=== PATIENT | female | born 1950 | race Two or more races ===

== ENCOUNTER 2025-02-16 22:43 | Inpatient (IN) | payer BC, OTHER ==
[~2025-02-16] VITALS: Ht 162.6 cm; Wt 73.0 kg
[2025-02-16] MEDS: SODIUM CHLORIDE 0.9% 1,000 ML IVB ONE (23:45)
--- NOTE | 2025-02-16 23:45 | ED.PDOC ---
GI ASSESSMENT HPI Comments 79-year-old female who came to ER for abdominal pain. Patient does have history of hypertension and liver cirrhosis. States for the past month she has been having diffuse abdominal pain and abdominal distention associated episodes of diarrhea. 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 Family History Family History: Reviewed,noncontributory to illness Social History Smoker: Non-Smoker Alcohol: Denies ETOH Use Drugs: Denies Drug Use Lives In: Home Constitutional: denies: chills, diaphoresis, fatigue, fever, malaise, sweats, weakness, others EENTM: denies: blurred vision, double vision, ear bleeding, ear discharge, ear drainage, ear pain, ear ringing, eye pain, eye redness, hearing loss, mouth pain, mouth swelling, nasal discharge, nose bleeding, nose congestion, nose pain, photophobia, tearing, throat pain, throat swelling, voice changes, others Respiratory: denies: cough, hemoptysis, orthopnea, SOB at rest, shortness of breath, SOB with excertion, stridor, wheezing, others Cardiovascular: denies: chest pain, dizzy spells, diaphoresis, Dyspnea on exertion, edema, irregular heart beat, left arm pain, lightheadedness, palpitations, PND, syncope, others Gastrointestinal: reports: abdomen distended, abdominal pain, diarrhea; denies: blood streaked bowels, constipated, dysphagia, difficulty swallowing, hematemesis, melena, nausea, poor appetite, poor fluid intake, rectal bleeding, rectal pain, vomiting, others Genitourinary: denies: abnormal vagina bleeding, burning, dyspareunia, dysuria, flank pain, frequency, hematuria, incontinence, pain, , vagina discharge, urgency, others Neurological: denies: dizziness, fainting, headache, left sided numbness, left sided weakness, numbness, paresthesia, pre-existing deficit, right sided numbness, right sided weakness, seizure, speech problems, tingling, tremors, weakness, others Musculoskeletal: denies: back pain, gout, joint pain, joint swelling, muscle pain, muscle stiffness, neck pain, others Integumetry: denies: bruises, change in color, change in hair/nails, dryness, laceration, lesions, lumps, rash, wounds, others Allergic/Immunocompromised: denies: Difficulty Healing, Frequent Infections, Hives, Itching, others Hematologic/Lymphatic: denies: anemia, blood clots, easy bleeding, easy bruising, swollen glands, others Endocrine: denies: excessive hunger, excessive sweating, excessive thirst, excessive urination, flushing, intolerance to cold, intolerance to heat, unexplained weight gain, unexplained weight loss, others Psychiatric: denies: anxiety, bipolar disorder, depression, hopeless, panic disorder, schizophrenia, sleepless, suicidal, others Physical Exam General Appearance: No Apparent Distress, Normal HEENT: Normal ENT Inspection, Pharynx Normal, TMs Normal Neck: Full Range of Motion, Non-Tender, Normal, Normal Inspection Respiratory: Chest Non-Tender, Lungs Clear, No Accessory Muscle Use, No Respiratory Distress, Normal Breath Sounds Cardiovascular: No Edema, No JVD, No Murmur, No Gallop, Normal Peripheral Pulses, Regular Rate/Rhythm Breast Exam: Deferred Gastrointestinal: No Organomegaly, Non Tender, No Pulsatile Mass, Normal Bowel Sounds, Soft Genitalia: Deferred Pelvic: Deferred Rectal: Deferred Extremities: No calf tenderness, Normal capillary refill, Normal inspection, Normal range of motion, Non-tender, No pedal edema Musculoskeletal : Apperance: Normal Neurologic: Alert, para professional II-XII nml as Tested, No Motor Deficits, Normal Affect, Normal Mood, No Sensory Deficits Cerebellar Function: Normal Reflexes: Normal Skin: Dry, Normal Color, Warm Lymphatic: No Adenopathy EKG EKG : Pulse Rate (adult): 78 Comments Accelerated junctional rhythm Was a procedure done? Was a procedure done?: No GI differential Dx Differential Diagnosis: Diverticular disease, Gastritis/PUD, Gastroenteritis, Pancreatitis X-Ray, Labs, Meds, VS Vital Signs Date Time Temp Pulse Resp B/P (MAP) Pulse Ox O2 Delivery O2 Flow Rate FiO2 02/17/25 02:18 79 20 105/72 (83) 99 02/17/25 01:02 72 18 99/51 (67) 97 02/17/25 00:14 75 19 94 Room Air* 0 21 02/17/25 00:14 98.4 75 18 97/58 (71) 94 98.4 02/16/25 23:45 78 02/16/25 22:51 97.6 78 16 130/97 95 97.6 02/16/25 22:47 78 Lab Test 02/16/25 23:57 Range/Units White Blood Count 10.2 4.4-10.8 10^3/uL Red Blood Count 4.50 4.0-5.20 10^6/uL Hemoglobin 13.6 12.2-16.2 g/dL Hematocrit 40.9 36.0-46.0 % Mean Corpuscular Volume 90.9 80.0-100.0 fL Mean Corpuscular Hemoglobin 30.1 28.0-32.0 pg Mean Corpuscular Hemoglobin Concent 33.2 32.0-36.0 g/dL Red Cell Distribution Width 18.8 H 11.8-14.3 % Platelet Count 334 140-450 10^3/uL Mean Platelet Volume 8.7 6.9-10.8 fL Neutrophils (%) (Auto) 77.8 37.0-80.0 % Lymphocytes (%) (Auto) 10.6 10.0-50.0 % Monocytes (%) (Auto) 10.5 0.0-12.0 % Eosinophils (%) (Auto) 0.9 0.0-7.0 % Basophils (%) (Auto) 0.2 0.0-2.0 % Neutrophils # (Auto) 7.9 1.6-8.6 10 ^3/uL Lymphocytes # (Auto) 1.1 0.4-5.4 10 ^3/uL Monocytes # (Auto) 1.1 0-1.3 10 ^3/uL Eosinophils # (Auto) 0.1 0-0.8 10 ^3/uL Basophils # (Auto) 0 0-0.2 10 ^3/uL Nucleated Red Blood Cells 0.0 % Sodium Level 136 136-145 mmol/L Potassium Level 7.1 *H 3.5-5.1 mmol/L Chloride Level 107 98-107 mmol/L Carbon Dioxide Level 21 20-31 mmol/L Anion Gap 8 5-15 Blood Urea Nitrogen 25 H 9-23 mg/dL Creatinine 1.93 H 0.550-1.02 mg/dL Glomerular Filtration Rate Calc 27 >90 mL/min BUN/Creatinine Ratio 13.0 10.0-20.0 Serum Glucose 98 74-106 mg/dL Calcium Level 8.8 8.7-10.4 mg/dL Total Bilirubin 4.5 H 0.2-1.0 mg/dL Aspartate Amino Transferase (AST) 105 H 13-40 U/L Alanine Aminotransferase (ALT) 128 H 7-40 U/L Alkaline Phosphatase 990 H 46-116 U/L Total Protein 5.2 L 5.7-8.2 g/dL Albumin 2.7 L 3.2-4.8 g/dL Lipase 25 12-53 U/L Current Medications Medications (Trade) Dose Ordered Sig/Zahraa Route Start Time Stop Time Status Last Admin Sodium Chloride 1,000 ml @ 1,000 mls/hr Q1H ONCE IVB 02/16/25 23:45 02/17/25 00:44 DC 02/16/25 23:45 Time of 1ST Reevaluation: 23:43 Reevaluation 1ST: Unchanged Patient Education/Counseling: Diagnosis, Treatment Family Education/Counseling: No Family Present SEPSIS Sepsis Screen Date sepsis recognized/suspect: Feb 16, 2025 Time Sepsis recognized/suspect: 2301 Recent Procedure: No On Antibiotic Therapy: No Respiratory Rate >20: No Heart Rate >90: No Temp<36 C (96.8 F) or >38.3 C: No SBP <90 or MAP <65 mmHG: No New Acute Mental Status Change: No Is the patient on CPAP, BIPAP,: No Physician Orders Electrocardigram (02/16/25 22:49) Urinalysis (02/16/25 23:43) Ct Ab Pel Wo Con-No Oral Or Iv (02/16/25 23:43) Sodium Zirconium Cyclosilicate (Lokelma) (02/17/25 03:45) Insulin R (Human) (Insulin R) (02/17/25 03:45) Dextrose 50% Syringe (02/17/25 03:45) Vital Signs Date Time Temp Pulse Resp B/P (MAP) Pulse Ox O2 Delivery O2 Flow Rate FiO2 02/17/25 02:18 79 20 105/72 (83) 99 02/17/25 01:02 72 18 99/51 (67) 97 02/17/25 00:14 75 19 94 Room Air* 0 21 02/17/25 00:14 98.4 75 18 97/58 (71) 94 98.4 02/16/25 23:45 78 02/16/25 22:51 97.6 78 16 130/97 95 97.6 02/16/25 22:47 78 Laboratory Tests Test 02/16/25 23:57 White Blood Count 10.2 10^3/uL (4.4-10.8) Medications Medications Dose Ordered Sig/Zahraa Route Start Time Stop Time Status Last Admin Dose Admin Sodium Chloride 1,000 ml @ 1,000 mls/hr Q1H ONCE IVB 02/16/25 23:45 02/17/25 00:44 DC 02/16/25 23:45 Departure 1 Departure Time of Disposition: 03:40 Impression: Primary Impression: Liver cirrhosis Additional Impressions: Acute renal failure Hyperkalemia Disposition: ADMITTED INPATIENT Admit to: Tele Condition: Critical Comments 74-year-old female with a history of liver cirrhosis now with generalized abdominal pain. Her CT shows cirrhosis and some ascites. Her lab review shows a high BUN creatinine of 25 and 1.93. LFT Ts are elevated. Potassium is high at 7.1. I ordered Lokelma, insulin and dextrose to help with the potassium. Patient will need to be admitted for supportive care and further workup. Critical Care Note Critical Care Time?: Yes (35 min-critical care time only) Critical care comment: Total critical care time: Approximately 36 minutes Due to a high probability of clinically significant, life threatening deterio ration, the patient required my highest level of preparedness to intervene emergently and I personally spent this critical care time directly and personally managing the patient. This critical care time included obtaining a history; examining the patient; pulse oximetry; ordering and review of studies; arranging urgent treatment with development of a management plan; evaluation of patient's response to treatment; frequent reassessment; and, discussions with other providers. This critical care time was performed to assess and manage the high probability of imminent, life-threatening deterioration that could result in multi-organ failure. It was exclusive of separately billable procedures and treating other patients. Stability Stability form required: No Heart Score Heart Score: Heart Score Response (Comments) Value History N/A 0 EKG N/A 0 Age N/A 0 Risk Factors N/A 0 Troponin N/A 0 Total 0 I personally scribed for KENNY MORRISSEY MD ([email or web address]) on 02/16/25 at 23:45. Electronically submitted by Tay Araya ([facility]). KENNY MORRISSEY MD Feb 16, 2025 23:45
[2025-02-17] VITALS (36 sets, daily range): BP systolic 85–113; BP diastolic 50–69; PULSE 68–111; RESP 10–25; TEMP 97.6–98.2; O2SAT 94–98
[2025-02-17] MEDS: IOHEXOL 300 MG/ML 100ML BOTTLE IJ ONE (00:16)
[2025-02-17 00:24] LABS: Hematocrit 40.9 % (36.0-46.0); Hemoglobin 13.6 g/dL (12.2-16.2); Mean Corpuscular Hemoglobin 30.1 pg (28.0-32.0); Mean Corpuscular Volume 90.9 fL (80.0-100.0); Nucleated Red Blood Cells % 0.0 %
[2025-02-17 00:27] LABS: Anion Gap 8 (5-15); BUN/Creatinine Ratio 13.0 (10.0-20.0); Calcium 8.8 mg/dL (8.7-10.4); Carbon Dioxide 21 mmol/L (20-31); Chloride 107 mmol/L (98-107); Glucose 98 mg/dL (74-106); Lipase 25 U/L (12-53)
[2025-02-17 00:30] LABS: Alanine Aminotransferase 128 U/L (7-40); Albumin 2.7 g/dL (3.2-4.8); Bilirubin, Total 4.5 mg/dL (0.2-1.0); Blood Urea Nitrogen 25 mg/dL (9-23); Sodium 136 mmol/L (136-145); Total Protein 5.2 g/dL (5.7-8.2)
[2025-02-17 00:33] LABS: Potassium 7.1 mmol/L (3.5-5.1)
[2025-02-17 00:49] LABS: Alkaline Phosphatase 990 U/L (46-116)
--- NOTE | 2025-02-17 03:28 | DVH ---
Exam: CT CT AB PEL WO CON-NO ORAL OR IV History: abd pain Comparison Study: None Technique: Multidetector spiral CT of the chest, abdomen and pelvis was performed from lower neck to pubic symphysis Axial, coronal and sagittal multiplanar reformats were performed by the technologist on a separate workstation. Radiation Dose : 1. Chest/Abdomen/Pelvis: CTDIvol 17.46 mGy, DLP 1058.29 mGy*cm. Findings: Lower neck: Normal thyroid. Lungs: Moderate left and small right pleural effusions with adjacent atelectasis. 6 mm anterior right upper lobe pulmonary nodule. No focal consolidation or pneumothorax. Heart/Vascular Structures: Normal heart size. Trace pericardial effusion versus thickening. Lymph Nodes: No adenopathy Pleura: No pleural effusion or significant pneumothorax. Liver: Cirrhotic hepatic morphology. The liver is otherwise normal in size. No focal lesions. Normal hepatic vascular enhancement. Gallbladder and Biliary Tree: Status post cholecystectomy. Spleen: Unremarkable Pancreas: The pancreas is normal in appearance without focal lesions or abnormal enhancement. Adrenal Glands: Unremarkable Kidneys: Moderate bilateral renal atrophy. Kidneys otherwise demonstrate normal symmetric enhancement without focal lesions, calculi or hydronephrosis. 4.1 cm peripherally calcified soft tissue attenuation nodule within the superior right renal pole. Bladder: Unremarkable Bowel: The stomach is grossly normal in appearance. Small bowel and colon are normal in caliber and distribution. The appendix is not visualized; however, no secondary findings of acute appendicitis identified. Ascites: Large volume abdominopelvic ascites. Lymphadenopathy: No mesenteric, retroperitoneal or periportal lymphadenopathy. Abdominal Wall and Mesentery: Moderate diffuse anasarca. Vasculature: The visualized abdominal aorta is normal in size and caliber. Abdominal and pelvic vessels demonstrate normal enhancement. Pelvic Organs: Unremarkable Musculoskeletal: No aggressive focal bony lesions, acute fractures or dislocation. IMPRESSION: 1. Moderate left and small right pleural effusions with adjacent atelectasis. 2. 2.6 mm anterior right upper lobe pulmonary nodule. 3. Cirrhosis 4. Large volume abdominopelvic ascites. 5. Moderate diffuse anasarca. 6. 4.1 cm peripherally calcified soft tissue attenuation nodule within the superior right renal pole.
[2025-02-17] MEDS: SODIUM ZIRCONIUM CYCL 10 GM PAK PO ONE (04:41)
[2025-02-17] MEDS: DEXTROSE (50%) 50ML SYRG IV ONE ×2 (04:42→08:39)
[2025-02-17] MEDS: InsuLIN REG 1unit/0.01ml Soln (100units/ml) IV ONE ×2 (04:44→08:39)
[2025-02-17] MEDS: FUROSEMIDE 40 MG/4 ML VIAL IV ONE (05:32)
[2025-02-17 06:42] LABS: INR 2.66 (0.9-1.15); Prothrombin Time 25.6 sec (9.3-11.8); Sodium 138 mmol/L (136-145)
[2025-02-17 06:43] LABS: Anion Gap 8 (5-15); Carbon Dioxide 22 mmol/L (20-31)
[2025-02-17 06:44] LABS: Calcium 9.0 mg/dL (8.7-10.4)
[2025-02-17 06:48] LABS: BUN/Creatinine Ratio 13.7 (10.0-20.0)
[2025-02-17 06:57] LABS: Blood Urea Nitrogen 28 mg/dL (9-23); Chloride 108 mmol/L (98-107); Glucose 161 mg/dL (74-106); Potassium 6.0 mmol/L (3.5-5.1)
[2025-02-17] MEDS: ALBUTEROL SULF 2.5 MG/0.5ML(0.5%) NEB SOLN ONE (07:34)
--- NOTE | 2025-02-17 07:39 | DVHHP2 ---
Admitting Diagnosis: Liver Cirrhosis, Ascites, GRACE, Hyperkalemia, Elevated LFT's History of Present Illness History Source: Patient, Family Exam Limitations: No limitations HPI Mrs. Melvina Santiago is an 79-year-old female with a history of hypertension, hyperlipidemia , recent liver cirrhosis diagnosis who presents with a chief complaint of abdominal pain with distention. Patient family reports patient was recently diagnosed with liver cirrhosis a month ago and has been progressively getting worse, abdominal distention has increased significantly in the past couple of days, reported patient has been on PO Eliquis 2.5 mg BID for liver thrombosis, and has been taking PO Potassium for low potassium levels. States for the past month she has been having diffuse abdominal pain and abdominal distention associated episodes of diarrhea. Denies any chest pain, dyspnea, nausea or vomiting. Patient denies any history of alcohol consumption. Patient admitted for further evaluation and treatment. Past Medical History Cardiac: HTN, Hyperlipidemia Pulmonary: No pertinent Hx Central Nervous System: No pertinent Hx GI: No pertinent Hx Hemotology/Oncology: No pertinent Hx Hepatobiliary: Cirrhosis Psychiatric: No pertinent Hx Musculoskeletal: No pertinent Hx Rheumotologic: No pertinent Hx Infectious Disease: No peritnent Hx ENT: No pertinent Hx Renal/: No pertinent Hx Endocrine: No pertinent Hx Dermatology: No pertinent Hx Smoker: No Hx (Negative) Alocohol: None Drugs: None Lives with: With family Domestic Violence: Neg Review of Systems Constitutional: No symptom reported Ears, Nose, & Throat: No symptom reported Eyes: No symptom reported Pulmonary/Respiratory: No symptom reported Cardiovascular: No symptom reported Gastrointestinal: Abdominal Pain, Other (abdominal distention) Genitourinary: No symptom reported Musculoskeletal: No symptom reported Skin: No symptom reported Psychiatric: No symptom reported Endocrine: No symptom reported Hemotologic/Lymphatic: No symptom reported H&P Exam Vital Signs Vital Signs Date Time Temp Pulse Resp B/P (MAP) Pulse Ox O2 Delivery O2 Flow Rate FiO2 02/17/25 06:57 83 23 87/61 (70) 95 02/17/25 00:14 Room Air* 0 21 02/17/25 00:14 98.4 98.4 General Appeara: Other (ill appearing, jaundice) Head Exam: Normal inspection Neck Exam: Normal inspection, Non-tender, Normal alignment Eye Exam: bilateral eye Normal inspection, bilateral eye PERRL, bilateral eye EOMI Ear Exam: bilateral ear Auricle normal Nasal Exam: Normal inspection Mouth: Normal Inspection Pulmonary/Respiratory: Normal inspection, Normal breath sounds, Chest non- tender, Lungs clear Cardiovascular/Chest: Normal inspection, Regular rate, Normal Rhythm Peripheral Pulses: 2+ dorsalis pedis (R), 2+ dorsalis pedis (L), 2+ Radial (R), 2+ Radial (L) Abdominal Exam: Normal bowel sounds, Other (distention) Abdominal Pain Onset Location: Generalized abdomen Legs: bilateral leg swelling [employer] WORK[employer] Exam: Normal hearing, Normal speech, PERRL Neuro/Mental St: Alert, Oriented Appearance: Appropriate appearance, Appropriate insight Eye contact/ Speech: Cooperative, Good eye contact, Normal speech Thoughts/Psych: Normal thought pattern Skin Exam: Normal inspection, Warm/dry, Jaundice SEPSIS Sepsis Screen Date sepsis recognized/suspect: Feb 17, 2025 Time Sepsis recognized/suspect: 25 Recent Procedure: No On Antibiotic Therapy: No Respiratory Rate >20: No Heart Rate >90: No Temp<36 C (96.8 F) or >38.3 C: No SBP <90 or MAP <65 mmHG: No New Acute Mental Status Change: No Is the patient on CPAP, BIPAP,: No Physician Orders Urinalysis (02/16/25 23:43) Ct Ab Pel Wo Con-No Oral Or Iv (02/16/25 23:43) *Dr. Coyle [facility] (02/17/25 05:03) * Radiologist Consult (02/17/25 05:03) *Consult (02/17/25 05:03) * [facility] Supervisor Dry Paste (02/17/25 05:09) Comprehensive Metabolic Panel (02/18/25 05:00) Comprehensive Metabolic Panel (02/19/25 05:00) Comprehensive Metabolic Panel (02/20/25 05:00) Complete Blood Count (02/18/25 05:00) Complete Blood Count (02/19/25 05:00) Complete Blood Count (02/20/25 05:00) Electrocardigram (02/17/25 07:17) Potassium (02/17/25 11:17) Insulin R (Human) (Insulin R) (02/17/25 07:30) Dextrose 50% Syringe (02/17/25 07:30) Albuterol Medneb (Ventolin Medneb) (02/17/25 07:30) Sodium Bicarb 50meq/50ml Syr (02/17/25 07:30) Admit (02/17/25 07:18) Stat Ekg For Chest Pain (02/17/25 07:18) Notify Of Changes From Base (02/17/25 07:18) Billing Coordinator For 24 Hours (02/17/25 07:18) Emergency Dysrhythmia Protocol (02/17/25 07:18) Rhythm Strips Once Every Shift (02/17/25 07:18) Oxygen By Nasal Cannula (02/17/25 07:18) Vital Signs Date Time Temp Pulse Resp B/P (MAP) Pulse Ox O2 Delivery O2 Flow Rate FiO2 02/17/25 06:57 83 23 87/61 (70) 95 02/17/25 05:32 98/60 02/17/25 04:00 93 15 98/60 (73) 90 02/17/25 02:18 79 20 105/72 (83) 99 02/17/25 01:02 72 18 99/51 (67) 97 02/17/25 00:14 75 19 94 Room Air* 0 21 02/17/25 00:14 98.4 75 18 97/58 (71) 94 98.4 02/16/25 23:45 78 Laboratory Tests Test 02/16/25 23:57 White Blood Count 10.2 10^3/uL (4.4-10.8) Medications Medications Dose Ordered Sig/Zahraa Route Start Time Stop Time Status Last Admin Dose Admin Dextrose 50 ml ONCE ONCE IV 02/17/25 03:45 02/17/25 03:46 DC 02/17/25 04:42 50 ML Insulin Human Regular 10 units ONCE ONCE IV 02/17/25 03:45 02/17/25 03:46 DC 02/17/25 04:44 10 UNITS Sodium Chloride 1,000 ml @ 1,000 mls/hr Q1H ONCE IVB 02/16/25 23:45 02/17/25 00:44 DC 02/16/25 23:45 1,000 MLS/HR Zirconium Oxide 10 gm ONCE ONCE PO 02/17/25 03:45 02/17/25 03:46 DC 02/17/25 04:41 10 GM Labs/Xrays Labs Test 02/17/25 05:23 02/17/25 04:31 02/16/25 23:57 Range/Units Prothrombin Time 25.6 H 9.3-11.8 sec Prothrombin Time INR 2.66 H 0.9-1.15 Sodium Level 138 136-145 mmol/L Potassium Level 6.0 *H 3.5-5.1 mmol/L Chloride Level 108 H 98-107 mmol/L Carbon Dioxide Level 22 20-31 mmol/L Anion Gap 8 5-15 Blood Urea Nitrogen 28 H 9-23 mg/dL Creatinine 2.05 H 0.550-1.02 mg/dL Glomerular Filtration Rate Calc 25 >90 mL/min BUN/Creatinine Ratio 13.7 10.0-20.0 Serum Glucose 161 H 74-106 mg/dL Calcium Level 9.0 8.7-10.4 mg/dL POC Glucose 83 70-106 mg/dl White Blood Count 10.2 4.4-10.8 10^3/uL Red Blood Count 4.50 4.0-5.20 10^6/uL Hemoglobin 13.6 12.2-16.2 g/dL Hematocrit 40.9 36.0-46.0 % Mean Corpuscular Volume 90.9 80.0-100.0 fL Mean Corpuscular Hemoglobin 30.1 28.0-32.0 pg Mean Corpuscular Hemoglobin Concent 33.2 32.0-36.0 g/dL Red Cell Distribution Width 18.8 H 11.8-14.3 % Platelet Count 334 140-450 10^3/uL Mean Platelet Volume 8.7 6.9-10.8 fL Neutrophils (%) (Auto) 77.8 37.0-80.0 % Lymphocytes (%) (Auto) 10.6 10.0-50.0 % Monocytes (%) (Auto) 10.5 0.0-12.0 % Eosinophils (%) (Auto) 0.9 0.0-7.0 % Basophils (%) (Auto) 0.2 0.0-2.0 % Neutrophils # (Auto) 7.9 1.6-8.6 10 ^3/uL Lymphocytes # (Auto) 1.1 0.4-5.4 10 ^3/uL Monocytes # (Auto) 1.1 0-1.3 10 ^3/uL Eosinophils # (Auto) 0.1 0-0.8 10 ^3/uL Basophils # (Auto) 0 0-0.2 10 ^3/uL Nucleated Red Blood Cells 0.0 % Total Bilirubin 4.5 H 0.2-1.0 mg/dL Aspartate Amino Transferase (AST) 105 H 13-40 U/L Alanine Aminotransferase (ALT) 128 H 7-40 U/L Alkaline Phosphatase 990 H 46-116 U/L Total Protein 5.2 L 5.7-8.2 g/dL Albumin 2.7 L 3.2-4.8 g/dL Lipase 25 12-53 U/L Assessment/Plan Problem List: (1) Liver cirrhosis (2) Acute renal failure (3) Hyperkalemia Plan This is an 79-year-old female with a known history of hypertension, hyperlipidemia , recent liver cirrhosis diagnosis who presents to the hospital with abdominal pain with distention. Patient was found to have 1. Liver Cirrhosis 2. Ascites 3. Pleural Effusions 4. Acute Kidney Injury 5. Hyperkalemia 6. Elevated LFT's 7. Hypertension 8. Hyperlipidemia Plan Admit ICU Interventional Radiology consultation for Paracentesis Nephrology consultation, Monitor BMP, electrolytes Pulmonology consultation thoracentesis Gastroenterology consultation Daily [facility] Social Service consult Discussed all above with patient and patient family who verbalized agreement and understanding of care plan. All questions were answered. Discussed with supervising MD. Plan discussed with: Patient, Other Code Visit Code Visit Total Time (mins): 45 Additional Comments Additional Comments Additional Comments 79-year-old female with a known history of hypertension, dyslipidemia, recent diagnosis of liver cirrhosis, portal vein thrombosis currently on anticoagulation presented to the hospital with the abdominal pain found to have 1. Acute hyperkalemia suspect triamterene induced 2. Acute kidney injury rule out hepatorenal syndrome 3. GRACE suspect secondary to vasomotor nephropathy 4. Portal vein thrombosis 5. Liver cirrhosis with a ascites 6. Elevated liver function tests 7. Secondary Coagulopathy due to liver disease -IR consult for paracentesis, we will resume Eliquis after the procedure, hold triamterene, GI consultation. ANNA CHAVEZ Feb 17, 2025 07:39 WM ARANGO MD Feb 17, 2025 14:07
[2025-02-17] MEDS: ALBUTEROL SULF 2.5 MG/0.5ML(0.5%) NEB SOLN NEB ONE (07:51)
[2025-02-17] MEDS: SODIUM BICARB 8.4% 50Meq/50ml SYR INJ IV ONE (08:39)
[2025-02-17 10:22] LABS: Chloride 107 mmol/L (98-107); Potassium 5.2 mmol/L (3.5-5.1); Sodium 138 mmol/L (136-145)
[2025-02-17 10:23] LABS: Anion Gap 11 (5-15); Carbon Dioxide 20 mmol/L (20-31)
[2025-02-17 10:24] LABS: Calcium 8.8 mg/dL (8.7-10.4)
[2025-02-17 10:28] LABS: BUN/Creatinine Ratio 12.6 (10.0-20.0)
[2025-02-17 10:31] LABS: Blood Urea Nitrogen 25 mg/dL (9-23); Glucose 164 mg/dL (74-106)
[2025-02-17] MEDS ORDERED: PHYTONADIONE (VIT K)10 MG/ML 1ML VIAL IV ONE (12:15)
[2025-02-17] MEDS: NOREPINEPHRINE 8 MG/250ML KIT 250 ML IV SCH (13:40)
--- NOTE | 2025-02-17 15:27 | DVHINCON2 ---
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 Was seen in the emergency room where imaging demonstrated moderate ascites and she was admitted for further workup. Chest x-ray demonstrated bilateral pleural effusions and pulmonology was consulted to assist in management. Past Medical History Cardiac: No pertinent Hx Pulmonary: No pertinent Hx Central Nervous System: No pertinent Hx GI: No pertinent Hx Hemotology/Oncology: No pertinent Hx Hepatobiliary: Cirrhosis Psychiatric: No pertinent Hx Musculoskeletal: No pertinent Hx Rheumotologic: No pertinent Hx Infectious Disease: No peritnent Hx ENT: No pertinent Hx Renal/: No pertinent Hx Endocrine: No pertinent Hx Dermatology: No pertinent Hx Past Surgical History: No pertinent Hx Family History: No pertinent Hx Smoker: No Hx (Negative) Alocohol: None Drugs: None Lives with: With family Domestic Violence: Neg Review of Systems Gastrointestinal: Other (distention ) H&P Exam Vital Signs Vital Signs Date Time Temp Pulse Resp B/P (MAP) Pulse Ox O2 Delivery O2 Flow Rate FiO2 02/17/25 13:40 80/53 02/17/25 10:59 105 19 96 02/17/25 07:57 97.8 97.8 02/17/25 07:57 Room Air* 0 21 General Appeara: Well developed, Well nourished, Normal Appearance Head Exam: Normal inspection Neck Exam: Normal inspection, Non-tender, Normal alignment Eye Exam: bilateral eye Normal inspection, bilateral eye PERRL, bilateral eye EOMI Ear Exam: bilateral ear Auricle normal, bilateral ear Canal normal, bilateral ear TM normal Nasal Exam: Normal inspection Mouth: Normal Inspection Pulmonary/Respiratory: Decreased breath sounds Cardiovascular/Chest: Normal inspection Peripheral Pulses: 4+ Radial (R), 4+ Radial (L), 4+ Brachial (R), 4+ Brachial (L) Labs/Xrays Labs Test 02/17/25 09:57 02/17/25 08:33 02/17/25 05:23 02/16/25 23:57 Range/Units Sodium Level 138 136-145 mmol/L Potassium Level 5.2 H 3.5-5.1 mmol/L Chloride Level 107 98-107 mmol/L Carbon Dioxide Level 20 20-31 mmol/L Anion Gap 11 5-15 Blood Urea Nitrogen 25 H 9-23 mg/dL Creatinine 1.98 H 0.550-1.02 mg/dL Glomerular Filtration Rate Calc 26 >90 mL/min BUN/Creatinine Ratio 12.6 10.0-20.0 Serum Glucose 164 H 74-106 mg/dL Calcium Level 8.8 8.7-10.4 mg/dL POC Glucose 112 H 70-106 mg/dl Prothrombin Time 25.6 H 9.3-11.8 sec Prothrombin Time INR 2.66 H 0.9-1.15 White Blood Count 10.2 4.4-10.8 10^3/uL Red Blood Count 4.50 4.0-5.20 10^6/uL Hemoglobin 13.6 12.2-16.2 g/dL Hematocrit 40.9 36.0-46.0 % Mean Corpuscular Volume 90.9 80.0-100.0 fL Mean Corpuscular Hemoglobin 30.1 28.0-32.0 pg Mean Corpuscular Hemoglobin Concent 33.2 32.0-36.0 g/dL Red Cell Distribution Width 18.8 H 11.8-14.3 % Platelet Count 334 140-450 10^3/uL Mean Platelet Volume 8.7 6.9-10.8 fL Neutrophils (%) (Auto) 77.8 37.0-80.0 % Lymphocytes (%) (Auto) 10.6 10.0-50.0 % Monocytes (%) (Auto) 10.5 0.0-12.0 % Eosinophils (%) (Auto) 0.9 0.0-7.0 % Basophils (%) (Auto) 0.2 0.0-2.0 % Neutrophils # (Auto) 7.9 1.6-8.6 10 ^3/uL Lymphocytes # (Auto) 1.1 0.4-5.4 10 ^3/uL Monocytes # (Auto) 1.1 0-1.3 10 ^3/uL Eosinophils # (Auto) 0.1 0-0.8 10 ^3/uL Basophils # (Auto) 0 0-0.2 10 ^3/uL Nucleated Red Blood Cells 0.0 % Total Bilirubin 4.5 H 0.2-1.0 mg/dL Aspartate Amino Transferase (AST) 105 H 13-40 U/L Alanine Aminotransferase (ALT) 128 H 7-40 U/L Alkaline Phosphatase 990 H 46-116 U/L Total Protein 5.2 L 5.7-8.2 g/dL Albumin 2.7 L 3.2-4.8 g/dL Lipase 25 12-53 U/L Assessment/Plan Plan Impression Decompensated liver disease Pleural effusions Coagulopathy Ascites Patient seen and examined Events Low oxygen requirements On room air Vital signs stable Labs and imaging reviewed CT of the abdomen shows moderate ascites Bilateral pleural effusions Management Supplemental oxygen as needed Titrate to maintain sats 90% or above Incentive spirometry Bronchodilators as needed Monitor renal function Monitor electrolytes Supplement as needed Correct coagulopathy Repeat PT and INR in AM DVT prophylaxis Plan discussed with: Patient JOHNNY DORSEY MD Feb 17, 2025 15:27
--- NOTE | 2025-02-17 16:16 | DVHINCON2 ---
Date of service: Feb 17, 2025 Reason for Consultation GRACE History of Present Illness 74 year old female recently diagnosis portal vein thrombosis in [facility] 12/2024 and cirrhosis w/ hyperbilirubinemia CT masses in the jejunum s/p biopsy presents with weakness and abd distension. She is found to have K 7.0 cr 1.93 baseline cr 1.0 She is transferred to icu due to hypotension requiring levophed she was discharged on eliquis, norvasc and triampterene-hctz in [facility] Past Medical History as above Allergies: Coded Allergies: Penicillins (Verified Allergy, Unknown, 02/17/25) Current Medications Current Medications Medications (Trade) Dose Ordered Sig/Zahraa Route PRN Reason Start Time Stop Time Status Last Admin Norepinephrine Bitartrate 250 ml @ 3.75 mls/hr Q24H IV 02/17/25 08:30 02/17/25 13:40 Review of Systems abd distension H&P Exam Vital Signs/I&O Vital Sign Date Time Temp Pulse Resp B/P (MAP) Pulse Ox O2 Delivery O2 Flow Rate FiO2 02/17/25 15:00 110 19 86/61 (69) 95 02/17/25 12:00 97.9 97.9 02/17/25 07:57 Room Air* 0 21 Intake and Output 02/16/25 02/17/25 19:00 07:00 Intake Total 1000 ml Balance 1000 ml Intake IV Total 1000 ml Physical Exam frail malnourished elderly female mild jaundice distended abd + fluid wave no ankle edema Labs/Diagnostic Data Labs/Diagnostic Data Laboratory Tests Test 02/17/25 09:57 02/17/25 08:33 02/17/25 05:23 02/17/25 04:31 Range/Units Sodium Level 138 138 136-145 mmol/L Potassium Level 5.2 H 6.0 *H 3.5-5.1 mmol/L Chloride Level 107 108 H 98-107 mmol/L Carbon Dioxide Level 20 22 20-31 mmol/L Anion Gap 11 8 5-15 Blood Urea Nitrogen 25 H 28 H 9-23 mg/dL Creatinine 1.98 H 2.05 H 0.550-1.02 mg/dL Glomerular Filtration Rate Calc 26 25 >90 mL/min BUN/Creatinine Ratio 12.6 13.7 10.0-20.0 Serum Glucose 164 H 161 H 74-106 mg/dL Calcium Level 8.8 9.0 8.7-10.4 mg/dL POC Glucose 112 H 83 70-106 mg/dl Prothrombin Time 25.6 H 9.3-11.8 sec Prothrombin Time INR 2.66 H 0.9-1.15 Test 02/16/25 23:57 Range/Units White Blood Count 10.2 4.4-10.8 10^3/uL Red Blood Count 4.50 4.0-5.20 10^6/uL Hemoglobin 13.6 12.2-16.2 g/dL Hematocrit 40.9 36.0-46.0 % Mean Corpuscular Volume 90.9 80.0-100.0 fL Mean Corpuscular Hemoglobin 30.1 28.0-32.0 pg Mean Corpuscular Hemoglobin Concent 33.2 32.0-36.0 g/dL Red Cell Distribution Width 18.8 H 11.8-14.3 % Platelet Count 334 140-450 10^3/uL Mean Platelet Volume 8.7 6.9-10.8 fL Neutrophils (%) (Auto) 77.8 37.0-80.0 % Lymphocytes (%) (Auto) 10.6 10.0-50.0 % Monocytes (%) (Auto) 10.5 0.0-12.0 % Eosinophils (%) (Auto) 0.9 0.0-7.0 % Basophils (%) (Auto) 0.2 0.0-2.0 % Neutrophils # (Auto) 7.9 1.6-8.6 10 ^3/uL Lymphocytes # (Auto) 1.1 0.4-5.4 10 ^3/uL Monocytes # (Auto) 1.1 0-1.3 10 ^3/uL Eosinophils # (Auto) 0.1 0-0.8 10 ^3/uL Basophils # (Auto) 0 0-0.2 10 ^3/uL Nucleated Red Blood Cells 0.0 % Sodium Level 136 136-145 mmol/L Potassium Level 7.1 *H 3.5-5.1 mmol/L Chloride Level 107 98-107 mmol/L Carbon Dioxide Level 21 20-31 mmol/L Anion Gap 8 5-15 Blood Urea Nitrogen 25 H 9-23 mg/dL Creatinine 1.93 H 0.550-1.02 mg/dL Glomerular Filtration Rate Calc 27 >90 mL/min BUN/Creatinine Ratio 13.0 10.0-20.0 Serum Glucose 98 74-106 mg/dL Calcium Level 8.8 8.7-10.4 mg/dL Total Bilirubin 4.5 H 0.2-1.0 mg/dL Aspartate Amino Transferase (AST) 105 H 13-40 U/L Alanine Aminotransferase (ALT) 128 H 7-40 U/L Alkaline Phosphatase 990 H 46-116 U/L Total Protein 5.2 L 5.7-8.2 g/dL Albumin 2.7 L 3.2-4.8 g/dL Lipase 25 12-53 U/L Assessment Acute kidney injury hemodynamic Portal vein thrombosis abdominal mass cirrhosis w/ ascites hyperkalemia shock levophed to keep map> 65 UA, upc, urine sodium strict I/o ammonia level GI and oncology. rec f/u pathology results from [facility] EG IV albumin possible paracentesis no potassium sparing diuretics at this time, hyperkalemia protocol Plan discussed with: Patient LYUBOV CASTILLO MD Feb 17, 2025 16:16
[2025-02-17] MEDS: ALBUMIN 25% 100 ML IV SCH (17:26)
[2025-02-18] VITALS (97 sets, daily range): BP systolic 77–116; BP diastolic 39–66; PULSE 37–133; RESP 10–23; TEMP 97–98.9; O2SAT 92–99
[2025-02-18 03:17] LABS: Hematocrit 37.8 % (36.0-46.0); Hemoglobin 12.6 g/dL (12.2-16.2); Mean Corpuscular Hemoglobin 30.1 pg (28.0-32.0); Mean Corpuscular Volume 90.3 fL (80.0-100.0); Nucleated Red Blood Cells % 0.1 %
[2025-02-18 03:32] LABS: INR 3.78 (0.9-1.15); Prothrombin Time 35.1 sec (9.3-11.8)
[2025-02-18 03:38] LABS: Urine Budding Yeast OCCASIONAL /hpf (None Seen)
[2025-02-18 03:40] LABS: Albumin 3.6 g/dL (3.2-4.8); Anion Gap 9 (5-15); BUN/Creatinine Ratio 14.6 (10.0-20.0); Calcium 9.4 mg/dL (8.7-10.4); Carbon Dioxide 22 mmol/L (20-31); Chloride 106 mmol/L (98-107); Glucose 95 mg/dL (74-106); Sodium 137 mmol/L (136-145); Total Protein 5.7 g/dL (5.7-8.2)
[2025-02-18 04:01] LABS: Urine Protein, UAD 1+ (Negative)
[2025-02-18 04:03] LABS: Blood Urea Nitrogen 27 mg/dL (9-23)
[2025-02-18 04:04] LABS: Alanine Aminotransferase 116 U/L (7-40); Alkaline Phosphatase 895 U/L (46-116); Bilirubin, Total 6.0 mg/dL (0.2-1.0)
[2025-02-18 04:05] LABS: Potassium 5.7 mmol/L (3.5-5.1)
[2025-02-18 04:10] LABS: Protein, Urine 87.1 mg/dL (1-14)
[2025-02-18] MEDS: DEXTROSE (50%) 50ML SYRG IV ONE ×3 (04:43→11:00)
[2025-02-18] MEDS: SODIUM BICARB 8.4% 50Meq/50ml SYR INJ IV ONE (04:43)
[2025-02-18] MEDS: CALCIUM GLUC 1,000mg/50ml-NS 50 ML IV ONE (04:43)
[2025-02-18] MEDS: SODIUM ZIRCONIUM CYCL 10 GM PAK PO ONE (04:44)
[2025-02-18] MEDS: InsuLIN REG 1unit/0.01ml Soln (100units/ml) IV ONE ×3 (04:48→11:00)
[2025-02-18] MEDS: SODIUM ZIRCONIUM CYCL 10 GM PAK PO SCH (10:25)
--- NOTE | 2025-02-18 10:58 | DVHPN2 ---
Progress Note Date Seen: Feb 18, 2025 Medical Necessity Reason Pt with a Central, PICC or Fol: No Subjective Changes from previous H/P or p: No Changes Objective vital signs Vital Sign Date Time Temp Pulse Resp B/P (MAP) Pulse Ox O2 Delivery O2 Flow Rate FiO2 02/18/25 08:30 93/52 02/18/25 07:30 12 96 Room Air* 0 21 02/18/25 07:30 68 02/18/25 04:00 97.2 97.2 Total Intake and Output 02/17/25 02/17/25 02/18/25 15:00 23:00 07:00 Intake Total 141.25 ml 318.25 ml Output Total 1 ml Balance 141.25 ml 317.25 ml medications Current Medications Medications Dose Ordered Sig/Zahraa Route Start Time Stop Time Status Last Admin Dose Admin Norepinephrine Bitartrate 250 ml @ 3.75 mls/hr Q24H IV 02/17/25 08:30 02/17/25 13:40 3.75 MLS/HR Zirconium Oxide 10 gm BID PO 02/18/25 10:00 02/22/25 09:59 02/18/25 10:25 10 GM Midodrine 10 mg TID@0600,1200,1800 PO 02/18/25 12:00 UNV Octreotide Acetate 100 mcg TID SUBCUT 02/18/25 14:00 UNV Examination: GENERAL:Abnormal, CVS:Normal, ABDOMEN:Abnormal laboratory and microbiology Laboratory Tests 02/18/25 07:56 02/18/25 02:43 Test 02/18/25 02:43 Range/Units Serum Glucose 95 74-106 mg/dL Problem List/Assessment/Plan Problem List/Assessment/Plan Acute kidney injury hemodynamic baseline renal function normal Portal vein thrombosis abdominal mass cirrhosis w/ ascites hyperkalemia shock levophed to keep map> 65-> can switch to midodrine, octreotide, albumin strict I/o ammonia level GI and oncology. rec f/u pathology results from [facility] EGD IV albumin possible paracentesis rec albumin w/ drainage no potassium sparing diuretics at this time, hyperkalemia protocol, lokelma BID Plan discussed with: Patient My Orders My Orders Orders - LYUBOV CASTILLO MD Procedure Category Date Status Time Sodium Zirconium PHA 02/18/25 In Process Cyclosilicate 10:00 Midodrine Tablet PHA 02/18/25 Logged (Proamatine Tablet) 12:00 Octreotide Acetate PHA 02/18/25 Logged (Sandostatin) 14:00 LYUBOV CASTILLO MD Feb 18, 2025 10:58
[2025-02-18] MEDS ORDERED: ALBUMIN 25% 100 ML IV ONE ×2 (11:30)
[2025-02-18] MEDS ORDERED: phytonadione 10 MG in SODIUM CHL 0.9% 50 ML IV ONE (11:30)
[2025-02-18] MEDS: phytonadione 10 MG in SODIUM CHL 0.9% 50 ML IV SCH (11:45)
--- NOTE | 2025-02-18 12:14 | DVHPN2 ---
Progress Note - Dictate Date Seen: Feb 18, 2025 Medical Necessity Reason Pt with a Central, PICC or Fol: No vital signs Vital Sign Date Time Temp Pulse Resp B/P (MAP) Pulse Ox O2 Delivery O2 Flow Rate FiO2 02/18/25 08:30 93/52 02/18/25 07:30 12 96 Room Air* 0 21 02/18/25 07:30 68 02/18/25 04:00 97.2 97.2 Total Intake and Output 02/17/25 02/17/25 02/18/25 15:00 23:00 07:00 Intake Total 141.25 ml 318.25 ml Output Total 1 ml Balance 141.25 ml 317.25 ml medications Current Medications Medications Dose Ordered Sig/Zahraa Route Start Time Stop Time Status Last Admin Dose Admin Norepinephrine Bitartrate 250 ml @ 3.75 mls/hr Q24H IV 02/17/25 08:30 02/17/25 13:40 3.75 MLS/HR Zirconium Oxide 10 gm BID PO 02/18/25 10:00 02/22/25 09:59 02/18/25 10:25 10 GM Midodrine 10 mg TIDWM@0600,1200,1800 PO 02/18/25 12:00 Octreotide Acetate 100 mcg TID SUBCUT 02/18/25 14:00 Albumin Human 100 ml @ 100 mls/hr Q1HR IV 02/19/25 12:00 02/19/25 13:59 Phytonadione 10 mg/Sodium Chloride 51 ml @ 204 mls/hr DAILY IV 02/18/25 11:45 02/20/25 10:14 laboratory and microbiology Laboratory Tests 02/18/25 07:56 02/18/25 02:43 Test 02/18/25 02:43 Range/Units Serum Glucose 95 74-106 mg/dL Assessment/Plan Impression Decompensated liver disease Pleural effusions Coagulopathy Ascites Patient seen and examined on the ICU on levophed drip abd distended pt coagulopathic receiving vitain K no distress Events Low oxygen requirements On room air Vital signs stable Labs and imaging reviewed CT of the abdomen shows moderate ascites Bilateral pleural effusions Management Supplemental oxygen as needed Titrate to maintain sats 90% or above Incentive spirometry Bronchodilators as needed Monitor renal function Monitor electrolytes Supplement as needed Correct coagulopathy consider paracent in 1-2 days dvt proph crit care time 35 min Plan discussed with: Patient JOHNNY DORSEY MD Feb 18, 2025 12:14
[2025-02-18] MEDS: MIDODRINE HCL 10 MG TAB PO SCH (13:54)
[2025-02-18] MEDS: OCTREOTIDE ACETATE 100 MCG/ML VL SUBCUT SCH (13:54)
--- NOTE | 2025-02-18 14:47 | DVHPN2 ---
Subjective Patient's upgraded to D OU because she is requiring Levophed. Changes from previous H/P or p: No Changes Objective Vitals Vital Signs Date Time Temp Pulse Resp B/P (MAP) Pulse Ox O2 Delivery O2 Flow Rate FiO2 02/18/25 13:00 85/52 02/18/25 12:30 14 98 Room Air* 0 21 02/18/25 12:15 68 02/18/25 12:00 98.7 98.7 Intake/Output Intake and Output 02/18/25 07:00 Intake Total 459.50 ml Output Total 1 ml Balance 458.50 ml Intake Oral 150 ml IV Total 309.50 ml Output Stool Total 1 ml # Voids 2 Exam HEENT pupils are reactive Neck is supple CV is S1-S2 regular rate and rhythm Respiratory diminished breath sounds bases GI positive bowel sounds positive ascites Extremity trace edema WINDER HAND no motor deficit Medications Current Medications Medications Dose Ordered Sig/Zahraa Route Start Time Stop Time Status Last Admin Dose Admin Norepinephrine Bitartrate 250 ml @ 3.75 mls/hr Q24H IV 02/17/25 08:30 02/17/25 13:40 3.75 MLS/HR Zirconium Oxide 10 gm BID PO 02/18/25 10:00 02/22/25 09:59 02/18/25 10:25 10 GM Midodrine 10 mg TIDWM@0600,1200,1800 PO 02/18/25 12:00 02/18/25 13:54 10 MG Octreotide Acetate 100 mcg TID SUBCUT 02/18/25 14:00 02/18/25 13:54 100 MCG Albumin Human 100 ml @ 100 mls/hr Q1HR IV 02/19/25 12:00 02/19/25 13:59 Phytonadione 10 mg/Sodium Chloride 51 ml @ 204 mls/hr DAILY IV 02/18/25 11:45 02/20/25 10:14 02/18/25 11:45 204 MLS/HR Laboratory Results Laboratory Tests 02/18/25 02:43 02/18/25 07:56 Chemistry Test 02/18/25 02:43 Albumin 3.6 g/dL (3.2-4.8) Calcium Level 9.4 mg/dL (8.7-10.4) Total Protein 5.7 g/dL (5.7-8.2) Coagulation Test 02/18/25 02:43 Prothrombin Time 35.1 sec (9.3-11.8) H Prothrombin Time INR 3.78 (0.9-1.15) H LFT Test 02/18/25 02:43 Alanine Aminotransferase (ALT) 116 U/L (7-40) H Alkaline Phosphatase 895 U/L (46-116) H Aspartate Amino Transferase (AST) 99 U/L (13-40) H Total Bilirubin 6.0 mg/dL (0.2-1.0) H Urinalysis Test 02/18/25 02:57 Urine Color Yellow (Yellow) Urine Clarity Clear (Clear) Urine pH 5.0 (5.0-9.0) Urine Specific [place] 1.020 (1.001-1.035) Urine Protein 1+ (Negative) H Urine Ketones Negative (Negative) Urine Blood Trace /uL (Negative) H Urine Nitrite Negative (Negative) Urine Bilirubin Negative (Negative) Urine Urobilinogen Normal mg/dL (Negative) Urine Leukocyte Esterase Negative /uL (Negative) Urine RBC 3 /hpf (0 - 4) Urine Microscopic WBC 7 /HPF (0-5) H Urine Squamous Epithelial Cells Few /hpf (<5) Urine Bacteria Few /hpf (None Seen) H Urine Hyaline Casts Few /lpf (0 - 2) Urine Yeast (Budding) Occasional /hpf (None Urine Creatinine 159.83 mg/dL (30.0-125.0) H Urine Protein/Creatinine Ratio 0.54 Urine Sodium 64 mmol/L (40-220) Urine Glucose Normal mg/dL (Normal) Urine Total Protein 87.1 mg/dL (1-14) H Microbiology Microbiology Date/Time Source Procedure Growth Status 02/17/25 15:45 Nose MRSA Screen - Final Complete Assessment/Plan Assessment/Plan 79-year-old female with a known history of hypertension, dyslipidemia, recent diagnosis of liver cirrhosis, portal vein thrombosis currently on anticoagulation presented to the hospital with the abdominal pain found to have 1. Acute hyperkalemia suspect triamterene induced 2. Acute kidney injury rule out hepatorenal syndrome 3. GRACE suspect secondary to vasomotor nephropathy 4. Portal vein thrombosis 5. Liver cirrhosis with a ascites 6. Elevated liver function tests 7. Secondary Coagulopathy due to liver disease 8. Hypotension requiring IV Levophed -continue somatostatin, vitamin K, paracentesis. Follow up Nephrology recommendations -we will resume anticoagulation after paracentesis. Plan discussed with: Patient Problem List: (1) Hyperkalemia (2) Acute renal failure (3) Liver cirrhosis Date of Service: Feb 18, 2025 Billing Provider: WM ARANGO MD Common Visit Codes: NOT BILLABLE WM ARANGO MD Feb 18, 2025 14:47
[2025-02-18] MEDS: DOPamine 1600MCG/ML D5W 250 ML IV ONE (15:04)
[2025-02-18] MEDS: DOPamine 1600MCG/ML D5W 250 ML IV SCH (15:07)
[2025-02-18 15:53] LABS: Potassium 4.9 mmol/L (3.5-5.1)
[2025-02-18 16:00] LABS: Magnesium 2.1 mg/dL (1.6-2.6)
[2025-02-19] VITALS (95 sets, daily range): BP systolic 79–136; BP diastolic 38–98; PULSE 58–128; RESP 10–25; TEMP 97.9–98.8; O2SAT 92–96
[2025-02-19 01:51] LABS: Hematocrit 41.1 % (36.0-46.0); Hemoglobin 13.6 g/dL (12.2-16.2); Mean Corpuscular Hemoglobin 30.0 pg (28.0-32.0); Mean Corpuscular Volume 90.6 fL (80.0-100.0); Nucleated Red Blood Cells % 0.0 %
[2025-02-19 02:06] LABS: INR 1.54 (0.9-1.15); Prothrombin Time 15.6 sec (9.3-11.8)
[2025-02-19 02:09] LABS: Albumin 3.5 g/dL (3.2-4.8); Anion Gap 14 (5-15); Calcium 9.6 mg/dL (8.7-10.4); Carbon Dioxide 20 mmol/L (20-31); Chloride 104 mmol/L (98-107); Sodium 138 mmol/L (136-145)
[2025-02-19 02:13] LABS: Alanine Aminotransferase 127 U/L (7-40); Alkaline Phosphatase 965 U/L (46-116); BUN/Creatinine Ratio 17.7 (10.0-20.0); Bilirubin, Total 10.4 mg/dL (0.2-1.0); Blood Urea Nitrogen 29 mg/dL (9-23); Glucose 134 mg/dL (74-106); Potassium 5.2 mmol/L (3.5-5.1); Total Protein 5.4 g/dL (5.7-8.2)
[2025-02-19] MEDS: PANTOPRAZOLE 40mg/50ML NS AE 50 ML IV SCH (02:41)
[2025-02-19] MEDS: DEXTROSE (50%) 50ML SYRG IV ONE ×2 (04:05→18:47)
[2025-02-19] MEDS: InsuLIN REG 1unit/0.01ml Soln (100units/ml) SC ONE (04:06)
[2025-02-19 07:53] LABS: Potassium 5.1 mmol/L (3.5-5.1)
[2025-02-19 08:00] LABS: Magnesium 2.1 mg/dL (1.6-2.6)
--- NOTE | 2025-02-19 09:17 | DVHPN2 ---
Progress Note Date Seen: Feb 19, 2025 Medical Necessity Reason Pt with a Central, PICC or Fol: No The following are medically ne: Phillip Catheter Subjective Changes from previous H/P or p: Changes (coffe emesis overnight) Review of Systems: Deferred Objective vital signs Vital Sign Date Time Temp Pulse Resp B/P (MAP) Pulse Ox O2 Delivery O2 Flow Rate FiO2 02/19/25 08:45 73 12 93/60 (71) 02/19/25 08:00 98.5 98.5 02/19/25 07:30 94 Room Air* 0 21 Total Intake and Output 02/18/25 02/18/25 02/19/25 14:59 22:59 06:59 Intake Total 81.00 ml 262.986 ml 180 ml Output Total 900 ml Balance 81.00 ml 262.986 ml -720 ml medications Current Medications Medications Dose Ordered Sig/Zahraa Route Start Time Stop Time Status Last Admin Dose Admin Norepinephrine Bitartrate 250 ml @ 3.75 mls/hr Q24H IV 02/17/25 08:30 02/17/25 13:40 3.75 MLS/HR Zirconium Oxide 10 gm BID PO 02/18/25 10:00 02/22/25 09:59 02/18/25 21:09 10 GM Midodrine 10 mg TIDWM@0600,1200,1800 PO 02/18/25 12:00 02/18/25 17:48 10 MG Octreotide Acetate 100 mcg TID SUBCUT 02/18/25 14:00 02/19/25 06:14 100 MCG Albumin Human 100 ml @ 100 mls/hr Q1HR IV 02/19/25 12:00 02/19/25 13:59 Phytonadione 10 mg/Sodium Chloride 51 ml @ 204 mls/hr DAILY IV 02/18/25 11:45 02/20/25 10:14 02/18/25 11:45 204 MLS/HR Dopamine HCl/ Dextrose 250 ml @ 11.906 mls/ hr Q21H IV 02/18/25 15:00 02/19/25 02:42 19.05 MLS/HR Ondansetron HCl 4 mg Q4HPRN PRN IV 02/19/25 00:45 Pantoprazole Sodium 50 ml @ 10 mls/hr Q5H IV 02/19/25 00:45 02/19/25 06:13 10 MLS/HR Examination: GENERAL:Abnormal, LUNGS:Abnormal, ABDOMEN:Abnormal laboratory and microbiology Laboratory Tests 02/19/25 07:19 02/19/25 01:30 Test 02/19/25 01:30 Range/Units Serum Glucose 134 H 74-106 mg/dL Microbiology Date/Time Source Procedure Growth Status 02/17/25 15:45 Nose MRSA Screen - Final Complete Problem List/Assessment/Plan Problem List/Assessment/Plan Acute kidney injury hemodynamic baseline renal function normal Portal vein thrombosis abdominal mass cirrhosis w/ ascites hyperkalemia shock cr stable coffee emesis now NPO including meds, lokelma stopped GI called, PPi drip d50 and insulin for hyperkalemia management, sodium bicarb levophed to keep map> 65 bradycardia dopamine strict I/o ammonia level GI and oncology. rec f/u pathology results from [facility] EGD IV albumin possible paracentesis rec albumin w/ drainage remains critically ill Plan discussed with: Patient My Orders My Orders Orders - LYUBOV CASTILLO MD Procedure Category Date Status Time Midodrine Tablet PHA 02/18/25 In Process (Proamatine Tablet) 12:00 Octreotide Acetate PHA 02/18/25 In Process (Sandostatin) 14:00 Albumin 25% (Albutein) PHA 02/19/25 In Process 12:00 Communication Order ORDERS 02/19/25 Transmitted 03:14 LYUBOV CASTILLO MD Feb 19, 2025 09:17
--- NOTE | 2025-02-19 12:12 | ECG ---
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
--- NOTE | 2025-02-19 12:18 | DVHPN2 ---
Progress Note - Dictate Date Seen: Feb 19, 2025 Medical Necessity Reason Pt with a Central, PICC or Fol: No The following are medically ne: Phillip Catheter Subjective Comfortable in bed without any complaints of nausea vomiting abdominal pain dizziness chest pain or shortness for breath. Family at bedside. vital signs Vital Sign Date Time Temp Pulse Resp B/P (MAP) Pulse Ox O2 Delivery O2 Flow Rate FiO2 02/19/25 10:00 15 95 Room Air* 0 21 02/19/25 08:45 73 93/60 (71) 02/19/25 08:00 98.5 98.5 Total Intake and Output 02/18/25 02/18/25 02/19/25 15:00 23:00 07:00 Intake Total 88.50 ml 251.736 ml 212.80 ml Output Total 900 ml Balance 88.50 ml 251.736 ml -687.20 ml medications Current Medications Medications Dose Ordered Sig/Zarhaa Route Start Time Stop Time Status Last Admin Dose Admin Norepinephrine Bitartrate 250 ml @ 3.75 mls/hr Q24H IV 02/17/25 08:30 02/17/25 13:40 3.75 MLS/HR Zirconium Oxide 10 gm BID PO 02/18/25 10:00 02/22/25 09:59 02/18/25 21:09 10 GM Midodrine 10 mg TIDWM@0600,1200,1800 PO 02/18/25 12:00 02/18/25 17:48 10 MG Octreotide Acetate 100 mcg TID SUBCUT 02/18/25 14:00 02/19/25 06:14 100 MCG Albumin Human 100 ml @ 100 mls/hr Q1HR IV 02/19/25 12:00 02/19/25 13:59 Phytonadione 10 mg/Sodium Chloride 51 ml @ 204 mls/hr DAILY IV 02/18/25 11:45 02/20/25 10:14 02/19/25 11:33 204 MLS/HR Dopamine HCl/ Dextrose 250 ml @ 11.906 mls/ hr Q21H IV 02/18/25 15:00 02/19/25 02:42 19.05 MLS/HR Ondansetron HCl 4 mg Q4HPRN PRN IV 02/19/25 00:45 Pantoprazole Sodium 40 mg BID IV 02/19/25 22:00 UNV objective Alert awake oriented x3. HEENT neck supple no JVD. Heart regular rate and rhythm S1-S2. Lungs fair air movement without rales wheezes. Abdomen soft nontender positive bowel sounds. Extremities no edema positive pulses laboratory and microbiology Laboratory Tests 02/19/25 07:19 02/19/25 01:30 Test 02/19/25 01:30 Range/Units Serum Glucose 134 H 74-106 mg/dL Assessment/Plan 1. Acute hyperkalemia suspect triamterene induced 2. Acute kidney injury rule out hepatorenal syndrome 3. GRACE suspect secondary to vasomotor nephropathy 4. Portal vein thrombosis 5. Liver cirrhosis with a ascites 6. Elevated liver function tests 7. Secondary Coagulopathy due to liver disease 8. Hypotension requiring IV Levophed Discussed with the nurse at bedside. Given hemoglobin is stable I will DC Protonix drip and continue twice a day IV. Resume her oral medications and start her on clear liquid diet. Proceed with paracentesis. Apparently patient is having urinary retention therefore we will place a Phillip catheter. For the anticoagulation till coagulopathy is corrected and paracentesis done. Otherwise continue rest of supportive care and treatment. Follow clinical management per clinical course. Discussed with the patient/her family as well as nurse at bedside regarding care plan. Plan discussed with: Patient, Other OK HUERTA MD Feb 19, 2025 12:18
--- NOTE | 2025-02-19 14:55 | DVHPN2 ---
Progress Note - Dictate Date Seen: Feb 19, 2025 Medical Necessity Reason Pt with a Central, PICC or Fol: No The following are medically ne: Phillip Catheter vital signs Vital Sign Date Time Temp Pulse Resp B/P (MAP) Pulse Ox O2 Delivery O2 Flow Rate FiO2 02/19/25 14:00 60 14 123/56 (78) 02/19/25 14:00 95 Room Air* 0 21 02/19/25 12:00 98.7 98.7 Total Intake and Output 02/18/25 02/18/25 02/19/25 15:00 23:00 07:00 Intake Total 88.50 ml 251.736 ml 212.80 ml Output Total 900 ml Balance 88.50 ml 251.736 ml -687.20 ml medications Current Medications Medications Dose Ordered Sig/Zahraa Route Start Time Stop Time Status Last Admin Dose Admin Norepinephrine Bitartrate 250 ml @ 3.75 mls/hr Q24H IV 02/17/25 08:30 02/17/25 13:40 3.75 MLS/HR Zirconium Oxide 10 gm BID PO 02/18/25 10:00 02/22/25 09:59 02/18/25 21:09 10 GM Midodrine 10 mg TIDWM@0600,1200,1800 PO 02/18/25 12:00 02/18/25 17:48 10 MG Octreotide Acetate 100 mcg TID SUBCUT 02/18/25 14:00 02/19/25 06:14 100 MCG Phytonadione 10 mg/Sodium Chloride 51 ml @ 204 mls/hr DAILY IV 02/18/25 11:45 02/20/25 10:14 02/19/25 11:33 204 MLS/HR Dopamine HCl/ Dextrose 250 ml @ 11.906 mls/ hr Q21H IV 02/18/25 15:00 02/19/25 02:42 19.05 MLS/HR Ondansetron HCl 4 mg Q4HPRN PRN IV 02/19/25 00:45 Pantoprazole Sodium 40 mg BID IV 02/19/25 22:00 Levofloxacin 50 ml @ 50 mls/hr DAILY IV 02/20/25 10:00 laboratory and microbiology Laboratory Tests 02/19/25 07:19 02/19/25 01:30 Test 02/19/25 01:30 Range/Units Serum Glucose 134 H 74-106 mg/dL Assessment/Plan Impression Decompensated liver disease Pleural effusions Coagulopathy Ascites Patient seen and examined on the ICU low oxygen requirements on room air on 2 pressors for hemodynamic support right IJ central line was placed for intravenous access see separate note for procedure in detail abd distended paracentesis was performed at the bedside see separate note for procedure in detail Events Low oxygen requirements On room air No acute events Labs and imaging reviewed Management Supplemental oxygen as needed Titrate to maintain sats 90% or above Incentive spirometry Bronchodilators as needed Start stress-dose steroids Hydrocortisone 100mg TID Monitor renal function Monitor electrolytes Supplement as needed Correct coagulopathy dvt proph crit care time 35 min Plan discussed with: Patient JOHNNY DORSEY MD Feb 19, 2025 14:55
--- NOTE | 2025-02-19 14:56 | DVHNC2 ---
Procedure - Procedure- Paracentesis ultrasound guided Indication- Ascites Procedure in detail Consent was obtained and timeout performed per protocol. The patient was placed in the supine position, left lower quadrant approach. ChloraPrep was used to clean the operative field, sterile drapes to cover the area and Lidocaine for local analgesia. Paracentesis catheter was advanced over the needle, attached to the suction bottle and approximately 1.8 liters of ascitic fluid was drained. At the end of the procedure, the catheter was removed and dressing applied. Samples obtained for diagnostic testing. No complications JOHNNY DORSEY MD Feb 19, 2025 14:56
--- NOTE | 2025-02-19 14:56 | DVHNC2 ---
Procedure - Procedure- Right IJ central line placement ultrasound guided Indication- Intravenous access Procedure in detail Consent was obtained and timeout performed per protocol. The patient was placed in the supine position and the right IJ vein was localized using ultrasound SonoSite. ChloraPrep was used to clean the operative field, sterile drapes used to cover the area and local analgesia Lidocaine 1% 3 cc. Triple-lumen catheter was inserted over the wire with direct ultrasound guidance in the right IJ vein. The wire was removed, catheter flushed with normal saline and secured with 2 sutures. Sterile dressing applied. No complications. JOHNNY DORSEY MD Feb 19, 2025 14:56
--- NOTE | 2025-02-19 15:43 | DVH ---
CHEST RADIOGRAPH Indication: CONFIRM LINE PLACEMENT Technique: Single frontal view of the chest was obtained COMPARISON: XR CHEST 2 VIEW on DOS: 05/24/24 FINDINGS: Lines and Tubes: Right central venous catheter extends into the IVC. Recommend retraction by 7 cm. Alternatively, this catheter is within the central venous system and may be satisfactory for use. Lungs: Increased interstitial prominence. This may represent pulmonary vascular congestion and/or viral pneumonia. Pleura: No effusion.No pneumothorax. Cardiomediastinal contours: Cardiomegaly. Bones: Unremarkable IMPRESSION: Right central venous catheter extends into the IVC. Recommend retraction by 7 cm. Alternatively, this catheter is within the central venous system and may be satisfactory for use.
[2025-02-19] MEDS: ALBUMIN 25% 100 ML IV SCH (16:19)
--- NOTE | 2025-02-19 17:56 | DVH ---
CHEST RADIOGRAPH Indication: RIJ retracted, please re-confirm line placement. Technique: Single frontal view of the chest was obtained Comparison: XY CHEST PORTABLE on DOS: 02/19/25 FINDINGS: Lines and Tubes: Right internal jugular catheter in place with the tip in the right atrium. Lungs: Bibasilar airspace disease is again noted with some atelectasis in the left base greater than film done same day 1506. Pleura: No effusion. No pneumothorax. Cardiomediastinal contours: Unremarkable Bones: No acute osseous abnormality. IMPRESSION: 1. Internal jugular catheter in place from the right with the tip in the right atrium. No pneumothorax. 2. In comparison with film taken at 3:06 p.m. The central line appears to pole back slightly proximally 1-2 cm.
[2025-02-19] MEDS: InsuLIN REG 1unit/0.01ml Soln (100units/ml) IV ONE (18:48)
[2025-02-19] MEDS: ONDANSETRON HCL 4 MG/2 ML VIAL IV PRN (19:07)
--- NOTE | 2025-02-19 20:23 | DVHINCON2 ---
Date of service: Feb 19, 2025 Referring Physician Noemy Dykes Reason for Consultation Liver cirrhosis and ascites History of Present Illness 74 year old female recently diagnosis portal vein thrombosis in [facility] 12/2024 and cirrhosis w/ hyperbilirubinemia; CT masses in the jejunum s/p biopsy ; presents with weakness and abd distension. She is found to have K 7.0 cr 1.93 baseline cr 1.0; She is transferred to icu due to hypotension requiring levophed; she was discharged on eliquis, norvasc and triampterene-hctz in [facility] Patient underwent paracentesis today by Dr. Cuevas; , 1.8 L of fluid was removed and sent for analysis Patient seen in [facility] 262, resting comfortably in no acute distress Past Medical History Cardiac: HTN, Hyperlipidemia;mild CHF Past Surgical History Cholecystectomy Family History: Patient reports no known family medical history. Allergies: Coded Allergies: Penicillins (Verified Allergy, Unknown, 02/17/25) Current Medications Current Medications Medications (Trade) Dose Ordered Sig/Zahraa Route PRN Reason Start Time Stop Time Status Last Admin Albumin Human 100 ml @ 100 mls/hr Q1HR IV 02/19/25 12:00 02/19/25 13:59 DC 02/19/25 17:32 Ondansetron HCl (Zofran) 4 mg Q4HPRN PRN IV NAUSEA / VOMITING 02/19/25 00:45 02/19/25 19:07 Pantoprazole Sodium 50 ml @ 10 mls/hr Q5H IV 02/19/25 00:45 02/19/25 12:10 DC 02/19/25 10:05 Pantoprazole Sodium (Protonix) 40 mg BID IV 02/19/25 22:00 Levofloxacin 50 ml @ 50 mls/hr DAILY IV 02/20/25 10:00 Hydrocortisone Sodium Succinate (Solu-CORTEF INJECTION) 100 mg Q8HR IV 02/19/25 22:00 Vital Signs Vital Signs Date Time Temp Pulse Resp B/P (MAP) Pulse Ox O2 Delivery O2 Flow Rate FiO2 02/19/25 18:03 74 02/19/25 18:03 15 95 Room Air* 0 21 02/19/25 18:00 117/68 (84) 02/19/25 16:00 98.7 98.7 Physical Exam Alert awake oriented x3. HEENT neck supple no JVD. Heart regular rate and rhythm S1-S2. On supplemental oxygen Lungs fair air movement without rales wheezes. Abdomen soft nontender positive bowel sounds, mildly distended Extremities no edema positive pulses Labs/Diagnostic Data Labs Test 02/19/25 18:08 02/19/25 14:00 02/19/25 07:19 02/19/25 01:30 Range/Units POC Glucose 149 H 70-106 mg/dl Body Fluid Source Peritoneal fluid Body Fluid WBC (Manual) 364 H 0-200 CUMM Body Fluid RBC (Manual) 6089 H 0-2000 CUMM Body Fluid Mononuclear Cells 25 % Body Fluid Polymorphonuclear Cells 75 H 0-25 % Potassium Level 5.1 3.5-5.1 mmol/L Magnesium Level 2.1 1.6-2.6 mg/dL White Blood Count 13.0 #H 4.4-10.8 10^3/uL Red Blood Count 4.53 4.0-5.20 10^6/uL Hemoglobin 13.6 12.2-16.2 g/dL Hematocrit 41.1 36.0-46.0 % Mean Corpuscular Volume 90.6 80.0-100.0 fL Mean Corpuscular Hemoglobin 30.0 28.0-32.0 pg Mean Corpuscular Hemoglobin Concent 33.1 32.0-36.0 g/dL Red Cell Distribution Width 19.2 H 11.8-14.3 % Platelet Count 284 140-450 10^3/uL Mean Platelet Volume 8.7 6.9-10.8 fL Neutrophils (%) (Auto) 79.7 37.0-80.0 % Lymphocytes (%) (Auto) 9.8 L 10.0-50.0 % Monocytes (%) (Auto) 8.5 0.0-12.0 % Eosinophils (%) (Auto) 1.8 0.0-7.0 % Basophils (%) (Auto) 0.2 0.0-2.0 % Neutrophils # (Auto) 10.3 H 1.6-8.6 10 ^3/uL Lymphocytes # (Auto) 1.3 0.4-5.4 10 ^3/uL Monocytes # (Auto) 1.1 0-1.3 10 ^3/uL Eosinophils # (Auto) 0.2 0-0.8 10 ^3/uL Basophils # (Auto) 0 0-0.2 10 ^3/uL Nucleated Red Blood Cells 0.0 % Prothrombin Time 15.6 H 9.3-11.8 sec Prothrombin Time INR 1.54 H 0.9-1.15 Sodium Level 138 136-145 mmol/L Chloride Level 104 98-107 mmol/L Carbon Dioxide Level 20 20-31 mmol/L Anion Gap 14 5-15 Blood Urea Nitrogen 29 H 9-23 mg/dL Creatinine 1.64 H 0.550-1.02 mg/dL Glomerular Filtration Rate Calc 32 >90 mL/min BUN/Creatinine Ratio 17.7 10.0-20.0 Serum Glucose 134 H 74-106 mg/dL Calcium Level 9.6 8.7-10.4 mg/dL Total Bilirubin 10.4 H 0.2-1.0 mg/dL Aspartate Amino Transferase (AST) 113 H 13-40 U/L Alanine Aminotransferase (ALT) 127 H 7-40 U/L Alkaline Phosphatase 965 H 46-116 U/L Total Protein 5.4 L 5.7-8.2 g/dL Albumin 3.5 3.2-4.8 g/dL Test 02/18/25 02:57 02/17/25 16:45 02/16/25 23:57 Range/Units Urine Color Yellow Yellow Urine Clarity Clear Clear Urine pH 5.0 5.0-9.0 Urine Specific [place] 1.020 1.001-1.035 Urine Protein 1+ H Negative Urine Ketones Negative Negative Urine Blood Trace H Negative /uL Urine Nitrite Negative Negative Urine Bilirubin Negative Negative Urine Urobilinogen Normal Negative mg/dL Urine Leukocyte Esterase Negative Negative /uL Urine RBC 3 0 - 4 /hpf Urine Microscopic WBC 7 H 0-5 /HPF Urine Squamous Epithelial Cells Few <5 /hpf Urine Bacteria Few H None Seen /hpf Urine Hyaline Casts Few 0 - 2 /lpf Urine Yeast (Budding) Occasional None Seen /hpf Urine Creatinine 159.83 H 30.0-125.0 mg/dL Urine Protein/Creatinine Ratio 0.54 Urine Sodium 64 40-220 mmol/L Urine Glucose Normal Normal mg/dL Urine Total Protein 87.1 H 1-14 mg/dL Ammonia 17 11-32 umol/L Lipase 25 12-53 U/L Microbiology Date/Time Source Procedure Growth Status 02/17/25 15:45 Nose MRSA Screen - Final Complete CT SCAN ABD PELVIS IMPRESSION: 1. Moderate left and small right pleural effusions with adjacent atelectasis. 2. 2.6 mm anterior right upper lobe pulmonary nodule. 3. Cirrhosis 4. Large volume abdominopelvic ascites. 5. Moderate diffuse anasarca. 6. 4.1 cm peripherally calcified soft tissue attenuation nodule within the superior right renal pole. Problems(with codes): (1) Pleural effusion (2) Ascites (3) Liver cirrhosis (4) Acute renal failure (5) Hyperkalemia (6) Spontaneous bacterial peritonitis Plan/Recommendation Plan Cirrhosis workup by checking hepatitis panel ISABEL Await ascitic fluid cytology rule out malignancy Elevated total bilirubin and alkaline phosphatase suggestive of cholestatic jaundice possibly due to obstruction or mass Ascitic fluid cell count suggestive of spontaneous bacterial peritonitis, start IV antibiotics Continue to monitor labs and supportive care Overall prognosis remains guarded Review records and pathology from [facility] Plan discussed with: Patient, Other ANNAMARIE BHATT MD Feb 19, 2025 20:23
[2025-02-19] MEDS: PANTOPRAZOLE 40 MG/10 ML VIAL INJ IV SCH (21:14)
[2025-02-19] MEDS: HYDROCORTISONE SOD SUCC 100 MG/2ML INJ VIAL IV SCH (21:14)
[2025-02-20] VITALS (93 sets, daily range): BP systolic 73–163; BP diastolic 43–85; PULSE 43–120; RESP 8–30; TEMP 97.7–98.9; O2SAT 84–98
[2025-02-20 03:12] LABS: Hematocrit 37.3 % (36.0-46.0); Hemoglobin 12.5 g/dL (12.2-16.2); Mean Corpuscular Hemoglobin 30.6 pg (28.0-32.0); Mean Corpuscular Volume 91.3 fL (80.0-100.0); Nucleated Red Blood Cells % 0.3 %
[2025-02-20 03:24] LABS: INR 1.21 (0.9-1.15); Prothrombin Time 12.6 sec (9.3-11.8)
[2025-02-20 03:36] LABS: Alanine Aminotransferase 95 U/L (7-40); Albumin 3.2 g/dL (3.2-4.8); Alkaline Phosphatase 769 U/L (46-116); Anion Gap 11 (5-15); BUN/Creatinine Ratio 15.4 (10.0-20.0); Bilirubin, Total 10.4 mg/dL (0.2-1.0); Blood Urea Nitrogen 26 mg/dL (9-23); Calcium 9.0 mg/dL (8.7-10.4); Carbon Dioxide 21 mmol/L (20-31); Chloride 104 mmol/L (98-107); Glucose 178 mg/dL (74-106); Potassium 4.8 mmol/L (3.5-5.1); Sodium 136 mmol/L (136-145); Total Protein 5.0 g/dL (5.7-8.2)
--- NOTE | 2025-02-20 07:20 | ECG ---
[facility] Test Date: 2025-02-16 Test Time: 22:47:21 Pat Name: TRENT MCKEON Department: ED Room: 0262 A Gender: F [employer]: NAM : 1950 Requested By: ANNA CHAVEZ Order Number: [id number] Reading MD: Micah Olsen Measurements Intervals [place] Rate: 78 P: 0 AK: 0 QRS: -3 QRSD: 94 T: 47 QT: 379 QTc: 432 Interpretive Statements Normal sinus rhythm Low voltage, precordial leads Baseline wander in lead(s) V5 Electronically Signed On 02-21-2025 14:55:53 PST by Micah Olsen Please click the below link to view image of tracing.
[2025-02-20 13:19] LABS: Hepatitis A Total Antibody Negative (Negative); Hepatitis B Surface Antigen Negative (Negative); Hepatitis C Antibody Negative (Negative)
--- NOTE | 2025-02-20 13:22 | DVHPN2 ---
Progress Note Date Seen: Feb 20, 2025 Medical Necessity Reason Pt with a Central, PICC or Fol: No The following are medically ne: Phillip Catheter Subjective Patient reports: No new complaints Other Systems: PATIENT SEEN AND EXAMINED BY MYSELF TODAY IN FOLLOW-UP Objective vital signs Vital Sign Date Time Temp Pulse Resp B/P (MAP) Pulse Ox O2 Delivery O2 Flow Rate FiO2 02/20/25 09:10 124/67 02/20/25 08:00 98.7 76 16 98.7 02/20/25 07:30 92 Room Air* 0 21 Total Intake and Output 02/19/25 02/19/25 02/20/25 15:00 23:00 07:00 Intake Total 283.41 ml 457.930 ml 336.498 ml Output Total 1850 ml 150 ml Balance 283.41 ml -1392.070 ml 186.498 ml medications Current Medications Medications Dose Ordered Sig/Zahraa Route Start Time Stop Time Status Last Admin Dose Admin Norepinephrine Bitartrate 250 ml @ 3.75 mls/hr Q24H IV 02/17/25 08:30 02/19/25 21:13 7.5 MLS/HR Zirconium Oxide 10 gm BID PO 02/18/25 10:00 02/22/25 09:59 02/19/25 21:14 10 GM Midodrine 10 mg TIDWM@0600,1200,1800 PO 02/18/25 12:00 02/20/25 05:12 10 MG Octreotide Acetate 100 mcg TID SUBCUT 02/18/25 14:00 02/20/25 05:11 100 MCG Dopamine HCl/ Dextrose 250 ml @ 11.906 mls/ hr Q21H IV 02/18/25 15:00 02/20/25 09:10 11.906 MLS/HR Ondansetron HCl 4 mg Q4HPRN PRN IV 02/19/25 00:45 02/19/25 19:07 4 MG Pantoprazole Sodium 40 mg BID IV 02/19/25 22:00 02/19/25 21:14 40 MG Levofloxacin 50 ml @ 50 mls/hr DAILY IV 02/20/25 10:00 Hydrocortisone Sodium Succinate 100 mg Q8HR IV 02/19/25 22:00 02/20/25 05:10 100 MG Metronidazole 100 ml @ 100 mls/hr Q8HR IV 02/19/25 22:00 02/20/25 05:12 100 MLS/HR Acetaminophen/ Hydrocodone Bitart 1 tab Q6HPRN PRN PO 02/20/25 12:15 Examination: LUNGS:Normal, CVS:Normal, MSK:Normal laboratory and microbiology Laboratory Tests 02/20/25 02:47 Test 02/20/25 02:47 Range/Units Serum Glucose 178 H 74-106 mg/dL Microbiology Date/Time Source Procedure Growth Status 02/19/25 12:57 Urine - Phillip [place] Urine Culture - Preliminary No growth Resulted 02/17/25 15:45 Nose MRSA Screen - Final Complete Problem List/Assessment/Plan Problem List/Assessment/Plan Acute kidney injury superimposed Chronic Kidney Disease secondary hemodynamic mediated, FENA >2% Portal vein thrombosis abdominal mass cirrhosis w/ ascites hyperkalemia resolved Jaundice Recommendation Kidney function is improving Increased urine output Strict I&Os Octreotide Midodrine Bilateral echogenic kidney reported on CT scan of the abdomen GI consult We will continue to follow up Plan discussed with: Patient MARI FLOR MD Feb 20, 2025 13:22
--- NOTE | 2025-02-20 14:14 | DVHPN2 ---
Progress Note - Dictate Date Seen: Feb 20, 2025 Medical Necessity Reason Pt with a Central, PICC or Fol: No The following are medically ne: Phillip Catheter Subjective Clinically remained stable. Patient apparently had central line placed in the right IJ which is removed per nurse. Still on low-dose pressors for blood pressure support. Underwent successful paracentesis yesterday. vital signs Vital Sign Date Time Temp Pulse Resp B/P (MAP) Pulse Ox O2 Delivery O2 Flow Rate FiO2 02/20/25 14:00 12 96 Room Air* 0 21 02/20/25 12:30 80 02/20/25 09:10 124/67 02/20/25 08:00 98.7 98.7 Total Intake and Output 02/19/25 02/19/25 02/20/25 15:00 23:00 07:00 Intake Total 283.41 ml 457.930 ml 336.498 ml Output Total 1850 ml 150 ml Balance 283.41 ml -1392.070 ml 186.498 ml medications Current Medications Medications Dose Ordered Sig/Zahraa Route Start Time Stop Time Status Last Admin Dose Admin Norepinephrine Bitartrate 250 ml @ 3.75 mls/hr Q24H IV 02/17/25 08:30 02/19/25 21:13 7.5 MLS/HR Midodrine 10 mg TIDWM@0600,1200,1800 PO 02/18/25 12:00 02/20/25 05:12 10 MG Octreotide Acetate 100 mcg TID SUBCUT 02/18/25 14:00 02/20/25 05:11 100 MCG Dopamine HCl/ Dextrose 250 ml @ 11.906 mls/ hr Q21H IV 02/18/25 15:00 02/20/25 09:10 11.906 MLS/HR Ondansetron HCl 4 mg Q4HPRN PRN IV 02/19/25 00:45 02/19/25 19:07 4 MG Pantoprazole Sodium 40 mg BID IV 02/19/25 22:00 02/20/25 10:30 40 MG Levofloxacin 50 ml @ 50 mls/hr DAILY IV 02/20/25 10:00 02/20/25 10:30 50 MLS/HR Hydrocortisone Sodium Succinate 100 mg Q8HR IV 02/19/25 22:00 02/20/25 05:10 100 MG Metronidazole 100 ml @ 100 mls/hr Q8HR IV 02/19/25 22:00 02/20/25 05:12 100 MLS/HR Acetaminophen/ Hydrocodone Bitart 1 tab Q6HPRN PRN PO 02/20/25 12:15 objective Alert awake oriented x3. HEENT neck supple no JVD. Heart regular rate and rhythm S1-S2. Lungs fair air movement without rales wheezes. Abdomen soft nontender positive bowel sounds. Extremities no edema positive pulses laboratory and microbiology Laboratory Tests 02/20/25 02:47 Test 02/20/25 02:47 Range/Units Serum Glucose 178 H 74-106 mg/dL Assessment/Plan 1. Acute hyperkalemia suspect triamterene induced 2. Acute kidney injury rule out hepatorenal syndrome 3. GRACE suspect secondary to vasomotor nephropathy 4. Portal vein thrombosis 5. Liver cirrhosis with a ascites 6. Elevated liver function tests 7. Secondary Coagulopathy due to liver disease 8. Hypotension requiring IV Levophed Given the patient requiring multiple pressors nurses requesting PICC line if okay with the Nephrology. Apparently the central line was accidentally removed per nurse. Meantime we will send paracentesis fluid to cytology. If no further interventions are required we will resume patient's Eliquis she has been taking for portal vein thrombosis. Discussed with the nurse at bedside regarding care plan. Plan discussed with: Patient, Other [place] HUERTA MD Feb 20, 2025 14:14
--- NOTE | 2025-02-20 15:08 | DVHPN2 ---
Progress Note - Dictate Date Seen: Feb 20, 2025 Medical Necessity Reason Pt with a Central, PICC or Fol: No The following are medically ne: Phillip Catheter vital signs Vital Sign Date Time Temp Pulse Resp B/P (MAP) Pulse Ox O2 Delivery O2 Flow Rate FiO2 02/20/25 14:00 12 96 Room Air* 0 21 02/20/25 14:00 70 02/20/25 13:00 109/48 (68) 02/20/25 12:00 98.8 98.8 Total Intake and Output 02/19/25 02/19/25 02/20/25 14:59 22:59 06:59 Intake Total 293.41 ml 461.324 ml 340.248 ml Output Total 1850 ml 150 ml Balance 293.41 ml -1388.676 ml 190.248 ml medications Current Medications Medications Dose Ordered Sig/Zahraa Route Start Time Stop Time Status Last Admin Dose Admin Norepinephrine Bitartrate 250 ml @ 3.75 mls/hr Q24H IV 02/17/25 08:30 02/19/25 21:13 7.5 MLS/HR Midodrine 10 mg TIDWM@0600,1200,1800 PO 02/18/25 12:00 02/20/25 05:12 10 MG Octreotide Acetate 100 mcg TID SUBCUT 02/18/25 14:00 02/20/25 05:11 100 MCG Dopamine HCl/ Dextrose 250 ml @ 11.906 mls/ hr Q21H IV 02/18/25 15:00 02/20/25 09:10 11.906 MLS/HR Ondansetron HCl 4 mg Q4HPRN PRN IV 02/19/25 00:45 02/19/25 19:07 4 MG Pantoprazole Sodium 40 mg BID IV 02/19/25 22:00 02/20/25 10:30 40 MG Levofloxacin 50 ml @ 50 mls/hr DAILY IV 02/20/25 10:00 02/20/25 10:30 50 MLS/HR Hydrocortisone Sodium Succinate 100 mg Q8HR IV 02/19/25 22:00 02/20/25 05:10 100 MG Metronidazole 100 ml @ 100 mls/hr Q8HR IV 02/19/25 22:00 02/20/25 05:12 100 MLS/HR Acetaminophen/ Hydrocodone Bitart 1 tab Q6HPRN PRN PO 02/20/25 12:15 laboratory and microbiology Laboratory Tests 02/20/25 02:47 Test 02/20/25 02:47 Range/Units Serum Glucose 178 H 74-106 mg/dL Assessment/Plan Impression Decompensated liver disease Pleural effusions Coagulopathy Ascites Patient seen and examined on the ICU low oxygen requirements on room air patient pulled central line remains on pressors s/p paracentesis Events Low oxygen requirements On room air No acute events Labs and imaging reviewed Management Supplemental oxygen as needed Titrate to maintain sats 90% or above Incentive spirometry Bronchodilators as needed Start stress-dose steroids Hydrocortisone 100mg TID Monitor renal function Monitor electrolytes Supplement as needed Correct coagulopathy dvt proph crit care time 35 min Plan discussed with: Other (Rn) JOHNNY DORSEY MD Feb 20, 2025 15:08
[2025-02-20] MEDS: HYDROcodone-ACET 5/325MG TAB PO PRN (16:00)
--- NOTE | 2025-02-20 16:03 | DVH ---
Upper Extremity Venous Duplex Clinical History: reddened, swollen, tender left arm. Comparison: VAS VENOUS LOWER EXTREM RIGHT on DOS: 12/01/23 Technique: Duplex Doppler evaluation of the venous system of the RIGHT lower neck and upper extremity including color Doppler and spectral/pulsed waveform analysis was performed. Findings: The internal jugular vein demonstrates appropriate compressibility and waveform variability. The subclavian vein is patent on color Doppler evaluation without intraluminal thrombus and demonstrates waveform variability. The visualized portion of the brachiocephalic vein is patent on color Doppler evaluation without intraluminal thrombus and demonstrates waveform variability. The axillary vein demonstrates nonocclusive thrombus in the left axillary vein. The brachial veins demonstrate appropriate compressibility and patency on Doppler evaluation. The basilic vein demonstrates appropriate compressibility and patency on Doppler evaluation. The cephalic vein demonstrates a occlusive thrombus in the left cephalic vein. Impression: 1. Nonocclusive thrombus in the left axillary vein. 2. Occlusive thrombus in the left cephalic vein. 3. If clinical concern/symptoms persist or worsen, short-interval follow-up study is suggested. 4. RN notified at time of examination and informed contact position. Report signed and notified was checked.
[2025-02-20] MEDS: LIDOCAINE 1% (LOCAL ANESTH.) PF 5ml SDV ID ONE (17:23)
--- NOTE | 2025-02-20 21:25 | DVHPN2 ---
Progress Note - Dictate Date Seen: Feb 20, 2025 Medical Necessity Reason Pt with a Central, PICC or Fol: No The following are medically ne: Phillip Catheter Subjective No new complaints Liver enzymes are trending down vital signs Vital Sign Date Time Temp Pulse Resp B/P (MAP) Pulse Ox O2 Delivery O2 Flow Rate FiO2 02/20/25 21:00 64 10 115/61 (79) 02/20/25 20:00 91 Room Air* 0 21 02/20/25 20:00 97.7 97.7 Total Intake and Output 02/19/25 02/19/25 02/20/25 15:00 23:00 07:00 Intake Total 283.41 ml 457.930 ml 336.498 ml Output Total 1850 ml 150 ml Balance 283.41 ml -1392.070 ml 186.498 ml medications Current Medications Medications Dose Ordered Sig/Zahraa Route Start Time Stop Time Status Last Admin Dose Admin Norepinephrine Bitartrate 250 ml @ 3.75 mls/hr Q24H IV 02/17/25 08:30 02/19/25 21:13 7.5 MLS/HR Midodrine 10 mg TIDWM@0600,1200,1800 PO 02/18/25 12:00 02/20/25 18:00 10 MG Octreotide Acetate 100 mcg TID SUBCUT 02/18/25 14:00 02/20/25 15:24 100 MCG Dopamine HCl/ Dextrose 250 ml @ 11.906 mls/ hr Q21H IV 02/18/25 15:00 02/20/25 09:10 11.906 MLS/HR Ondansetron HCl 4 mg Q4HPRN PRN IV 02/19/25 00:45 02/19/25 19:07 4 MG Pantoprazole Sodium 40 mg BID IV 02/19/25 22:00 02/20/25 10:30 40 MG Levofloxacin 50 ml @ 50 mls/hr DAILY IV 02/20/25 10:00 02/20/25 10:30 50 MLS/HR Hydrocortisone Sodium Succinate 100 mg Q8HR IV 02/19/25 22:00 02/20/25 15:24 100 MG Metronidazole 100 ml @ 100 mls/hr Q8HR IV 02/19/25 22:00 02/20/25 15:23 100 MLS/HR Acetaminophen/ Hydrocodone Bitart 1 tab Q6HPRN PRN PO 02/20/25 12:15 02/20/25 16:00 1 TAB Apixaban 2.5 mg BID PO 02/20/25 22:00 Sodium Chloride 10 ml QSHIFT@10,22 IV 02/20/25 22:00 objective Alert awake oriented x3. HEENT neck supple no JVD. Heart regular rate and rhythm S1-S2. On supplemental oxygen Lungs fair air movement without rales wheezes. Abdomen soft nontender positive bowel sounds, mildly distended Extremities no edema positive pulses laboratory and microbiology Laboratory Tests 02/20/25 02:47 Test 02/20/25 02:47 Range/Units Serum Glucose 178 H 74-106 mg/dL Problems(with codes): (1) Spontaneous bacterial peritonitis (2) Pleural effusion (3) Ascites (4) Acute renal failure Prognosis Plan Cirrhosis workup by checking hepatitis panel negative; ISABEL pending Await ascitic fluid cytology rule out malignancy Elevated total bilirubin and alkaline phosphatase suggestive of cholestatic jaundice possibly due to obstruction or mass Ascitic fluid cell count suggestive of spontaneous bacterial peritonitis, start IV antibiotics Continue to monitor labs and supportive care Overall prognosis remains guarded Review records and pathology from [facility] Plan discussed with: Other (STEPHEN Nurse) ANNAMARIE BHATT MD Feb 20, 2025 21:25
[2025-02-20] MEDS: SODIUM CHLOR 0.9% PF (SALINE LOCK) 10ML VIAL/SYR IV SCH (22:15)
[2025-02-20] MEDS: APIXABAN 2.5 MG TAB PO SCH (22:16)
[2025-02-21] VITALS (73 sets, daily range): BP systolic 82–133; BP diastolic 43–66; PULSE 42–169; RESP 7–21; TEMP 97.6–98.2; O2SAT 93–100
[2025-02-21] MEDS: DOPamine 1600MCG/ML D5W 250 ML IV SCH ×2 (02:50→21:30)
[2025-02-21 03:39] LABS: Hematocrit 38.1 % (36.0-46.0); Hemoglobin 12.8 g/dL (12.2-16.2); Mean Corpuscular Hemoglobin 30.3 pg (28.0-32.0); Mean Corpuscular Volume 90.2 fL (80.0-100.0); Nucleated Red Blood Cells % 0.2 %
[2025-02-21 04:11] LABS: Anion Gap 12 (5-15); Calcium 8.8 mg/dL (8.7-10.4); Carbon Dioxide 21 mmol/L (20-31); Chloride 103 mmol/L (98-107); Potassium 4.9 mmol/L (3.5-5.1); Sodium 136 mmol/L (136-145)
[2025-02-21 04:13] LABS: Alanine Aminotransferase 100 U/L (7-40); Albumin 2.9 g/dL (3.2-4.8); Alkaline Phosphatase 824 U/L (46-116); Bilirubin, Total 10.0 mg/dL (0.2-1.0); Blood Urea Nitrogen 36 mg/dL (9-23); Glucose 133 mg/dL (74-106)
[2025-02-21 04:33] LABS: BUN/Creatinine Ratio 19.8 (10.0-20.0)
[2025-02-21 04:36] LABS: Total Protein 4.8 g/dL (5.7-8.2)
--- NOTE | 2025-02-21 11:05 | DVHPN2 ---
Progress Note - Dictate Date Seen: Feb 21, 2025 Medical Necessity Reason Pt with a Central, PICC or Fol: No The following are medically ne: Phillip Catheter vital signs Vital Sign Date Time Temp Pulse Resp B/P (MAP) Pulse Ox O2 Delivery O2 Flow Rate FiO2 02/21/25 08:24 82/50 02/21/25 07:00 69 11 02/21/25 05:53 93 Nasal Cannula* 1 02/21/25 04:00 97.6 97.6 Total Intake and Output 02/20/25 02/20/25 02/21/25 14:59 22:59 06:59 Intake Total 171.498 ml 402.724 ml 257.1 ml Output Total 150 ml 150 ml Balance 171.498 ml 252.724 ml 107.1 ml medications Current Medications Medications Dose Ordered Sig/Zahraa Route Start Time Stop Time Status Last Admin Dose Admin Norepinephrine Bitartrate 250 ml @ 3.75 mls/hr Q24H IV 02/17/25 08:30 02/21/25 08:24 3.75 MLS/HR Midodrine 10 mg TIDWM@0600,1200,1800 PO 02/18/25 12:00 02/21/25 05:46 10 MG Octreotide Acetate 100 mcg TID SUBCUT 02/18/25 14:00 02/21/25 07:18 100 MCG Dopamine HCl/ Dextrose 250 ml @ 11.906 mls/ hr Q21H IV 02/18/25 15:00 02/20/25 22:02 11.906 MLS/HR Ondansetron HCl 4 mg Q4HPRN PRN IV 02/19/25 00:45 02/21/25 09:49 4 MG Pantoprazole Sodium 40 mg BID IV 02/19/25 22:00 02/21/25 10:07 40 MG Levofloxacin 50 ml @ 50 mls/hr DAILY IV 02/20/25 10:00 02/21/25 10:07 50 MLS/HR Hydrocortisone Sodium Succinate 100 mg Q8HR IV 02/19/25 22:00 02/21/25 05:44 100 MG Metronidazole 100 ml @ 100 mls/hr Q8HR IV 02/19/25 22:00 02/21/25 05:44 100 MLS/HR Acetaminophen/ Hydrocodone Bitart 1 tab Q6HPRN PRN PO 02/20/25 12:15 02/21/25 10:08 1 TAB Apixaban 2.5 mg BID PO 02/20/25 22:00 02/21/25 10:08 2.5 MG Sodium Chloride 10 ml QSHIFT@10,22 IV 02/20/25 22:00 02/21/25 10:07 10 ML laboratory and microbiology Laboratory Tests 02/21/25 02:33 Test 02/21/25 02:33 Range/Units Serum Glucose 133 H 74-106 mg/dL Assessment/Plan Impression Decompensated liver disease Pleural effusions Coagulopathy Ascites Patient seen and examined on the ICU low oxygen requirements on room air episode of afib with rvr this morning s/p paracentesis Labs and imaging reviewed Management Supplemental oxygen as needed Titrate to maintain sats 90% or above Incentive spirometry Bronchodilators as needed Start stress-dose steroids Hydrocortisone 100mg TID Monitor renal function Monitor electrolytes Supplement as needed Correct coagulopathy F/u cardiology dvt proph crit care time 35 min Plan discussed with: Patient JOHNNY DORSEY MD Feb 21, 2025 11:05
[2025-02-21 12:07] LABS: Glucose, Body Fluid 182.0 mg/dL (.)
--- NOTE | 2025-02-21 12:10 | DVHPN2 ---
Progress Note Date Seen: Feb 21, 2025 Medical Necessity Reason Pt with a Central, PICC or Fol: No The following are medically ne: Phillip Catheter Subjective Patient reports: No new complaints Other Systems: Patient seen and examined by myself today in follow-up Objective vital signs Vital Sign Date Time Temp Pulse Resp B/P (MAP) Pulse Ox O2 Delivery O2 Flow Rate FiO2 02/21/25 08:24 82/50 02/21/25 07:00 69 11 02/21/25 05:53 93 Nasal Cannula* 1 02/21/25 04:00 97.6 97.6 Total Intake and Output 02/20/25 02/20/25 02/21/25 15:00 23:00 07:00 Intake Total 171.498 ml 498.968 ml 145.2 ml Output Total 150 ml 150 ml Balance 171.498 ml 348.968 ml -4.8 ml medications Current Medications Medications Dose Ordered Sig/Zahraa Route Start Time Stop Time Status Last Admin Dose Admin Norepinephrine Bitartrate 250 ml @ 3.75 mls/hr Q24H IV 02/17/25 08:30 02/21/25 08:24 3.75 MLS/HR Midodrine 10 mg TIDWM@0600,1200,1800 PO 02/18/25 12:00 02/21/25 05:46 10 MG Octreotide Acetate 100 mcg TID SUBCUT 02/18/25 14:00 02/21/25 07:18 100 MCG Dopamine HCl/ Dextrose 250 ml @ 11.906 mls/ hr Q21H IV 02/18/25 15:00 02/20/25 22:02 11.906 MLS/HR Ondansetron HCl 4 mg Q4HPRN PRN IV 02/19/25 00:45 02/21/25 09:49 4 MG Pantoprazole Sodium 40 mg BID IV 02/19/25 22:00 02/21/25 10:07 40 MG Levofloxacin 50 ml @ 50 mls/hr DAILY IV 02/20/25 10:00 02/21/25 10:07 50 MLS/HR Hydrocortisone Sodium Succinate 100 mg Q8HR IV 02/19/25 22:00 02/21/25 05:44 100 MG Metronidazole 100 ml @ 100 mls/hr Q8HR IV 02/19/25 22:00 02/21/25 05:44 100 MLS/HR Acetaminophen/ Hydrocodone Bitart 1 tab Q6HPRN PRN PO 02/20/25 12:15 02/21/25 10:08 1 TAB Apixaban 2.5 mg BID PO 02/20/25 22:00 02/21/25 10:08 2.5 MG Sodium Chloride 10 ml QSHIFT@10,22 IV 02/20/25 22:00 02/21/25 10:07 10 ML Examination: LUNGS:Normal, CVS:Normal, MSK:Abnormal laboratory and microbiology Laboratory Tests 02/21/25 02:33 Test 02/21/25 02:33 Range/Units Serum Glucose 133 H 74-106 mg/dL Microbiology Date/Time Source Procedure Growth Status 02/19/25 12:57 Urine - [place] Urine Culture - Preliminary Resulted 02/17/25 15:45 Nose MRSA Screen - Final Complete Problem List/Assessment/Plan Problem List/Assessment/Plan Acute kidney injury superimposed Chronic Kidney Disease secondary hemodynamic mediated, FENA >2% Portal vein thrombosis abdominal mass cirrhosis w/ ascites hyperkalemia resolved Jaundice Recommendation Kidney function slightly is improving Increased urine output Strict I&Os Octreotide Midodrine Bilateral echogenic kidney reported on CT scan of the abdomen GI consult We will continue to follow up Plan discussed with: Patient MARI FLOR MD Feb 21, 2025 12:10
[2025-02-21] MEDS: DIGOXIN (250MCG/ML) 2 ML AMPULE IV ONE (13:15)
[2025-02-21] MEDS: DIGOXIN (250MCG/ML) 2 ML AMPULE ONE (13:23)
[2025-02-21] MEDS: PHENYLEPHRINE IV 250 ML IV SCH (13:30)
[2025-02-21] MEDS: PHENYLEPHRINE IV 250 ML IV ONE (13:45)
--- NOTE | 2025-02-21 14:18 | DVHPN2 ---
Progress Note - Dictate Date Seen: Feb 21, 2025 Medical Necessity Reason Pt with a Central, PICC or Fol: No The following are medically ne: Phillip Catheter Subjective Clinically remained stable. She had an episode of SVT this morning spontaneously back in sinus however with sinus bradycardia 40s to 50s. She remains asymptomatic. No complaints of dizziness chest pain or shortness for breath. vital signs Vital Sign Date Time Temp Pulse Resp B/P (MAP) Pulse Ox O2 Delivery O2 Flow Rate FiO2 02/21/25 13:30 91/44 02/21/25 13:15 152 02/21/25 08:00 13 99 Nasal Cannula* 2 28 02/21/25 04:00 97.6 97.6 Total Intake and Output 02/20/25 02/20/25 02/21/25 15:00 23:00 07:00 Intake Total 171.498 ml 498.968 ml 145.2 ml Output Total 150 ml 150 ml Balance 171.498 ml 348.968 ml -4.8 ml medications Current Medications Medications Dose Ordered Sig/Zahraa Route Start Time Stop Time Status Last Admin Dose Admin Norepinephrine Bitartrate 250 ml @ 3.75 mls/hr Q24H IV 02/17/25 08:30 02/21/25 08:24 3.75 MLS/HR Midodrine 10 mg TIDWM@0600,1200,1800 PO 02/18/25 12:00 02/21/25 13:26 10 MG Octreotide Acetate 100 mcg TID SUBCUT 02/18/25 14:00 02/21/25 14:02 100 MCG Ondansetron HCl 4 mg Q4HPRN PRN IV 02/19/25 00:45 02/21/25 09:49 4 MG Pantoprazole Sodium 40 mg BID IV 02/19/25 22:00 02/21/25 10:07 40 MG Levofloxacin 50 ml @ 50 mls/hr DAILY IV 02/20/25 10:00 02/21/25 10:07 50 MLS/HR Hydrocortisone Sodium Succinate 100 mg Q8HR IV 02/19/25 22:00 02/21/25 14:02 100 MG Metronidazole 100 ml @ 100 mls/hr Q8HR IV 02/19/25 22:00 02/21/25 13:26 100 MLS/HR Acetaminophen/ Hydrocodone Bitart 1 tab Q6HPRN PRN PO 02/20/25 12:15 02/21/25 10:08 1 TAB Apixaban 2.5 mg BID PO 02/20/25 22:00 02/21/25 10:08 2.5 MG Sodium Chloride 10 ml QSHIFT@10,22 IV 02/20/25 22:00 02/21/25 10:07 10 ML Digoxin 125 mcg MWF IV 02/22/25 10:00 Phenylephrine HCl 250 ml @ 30 mls/hr Q8H20M IV 02/21/25 13:30 02/21/25 13:30 30 MLS/HR objective Alert awake oriented x3. HEENT neck supple no JVD. Heart regular rate and rhythm S1-S2. Lungs fair air movement without rales wheezes. Abdomen soft nontender positive bowel sounds. Extremities no edema positive pulses laboratory and microbiology Laboratory Tests 02/21/25 02:33 Test 02/21/25 02:33 Range/Units Serum Glucose 133 H 74-106 mg/dL Assessment/Plan 1. Acute hyperkalemia suspect triamterene induced 2. Acute kidney injury rule out hepatorenal syndrome 3. GRACE suspect secondary to vasomotor nephropathy 4. Portal vein thrombosis 5. Liver cirrhosis with a ascites 6. Elevated liver function tests 7. Secondary Coagulopathy due to liver disease 8. Hypotension requiring IV Levophed I will continue dopamine at a lower dose given her bradycardia to keep the heart rate up and as well as renal dose diuresis. Titrate off of the Levophed. Cardiac consultation. Continue Eliquis for portal vein thrombosis and cephalic vein thrombosis. Otherwise continue rest of supportive care and treatment. Further clinical management per clinical course and recommendations of the consultants. Overall prognosis remains guarded. Discussed with the patient along with the nurse at bedside regarding care plan. Plan discussed with: Patient, Other OK HUERTA MD Feb 21, 2025 14:18
--- NOTE | 2025-02-21 16:25 | DVHPN2 ---
Progress Note Date Seen: Feb 21, 2025 Resident Creating Document: MARGUERITE ORELLANA RESIDENT Medical Necessity Reason Pt with a Central, PICC or Fol: No The following are medically ne: Phillip Catheter Subjective Review of Systems A&O x2, hard of hearing, MRCP ordered Objective vital signs Vital Sign Date Time Temp Pulse Resp B/P (MAP) Pulse Ox O2 Delivery O2 Flow Rate FiO2 02/21/25 14:00 58 02/21/25 14:00 12 100 Nasal Cannula* 1 24 02/21/25 13:30 91/44 02/21/25 04:00 97.6 97.6 Total Intake and Output 02/20/25 02/20/25 02/21/25 15:00 23:00 07:00 Intake Total 171.498 ml 498.968 ml 145.2 ml Output Total 150 ml 150 ml Balance 171.498 ml 348.968 ml -4.8 ml medications Current Medications Medications Dose Ordered Sig/Zahraa Route Start Time Stop Time Status Last Admin Dose Admin Norepinephrine Bitartrate 250 ml @ 3.75 mls/hr Q24H IV 02/17/25 08:30 02/21/25 08:24 3.75 MLS/HR Midodrine 10 mg TIDWM@0600,1200,1800 PO 02/18/25 12:00 02/21/25 13:26 10 MG Octreotide Acetate 100 mcg TID SUBCUT 02/18/25 14:00 02/21/25 14:02 100 MCG Ondansetron HCl 4 mg Q4HPRN PRN IV 02/19/25 00:45 02/21/25 09:49 4 MG Pantoprazole Sodium 40 mg BID IV 02/19/25 22:00 02/21/25 10:07 40 MG Levofloxacin 50 ml @ 50 mls/hr DAILY IV 02/20/25 10:00 02/21/25 10:07 50 MLS/HR Hydrocortisone Sodium Succinate 100 mg Q8HR IV 02/19/25 22:00 02/21/25 14:02 100 MG Metronidazole 100 ml @ 100 mls/hr Q8HR IV 02/19/25 22:00 02/21/25 13:26 100 MLS/HR Acetaminophen/ Hydrocodone Bitart 1 tab Q6HPRN PRN PO 02/20/25 12:15 02/21/25 10:08 1 TAB Apixaban 2.5 mg BID PO 02/20/25 22:00 02/21/25 10:08 2.5 MG Sodium Chloride 10 ml QSHIFT@10,22 IV 02/20/25 22:00 02/21/25 10:07 10 ML Digoxin 125 mcg MWF IV 02/22/25 10:00 Phenylephrine HCl 250 ml @ 30 mls/hr Q8H20M IV 02/21/25 13:30 02/21/25 13:30 30 MLS/HR Examination Patient lying in bed, in no acute distress General: Well-built, afebrile, palor, mucosae are moist Cardiovascular: Bradycardic, normal S1 and S2. No murmurs, gallops or rubs. No JVD elevation. No pedal edema Respiratory: Bilateral decreased air entry Abdomen: Soft, nontender, nondistended, normoactive bowel sounds, no rebound tenderness, no organomegaly, no masses Genitourinary: Deferred Psych/Mental Status: A/Ox2 laboratory and microbiology Laboratory Tests 02/21/25 02:33 Test 02/21/25 02:33 Range/Units Serum Glucose 133 H 74-106 mg/dL Microbiology Date/Time Source Procedure Growth Status 02/19/25 12:57 Urine - [place] Urine Culture - Preliminary Resulted 02/17/25 15:45 Nose MRSA Screen - Final Complete Labs and/or images reviewed: Labs reviewed by me, Image(s) reviewed by me Problem List/Assessment/Plan Problem List/Assessment/Plan Spontaneous bacterial peritonitis Cholestatic liver disease Ascites Cirrhosis Diffuse anasarca Acute kidney injury likely vasomotor mediated/hepatorenal Tachy-jovanny arrhythmias Severe protein calorie malnutrition Plan: Recommendation Bilirubin stable at 10, LFTs downtrending, ammonia unremarkable. MRCP pending. Hepatitis panel negative. ISABEL screen negative. Await ascitic fluid cytology rule out malignancy Elevated total bilirubin and alkaline phosphatase suggestive of cholestatic jaundice possibly due to obstruction or mass Ascitic fluid cell count suggestive of spontaneous bacterial peritonitis, continue IV Levaquin Continue Protonix 40 mg IV b.i.d. Continue to monitor labs and supportive care Overall prognosis remains guarded Review records and pathology from [facility] Plan discussed with nurse Cunningham in which all questions have been answered Case discussed with Dr. Rice Plan discussed with: Patient My Orders My Orders Orders - ALI,MARGUERITE RESIDENT Procedure Category Date Status Time Mrcp Mri MRI 02/21/25 Logged 14:14 MARGUERITE ORELLANA Feb 21, 2025 16:25
[2025-02-21] MEDS: DOPamine 1600MCG/ML D5W 250 ML IV ONE (20:45)
[2025-02-22] VITALS (96 sets, daily range): BP systolic 87–134; BP diastolic 26–54; PULSE 39–69; RESP 7–20; TEMP 97.1–97.9; O2SAT 91–97
[2025-02-22 04:01] LABS: Hematocrit 37.0 % (36.0-46.0); Hemoglobin 12.2 g/dL (12.2-16.2); Mean Corpuscular Hemoglobin 30.2 pg (28.0-32.0); Mean Corpuscular Volume 91.4 fL (80.0-100.0); Nucleated Red Blood Cells % 0.2 %
[2025-02-22 04:27] LABS: Anion Gap 12 (5-15); BUN/Creatinine Ratio 20.5 (10.0-20.0); Carbon Dioxide 21 mmol/L (20-31); Chloride 105 mmol/L (98-107); Glucose 102 mg/dL (74-106); Magnesium 2.0 mg/dL (1.6-2.6); Potassium 4.9 mmol/L (3.5-5.1); Sodium 138 mmol/L (136-145)
[2025-02-22 04:31] LABS: Alanine Aminotransferase 105 U/L (7-40); Albumin 2.8 g/dL (3.2-4.8); Alkaline Phosphatase 820 U/L (46-116); Bilirubin, Total 9.3 mg/dL (0.2-1.0); Blood Urea Nitrogen 41 mg/dL (9-23); Calcium 8.6 mg/dL (8.7-10.4); Total Protein 4.8 g/dL (5.7-8.2)
[2025-02-22] MEDS: DIGOXIN (250MCG/ML) 2 ML AMPULE IV SCH (10:00)
[2025-02-22] MEDS ORDERED: PROMETHAZINE HCL 6.25 MG/5 ML ORAL SYRUP PO PRN (10:15)
--- NOTE | 2025-02-22 12:55 | DVHPN2 ---
Progress Note - Dictate Date Seen: Feb 22, 2025 Medical Necessity Reason Pt with a Central, PICC or Fol: No The following are medically ne: Phillip Catheter vital signs Vital Sign Date Time Temp Pulse Resp B/P (MAP) Pulse Ox O2 Delivery O2 Flow Rate FiO2 02/22/25 10:00 56 02/22/25 08:00 18 94 Nasal Cannula* 2 28 02/22/25 06:45 118/48 (71) 02/22/25 04:00 97.8 97.8 Total Intake and Output 02/21/25 02/21/25 02/22/25 15:00 23:00 07:00 Intake Total 63.75 ml 552.50 ml 323.0 ml Output Total 125 ml 100 ml Balance 63.75 ml 427.50 ml 223.0 ml medications Current Medications Medications Dose Ordered Sig/Zahraa Route Start Time Stop Time Status Last Admin Dose Admin Norepinephrine Bitartrate 250 ml @ 3.75 mls/hr Q24H IV 02/17/25 08:30 02/21/25 08:24 3.75 MLS/HR Midodrine 10 mg TIDWM@0600,1200,1800 PO 02/18/25 12:00 02/22/25 09:39 10 MG Octreotide Acetate 100 mcg TID SUBCUT 02/18/25 14:00 02/21/25 21:34 100 MCG Ondansetron HCl 4 mg Q4HPRN PRN IV 02/19/25 00:45 02/21/25 09:49 4 MG Pantoprazole Sodium 40 mg BID IV 02/19/25 22:00 02/22/25 09:48 40 MG Levofloxacin 50 ml @ 50 mls/hr DAILY IV 02/20/25 10:00 02/22/25 09:48 50 MLS/HR Hydrocortisone Sodium Succinate 100 mg Q8HR IV 02/19/25 22:00 02/22/25 05:24 100 MG Metronidazole 100 ml @ 100 mls/hr Q8HR IV 02/19/25 22:00 02/22/25 05:24 100 MLS/HR Acetaminophen/ Hydrocodone Bitart 1 tab Q6HPRN PRN PO 02/20/25 12:15 02/21/25 10:08 1 TAB Apixaban 2.5 mg BID PO 02/20/25 22:00 02/22/25 09:39 2.5 MG Sodium Chloride 10 ml QSHIFT@10,22 IV 02/20/25 22:00 02/22/25 09:48 10 ML Digoxin 125 mcg MWF IV 02/22/25 10:00 Phenylephrine HCl 250 ml @ 30 mls/hr Q8H20M IV 02/21/25 13:30 02/22/25 00:52 30 MLS/HR Dopamine HCl/ Dextrose 250 ml @ 5.213 mls/ hr Q24H IV 02/21/25 22:30 02/21/25 02:50 2.606 MLS/HR Promethazine HCl 25 mg Q4HP PRN PO 02/22/25 11:00 Gabapentin 300 mg TID PO 02/22/25 14:00 laboratory and microbiology Laboratory Tests 02/22/25 03:36 Test 02/22/25 03:36 Range/Units Serum Glucose 102 74-106 mg/dL Assessment/Plan Impression Decompensated liver disease Pleural effusions Coagulopathy Ascites Patient seen and examined on the ICU low oxygen requirements on room air levophed dopamine c/o nausea leg pains neurontin added s/p paracentesis Labs and imaging reviewed Management Supplemental oxygen as needed Titrate to maintain sats 90% or above Incentive spirometry Bronchodilators as needed stress-dose steroids Hydrocortisone 100mg TID Monitor renal function Monitor electrolytes Supplement as needed Correct coagulopathy F/u cardiology dvt proph crit care time 35 min Dietary Evaluation Review Comments: Nutrition Recommendations: Encourage oral (PO) liquids and feedings as tolerated. Advance diet to 2-gram sodium, high-protein diet if patient accepts oral intake. If patient continues to refuse food: Consider initiating Total Parenteral Nutrition (TPN) for nutritional support. Alternatively, consider placement of a nasogastric (NG) tube for enteral feeding. Expected Outcomes/Goals: Provide adequate nutrition support by mouth, tube feeding or TPN Plan discussed with: Patient JOHNNY DORSEY MD Feb 22, 2025 12:55
--- NOTE | 2025-02-22 13:07 | DVHPN2 ---
Progress Note - Dictate Date Seen: Feb 22, 2025 Medical Necessity Reason Pt with a Central, PICC or Fol: No The following are medically ne: Phillip Catheter Subjective Clinically remained stable. NIECE AT BEDSIDE. PATIENT IS WITH A POOR APPETITE AND COMPLAINS OF NAUSEA. HAD A BOWEL MOVEMENT TODAY. vital signs Vital Sign Date Time Temp Pulse Resp B/P (MAP) Pulse Ox O2 Delivery O2 Flow Rate FiO2 02/22/25 10:00 56 02/22/25 08:00 18 94 Nasal Cannula* 2 28 02/22/25 06:45 118/48 (71) 02/22/25 04:00 97.8 97.8 Total Intake and Output 02/21/25 02/21/25 02/22/25 15:00 23:00 07:00 Intake Total 63.75 ml 552.50 ml 323.0 ml Output Total 125 ml 100 ml Balance 63.75 ml 427.50 ml 223.0 ml medications Current Medications Medications Dose Ordered Sig/Zahraa Route Start Time Stop Time Status Last Admin Dose Admin Norepinephrine Bitartrate 250 ml @ 3.75 mls/hr Q24H IV 02/17/25 08:30 02/21/25 08:24 3.75 MLS/HR Midodrine 10 mg TIDWM@0600,1200,1800 PO 02/18/25 12:00 02/22/25 09:39 10 MG Octreotide Acetate 100 mcg TID SUBCUT 02/18/25 14:00 02/21/25 21:34 100 MCG Ondansetron HCl 4 mg Q4HPRN PRN IV 02/19/25 00:45 02/21/25 09:49 4 MG Pantoprazole Sodium 40 mg BID IV 02/19/25 22:00 02/22/25 09:48 40 MG Levofloxacin 50 ml @ 50 mls/hr DAILY IV 02/20/25 10:00 02/22/25 09:48 50 MLS/HR Hydrocortisone Sodium Succinate 100 mg Q8HR IV 02/19/25 22:00 02/22/25 05:24 100 MG Metronidazole 100 ml @ 100 mls/hr Q8HR IV 02/19/25 22:00 02/22/25 05:24 100 MLS/HR Acetaminophen/ Hydrocodone Bitart 1 tab Q6HPRN PRN PO 02/20/25 12:15 02/21/25 10:08 1 TAB Apixaban 2.5 mg BID PO 02/20/25 22:00 02/22/25 09:39 2.5 MG Sodium Chloride 10 ml QSHIFT@10,22 IV 02/20/25 22:00 02/22/25 09:48 10 ML Digoxin 125 mcg MWF IV 02/22/25 10:00 Phenylephrine HCl 250 ml @ 30 mls/hr Q8H20M IV 02/21/25 13:30 02/22/25 00:52 30 MLS/HR Dopamine HCl/ Dextrose 250 ml @ 5.213 mls/ hr Q24H IV 02/21/25 22:30 02/21/25 02:50 2.606 MLS/HR Promethazine HCl 25 mg Q4HP PRN PO 02/22/25 11:00 Gabapentin 300 mg TID PO 02/22/25 14:00 objective Alert awake oriented x3. HEENT neck supple no JVD. Heart regular rate and rhythm S1-S2. Lungs fair air movement without rales wheezes. Abdomen soft nontender positive bowel sounds. Extremities no edema positive pulses laboratory and microbiology Laboratory Tests 02/22/25 03:36 Test 02/22/25 03:36 Range/Units Serum Glucose 102 74-106 mg/dL Assessment/Plan 1. Acute hyperkalemia suspect triamterene induced 2. Acute kidney injury rule out hepatorenal syndrome 3. GRACE suspect secondary to vasomotor nephropathy 4. Portal vein thrombosis 5. Liver cirrhosis with a ascites 6. Elevated liver function tests 7. Secondary Coagulopathy due to liver disease 8. Hypotension requiring IV Levophed Still on dopamine and Levophed for blood pressure and heart rate support. We will change the Zofran to Phenergan for her nausea due to prolonged QT. Start her on protein diet given poor oral intake. Talked with the niece at length regarding patient's multiple comorbid conditions including persistent hypotension with a renal failure liver failure with a underlying portal vein thrombosis. At present her condition remains guarded with a poor prognosis. For now continue present management. Discussed with the knees and nurse at bedside regarding care plan. Dietary Evaluation Review Comments: Nutrition Recommendations: Encourage oral (PO) liquids and feedings as tolerated. Advance diet to 2-gram sodium, high-protein diet if patient accepts oral intake. If patient continues to refuse food: Consider initiating Total Parenteral Nutrition (TPN) for nutritional support. Alternatively, consider placement of a nasogastric (NG) tube for enteral feeding. Expected Outcomes/Goals: Provide adequate nutrition support by mouth, tube feeding or TPN Plan discussed with: Patient, Other [place] HUERTA MD Feb 22, 2025 13:07
--- NOTE | 2025-02-22 13:20 | DVHPN2 ---
Progress Note Date Seen: Feb 22, 2025 Medical Necessity Reason Pt with a Central, PICC or Fol: No The following are medically ne: Phillip Catheter Subjective Patient reports: No new complaints Other Systems: Patient seen and examined by myself today in follow-up Objective vital signs Vital Sign Date Time Temp Pulse Resp B/P (MAP) Pulse Ox O2 Delivery O2 Flow Rate FiO2 02/22/25 10:00 56 02/22/25 08:00 18 94 Nasal Cannula* 2 28 02/22/25 06:45 118/48 (71) 02/22/25 04:00 97.8 97.8 Total Intake and Output 02/21/25 02/21/25 02/22/25 15:00 23:00 07:00 Intake Total 63.75 ml 552.50 ml 323.0 ml Output Total 125 ml 100 ml Balance 63.75 ml 427.50 ml 223.0 ml medications Current Medications Medications Dose Ordered Sig/Zahraa Route Start Time Stop Time Status Last Admin Dose Admin Norepinephrine Bitartrate 250 ml @ 3.75 mls/hr Q24H IV 02/17/25 08:30 02/21/25 08:24 3.75 MLS/HR Midodrine 10 mg TIDWM@0600,1200,1800 PO 02/18/25 12:00 02/22/25 09:39 10 MG Octreotide Acetate 100 mcg TID SUBCUT 02/18/25 14:00 02/21/25 21:34 100 MCG Ondansetron HCl 4 mg Q4HPRN PRN IV 02/19/25 00:45 02/21/25 09:49 4 MG Pantoprazole Sodium 40 mg BID IV 02/19/25 22:00 02/22/25 09:48 40 MG Levofloxacin 50 ml @ 50 mls/hr DAILY IV 02/20/25 10:00 02/22/25 09:48 50 MLS/HR Hydrocortisone Sodium Succinate 100 mg Q8HR IV 02/19/25 22:00 02/22/25 05:24 100 MG Metronidazole 100 ml @ 100 mls/hr Q8HR IV 02/19/25 22:00 02/22/25 05:24 100 MLS/HR Acetaminophen/ Hydrocodone Bitart 1 tab Q6HPRN PRN PO 02/20/25 12:15 02/21/25 10:08 1 TAB Apixaban 2.5 mg BID PO 02/20/25 22:00 02/22/25 09:39 2.5 MG Sodium Chloride 10 ml QSHIFT@10,22 IV 02/20/25 22:00 02/22/25 09:48 10 ML Digoxin 125 mcg MWF IV 02/22/25 10:00 Phenylephrine HCl 250 ml @ 30 mls/hr Q8H20M IV 02/21/25 13:30 02/22/25 00:52 30 MLS/HR Dopamine HCl/ Dextrose 250 ml @ 5.213 mls/ hr Q24H IV 02/21/25 22:30 02/21/25 02:50 2.606 MLS/HR Promethazine HCl 25 mg Q4HP PRN PO 02/22/25 11:00 Gabapentin 300 mg TID PO 02/22/25 14:00 Examination: LUNGS:Normal, CVS:Normal, MSK:Normal laboratory and microbiology Laboratory Tests 02/22/25 03:36 Test 02/22/25 03:36 Range/Units Serum Glucose 102 74-106 mg/dL Microbiology Date/Time Source Procedure Growth Status 02/19/25 12:57 Urine - [place] Urine Culture - Preliminary Resulted 02/17/25 15:45 Nose MRSA Screen - Final Complete Problem List/Assessment/Plan Problem List/Assessment/Plan Acute kidney injury superimposed Chronic Kidney Disease secondary hemodynamic mediated, FENA >2% Portal vein thrombosis abdominal mass cirrhosis w/ ascites hyperkalemia resolved Jaundice Bradycardia Recommendation Kidney function slightly worsened today Urine output not charted Strict I&Os Octreotide Midodrine Bilateral echogenic kidney reported on CT scan of the abdomen GI consult Cardiology consult We will continue to follow up Plan discussed with: Patient Dietary Evaluation Review Comments: Nutrition Recommendations: Encourage oral (PO) liquids and feedings as tolerated. Advance diet to 2-gram sodium, high-protein diet if patient accepts oral intake. If patient continues to refuse food: Consider initiating Total Parenteral Nutrition (TPN) for nutritional support. Alternatively, consider placement of a nasogastric (NG) tube for enteral feeding. Expected Outcomes/Goals: Provide adequate nutrition support by mouth, tube feeding or TPN MARI FLOR MD Feb 22, 2025 13:20
[2025-02-22] MEDS: GABAPENTIN 300 MG CAP PO SCH ×2 (14:00→22:00)
--- NOTE | 2025-02-22 16:15 | DVHPN2 ---
Progress Note Date Seen: Feb 22, 2025 Resident Creating Document: MARGUERITE ORELLANA RESIDENT Medical Necessity Reason Pt with a Central, PICC or Fol: No The following are medically ne: Phillip Catheter Subjective Review of Systems Patient seen and examined at bedside. Niece at bedside. Abdomen normoactive. Had a bowel movement. Patient reports: No new complaints Objective vital signs Vital Sign Date Time Temp Pulse Resp B/P (MAP) Pulse Ox O2 Delivery O2 Flow Rate FiO2 02/22/25 15:00 50 13 122/34 (63) 96 02/22/25 08:00 Nasal Cannula* 2 28 02/22/25 04:00 97.8 97.8 Total Intake and Output 02/21/25 02/21/25 02/22/25 15:00 23:00 07:00 Intake Total 63.75 ml 552.50 ml 323.0 ml Output Total 125 ml 100 ml Balance 63.75 ml 427.50 ml 223.0 ml medications Current Medications Medications Dose Ordered Sig/Zahraa Route Start Time Stop Time Status Last Admin Dose Admin Norepinephrine Bitartrate 250 ml @ 3.75 mls/hr Q24H IV 02/17/25 08:30 02/21/25 08:24 3.75 MLS/HR Midodrine 10 mg TIDWM@0600,1200,1800 PO 02/18/25 12:00 02/22/25 09:39 10 MG Octreotide Acetate 100 mcg TID SUBCUT 02/18/25 14:00 02/21/25 21:34 100 MCG Ondansetron HCl 4 mg Q4HPRN PRN IV 02/19/25 00:45 02/21/25 09:49 4 MG Pantoprazole Sodium 40 mg BID IV 02/19/25 22:00 02/22/25 09:48 40 MG Levofloxacin 50 ml @ 50 mls/hr DAILY IV 02/20/25 10:00 02/22/25 09:48 50 MLS/HR Hydrocortisone Sodium Succinate 100 mg Q8HR IV 02/19/25 22:00 02/22/25 05:24 100 MG Metronidazole 100 ml @ 100 mls/hr Q8HR IV 02/19/25 22:00 02/22/25 05:24 100 MLS/HR Acetaminophen/ Hydrocodone Bitart 1 tab Q6HPRN PRN PO 02/20/25 12:15 02/21/25 10:08 1 TAB Apixaban 2.5 mg BID PO 02/20/25 22:00 02/22/25 09:39 2.5 MG Sodium Chloride 10 ml QSHIFT@10,22 IV 02/20/25 22:00 02/22/25 09:48 10 ML Digoxin 125 mcg MWF IV 02/22/25 10:00 Phenylephrine HCl 250 ml @ 30 mls/hr Q8H20M IV 02/21/25 13:30 02/22/25 00:52 30 MLS/HR Dopamine HCl/ Dextrose 250 ml @ 5.213 mls/ hr Q24H IV 02/21/25 22:30 02/21/25 02:50 2.606 MLS/HR Promethazine HCl 25 mg Q4HP PRN PO 02/22/25 11:00 Gabapentin 300 mg TID PO 02/22/25 14:00 Examination Patient lying in bed, in no acute distress General: Thin-appearing, afebrile, palor, mucosae are moist Cardiovascular: Bradycardic, normal S1 and S2. No murmurs, gallops or rubs. No JVD elevation. 2+ pedal edema Respiratory: Bilateral decreased air entry Abdomen: Soft, nontender, nondistended, normoactive bowel sounds, no rebound tenderness, no organomegaly, no masses Genitourinary: Deferred Psych/Mental Status: A/Ox2 laboratory and microbiology Laboratory Tests 02/22/25 03:36 Test 02/22/25 03:36 Range/Units Serum Glucose 102 74-106 mg/dL Microbiology Date/Time Source Procedure Growth Status 02/19/25 12:57 Urine - [place] Urine Culture - Preliminary Resulted 02/17/25 15:45 Nose MRSA Screen - Final Complete Labs and/or images reviewed: Labs reviewed by me, Image(s) reviewed by me Problem List/Assessment/Plan Problem List/Assessment/Plan Spontaneous bacterial peritonitis Cholestatic liver disease Ascites Cirrhosis Portal vein thrombosis varices 3cm hiatal hernia gastritis Diffuse anasarca Acute kidney injury likely vasomotor mediated/hepatorenal Tachy-jovanny arrhythmias Severe protein calorie malnutrition QTC prolongation Plan: Recommendation Bilirubin stable at 10, LFTs downtrending, ammonia unremarkable. MRCP could not be completed as patient is unstable. Per patient's niece, patient had EGD at [facility], which showed varices, 3cm hiatal hernia, gastritis Patient recently had a duodenal mass biopsy which was unremarkable per the niece. Records ordered promethazine for nausea Hepatitis panel negative. ISABEL screen negative. Await ascitic fluid cytology rule out malignancy Elevated total bilirubin and alkaline phosphatase suggestive of cholestatic jaundice possibly due to obstruction or mass Ascitic fluid cell count suggestive of spontaneous bacterial peritonitis, continue IV Levaquin Continue Protonix 40 mg IV b.i.d. Continue to monitor labs and supportive care Overall prognosis remains guarded Review records and pathology from [facility] Plan discussed with nurse Cunningham in which all questions have been answered Case discussed with Dr. Rice Plan discussed with: Patient Dietary Evaluation Review Comments: Nutrition Recommendations: Encourage oral (PO) liquids and feedings as tolerated. Advance diet to 2-gram sodium, high-protein diet if patient accepts oral intake. If patient continues to refuse food: Consider initiating Total Parenteral Nutrition (TPN) for nutritional support. Alternatively, consider placement of a nasogastric (NG) tube for enteral feeding. Expected Outcomes/Goals: Provide adequate nutrition support by mouth, tube feeding or TPN MARGUERITE ORELLANA RESIDENT Feb 22, 2025 16:15
[2025-02-22] MEDS: D5W/SOD CHLO 0.9% 1,000 ML IV ONE (18:00)
[2025-02-22] MEDS: Nepro With Carbsteady ButterPecan 8oz Carton PO SCH (18:14)
--- NOTE | 2025-02-22 18:31 | DVHINCON2 ---
Date Seen: Feb 22, 2025 Referring Physician MD Mya Reason for Consultation AFib RVR History of Present Illness This is a 74-year-old female patient who presents to emergency room with chief complaint of abdominal pain and distention. The patient reports a recent diagnosis of nonalcoholic liver cirrhosis that was made at [facility] in December 2024. She now comes to this facility for further evaluation. Cardiology has been consulted at this time for atrial fibrillation evaluation. Initial twelve lead electrocardiogram found in patient's hard chart reveals a sinus bradycardia rhythm. On 02/21/2025 the patient was noted to go into a tachycardia. A twelve lead electrocardiogram was obtained by bedside RN and reveals a junctional tachycardia---EKG seen and reviewed by animal handler (Machine reads atrial fibrillation). At the time of assessment, the patient is in sinus bradycardia on environmental monitoring specialist. The patient denies any cardiac symptoms such as chest pain, palpitations, shortness of breath, or dizziness. Significant past medical history includes congestive heart failure, hypertension, dyslipidemia, nonalcoholic liver cirrhosis, and a mass in her small intestine. The patient's and her niece who was at bedside report that a mass was found in her small intestine at [facility]. According to their reports, they believe it was benign. The patient also mentions recentl y being diagnosed with portal vein thrombosis at [facility] in December 2024 and was discharged on Eliquis therapy. Medical records have been requested for further evaluation. Past Medical History Past medical history reviewed. No other significant than mentioned above. Past Surgical History Cholecystectomy Gastric bypass Family History: Patient reports no known family medical history. Family History Family history reviewed. Social History Denies the use of tobacco, alcohol or illicit drugs. Allergies: Coded Allergies: Penicillins (Verified Allergy, Unknown, 02/17/25) Home Meds Home medications reviewed. Current Medications Current Medications Medications (Trade) Dose Ordered Sig/Zahraa Route PRN Reason Start Time Stop Time Status Last Admin Digoxin (Lanoxin Injection) 125 mcg MWF IV 02/22/25 10:00 Dopamine HCl/ Dextrose 250 ml @ 5.213 mls/ hr Q24H IV 02/21/25 20:40 02/21/25 22:32 DC 02/21/25 21:30 Dopamine HCl/ Dextrose 250 ml @ 5.213 mls/ hr Q24H IV 02/21/25 22:30 02/21/25 02:50 Promethazine HCl (Phenergan Plain Syrup) 12.5 mg Q6HP PRN PO NAUSEA / VOMITING 02/22/25 10:15 02/22/25 10:53 DC Promethazine HCl (Phenergan Plain Syrup) 25 mg Q4HP PRN PO NAUSEA / VOMITING 02/22/25 11:00 Gabapentin (Neurontin Capsule) 300 mg TID PO 02/22/25 14:00 02/22/25 14:00 Enteral Nutritional Formula (Nepro With Carbsteady) 240 ml TIDWM PO 02/22/25 18:00 02/22/25 18:14 Review of Systems Constitutional: No symptom reported Ears, Nose, & Throat: No symptom reported Eyes: No symptom reported Neurological: No symptoms reported Pulmonary/Respiratory: No symptoms reported Cardiovascular: No symptom reported Gastrointestinal: Abdominal pain and distention Genitourinary: No symptom reported Musculoskeletal: No symptom reported Skin: No symptom reported Psychiatric: No symptom reported Endocrine: No symptom reported Hematologic/Lymphatic: No symptom reported Vital Signs Vital Signs Date Time Temp Pulse Resp B/P (MAP) Pulse Ox O2 Delivery O2 Flow Rate FiO2 02/22/25 18:10 116/37 02/22/25 16:00 13 96 Room Air* 0 21 02/22/25 16:00 45 02/22/25 04:00 97.8 97.8 Physical Exam General Appearance: Cooperative. Well-developed. Well-nourished. No acute distress. Pulmonary/Respiratory: Clear, bilateral breaths sounds. Cardiovascular/Chest: Regular rate and rhythm. Peripheral Pulses: 2+ Radial (R). 2+ Radial (L). 2+ Pedal (R). 2+ Pedal (L) Abdominal Exam: Normal bowel sounds. Ascites Ankle Exam: 1 +pitting edema Lower extremities: 1+ pitting edema Neuro/Mental Status: A/OX4, coherent. Thoughts/Psych: Normal thought pattern. Appropriate mood and affect. Good judg ment and insight. Appearance: No acute distress. Skin Exam: Generalized jaundice. Skin warm and dry Labs/Diagnostic Data Labs Test 02/22/25 03:36 02/21/25 14:35 02/20/25 17:35 02/20/25 02:47 Range/Units White Blood Count 11.3 #H 4.4-10.8 10^3/uL Red Blood Count 4.04 4.0-5.20 10^6/uL Hemoglobin 12.2 12.2-16.2 g/dL Hematocrit 37.0 36.0-46.0 % Mean Corpuscular Volume 91.4 80.0-100.0 fL Mean Corpuscular Hemoglobin 30.2 28.0-32.0 pg Mean Corpuscular Hemoglobin Concent 33.1 32.0-36.0 g/dL Red Cell Distribution Width 18.7 H 11.8-14.3 % Platelet Count 263 140-450 10^3/uL Mean Platelet Volume 9.2 6.9-10.8 fL Neutrophils (%) (Auto) 89.1 H 37.0-80.0 % Lymphocytes (%) (Auto) 4.6 L 10.0-50.0 % Monocytes (%) (Auto) 6.2 0.0-12.0 % Eosinophils (%) (Auto) 0.0 0.0-7.0 % Basophils (%) (Auto) 0.1 0.0-2.0 % Neutrophils # (Auto) 10.1 H 1.6-8.6 10 ^3/uL Lymphocytes # (Auto) 0.5 0.4-5.4 10 ^3/uL Monocytes # (Auto) 0.7 0-1.3 10 ^3/uL Eosinophils # (Auto) 0 0-0.8 10 ^3/uL Basophils # (Auto) 0 0-0.2 10 ^3/uL Nucleated Red Blood Cells 0.2 % Sodium Level 138 136-145 mmol/L Potassium Level 4.9 3.5-5.1 mmol/L Chloride Level 105 98-107 mmol/L Carbon Dioxide Level 21 20-31 mmol/L Anion Gap 12 5-15 Blood Urea Nitrogen 41 H 9-23 mg/dL Creatinine 2.00 H 0.550-1.02 mg/dL Glomerular Filtration Rate Calc 25 >90 mL/min BUN/Creatinine Ratio 20.5 H 10.0-20.0 Serum Glucose 102 74-106 mg/dL Calcium Level 8.6 L 8.7-10.4 mg/dL Magnesium Level 2.0 1.6-2.6 mg/dL Total Bilirubin 9.3 H 0.2-1.0 mg/dL Aspartate Amino Transferase (AST) 86 H 13-40 U/L Alanine Aminotransferase (ALT) 105 H 7-40 U/L Alkaline Phosphatase 820 H 46-116 U/L Total Protein 4.8 L 5.7-8.2 g/dL Albumin 2.8 L 3.2-4.8 g/dL Ammonia < 10 L 11-32 umol/L Vitamin D 25-Hydroxy 52.1 30.0-100 ng/mL Prothrombin Time 12.6 H 9.3-11.8 sec Prothrombin Time INR 1.21 H 0.9-1.15 Phosphorus Level 3.8 2.4-5.1 mg/dL Anti-Nuclear Antibody Screen Negative Negative Hepatitis A IgM Antibody Negative Hepatitis A Antibody Total Negative Negative Hepatitis B Surface Antigen Negative Negative Hepatitis B Surface Antibody Negative Negative Hepatitis B Core Total Antibody Negative Negative Hepatitis B Core IgM Antibody Negative Negative Hepatitis C Antibody Negative Negative Test 02/20/25 00:22 02/19/25 18:08 02/19/25 14:00 02/18/25 02:57 Range/Units Parathyroid Hormone (Intact) 85.0 H 18.4-80.1 pg/mL POC Glucose 149 H 70-106 mg/dl Body Fluid Source Peritoneal fluid Body Fluid WBC (Manual) 364 H 0-200 CUMM Body Fluid RBC (Manual) 6089 H 0-2000 CUMM Body Fluid Mononuclear Cells 25 % Body Fluid Polymorphonuclear Cells 75 H 0-25 % Body Fluid Glucose 182 . mg/dL Body Fluid Total Protein 0.8 . g/dL Urine Color Yellow Yellow Urine Clarity Clear Clear Urine pH 5.0 5.0-9.0 Urine Specific Picher 1.020 1.001-1.035 Urine Protein 1+ H Negative Urine Ketones Negative Negative Urine Blood Trace H Negative /uL Urine Nitrite Negative Negative Urine Bilirubin Negative Negative Urine Urobilinogen Normal Negative mg/dL Urine Leukocyte Esterase Negative Negative /uL Urine RBC 3 0 - 4 /hpf Urine Microscopic WBC 7 H 0-5 /HPF Urine Squamous Epithelial Cells Few <5 /hpf Urine Bacteria Few H None Seen /hpf Urine Hyaline Casts Few 0 - 2 /lpf Urine Yeast (Budding) Occasional None Seen /hpf Urine Creatinine 159.83 H 30.0-125.0 mg/dL Urine Protein/Creatinine Ratio 0.54 Urine Sodium 64 40-220 mmol/L Urine Glucose Normal Normal mg/dL Urine Total Protein 87.1 H 1-14 mg/dL Test 02/16/25 23:57 Range/Units Lipase 25 12-53 U/L Microbiology Date/Time Source Procedure Growth Status 02/19/25 12:57 Urine - [place] Urine Culture - Preliminary Resulted 02/17/25 15:45 Nose MRSA Screen - Final Complete Assessment Junctional tachycardia now with sinus bradycardia Acute on chronic HFrEF, NHYA class III Occlusive thrombus in left cephalic vein Portal vein thrombosis (on Eliquis) Nonalcoholic liver cirrhosis Right upper lobe pulmonary nodule Nodule within superior right renal pole Hyperkalemia, resolved GRACE on CKD Transaminitis Plan/Recommendation We will continue with the following plan/recommendations (Dr. Olsen): Case reviewed and discussed with . A transthoracic echocardiogram reveals an EF of 20-25% with severe global hypokinesis. Unable to initiate guideline directed medical therapy for CHF at this time given that patient is on vasopressor therapy for hemodynamic support. No atrial fibrillation identified on environmental monitoring specialist as patient was noted to go into a junctional tachycardia rhythm. Patient now in sinus bradycardia without any significant atrioventricular blocks or pauses. At this time, there is no indication for permanent pacemaker implantation. Proceed with avoiding AV reina blocking agents. Continue with close cardiac surveillance and notify cardiology team immediately for any ECG changes. Thank you for allowing us to care for this patient. Please call with any questions or concerns. Critical care time spent: 44 minutes This medical document was created using an electronic medical record system with voice recognition software and computerized dictation system. Although this document has been carefully reviewed, there might still be some phonetic and typographical errors. Occasional wrong-word or ``sound-alike substitutions may have occurred due to the inherent limitations of voice recognition software. These areas are purely typographical due to imperfections of the software programs and do not reflect any compromise in the patient's medical care. Please read the chart carefully and recognize, using context, where these substitutions have occurred. Plan discussed with: Patient, Other (Niece at bedside) NYHA Physical activity limitations: Class3(Marked) ordinary Date of Service: Feb 22, 2025 Billing Provider: GEOVANNY JAFFE Cardiology Common Codes: 21616-EXDUEMM INP/OBS CARE (High) Cardiology Consultation Codes: 85268-WXNPKDHSO CONSULT <45MIN GEOVANNY JAFFE Feb 22, 2025 18:31
--- NOTE | 2025-02-22 18:50 | DVHSR ---
APPROVED REPORT EXAM: Two-dimensional and M-mode echocardiogram with Doppler and color Doppler. Blood Pressure: 82/50 mmHg INDICATION AFIB with RVR RISK FACTORS Height: 64, Weight: 153 DIMENSIONS LVDd (3.8-5.7cm) LA (2D) 3.5 (1.9-4.0cm) Aortic Root (2.0-3.7cm) EF (%) 17.0 (55-70%) Rt. Atrium (1.9-4.0cm) Asc. Aorta cm Mitral Valve Mitral Mitral Stenosis E wave 0.32m/s MV Mean GR. mmHg A wave 0.80m/s MV Peak GR. mmHg E/A ratio 0.4 2D MVA cm2 DECEL Time 352ms PRESS 1/2 Time ms Aortic Valve Aortic Valve Aortic Stenosis V1 0.71m/s AO Mean GR. 2mmHg V2 0.89m/s AO Peak GR. 3mmHg LVOT Diameter 1.6 (1.8-2.4cm) Doppler MISTY 1.60cm2 Tricuspid Valve TR Velocity 2.04m/s RVSP 17mmHg Other Information Technically limited study due to body habitus and patient sitting straight up during exam. Conclusion Technically difficult study. Difficult acoustic windows and off axis views. From the limited views obtained and apical windows there appears to be dilation of the sinuses of Valsalva with left atrial enlargement and dilation of the left ventricle of the apical segment. There is mild aortic sclerosis. Mild mitral annular calcification and thickening of the mitral leaflets. Tricuspid and pulmonic appear to be structurally normal. Left ventricular systolic performance is diminished. There is anterior apical and inferior apical akinesis. EF is approximately 20-25% with underlying severe global hypokinesis as well. Right ventricular function is markedly diminished. Doppler reveals trace aortic insufficiency with mild mitral regurgitation and mild tricuspid regurgitation. No pericardial effusion masses or vegetations discernible
[2025-02-23] VITALS (105 sets, daily range): BP systolic 76–130; BP diastolic 30–65; PULSE 38–83; RESP 8–20; TEMP 97–98; O2SAT 89–100
[2025-02-23 04:05] LABS: Hematocrit 36.3 % (36.0-46.0); Hemoglobin 12.2 g/dL (12.2-16.2); Mean Corpuscular Hemoglobin 30.7 pg (28.0-32.0); Mean Corpuscular Volume 91.4 fL (80.0-100.0); Nucleated Red Blood Cells % 0.3 %
[2025-02-23 04:17] LABS: Chloride 107 mmol/L (98-107); Potassium 4.7 mmol/L (3.5-5.1); Sodium 138 mmol/L (136-145)
[2025-02-23 04:18] LABS: Anion Gap 10 (5-15); Carbon Dioxide 21 mmol/L (20-31)
[2025-02-23 04:24] LABS: BUN/Creatinine Ratio 21.8 (10.0-20.0)
[2025-02-23 04:33] LABS: Blood Urea Nitrogen 46 mg/dL (9-23); Calcium 8.5 mg/dL (8.7-10.4); Glucose 157 mg/dL (74-106)
[2025-02-23 05:49] LABS: Triglycerides 123 mg/dL (< 150)
[2025-02-23 05:52] LABS: Cholesterol 149 mg/dL (< 200)
[2025-02-23 05:55] LABS: HDL Cholesterol 6 mg/dL (40-59)
--- NOTE | 2025-02-23 10:10 | DVHPN2 ---
Progress Note Date Seen: Feb 23, 2025 Medical Necessity Reason Pt with a Central, PICC or Fol: No The following are medically ne: Phillip Catheter Subjective Patient reports: No new complaints Review of Systems: RESPIRATORY:Abnormal Other Systems: Patient seen and examined by myself today in f/u Objective vital signs Vital Sign Date Time Temp Pulse Resp B/P (MAP) Pulse Ox O2 Delivery O2 Flow Rate FiO2 02/23/25 08:30 116/43 02/23/25 07:00 46 13 95 02/23/25 06:00 Nasal Cannula* 2 28 02/23/25 00:01 98.0 98.0 Total Intake and Output 02/22/25 02/22/25 02/23/25 15:00 23:00 07:00 Intake Total 460.8 ml 532.074 ml 143.342 ml Output Total 200 ml 175 ml Balance 460.8 ml 332.074 ml -31.658 ml medications Current Medications Medications Dose Ordered Sig/Zahraa Route Start Time Stop Time Status Last Admin Dose Admin Norepinephrine Bitartrate 250 ml @ 3.75 mls/hr Q24H IV 02/17/25 08:30 02/21/25 08:24 3.75 MLS/HR Midodrine 10 mg TIDWM@0600,1200,1800 PO 02/18/25 12:00 02/23/25 06:18 10 MG Ondansetron HCl 4 mg Q4HPRN PRN IV 02/19/25 00:45 02/21/25 09:49 4 MG Pantoprazole Sodium 40 mg BID IV 02/19/25 22:00 02/22/25 22:18 40 MG Hydrocortisone Sodium Succinate 100 mg Q8HR IV 02/19/25 22:00 02/23/25 06:13 100 MG Metronidazole 100 ml @ 100 mls/hr Q8HR IV 02/19/25 22:00 02/23/25 05:45 100 MLS/HR Acetaminophen/ Hydrocodone Bitart 1 tab Q6HPRN PRN PO 02/20/25 12:15 02/21/25 10:08 1 TAB Apixaban 2.5 mg BID PO 02/20/25 22:00 02/22/25 09:39 2.5 MG Sodium Chloride 10 ml QSHIFT@, IV 02/20/25 22:00 02/22/25 22:19 10 ML Digoxin 125 mcg MWF IV 02/22/25 10:00 Phenylephrine HCl 250 ml @ 30 mls/hr Q8H20M IV 02/21/25 13:30 02/22/25 18:10 30 MLS/HR Dopamine HCl/ Dextrose 250 ml @ 5.213 mls/ hr Q24H IV 02/21/25 22:30 02/21/25 02:50 2.606 MLS/HR Promethazine HCl 25 mg Q4HP PRN PO 02/22/25 11:00 Enteral Nutritional Formula 240 ml TIDWM PO 02/22/25 18:00 02/22/25 18:14 240 ML Levofloxacin 50 ml @ 50 mls/hr Q48H IV 02/24/25 10:00 Gabapentin 300 mg BID PO 02/22/25 22:00 Examination: LUNGS:Normal, CVS:Normal, MSK:Normal laboratory and microbiology Laboratory Tests 02/23/25 02:50 Test 02/23/25 02:50 Range/Units Serum Glucose 157 H 74-106 mg/dL Microbiology Date/Time Source Procedure Growth Status 02/19/25 12:57 Urine - [place] Urine Culture - Preliminary Resulted 02/17/25 15:45 Nose MRSA Screen - Final Complete Problem List/Assessment/Plan Problem List/Assessment/Plan Acute kidney injury superimposed Chronic Kidney Disease secondary hemodynamic mediated, FENA >2% Portal vein thrombosis abdominal mass cirrhosis w/ ascites hyperkalemia resolved Jaundice Bradycardia Recommendation Kidney function stable stage 4 patient remain oliguric Strict I&Os d/c Octreotide Midodrine Bumex 1 mg IV daily Bilateral echogenic kidney reported on CT scan of the abdomen GI consult Cardiology consult We will continue to follow up Plan discussed with: Patient My Orders My Orders Orders - MARI FLOR MD Procedure Category Date Status Time Gabapentin Capsule PHA 02/22/25 In Process (Neurontin Capsule) 22:00 Dietary Evaluation Review Comments: Nutrition Recommendations: Encourage oral (PO) liquids and feedings as tolerated. Advance diet to 2-gram sodium, high-protein diet if patient accepts oral intake. If patient continues to refuse food: Consider initiating Total Parenteral Nutrition (TPN) for nutritional support. Alternatively, consider placement of a nasogastric (NG) tube for enteral feeding. Expected Outcomes/Goals: Provide adequate nutrition support by mouth, tube feeding or TPN MARI FLOR MD Feb 23, 2025 10:10
[2025-02-23] MEDS: BUMETANIDE 2.5mg/10ml (0.25 mg/ml) INJ IV SCH (10:49)
--- NOTE | 2025-02-23 11:07 | DVHPN2 ---
Progress Note Date Seen: Feb 23, 2025 Resident Creating Document: MARGUERITE ORELLANA RESIDENT Medical Necessity Reason Pt with a Central, PICC or Fol: No The following are medically ne: Phillip Catheter Subjective Patient reports: No new complaints Objective vital signs Vital Sign Date Time Temp Pulse Resp B/P (MAP) Pulse Ox O2 Delivery O2 Flow Rate FiO2 02/23/25 10:49 106/44 02/23/25 09:08 39 17 97 Room Air* 0 21 02/23/25 00:01 98.0 98.0 Total Intake and Output 02/22/25 02/22/25 02/23/25 15:00 23:00 07:00 Intake Total 460.8 ml 532.074 ml 143.342 ml Output Total 200 ml 175 ml Balance 460.8 ml 332.074 ml -31.658 ml medications Current Medications Medications Dose Ordered Sig/Zahraa Route Start Time Stop Time Status Last Admin Dose Admin Norepinephrine Bitartrate 250 ml @ 3.75 mls/hr Q24H IV 02/17/25 08:30 02/21/25 08:24 3.75 MLS/HR Midodrine 10 mg TIDWM@0600,1200,1800 PO 02/18/25 12:00 02/23/25 06:18 10 MG Ondansetron HCl 4 mg Q4HPRN PRN IV 02/19/25 00:45 02/21/25 09:49 4 MG Pantoprazole Sodium 40 mg BID IV 02/19/25 22:00 02/23/25 10:11 40 MG Hydrocortisone Sodium Succinate 100 mg Q8HR IV 02/19/25 22:00 02/23/25 06:13 100 MG Metronidazole 100 ml @ 100 mls/hr Q8HR IV 02/19/25 22:00 02/23/25 05:45 100 MLS/HR Acetaminophen/ Hydrocodone Bitart 1 tab Q6HPRN PRN PO 02/20/25 12:15 02/21/25 10:08 1 TAB Apixaban 2.5 mg BID PO 02/20/25 22:00 02/23/25 10:10 2.5 MG Sodium Chloride 10 ml QSHIFT@10,22 IV 02/20/25 22:00 02/23/25 10:10 10 ML Digoxin 125 mcg MWF IV 02/22/25 10:00 Phenylephrine HCl 250 ml @ 30 mls/hr Q8H20M IV 02/21/25 13:30 02/22/25 18:10 30 MLS/HR Dopamine HCl/ Dextrose 250 ml @ 5.213 mls/ hr Q24H IV 02/21/25 22:30 02/21/25 02:50 2.606 MLS/HR Promethazine HCl 25 mg Q4HP PRN PO 02/22/25 11:00 Enteral Nutritional Formula 240 ml TIDWM PO 02/22/25 18:00 02/22/25 18:14 240 ML Levofloxacin 50 ml @ 50 mls/hr Q48H IV 02/24/25 10:00 Gabapentin 300 mg BID PO 02/22/25 22:00 02/23/25 10:10 300 MG Bumetanide 1 mg DAILY IV 02/23/25 10:15 02/23/25 10:49 1 MG Examination Patient lying in bed, in no acute distress General: Thin-appearing, afebrile, palor, mucosae are moist Cardiovascular: Bradycardic, normal S1 and S2. No murmurs, gallops or rubs. No JVD elevation. 2+ pedal edema Respiratory: Bilateral decreased air entry Abdomen: Soft, nontender, nondistended, normoactive bowel sounds, no rebound tenderness, no organomegaly, no masses Genitourinary: Deferred Psych/Mental Status: A/Ox2 laboratory and microbiology Laboratory Tests 02/23/25 02:50 Test 02/23/25 02:50 Range/Units Serum Glucose 157 H 74-106 mg/dL Microbiology Date/Time Source Procedure Growth Status 02/19/25 12:57 Urine - [place] Urine Culture - Preliminary Resulted 02/17/25 15:45 Nose MRSA Screen - Final Complete Labs and/or images reviewed: Labs reviewed by me, Image(s) reviewed by me Problem List/Assessment/Plan Problem List/Assessment/Plan Spontaneous bacterial peritonitis Cholestatic liver disease ? Ampullary/duodenal obstructing mass Ascites Cirrhosis Portal vein thrombosis History of gastric bypass varices 3cm hiatal hernia gastritis Diffuse anasarca Acute kidney injury likely vasomotor mediated/hepatorenal Tachy-jovanny arrhythmias Severe protein calorie malnutrition QTC prolongation Plan: Recommendation Bilirubin downtrended to 9, LFTs stable, ammonia pending. MRCP could not be completed as patient is unstable. Per patient's niece, patient had EGD at [facility], which showed varices, 3cm hiatal hernia, gastritis Patient recently had a duodenal mass biopsy which was unremarkable per the niece. Records ordered promethazine for nausea Hepatitis panel negative. ISABEL screen negative. Await ascitic fluid cytology rule out malignancy Elevated total bilirubin and alkaline phosphatase suggestive of cholestatic jaundice possibly due to obstruction or mass Ascitic fluid cell count suggestive of spontaneous bacterial peritonitis, continue IV Levaquin Continue Protonix 40 mg IV b.i.d. Continue to monitor labs and supportive care Overall prognosis remains guarded Review records and pathology from [facility] Plan discussed with nurse Cunningham in which all questions have been answered Case discussed with Dr. Rice Plan discussed with: Patient Dietary Evaluation Review Comments: Nutrition Recommendations: Encourage oral (PO) liquids and feedings as tolerated. Advance diet to 2-gram sodium, high-protein diet if patient accepts oral intake. If patient continues to refuse food: Consider initiating Total Parenteral Nutrition (TPN) for nutritional support. Alternatively, consider placement of a nasogastric (NG) tube for enteral feeding. Expected Outcomes/Goals: Provide adequate nutrition support by mouth, tube feeding or TPN MARGUERITE ORELLANA RESIDENT Feb 23, 2025 11:07
--- NOTE | 2025-02-23 14:10 | DVHPN2 ---
Progress Note - Dictate Date Seen: Feb 23, 2025 Medical Necessity Reason Pt with a Central, PICC or Fol: No The following are medically ne: Phillip Catheter Subjective Clinically remained stable. Taking oral medications. Started on IV hydrocortisone for blood pressure improvement. No nausea today. Heart rate is stable. Urine culture growing Enterococcus faecalis and D she is on Levaquin antibiotic. vital signs Vital Sign Date Time Temp Pulse Resp B/P (MAP) Pulse Ox O2 Delivery O2 Flow Rate FiO2 02/23/25 13:48 107/43 02/23/25 12:00 44 10 97 02/23/25 10:20 Room Air* 0 21 02/23/25 08:00 97.6 97.6 Total Intake and Output 02/22/25 02/22/25 02/23/25 15:00 23:00 07:00 Intake Total 460.8 ml 532.074 ml 143.342 ml Output Total 200 ml 175 ml Balance 460.8 ml 332.074 ml -31.658 ml medications Current Medications Medications Dose Ordered Sig/Zahraa Route Start Time Stop Time Status Last Admin Dose Admin Norepinephrine Bitartrate 250 ml @ 3.75 mls/hr Q24H IV 02/17/25 08:30 02/21/25 08:24 3.75 MLS/HR Midodrine 10 mg TIDWM@0600,1200,1800 PO 02/18/25 12:00 02/23/25 12:53 10 MG Ondansetron HCl 4 mg Q4HPRN PRN IV 02/19/25 00:45 02/21/25 09:49 4 MG Pantoprazole Sodium 40 mg BID IV 02/19/25 22:00 02/23/25 10:11 40 MG Hydrocortisone Sodium Succinate 100 mg Q8HR IV 02/19/25 22:00 02/23/25 13:48 100 MG Metronidazole 100 ml @ 100 mls/hr Q8HR IV 02/19/25 22:00 02/23/25 13:58 100 MLS/HR Acetaminophen/ Hydrocodone Bitart 1 tab Q6HPRN PRN PO 02/20/25 12:15 02/21/25 10:08 1 TAB Apixaban 2.5 mg BID PO 02/20/25 22:00 02/23/25 10:10 2.5 MG Sodium Chloride 10 ml QSHIFT@,22 IV 02/20/25 22:00 02/23/25 10:10 10 ML Phenylephrine HCl 250 ml @ 30 mls/hr Q8H20M IV 02/21/25 13:30 02/22/25 18:10 30 MLS/HR Dopamine HCl/ Dextrose 250 ml @ 5.213 mls/ hr Q24H IV 02/21/25 22:30 02/23/25 13:48 2.606 MLS/HR Promethazine HCl 25 mg Q4HP PRN PO 02/22/25 11:00 Enteral Nutritional Formula 240 ml TIDWM PO 02/22/25 18:00 02/23/25 12:53 240 ML Levofloxacin 50 ml @ 50 mls/hr Q48H IV 02/24/25 10:00 Gabapentin 300 mg BID PO 02/22/25 22:00 02/23/25 10:10 300 MG Bumetanide 1 mg DAILY IV 02/23/25 10:15 02/23/25 10:49 1 MG objective Alert awake oriented x3. HEENT neck supple no JVD. Heart regular rate and rhythm S1-S2. Lungs fair air movement without rales wheezes. Abdomen soft nontender positive bowel sounds. Extremities no edema positive pulses laboratory and microbiology Laboratory Tests 02/23/25 02:50 Test 02/23/25 02:50 Range/Units Serum Glucose 157 H 74-106 mg/dL Assessment/Plan 1. Acute hyperkalemia suspect triamterene induced 2. Acute kidney injury rule out hepatorenal syndrome 3. GRACE suspect secondary to vasomotor nephropathy 4. Portal vein thrombosis 5. Liver cirrhosis with a ascites 6. Elevated liver function tests 7. Secondary Coagulopathy due to liver disease 8. Hypotension requiring IV Levophed Continue current antibiotic and medications to improve her blood pressure. Encouraged oral intake and protein supplementation. I have reviewed medical records from [facility] when she was discharged with a diagnosis of portal vein thrombosis. Patient had a EGD showed gastritis. Her duodenal biopsy results did not reveal any malignancy. Plan is to continue current anticoagulation and antibiotics and supportive care and treatment as she is on. Otherwise further clinical management per clinical course. Discussed with the nurse regarding care plan. Dietary Evaluation Review Comments: Nutrition Recommendations: Encourage oral (PO) liquids and feedings as tolerated. Advance diet to 2-gram sodium, high-protein diet if patient accepts oral intake. If patient continues to refuse food: Consider initiating Total Parenteral Nutrition (TPN) for nutritional support. Alternatively, consider placement of a nasogastric (NG) tube for enteral feeding. Expected Outcomes/Goals: Provide adequate nutrition support by mouth, tube feeding or TPN Plan discussed with: Other [place] HUERTA MD Feb 23, 2025 14:10
--- NOTE | 2025-02-23 15:24 | DVHPN2 ---
Consult Progress Note Subjective Other Systems: The patient remains in sinus bradycardia on engine monitor. No atrioventricular blocks or pauses noted when reviewing monitor. Objective vital signs Vital Sign Date Time Temp Pulse Resp B/P (MAP) Pulse Ox O2 Delivery O2 Flow Rate FiO2 02/23/25 13:48 107/43 02/23/25 12:00 44 10 97 02/23/25 10:20 Room Air* 0 21 02/23/25 08:00 97.6 97.6 Total Intake and Output 02/22/25 02/22/25 02/23/25 15:00 23:00 07:00 Intake Total 460.8 ml 532.074 ml 143.342 ml Output Total 200 ml 175 ml Balance 460.8 ml 332.074 ml -31.658 ml medications Current Medications Medications Dose Ordered Sig/Zahraa Route Start Time Stop Time Status Last Admin Dose Admin Norepinephrine Bitartrate 250 ml @ 3.75 mls/hr Q24H IV 02/17/25 08:30 02/21/25 08:24 3.75 MLS/HR Midodrine 10 mg TIDWM@0600,1200,1800 PO 02/18/25 12:00 02/23/25 12:53 10 MG Ondansetron HCl 4 mg Q4HPRN PRN IV 02/19/25 00:45 02/21/25 09:49 4 MG Pantoprazole Sodium 40 mg BID IV 02/19/25 22:00 02/23/25 10:11 40 MG Hydrocortisone Sodium Succinate 100 mg Q8HR IV 02/19/25 22:00 02/23/25 13:48 100 MG Metronidazole 100 ml @ 100 mls/hr Q8HR IV 02/19/25 22:00 02/23/25 13:58 100 MLS/HR Acetaminophen/ Hydrocodone Bitart 1 tab Q6HPRN PRN PO 02/20/25 12:15 02/21/25 10:08 1 TAB Apixaban 2.5 mg BID PO 02/20/25 22:00 02/23/25 10:10 2.5 MG Sodium Chloride 10 ml QSHIFT@10,22 IV 02/20/25 22:00 02/23/25 10:10 10 ML Phenylephrine HCl 250 ml @ 30 mls/hr Q8H20M IV 02/21/25 13:30 02/22/25 18:10 30 MLS/HR Dopamine HCl/ Dextrose 250 ml @ 5.213 mls/ hr Q24H IV 02/21/25 22:30 02/23/25 13:48 2.606 MLS/HR Promethazine HCl 25 mg Q4HP PRN PO 02/22/25 11:00 Enteral Nutritional Formula 240 ml TIDWM PO 02/22/25 18:00 02/23/25 12:53 240 ML Levofloxacin 50 ml @ 50 mls/hr Q48H IV 02/24/25 10:00 Gabapentin 300 mg BID PO 02/22/25 22:00 02/23/25 10:10 300 MG Bumetanide 1 mg DAILY IV 02/23/25 10:15 02/23/25 10:49 1 MG Examination: GENERAL:Abnormal (Generalized weakness), LUNGS:Normal, CVS:Normal, SKIN:Abnormal (Generalized jaundice), NEURO:Normal laboratory and microbiology Laboratory Tests 02/23/25 02:50 Test 02/23/25 02:50 Range/Units Serum Glucose 157 H 74-106 mg/dL Problem List/Assessment/Plan Problem List/Assessment/Plan Junctional tachycardia now with sinus bradycardia Acute on chronic HFrEF, NHYA class III Occlusive thrombus in left cephalic vein Portal vein thrombosis (on Eliquis) Nonalcoholic liver cirrhosis Ascites status post paracentesis (1.8L out) Right upper lobe pulmonary nodule Nodule within superior right renal pole Hyperkalemia, resolved GRACE on CKD Transaminitis Plan/Recommendations (Dr. Olsen): Case reviewed and discussed with . A transthoracic echocardiogram reveals an EF of 20-25% with severe global hypokinesis. Unable to initiate guideline directed medical therapy for CHF at this time given that patient is on vasopressor therapy for hemodynamic support. We will recommend to avoid midodrine as this is contraindicated in HFrEF patients. No atrial fibrillation identified on engine monitor as patient was noted to go into a junctional tachycardia rhythm. Patient now in sinus bradycardia without any significant atrioventricular blocks or pauses. At this time, there is no guideline recommended indication for permanent pacemaker implantation. Proceed with avoiding AV reina blocking agents. Continue with close cardiac surveillance and notify cardiology team immediately for any ECG changes. We are pending medical records pathology report from [facility] regarding recent duodenal mass that was found at [facility]. GI team on board to evaluate for possible obstruction or mass. Thank you for allowing us to care for this patient. Please call with any questions or concerns. Critical care time spent: 38 minutes.This medical document was created using an electronic medical record system with voice recognition software and computerized dictation system. Although this document has been carefully reviewed, there might still be some phonetic and typographical errors. Occasional wrong-word or ``sound-alike substitutions may have occurred due to the inherent limitations of voice recognition software. These areas are purely typographical due to imperfections of the software programs and do not reflect any compromise in the patient's medical care. Please read the chart carefully and recognize, using context, where these substitutions have occurred. Plan discussed with: Patient, Other (Niece at bedside) Dietary Evaluation Review Comments: Nutrition Recommendations: Encourage oral (PO) liquids and feedings as tolerated. Advance diet to 2-gram sodium, high-protein diet if patient accepts oral intake. If patient continues to refuse food: Consider initiating Total Parenteral Nutrition (TPN) for nutritional support. Alternatively, consider placement of a nasogastric (NG) tube for enteral feeding. Expected Outcomes/Goals: Provide adequate nutrition support by mouth, tube feeding or TPN Date of Service: Feb 23, 2025 Billing Provider: GEOVANNY JAFFE Common Visit Codes: 07088-[id number] CARE 30-74 MIN GEOVANNY JAFFE Feb 23, 2025 15:24
--- NOTE | 2025-02-23 22:43 | DVHINCON2 ---
Date of service: Feb 23, [address] Heaton Reason for Consultation Pleural effusions History of Present Illness A 74-year-old woman with past medical history of hypertension, hyperlipidemia, and recent diagnosis of liver cirrhosis who presented to ED on 02/17/25 with a chief complaint of abdominal pain with distention. Patient's family reported patient was recently diagnosed with liver cirrhosis 1 month ago and has been progressively getting worse, abdominal distention has increased significantly in the past couple of days. Reported patient has been on PO Eliquis 2.5 mg BID for liver thrombosis, and has been taking PO Potassium for low potassium levels. States for the past month she has been having diffuse abdominal pain and abdominal distention with associated episodes of diarrhea. Denies any chest pain, dyspnea, nausea or vomiting. Patient denies any history of alcohol consumption. Patient was admitted for further care. Pulmonary consultation is requested for evaluation and management due to pleural effusions. Review of Systems: 14-point review of systems negative unless otherwise noted above. Past Medical History: HTN, HLD, recent dx of liver cirrhosis Past Surgical History: None Medications: Reviewed. Allergies: Penicillins. Family History: No family history of premature CAD. No family history of lung disorders. Social History: Nonsmoker. No alcohol or illicit drug use. Family History: Patient reports no known family medical history. Allergies: Coded Allergies: Penicillins (Verified Allergy, Unknown, 02/17/25) Current Medications Current Medications Medications (Trade) Dose Ordered Sig/Zahraa Route PRN Reason Start Time Stop Time Status Last Admin Levofloxacin 50 ml @ 50 mls/hr Q48H IV 02/24/25 10:00 Bumetanide (Bumex Injection) 1 mg DAILY IV 02/23/25 10:15 02/23/25 10:49 Vital Signs Vital Signs Date Time Temp Pulse Resp B/P (MAP) Pulse Ox O2 Delivery O2 Flow Rate FiO2 02/23/25 18:30 58 15 112/52 (72) 100 02/23/25 18:15 Room Air* 0 21 02/23/25 16:30 97.1 97.1 Physical Exam Gen.: Patient lying in bed in no apparent distress. Breathing on room air. Head: Normocephalic, atraumatic. Eyes: EOMI/PERRLA. Ears: Normal hearing. Normal anatomy. Neck/trachea: Trachea midline, supple. Nose: Normal external anatomy. Mouth: Moist mucous membranes. Chest: Decreased air entry bilaterally. No wheezing or rhonchi. Cardiovascular: Positive S1, positive S2. Regular rate and rhythm. Abdomen: Positive bowel sounds in all 4 quadrants. Soft, non-tender, non- distended. : Deferred. Rectal: Deferred. Skin: Warm, dry. Intact. Extremities: 2+ radial pulses bilaterally. No lower extremity edema. Neuro: Awake, alert, oriented x3. No gross motor or sensory deficits. Cranial nerves II through XII intact. Gait not assessed. Labs/Diagnostic Data Labs Test 02/23/25 11:37 02/23/25 02:50 02/22/25 03:36 02/20/25 17:35 Range/Units Ammonia < 10 L 11-32 umol/L White Blood Count 7.2 # 4.4-10.8 10^3/uL Red Blood Count 3.97 L 4.0-5.20 10^6/uL Hemoglobin 12.2 12.2-16.2 g/dL Hematocrit 36.3 36.0-46.0 % Mean Corpuscular Volume 91.4 80.0-100.0 fL Mean Corpuscular Hemoglobin 30.7 28.0-32.0 pg Mean Corpuscular Hemoglobin Concent 33.5 32.0-36.0 g/dL Red Cell Distribution Width 19.3 H 11.8-14.3 % Platelet Count 192 140-450 10^3/uL Mean Platelet Volume 9.4 6.9-10.8 fL Neutrophils (%) (Auto) 88.3 H 37.0-80.0 % Lymphocytes (%) (Auto) 5.5 L 10.0-50.0 % Monocytes (%) (Auto) 5.5 0.0-12.0 % Eosinophils (%) (Auto) 0.5 0.0-7.0 % Basophils (%) (Auto) 0.2 0.0-2.0 % Neutrophils # (Auto) 6.4 1.6-8.6 10 ^3/uL Lymphocytes # (Auto) 0.4 0.4-5.4 10 ^3/uL Monocytes # (Auto) 0.4 0-1.3 10 ^3/uL Eosinophils # (Auto) 0 0-0.8 10 ^3/uL Basophils # (Auto) 0 0-0.2 10 ^3/uL Nucleated Red Blood Cells 0.3 % Sodium Level 138 136-145 mmol/L Potassium Level 4.7 3.5-5.1 mmol/L Chloride Level 107 98-107 mmol/L Carbon Dioxide Level 21 20-31 mmol/L Anion Gap 10 5-15 Blood Urea Nitrogen 46 H 9-23 mg/dL Creatinine 2.11 H 0.550-1.02 mg/dL Glomerular Filtration Rate Calc 24 >90 mL/min BUN/Creatinine Ratio 21.8 H 10.0-20.0 Serum Glucose 157 H 74-106 mg/dL Hemoglobin A1c 4.6 <5.7 % A1C Calcium Level 8.5 L 8.7-10.4 mg/dL Triglycerides Level 123 < 150 mg/dL Cholesterol Level 149 < 200 mg/dL LDL Cholesterol 100 H < 100 mg/dL HDL Cholesterol 6 L 40-59 mg/dL Thyroid Stimulating Hormone (TSH) 0.16 L 0.55-4.78 uIU/mL Magnesium Level 2.0 1.6-2.6 mg/dL Total Bilirubin 9.3 H 0.2-1.0 mg/dL Aspartate Amino Transferase (AST) 86 H 13-40 U/L Alanine Aminotransferase (ALT) 105 H 7-40 U/L Alkaline Phosphatase 820 H 46-116 U/L Total Protein 4.8 L 5.7-8.2 g/dL Albumin 2.8 L 3.2-4.8 g/dL Vitamin D 25-Hydroxy 52.1 30.0-100 ng/mL Test 02/20/25 02:47 02/20/25 00:22 02/19/25 18:08 02/19/25 14:00 Range/Units Prothrombin Time 12.6 H 9.3-11.8 sec Prothrombin Time INR 1.21 H 0.9-1.15 Phosphorus Level 3.8 2.4-5.1 mg/dL Anti-Nuclear Antibody Screen Negative Negative Hepatitis A IgM Antibody Negative Hepatitis A Antibody Total Negative Negative Hepatitis B Surface Antigen Negative Negative Hepatitis B Surface Antibody Negative Negative Hepatitis B Core Total Antibody Negative Negative Hepatitis B Core IgM Antibody Negative Negative Hepatitis C Antibody Negative Negative Parathyroid Hormone (Intact) 85.0 H 18.4-80.1 pg/mL POC Glucose 149 H 70-106 mg/dl Body Fluid Source Peritoneal fluid Body Fluid WBC (Manual) 364 H 0-200 CUMM Body Fluid RBC (Manual) 6089 H 0-2000 CUMM Body Fluid Mononuclear Cells 25 % Body Fluid Polymorphonuclear Cells 75 H 0-25 % Body Fluid Glucose 182 . mg/dL Body Fluid Total Protein 0.8 . g/dL Test 02/18/25 02:57 02/16/25 23:57 Range/Units Urine Color Yellow Yellow Urine Clarity Clear Clear Urine pH 5.0 5.0-9.0 Urine Specific [place] 1.020 1.001-1.035 Urine Protein 1+ H Negative Urine Ketones Negative Negative Urine Blood Trace H Negative /uL Urine Nitrite Negative Negative Urine Bilirubin Negative Negative Urine Urobilinogen Normal Negative mg/dL Urine Leukocyte Esterase Negative Negative /uL Urine RBC 3 0 - 4 /hpf Urine Microscopic WBC 7 H 0-5 /HPF Urine Squamous Epithelial Cells Few <5 /hpf Urine Bacteria Few H None Seen /hpf Urine Hyaline Casts Few 0 - 2 /lpf Urine Yeast (Budding) Occasional None Seen /hpf Urine Creatinine 159.83 H 30.0-125.0 mg/dL Urine Protein/Creatinine Ratio 0.54 Urine Sodium 64 40-220 mmol/L Urine Glucose Normal Normal mg/dL Urine Total Protein 87.1 H 1-14 mg/dL Lipase 25 12-53 U/L Microbiology Date/Time Source Procedure Growth Status 02/19/25 12:57 Urine - [place] Urine Culture - Final Enterococcus faecalis Complete 02/17/25 15:45 Nose MRSA Screen - Final Complete Assessment Impression: Pleural effusions Atelectasis Coagulopathy Ascites Plan: Supplemental oxygen PRN Titrate to keep O2 sats above 92%. 2 LPM NC -->currently on room air Pressors for hemodynamic support On Levophed and dopamine Titrate to keep mean arterial pressure greater than 65 mmHg. Continue bronchodilators PRN. Stress dose steroids Continue antibiotics Incentive spirometry Continue midodrine for BP support Protonix BID for GI ppx Diurese to euvolemia with Bumex Monitor renal function. Monitor electrolytes. Supplement as necessary. Monitor ins and outs. Monitor hemoglobin Transfuse if less than 7.0 g/dL. GI/DVT prophylaxis. Prognosis: Poor given patient's multiple co-morbidities. Condition: Critical Rest of plan per hospitalist and other consultants. A total of 35 minutes of critical care time was spent reviewing the patient record, examining the patient, making a diagnostic and therapeutic plan, discussing this plan with the medical personnel, following up on diagnostic studies and following the patient for clinical stability excluding any and all procedures. At least 50% of this time was spent in direct, [id number] contact. Thank you, Dr. Heaton, for allowing me to participate in this patient's care. Further recommendations will depend on the patient's clinical course. Please do not hesitate to contact me if you have any questions or concerns. This medical document was created using an electronic medical record system with [employer] dictation system. Although these documentations are being carefully reviewed, there may still be some phonetic and typographical changes. The errors are purely typographical, due to imperfection on the software program, and do not reflect any compromise in the patient's medical care. Plan discussed with: Patient, Other (RN/MD) FAV[facility]OLA [facility] Feb 23, 2025 22:43
[2025-02-24] VITALS (92 sets, daily range): BP systolic 95–151; BP diastolic 35–81; PULSE 47–83; RESP 9–18; TEMP 97.3–98.5; O2SAT 74–100
[2025-02-24 03:25] LABS: Hematocrit 38.1 % (36.0-46.0); Hemoglobin 13.2 g/dL (12.2-16.2); Mean Corpuscular Hemoglobin 31.5 pg (28.0-32.0); Mean Corpuscular Volume 90.9 fL (80.0-100.0); Nucleated Red Blood Cells % 0.4 %
[2025-02-24 03:38] LABS: Chloride 107 mmol/L (98-107); Potassium 4.4 mmol/L (3.5-5.1); Sodium 140 mmol/L (136-145)
[2025-02-24 03:39] LABS: Anion Gap 12 (5-15); Carbon Dioxide 21 mmol/L (20-31)
[2025-02-24 03:44] LABS: BUN/Creatinine Ratio 21.9 (10.0-20.0); Free T3 1.79 pg/mL (2.3-4.2); Free T4 (Free Thyroxine) 0.73 ng/dL (0.89-1.76)
[2025-02-24 03:56] LABS: Blood Urea Nitrogen 49 mg/dL (9-23); Calcium 8.6 mg/dL (8.7-10.4); Glucose 137 mg/dL (74-106)
[2025-02-24 10:32] LABS: Alanine Aminotransferase 135.0 U/L (7-40); Albumin 2.8 g/dL (3.2-4.8); Alkaline Phosphatase 894.0 U/L (46-116); Bilirubin, Direct 6.4 mg/dL (<0.3); Bilirubin, Total 8.3 mg/dL (0.2-1.0); Total Protein 4.9 g/dL (5.7-8.2)
--- NOTE | 2025-02-24 10:57 | DVHPN2 ---
Progress Note Date Seen: Feb 24, 2025 Medical Necessity Reason Pt with a Central, PICC or Fol: No The following are medically ne: Phillip Catheter Subjective Patient reports: No new complaints Other Systems: Patient seen and examined by myself today in follow-up Objective vital signs Vital Sign Date Time Temp Pulse Resp B/P (MAP) Pulse Ox O2 Delivery O2 Flow Rate FiO2 02/24/25 09:06 110/42 02/24/25 08:30 98.5 58 12 96 98.5 02/24/25 08:00 Room Air* 0 21 Total Intake and Output 02/23/25 02/23/25 02/24/25 15:00 23:00 07:00 Intake Total 121.92 ml 281.92 ml 321.92 ml Output Total 640 ml 225 ml Balance 121.92 ml -358.08 ml 96.92 ml medications Current Medications Medications Dose Ordered Sig/Zahraa Route Start Time Stop Time Status Last Admin Dose Admin Norepinephrine Bitartrate 250 ml @ 3.75 mls/hr Q24H IV 02/17/25 08:30 02/21/25 08:24 3.75 MLS/HR Ondansetron HCl 4 mg Q4HPRN PRN IV 02/19/25 00:45 02/23/25 20:43 4 MG Pantoprazole Sodium 40 mg BID IV 02/19/25 22:00 02/24/25 09:05 40 MG Hydrocortisone Sodium Succinate 100 mg Q8HR IV 02/19/25 22:00 02/24/25 05:32 100 MG Metronidazole 100 ml @ 100 mls/hr Q8HR IV 02/19/25 22:00 02/24/25 05:32 100 MLS/HR Acetaminophen/ Hydrocodone Bitart 1 tab Q6HPRN PRN PO 02/20/25 12:15 02/21/25 10:08 1 TAB Apixaban 2.5 mg BID PO 02/20/25 22:00 02/24/25 09:06 2.5 MG Sodium Chloride 10 ml QSHIFT@10,22 IV 02/20/25 22:00 02/24/25 09:07 10 ML Phenylephrine HCl 250 ml @ 30 mls/hr Q8H20M IV 02/21/25 13:30 02/22/25 18:10 30 MLS/HR Dopamine HCl/ Dextrose 250 ml @ 5.213 mls/ hr Q24H IV 02/21/25 22:30 02/23/25 13:48 2.606 MLS/HR Promethazine HCl 25 mg Q4HP PRN PO 02/22/25 11:00 Enteral Nutritional Formula 240 ml TIDWM PO 02/22/25 18:00 02/24/25 08:23 240 ML Levofloxacin 50 ml @ 50 mls/hr Q48H IV 02/24/25 10:00 02/24/25 09:07 50 MLS/HR Gabapentin 300 mg BID PO 02/22/25 22:00 02/24/25 09:06 300 MG Bumetanide 1 mg DAILY IV 02/23/25 10:15 02/24/25 09:06 1 MG Lactulose 30 ml DAILY PO 02/25/25 10:00 Examination: LUNGS:Normal, CVS:Normal, MSK:Normal laboratory and microbiology Laboratory Tests 02/24/25 02:39 Test 02/24/25 02:39 Range/Units Serum Glucose 137 H 74-106 mg/dL Microbiology Date/Time Source Procedure Growth Status 02/19/25 12:57 Urine - [place] Urine Culture - Final Enterococcus faecalis Complete 02/17/25 15:45 Nose MRSA Screen - Final Complete Problem List/Assessment/Plan Problem List/Assessment/Plan Acute kidney injury superimposed Chronic Kidney Disease stage IV secondary hemodynamic mediated, FENA >2% Portal vein thrombosis abdominal mass cirrhosis w/ ascites hyperkalemia resolved Jaundice Bradycardia Recommendation Kidney function slightly worsened today Increased urine output Strict I&Os d/c Octreotide Midodrine Bumex 1 mg IV daily Bilateral echogenic kidney reported on CT scan of the abdomen GI consult Cardiology consult We will continue to follow up Plan discussed with: Patient Dietary Evaluation Review Comments: Nutrition Recommendations: Encourage oral (PO) liquids and feedings as tolerated. Advance diet to 2-gram sodium, high-protein diet if patient accepts oral intake. If patient continues to refuse food: Consider initiating Total Parenteral Nutrition (TPN) for nutritional support. Alternatively, consider placement of a nasogastric (NG) tube for enteral feeding. Expected Outcomes/Goals: Provide adequate nutrition support by mouth, tube feeding or TPN MARI FLOR MD Feb 24, 2025 10:57
--- NOTE | 2025-02-24 11:44 | DVHPN2 ---
Progress Note Date Seen: Feb 24, 2025 Resident Creating Document: MARGUERITE ORLELANA RESIDENT Medical Necessity Reason Pt with a Central, PICC or Fol: No The following are medically ne: Phillip Catheter Subjective Review of Systems Patient reports feeling better, heart rate sinus 70s to 80s beats per minute. Abdomen soft nontender. Lactulose added daily. Off pressors. On dopamine Objective vital signs Vital Sign Date Time Temp Pulse Resp B/P (MAP) Pulse Ox O2 Delivery O2 Flow Rate FiO2 02/24/25 09:06 110/42 02/24/25 08:30 98.5 58 12 96 98.5 02/24/25 08:00 Room Air* 0 21 Total Intake and Output 02/23/25 02/23/25 02/24/25 15:00 23:00 07:00 Intake Total 121.92 ml 281.92 ml 321.92 ml Output Total 640 ml 225 ml Balance 121.92 ml -358.08 ml 96.92 ml medications Current Medications Medications Dose Ordered Sig/Zahraa Route Start Time Stop Time Status Last Admin Dose Admin Norepinephrine Bitartrate 250 ml @ 3.75 mls/hr Q24H IV 02/17/25 08:30 02/21/25 08:24 3.75 MLS/HR Ondansetron HCl 4 mg Q4HPRN PRN IV 02/19/25 00:45 02/23/25 20:43 4 MG Pantoprazole Sodium 40 mg BID IV 02/19/25 22:00 02/24/25 09:05 40 MG Hydrocortisone Sodium Succinate 100 mg Q8HR IV 02/19/25 22:00 02/24/25 05:32 100 MG Metronidazole 100 ml @ 100 mls/hr Q8HR IV 02/19/25 22:00 02/24/25 05:32 100 MLS/HR Acetaminophen/ Hydrocodone Bitart 1 tab Q6HPRN PRN PO 02/20/25 12:15 02/21/25 10:08 1 TAB Apixaban 2.5 mg BID PO 02/20/25 22:00 02/24/25 09:06 2.5 MG Sodium Chloride 10 ml QSHIFT@10,22 IV 02/20/25 22:00 02/24/25 09:07 10 ML Phenylephrine HCl 250 ml @ 30 mls/hr Q8H20M IV 02/21/25 13:30 02/22/25 18:10 30 MLS/HR Dopamine HCl/ Dextrose 250 ml @ 5.213 mls/ hr Q24H IV 02/21/25 22:30 02/23/25 13:48 2.606 MLS/HR Promethazine HCl 25 mg Q4HP PRN PO 02/22/25 11:00 Enteral Nutritional Formula 240 ml TIDWM PO 02/22/25 18:00 02/24/25 08:23 240 ML Levofloxacin 50 ml @ 50 mls/hr Q48H IV 02/24/25 10:00 02/24/25 09:07 50 MLS/HR Gabapentin 300 mg BID PO 02/22/25 22:00 02/24/25 09:06 300 MG Bumetanide 1 mg DAILY IV 02/23/25 10:15 02/24/25 09:06 1 MG Lactulose 30 ml DAILY PO 02/25/25 10:00 Examination Patient lying in bed, in no acute distress General: Thin-appearing, afebrile, palor, mucosae are moist Cardiovascular: Bradycardic, normal S1 and S2. No murmurs, gallops or rubs. No JVD elevation. 2+ pedal edema Respiratory: Bilateral decreased air entry Abdomen: Soft, nontender, nondistended, normoactive bowel sounds, no rebound tenderness, no organomegaly, no masses Genitourinary: Deferred Psych/Mental Status: A/Ox2 laboratory and microbiology Laboratory Tests 02/24/25 02:39 Test 02/24/25 02:39 Range/Units Serum Glucose 137 H 74-106 mg/dL Microbiology Date/Time Source Procedure Growth Status 02/19/25 12:57 Urine - [place] Urine Culture - Final Enterococcus faecalis Complete 02/17/25 15:45 Nose MRSA Screen - Final Complete Labs and/or images reviewed: Labs reviewed by me, Image(s) reviewed by me Problem List/Assessment/Plan Problem List/Assessment/Plan Spontaneous bacterial peritonitis Cholestatic liver disease ? Ampullary/duodenal obstructing mass Ascites Cirrhosis Portal vein thrombosis on Eliquis History of gastric bypass varices 3cm hiatal hernia gastritis Diffuse anasarca Acute kidney injury likely vasomotor mediated/hepatorenal Tachy-jovanny arrhythmias Severe protein calorie malnutrition QTC prolongation MRCP Large volume ascites. Heterogeneous signal throughout the liver, not well evaluated without postcontrast imaging, may be due to cirrhosis. Other etiologies, including malignancy can not be excluded. Common bile duct is not visualized, may be obscured by artifact. Can not exclude common bile duct obstruction. Correlate with clinical findings. Plan: Recommendation Bilirubin downtrended to 8, LFTs stable, ammonia pending. MRCP can not exclude common bile duct obstruction. Patient will likely need HLOC for management for obstructing jejunal mass. Review records and pathology from [facility] Per patient's niece, patient had EGD at [facility], which showed varices, 3cm hiatal hernia, gastritis Patient recently had a duodenal mass biopsy which was unremarkable per the niece. Records ordered promethazine for nausea Hepatitis panel negative. ISABEL screen negative. Await ascitic fluid cytology rule out malignancy Elevated total bilirubin and alkaline phosphatase suggestive of cholestatic jaundice possibly due to obstruction or mass Ascitic fluid cell count suggestive of spontaneous bacterial peritonitis, continue IV Levaquin Continue Protonix 40 mg IV b.i.d. Continue to monitor labs and supportive care Overall prognosis remains guarded Plan discussed with nurse Bergeron in which all questions have been answered Case discussed with Dr. Rice Plan discussed with: Patient, Other (Niece at bedside) My Orders My Orders Orders - MARGUERITE ORELLANA Procedure Category Date Status Time Lactulose Oral PHA 02/25/25 In Process 10:00 Dietary Evaluation Review Comments: Nutrition Recommendations: Encourage oral (PO) liquids and feedings as tolerated. Advance diet to 2-gram sodium, high-protein diet if patient accepts oral intake. If patient continues to refuse food: Consider initiating Total Parenteral Nutrition (TPN) for nutritional support. Alternatively, consider placement of a nasogastric (NG) tube for enteral feeding. Expected Outcomes/Goals: Provide adequate nutrition support by mouth, tube feeding or TPN MARGUERITE ORELLANA RESIDENT Feb 24, 2025 11:44
[2025-02-24] MEDS: LACTULOSE 20Gm/30ML SOLN PO ONE (12:28)
--- NOTE | 2025-02-24 13:12 | DVH ---
CLINICAL INFORMATION: Rule out biliary obstruction. TECHNIQUE: Multisequence multiplanar MRI images of the abdomen were obtained without IV contrast. Heavily T2-weighted MRCP images were obtained. 3D MRCP images were created. COMPARISON: CT dated 02/17/2025. FINDINGS: Motion limited study. Large volume ascites in the abdomen and pelvis. Heterogeneous signal throughout the liver. Nodular contour of the liver, consistent with cirrhosis in the appropriate clinical setting. The spleen is within normal limits in size. Small T2 hyperintense lesion in the superior aspect of the spleen, possible hemangioma, although not well evaluated on this exam. Very limited evaluation of the pancreas due to motion artifact. Adrenal glands appear unremarkable. There is no hydronephrosis in either kidney. There is a partially calcified ovoid, smoothly marginated mass at the superior pole of the right kidney measuring up to 3.7 cm in greatest dimension, correlating with a peripherally calcified exophytic mass seen on prior CT exam. There is no evidence of abdominal aortic aneurysm. There are distended fluid-filled loops of large and small bowel. Small right and small to moderate left pleural effusions with overlying atelectasis and/or consolidation. There is diffuse anasarca. The gallbladder is surgically absent. Common bile duct is not definitely visualized, likely obscured due to artifact. IMPRESSION: 1. Motion limited study. 2. Large volume ascites. 3. Heterogeneous signal throughout the liver, not well evaluated without postcontrast imaging, may be due to cirrhosis. Other etiologies, including malignancy can not be excluded. 4. Common bile duct is not visualized, may be obscured by artifact. Can not exclude common bile duct obstruction. Correlate with clinical findings. 5. Additional findings as described above.
--- NOTE | 2025-02-24 14:17 | DVHPN2 ---
Consult Progress Note Subjective Other Systems: Patient in normal sinus rhythm on desk monitor. She denies any cardiac symptoms at time of assessment. Dopamine drip stopped during assessment. Objective vital signs Vital Sign Date Time Temp Pulse Resp B/P (MAP) Pulse Ox O2 Delivery O2 Flow Rate FiO2 02/24/25 13:15 75 12 114/60 (78) 91 02/24/25 12:00 97.7 97.7 02/24/25 12:00 Room Air* 0 21 Total Intake and Output 02/23/25 02/23/25 02/24/25 15:00 23:00 07:00 Intake Total 121.92 ml 281.92 ml 321.92 ml Output Total 640 ml 225 ml Balance 121.92 ml -358.08 ml 96.92 ml medications Current Medications Medications Dose Ordered Sig/Zahraa Route Start Time Stop Time Status Last Admin Dose Admin Norepinephrine Bitartrate 250 ml @ 3.75 mls/hr Q24H IV 02/17/25 08:30 02/21/25 08:24 3.75 MLS/HR Ondansetron HCl 4 mg Q4HPRN PRN IV 02/19/25 00:45 02/23/25 20:43 4 MG Pantoprazole Sodium 40 mg BID IV 02/19/25 22:00 02/24/25 09:05 40 MG Hydrocortisone Sodium Succinate 100 mg Q8HR IV 02/19/25 22:00 02/24/25 13:33 100 MG Metronidazole 100 ml @ 100 mls/hr Q8HR IV 02/19/25 22:00 02/24/25 13:33 100 MLS/HR Acetaminophen/ Hydrocodone Bitart 1 tab Q6HPRN PRN PO 02/20/25 12:15 02/21/25 10:08 1 TAB Apixaban 2.5 mg BID PO 02/20/25 22:00 02/24/25 09:06 2.5 MG Sodium Chloride 10 ml QSHIFT@10,22 IV 02/20/25 22:00 02/24/25 09:07 10 ML Phenylephrine HCl 250 ml @ 30 mls/hr Q8H20M IV 02/21/25 13:30 02/22/25 18:10 30 MLS/HR Dopamine HCl/ Dextrose 250 ml @ 5.213 mls/ hr Q24H IV 02/21/25 22:30 02/23/25 13:48 2.606 MLS/HR Promethazine HCl 25 mg Q4HP PRN PO 02/22/25 11:00 Enteral Nutritional Formula 240 ml TIDWM PO 02/22/25 18:00 02/24/25 12:28 240 ML Levofloxacin 50 ml @ 50 mls/hr Q48H IV 02/24/25 10:00 02/24/25 09:07 50 MLS/HR Gabapentin 300 mg BID PO 02/22/25 22:00 02/24/25 09:06 300 MG Bumetanide 1 mg DAILY IV 02/23/25 10:15 02/24/25 09:06 1 MG Lactulose 30 ml DAILY PO 02/25/25 10:00 Examination: GENERAL:Abnormal, LUNGS:Normal, CVS:Normal, SKIN:Abnormal (Generalized jaundice), NEURO:Normal laboratory and microbiology Laboratory Tests 02/24/25 02:39 Test 02/24/25 02:39 Range/Units Serum Glucose 137 H 74-106 mg/dL Problem List/Assessment/Plan Problem List/Assessment/Plan Junctional tachycardia now in normal sinus rhythm Acute on chronic HFrEF, NHYA class III Occlusive thrombus in left cephalic vein Portal vein thrombosis (on Eliquis) Nonalcoholic liver cirrhosis Ascites status post paracentesis (1.8L out) Right upper lobe pulmonary nodule Nodule within superior right renal pole Hyperkalemia, resolved GRACE on CKD Transaminitis Plan/Recommendations (Dr. Olsen): Case reviewed and discussed with . A transthoracic echocardiogram reveals an EF of 20-25% with severe global hypokinesis, anterior apical and inferior apical akinesis. The patient denies any previous ischemic workup. Given possible malignancy vs obstruction, patient is not an ideal candidate for any invasive cardiac procedures for the time being. The patient denies any cardiac symptoms whatsoever. This was discussed with the patient and her niece who was at bedside. Patient and niece agreeable to continue with malignancy/mass workup at this time. Unable to initiate guideline directed medical therapy for CHF at this time given that patient is on vasopressor therapy for hemodynamic support. We will recommend to avoid midodrine as this is contraindicated in HFrEF patients. No atrial fibrillation identified on desk monitor as patient was noted to go into a junctional tachycardia rhythm. Patient now in sinus rhythm without any significant atrioventricular blocks or pauses. We will stop dopamine drip at this time and evaluate chronotropic response. At this time, there is no guideline recommended indication for permanent pacemaker implantation. Proceed with avoiding AV reina blocking agents. Continue with close cardiac surveillance and notify cardiology team immediately for any ECG changes. We are pending medical records pathology report from [facility] regarding recent duodenal mass that was found at [facility]. GI team on board to evaluate for possible obstruction or mass. GI team has ordered MRCP, awaiting results findings. Thank you for allowing us to care for this patient. Please call with any questions or concerns. Critical care time spent: 38 minutes.This medical document was created using an electronic medical record system with voice recognition software and computerized dictation system. Although this document has been carefully reviewed, there might still be some phonetic and typographical errors. Occasional wrong-word or ``sound-alike substitutions may have occurred due to the inherent limitations of voice recognition software. These areas are purely typographical due to imperfections of the software programs and do not reflect any compromise in the patient's medical care. Please read the chart carefully and recognize, using context, where these substitutions have occurred. Plan discussed with: Patient, Other (Niece at bedside) Dietary Evaluation Review Comments: Nutrition Recommendations: Encourage oral (PO) liquids and feedings as tolerated. Advance diet to 2-gram sodium, high-protein diet if patient accepts oral intake. If patient continues to refuse food: Consider initiating Total Parenteral Nutrition (TPN) for nutritional support. Alternatively, consider placement of a nasogastric (NG) tube for enteral feeding. Expected Outcomes/Goals: Provide adequate nutrition support by mouth, tube feeding or TPN Date of Service: Feb 24, 2025 Billing Provider: GEOVANNY JAFFE Common Visit Codes: [id number] CARE 30-74 MIN GEOVANNY JAFFE Feb 24, 2025 14:17
--- NOTE | 2025-02-24 15:03 | DVHPN2 ---
Subjective Patient's remains in [place] OU currently on dopamine drip, urine output is borderline. Changes from previous H/P or p: No Changes Objective Vitals Vital Signs Date Time Temp Pulse Resp B/P (MAP) Pulse Ox O2 Delivery O2 Flow Rate FiO2 02/24/25 13:15 75 12 114/60 (78) 91 02/24/25 12:00 97.7 97.7 02/24/25 12:00 Room Air* 0 21 Intake/Output Intake and Output 02/24/25 07:00 Intake Total 725.76 ml Output Total 865 ml Balance -139.24 ml Intake Oral 360 ml IV Total 365.76 ml Output Urine Total 865 ml # Bowel Movements 2 Exam HEENT pupils are reactive Neck is supple CV is S1-S2 regular rate and rhythm Respiratory diminished breath sounds bases GI positive bowel sounds positive ascites Extremity trace edema 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 no motor deficit Medications Current Medications Medications Dose Ordered Sig/Zahraa Route Start Time Stop Time Status Last Admin Dose Admin Norepinephrine Bitartrate 250 ml @ 3.75 mls/hr Q24H IV 02/17/25 08:30 02/21/25 08:24 3.75 MLS/HR Ondansetron HCl 4 mg Q4HPRN PRN IV 02/19/25 00:45 02/23/25 20:43 4 MG Pantoprazole Sodium 40 mg BID IV 02/19/25 22:00 02/24/25 09:05 40 MG Hydrocortisone Sodium Succinate 100 mg Q8HR IV 02/19/25 22:00 02/24/25 13:33 100 MG Metronidazole 100 ml @ 100 mls/hr Q8HR IV 02/19/25 22:00 02/24/25 13:33 100 MLS/HR Acetaminophen/ Hydrocodone Bitart 1 tab Q6HPRN PRN PO 02/20/25 12:15 02/21/25 10:08 1 TAB Apixaban 2.5 mg BID PO 02/20/25 22:00 02/24/25 09:06 2.5 MG Sodium Chloride 10 ml QSHIFT@10,22 IV 02/20/25 22:00 02/24/25 09:07 10 ML Phenylephrine HCl 250 ml @ 30 mls/hr Q8H20M IV 02/21/25 13:30 02/22/25 18:10 30 MLS/HR Dopamine HCl/ Dextrose 250 ml @ 5.213 mls/ hr Q24H IV 02/21/25 22:30 02/23/25 13:48 2.606 MLS/HR Promethazine HCl 25 mg Q4HP PRN PO 02/22/25 11:00 Enteral Nutritional Formula 240 ml TIDWM PO 02/22/25 18:00 02/24/25 12:28 240 ML Levofloxacin 50 ml @ 50 mls/hr Q48H IV 02/24/25 10:00 02/24/25 09:07 50 MLS/HR Gabapentin 300 mg BID PO 02/22/25 22:00 02/24/25 09:06 300 MG Bumetanide 1 mg DAILY IV 02/23/25 10:15 02/24/25 09:06 1 MG Lactulose 30 ml DAILY PO 02/25/25 10:00 Laboratory Results Laboratory Tests 02/24/25 02:39 Chemistry Test 02/24/25 02:39 Albumin 2.8 g/dL (3.2-4.8) L Calcium Level 8.6 mg/dL (8.7-10.4) L Total Protein 4.9 g/dL (5.7-8.2) L LFT Test 02/24/25 02:39 Alanine Aminotransferase (ALT) 135 U/L (7-40) H Alkaline Phosphatase 894 U/L (46-116) H Aspartate Amino Transferase (AST) 97 U/L (13-40) H Direct Bilirubin 6.4 mg/dL (<0.3) H Total Bilirubin 8.3 mg/dL (0.2-1.0) H Urinalysis Test 02/18/25 02:57 Urine Color Yellow (Yellow) Urine Clarity Clear (Clear) Urine pH 5.0 (5.0-9.0) Urine Specific [place] 1.020 (1.001-1.035) Urine Protein 1+ (Negative) H Urine Ketones Negative (Negative) Urine Blood Trace /uL (Negative) H Urine Nitrite Negative (Negative) Urine Bilirubin Negative (Negative) Urine Urobilinogen Normal mg/dL (Negative) Urine Leukocyte Esterase Negative /uL (Negative) Urine RBC 3 /hpf (0 - 4) Urine Microscopic WBC 7 /HPF (0-5) H Urine Squamous Epithelial Cells Few /hpf (<5) Urine Bacteria Few /hpf (None Seen) H Urine Hyaline Casts Few /lpf (0 - 2) Urine Yeast (Budding) Occasional /hpf (None Urine Creatinine 159.83 mg/dL (30.0-125.0) H Urine Protein/Creatinine Ratio 0.54 Urine Sodium 64 mmol/L (40-220) Urine Glucose Normal mg/dL (Normal) Urine Total Protein 87.1 mg/dL (1-14) H Microbiology Microbiology Date/Time Source Procedure Growth Status 02/19/25 12:57 Urine - [place] Urine Culture - Final Enterococcus faecalis Complete 02/17/25 15:45 Nose MRSA Screen - Final Complete Assessment/Plan Assessment/Plan 79-year-old female with a known history of hypertension, dyslipidemia, recent diagnosis of liver cirrhosis, portal vein thrombosis currently on anticoagulation presented to the hospital with the abdominal pain found to have 1. Acute hyperkalemia suspect triamterene induced, improved 2. Acute kidney injury with a possible hepatorenal syndrome currently improving 3. GRACE suspect secondary to vasomotor nephropathy 4. Portal vein thrombosis 5. Liver cirrhosis with a ascites status post paracentesis 6. Elevated liver function tests 7. Secondary Coagulopathy due to liver disease 8. Hypotension requiring IV Levophed -MRCP, follow up GI recommendations -continue somatostatin, vitamin K, paracentesis. Follow up Nephrology recommendations -we will resume anticoagulation after paracentesis. Plan discussed with: Patient, Daughter Date of Service: Feb 24, 2025 Billing Provider: WM ARANGO MD Common Visit Codes: NOT BILLABLE WM ARANGO MD Feb 24, 2025 15:02
--- NOTE | 2025-02-24 23:34 | DVHPN2 ---
Progress Note - Dictate Date Seen: Feb 24, 2025 Medical Necessity Reason Pt with a Central, PICC or Fol: Yes The following are medically ne: Zacarias Catheter Reason for zacarias catheter: Strict I&O Subjective Patient seen and examined at bedside. Breathing comfortably on room air. Overnight events reviewed. vital signs Vital Sign Date Time Temp Pulse Resp B/P (MAP) Pulse Ox O2 Delivery O2 Flow Rate FiO2 02/24/25 20:00 53 02/24/25 20:00 12 97 Room Air* 0 21 02/24/25 18:45 151/73 (99) 02/24/25 16:00 97.7 97.7 Total Intake and Output 02/23/25 02/23/25 02/24/25 15:00 23:00 07:00 Intake Total 121.92 ml 281.92 ml 321.92 ml Output Total 640 ml 225 ml Balance 121.92 ml -358.08 ml 96.92 ml medications Current Medications Medications Dose Ordered Sig/Zahraa Route Start Time Stop Time Status Last Admin Dose Admin Norepinephrine Bitartrate 250 ml @ 3.75 mls/hr Q24H IV 02/17/25 08:30 02/21/25 08:24 3.75 MLS/HR Ondansetron HCl 4 mg Q4HPRN PRN IV 02/19/25 00:45 02/23/25 20:43 4 MG Pantoprazole Sodium 40 mg BID IV 02/19/25 22:00 02/24/25 22:01 40 MG Hydrocortisone Sodium Succinate 100 mg Q8HR IV 02/19/25 22:00 02/24/25 22:01 100 MG Metronidazole 100 ml @ 100 mls/hr Q8HR IV 02/19/25 22:00 02/24/25 22:01 100 MLS/HR Acetaminophen/ Hydrocodone Bitart 1 tab Q6HPRN PRN PO 02/20/25 12:15 02/21/25 10:08 1 TAB Apixaban 2.5 mg BID PO 02/20/25 22:00 02/24/25 22:01 2.5 MG Sodium Chloride 10 ml QSHIFT@10,22 IV 02/20/25 22:00 02/24/25 22:01 10 ML Phenylephrine HCl 250 ml @ 30 mls/hr Q8H20M IV 02/21/25 13:30 02/22/25 18:10 30 MLS/HR Dopamine HCl/ Dextrose 250 ml @ 5.213 mls/ hr Q24H IV 02/21/25 22:30 02/23/25 13:48 2.606 MLS/HR Promethazine HCl 25 mg Q4HP PRN PO 02/22/25 11:00 Enteral Nutritional Formula 240 ml TIDWM PO 02/22/25 18:00 02/24/25 18:17 240 ML Levofloxacin 50 ml @ 50 mls/hr Q48H IV 02/24/25 10:00 02/24/25 09:07 50 MLS/HR Gabapentin 300 mg BID PO 02/22/25 22:00 02/24/25 22:01 300 MG Bumetanide 1 mg DAILY IV 02/23/25 10:15 02/24/25 09:06 1 MG Lactulose 30 ml DAILY PO 02/25/25 10:00 objective Gen.: Patient lying in bed in no apparent distress. Breathing on room air. Head: Normocephalic, atraumatic. Eyes: EOMI/PERRLA. Ears: Normal hearing. Normal anatomy. Neck/trachea: Trachea midline, supple. Nose: Normal external anatomy. Mouth: Moist mucous membranes. Chest: Decreased air entry bilaterally. No wheezing or rhonchi. Cardiovascular: Positive S1, positive S2. Regular rate and rhythm. Abdomen: Positive bowel sounds in all 4 quadrants. Soft, non-tender, non- distended. : Deferred. Rectal: Deferred. Skin: Warm, dry. Intact. Extremities: 2+ radial pulses bilaterally. No lower extremity edema. Neuro: Awake, alert, oriented x3. No gross motor or sensory deficits. Cranial nerves II through XII intact. Gait not assessed. laboratory and microbiology Laboratory Tests 02/24/25 02:39 Test 02/24/25 02:39 Range/Units Serum Glucose 137 H 74-106 mg/dL Assessment/Plan Impression: Pleural effusions Atelectasis Coagulopathy Ascites Events: Breathing on room air Supplemental oxygen PRN Continue steroids Continue antibiotics Incentive spirometry Diurese with Bumex as tolerated Monitor renal function Monitor electrolytes, supplement as necessary GI recommendations appreciated Protonix for GI ppx On lactulose Rectal tube in place. Labs and imaging reviewed. Rest of plan as noted below. Plan: Supplemental oxygen PRN Titrate to keep O2 sats above 92%. Pressors as necessary for hemodynamic support Titrate to keep mean arterial pressure greater than 65 mmHg. Monitor blood pressure Continue bronchodilators PRN. Stress dose steroids Continue antibiotics Incentive spirometry Protonix BID for GI ppx Diurese to euvolemia Monitor renal function. Monitor electrolytes. Supplement as necessary. Monitor ins and outs. Zacarias for strict ins and outs Monitor hemoglobin Transfuse if less than 7.0 g/dL. GI/DVT prophylaxis. Prognosis: Poor given patient's multiple co-morbidities. Condition: Critical Rest of plan per hospitalist and other consultants. A total of 35 minutes of critical care time was spent reviewing the patient record, examining the patient, making a diagnostic and therapeutic plan, discussing this plan with the medical personnel, following up on diagnostic studies and following the patient for clinical stability excluding any and all procedures. At least 50% of this time was spent in direct, [id number] contact. Thank you, Dr. Heaton, for allowing me to participate in this patient's care. Further recommendations will depend on the patient's clinical course. Please do not hesitate to contact me if you have any questions or concerns. This medical document was created using an electronic medical record system with [employer] dictation system. Although these documentations are being carefully reviewed, there may still be some phonetic and typographical changes. The errors are purely typographical, due to imperfection on the software program, and do not reflect any compromise in the patient's medical care. Dietary Evaluation Review Comments: Nutrition Recommendations: Encourage oral (PO) liquids and feedings as tolerated. Advance diet to 2-gram sodium, high-protein diet if patient accepts oral intake. If patient continues to refuse food: Consider initiating Total Parenteral Nutrition (TPN) for nutritional support. Alternatively, consider placement of a nasogastric (NG) tube for enteral feeding. Expected Outcomes/Goals: Provide adequate nutrition support by mouth, tube feeding or TPN Plan discussed with: Patient, Other (GIANA Capone) Critical Care Time(min): 35 [facility] Feb 24, 2025 23:34
[2025-02-25] VITALS (96 sets, daily range): BP systolic 95–149; BP diastolic 46–72; PULSE 63–103; RESP 9–43; TEMP 97.3–98.1; O2SAT 85–100
[2025-02-25 03:00] LABS: Hematocrit 38.9 % (36.0-46.0); Hemoglobin 12.8 g/dL (12.2-16.2); Mean Corpuscular Hemoglobin 30.2 pg (28.0-32.0); Mean Corpuscular Volume 91.4 fL (80.0-100.0); Nucleated Red Blood Cells % 0.6 %
[2025-02-25 03:15] LABS: Anion Gap 14 (5-15); BUN/Creatinine Ratio 23.8 (10.0-20.0); Sodium 141 mmol/L (136-145)
[2025-02-25 03:21] LABS: Alanine Aminotransferase 135 U/L (7-40); Albumin 2.6 g/dL (3.2-4.8); Alkaline Phosphatase 856 U/L (46-116); Bilirubin, Total 8.7 mg/dL (0.2-1.0); Blood Urea Nitrogen 53 mg/dL (9-23); Calcium 8.4 mg/dL (8.7-10.4); Carbon Dioxide 20 mmol/L (20-31); Chloride 107 mmol/L (98-107); Glucose 180 mg/dL (74-106); Potassium 3.2 mmol/L (3.5-5.1); Total Protein 4.6 g/dL (5.7-8.2)
[2025-02-25] MEDS: POTASSIUM EFFERVESENT TAB 25 MEQ PO ONE (05:48)
[2025-02-25] MEDS: LACTULOSE 20Gm/30ML SOLN PO SCH (09:41)
--- NOTE | 2025-02-25 09:57 | DVHPN2 ---
Progress Note Date Seen: Feb 25, 2025 Medical Necessity Reason Pt with a Central, PICC or Fol: Yes The following are medically ne: Zacarias Catheter Reason for zacarias catheter: Strict I&O Subjective Review of Systems: RESPIRATORY:Abnormal Other Systems: Patient seen and examined by myself today in follow-up Objective vital signs Vital Sign Date Time Temp Pulse Resp B/P (MAP) Pulse Ox O2 Delivery O2 Flow Rate FiO2 02/25/25 09:41 127/56 02/25/25 09:00 66 13 89 02/25/25 08:00 Room Air* 0 21 02/25/25 04:30 98.0 98.0 Total Intake and Output 02/24/25 02/24/25 02/25/25 15:00 23:00 07:00 Intake Total 169.18 ml 700 ml 500 ml Output Total 950 ml 1150 ml Balance 169.18 ml -250 ml -650 ml medications Current Medications Medications Dose Ordered Sig/Zahraa Route Start Time Stop Time Status Last Admin Dose Admin Norepinephrine Bitartrate 250 ml @ 3.75 mls/hr Q24H IV 02/17/25 08:30 02/21/25 08:24 3.75 MLS/HR Ondansetron HCl 4 mg Q4HPRN PRN IV 02/19/25 00:45 02/23/25 20:43 4 MG Pantoprazole Sodium 40 mg BID IV 02/19/25 22:00 02/25/25 09:40 40 MG Hydrocortisone Sodium Succinate 100 mg Q8HR IV 02/19/25 22:00 02/25/25 05:48 100 MG Metronidazole 100 ml @ 100 mls/hr Q8HR IV 02/19/25 22:00 02/25/25 05:48 100 MLS/HR Acetaminophen/ Hydrocodone Bitart 1 tab Q6HPRN PRN PO 02/20/25 12:15 02/21/25 10:08 1 TAB Apixaban 2.5 mg BID PO 02/20/25 22:00 02/25/25 09:41 2.5 MG Sodium Chloride 10 ml QSHIFT@10,22 IV 02/20/25 22:00 02/25/25 09:40 10 ML Phenylephrine HCl 250 ml @ 30 mls/hr Q8H20M IV 02/21/25 13:30 02/22/25 18:10 30 MLS/HR Dopamine HCl/ Dextrose 250 ml @ 5.213 mls/ hr Q24H IV 02/21/25 22:30 02/23/25 13:48 2.606 MLS/HR Promethazine HCl 25 mg Q4HP PRN PO 02/22/25 11:00 Enteral Nutritional Formula 240 ml TIDWM PO 02/22/25 18:00 02/25/25 08:00 240 ML Levofloxacin 50 ml @ 50 mls/hr Q48H IV 02/24/25 10:00 02/24/25 09:07 50 MLS/HR Gabapentin 300 mg BID PO 02/22/25 22:00 02/25/25 09:41 300 MG Bumetanide 1 mg DAILY IV 02/23/25 10:15 02/25/25 09:41 1 MG Lactulose 30 ml DAILY PO 02/25/25 10:00 02/25/25 09:41 30 ML Examination: LUNGS:Normal, CVS:Normal, MSK:Normal laboratory and microbiology Laboratory Tests 02/25/25 02:30 Test 02/25/25 02:30 Range/Units Serum Glucose 180 H 74-106 mg/dL Microbiology Date/Time Source Procedure Growth Status 02/19/25 12:57 Urine - Zacarias Port Urine Culture - Final Enterococcus faecalis Complete 02/17/25 15:45 Nose MRSA Screen - Final Complete Problem List/Assessment/Plan Problem List/Assessment/Plan Acute kidney injury superimposed Chronic Kidney Disease stage IV secondary hemodynamic mediated, FENA >2% Portal vein thrombosis abdominal mass cirrhosis w/ ascites Hypokalemia Jaundice Bradycardia Recommendation Kidney function stable Chronic Kidney Disease four Increased urine output Strict I&Os d/c Octreotide Midodrine KCL replacement Bumex 1 mg IV daily Bilateral echogenic kidney reported on CT scan of the abdomen GI consult Cardiology consult We will continue to follow up Plan discussed with: Patient Dietary Evaluation Review Comments: Nutrition Recommendations: Encourage oral (PO) liquids and feedings as tolerated. Advance diet to 2-gram sodium, high-protein diet if patient accepts oral intake. If patient continues to refuse food: Consider initiating Total Parenteral Nutrition (TPN) for nutritional support. Alternatively, consider placement of a nasogastric (NG) tube for enteral feeding. Expected Outcomes/Goals: Provide adequate nutrition support by mouth, tube feeding or TPN MARI FLOR MD Feb 25, 2025 09:57
--- NOTE | 2025-02-25 12:46 | DVHPN2 ---
Consult Progress Note Subjective Patient reports: No new complaints Objective vital signs Vital Sign Date Time Temp Pulse Resp B/P (MAP) Pulse Ox O2 Delivery O2 Flow Rate FiO2 02/25/25 11:15 77 16 129/65 (86) 95 02/25/25 10:00 Room Air* 0 21 02/25/25 09:15 97.4 97.4 Total Intake and Output 02/24/25 02/24/25 02/25/25 15:00 23:00 07:00 Intake Total 169.18 ml 700 ml 500 ml Output Total 950 ml 1150 ml Balance 169.18 ml -250 ml -650 ml medications Current Medications Medications Dose Ordered Sig/Zahraa Route Start Time Stop Time Status Last Admin Dose Admin Norepinephrine Bitartrate 250 ml @ 3.75 mls/hr Q24H IV 02/17/25 08:30 02/21/25 08:24 3.75 MLS/HR Ondansetron HCl 4 mg Q4HPRN PRN IV 02/19/25 00:45 02/23/25 20:43 4 MG Pantoprazole Sodium 40 mg BID IV 02/19/25 22:00 02/25/25 09:40 40 MG Hydrocortisone Sodium Succinate 100 mg Q8HR IV 02/19/25 22:00 02/25/25 05:48 100 MG Metronidazole 100 ml @ 100 mls/hr Q8HR IV 02/19/25 22:00 02/25/25 05:48 100 MLS/HR Acetaminophen/ Hydrocodone Bitart 1 tab Q6HPRN PRN PO 02/20/25 12:15 02/21/25 10:08 1 TAB Apixaban 2.5 mg BID PO 02/20/25 22:00 02/25/25 09:41 2.5 MG Sodium Chloride 10 ml QSHIFT@10,22 IV 02/20/25 22:00 02/25/25 09:40 10 ML Phenylephrine HCl 250 ml @ 30 mls/hr Q8H20M IV 02/21/25 13:30 02/22/25 18:10 30 MLS/HR Dopamine HCl/ Dextrose 250 ml @ 5.213 mls/ hr Q24H IV 02/21/25 22:30 02/23/25 13:48 2.606 MLS/HR Promethazine HCl 25 mg Q4HP PRN PO 02/22/25 11:00 Enteral Nutritional Formula 240 ml TIDWM PO 02/22/25 18:00 02/25/25 08:00 240 ML Levofloxacin 50 ml @ 50 mls/hr Q48H IV 02/24/25 10:00 02/24/25 09:07 50 MLS/HR Gabapentin 300 mg BID PO 02/22/25 22:00 02/25/25 09:41 300 MG Bumetanide 1 mg DAILY IV 02/23/25 10:15 02/25/25 09:41 1 MG Lactulose 30 ml DAILY PO 02/25/25 10:00 02/25/25 09:41 30 ML Examination: CVS:Normal (BP stable off pressors, telemetry consistent with sinus rhythm and sinus 77 beats per minute) laboratory and microbiology Laboratory Tests 02/25/25 02:30 Test 02/25/25 02:30 Range/Units Serum Glucose 180 H 74-106 mg/dL Problem List/Assessment/Plan Problem List/Assessment/Plan Problem List/Assessment/Plan Junctional tachycardia now in normal sinus rhythm Acute on chronic HFrEF, NHYA class III Occlusive thrombus in left cephalic vein Portal vein thrombosis (on Eliquis) Nonalcoholic liver cirrhosis Ascites status post paracentesis (1.8L out) Right upper lobe pulmonary nodule Nodule within superior right renal pole Hyperkalemia, resolved GRACE on CKD Transaminitis Plan/Recommendations (Dr. Olsen): Case reviewed and discussed with . A transthoracic echocardiogram reveals an EF of 20-25% with severe global hypokinesis, anterior apical and inferior apical akinesis. The patient denies any previous ischemic workup. Given possible malignancy vs obstruction, patient is not an ideal candidate for any invasive cardiac procedures for the time being. The patient denies any cardiac symptoms whatsoever. This was discussed with the patient and her niece who was at bedside. Patient and niece agreeable to continue with malignancy/mass workup at this time. We will recommend to avoid midodrine as this is contraindicated in HFrEF patients. Patient now off pressors, BP stable. Continue monitoring overnight. If blood pressure remained stable and able to plan to initiate on GDMT low dose as BP tolerates. We will hold off on AV reina blockers though given episode of junctional tachycardia. No atrial fibrillation identified on cardiac monitor technician as patient was noted to go into a junctional tachycardia rhythm. Patient now in sinus rhythm without any significant atrioventricular blocks or pauses. We will stop dopamine drip at this time and evaluate chronotropic response. At this time, there is no guideline recommended indication for permanent pacemaker implantation. Proceed with avoiding AV reina blocking agents. Continue with close cardiac surveillance and notify cardiology team immediately for any ECG changes. We are pending medical records pathology report from [facility] regarding recent duodenal mass that was found at [facility]. GI team on board to evaluate for possible obstruction or mass. GI team has ordered MRCP, awaiting results findings. Thank you for allowing us to care for this patient. Please call with any questions or concerns. Critical care time spent:37 This medical document was created using an electronic medical record system with voice recognition software and computerized dictation system. Although this document has been carefully reviewed, there might still be some phonetic and typographical errors. Occasional wrong-word or ``sound-alike substitutions may have occurred due to the inherent limitations of voice recognition software. These areas are purely typographical due to imperfections of the software programs and do not reflect any compromise in the patient's medical care. Please read the chart carefully and recognize, using context, where these substitutions have occurred. Thank you for allowing me to participate in the management of this patient. The treatment plan was discussed with and agreed upon by patient/family including requesting consultants and ordering of imaging/procedures. Plan discussed with: Daughter Dietary Evaluation Review Comments: Nutrition Recommendations: Encourage oral (PO) liquids and feedings as tolerated. Advance diet to 2-gram sodium, high-protein diet if patient accepts oral intake. If patient continues to refuse food: Consider initiating Total Parenteral Nutrition (TPN) for nutritional support. Alternatively, consider placement of a nasogastric (NG) tube for enteral feeding. Expected Outcomes/Goals: Provide adequate nutrition support by mouth, tube feeding or TPN Date of Service: Feb 25, 2025 Billing Provider: AMARILYS LAZAR Common Visit Codes: [id number] INP/OBS CARE(HIGH), 24602-[id number] CARE 30-74 MIN AMARILYS LAZAR Feb 25, 2025 12:46
--- NOTE | 2025-02-25 13:55 | DVHNC2 ---
Procedure - Paracentesis Procedure Note INDICATION: Ascites PROCEDURE [employer]INE PLANT OPERATOR: Dr Raad Zuniga Ultrasound used to joaquim location: Yes CONSENT: Consent was obtained from healthcare proxy prior to the procedure. Indications, risks, and benefits were explained at length. Time out time: 13:40 pm Patient medications and allergies reviewed. The risks and benefits of the procedure and the sedation options and risk were discussed with the patient's healthcare proxy. All questions were answered and informed consent was obtained. Patient identification and proposed procedure were verified prior to the procedure by the physician, and a nurse in the patient's room. The heart rate, respiratory rate, oxygen saturations, blood pressure, adequacy of pulmonary ventilation, and response to care were monitored throughout the procedure. The physical status of the patient was reassessed after the procedure. PROCEDURE SUMMARY: A time-out was performed. My hands were washed immediately prior to the procedure. I wore a surgical cap, mask with protective eyewear, sterile gown and sterile gloves throughout the procedure. The area was cleansed and draped in usu al sterile fashion using chlorhexidine scrub. Anesthesia was achieved with 1% lidocaine. The right lower quadrant of the abdomen was prepped and draped in a sterile fashion using chlorhexidine scrub. 1% lidocaine was used to numb the skin, soft tissue and peritoneum. The paracentesis catheter was inserted and advanced with negative pressure until ella colored fluid was aspirated. Approximately 60 mL of ascitic fluid was collected and sent for laboratory analysis. The catheter was then connected to the vaccutainer and 4.2 L liters of additional ascitic fluid were drained. The catheter was removed and no leaking was noted. A band aid was placed over the puncture wound. The patient tolerated the procedure well without any immediate complications. Estimated blood loss was less than 5 mL. CPT 34695 Visit Coding Pulmonary Billing Provider: RAAD ZUNIGA MD Date of Service if different f: Feb 25, 2025 Common Visit Codes: PROCEDURE ONLY Procedure Codes: [id number] W/IMAGING RAAD ZUNIGA MD Feb 25, 2025 13:55
[2025-02-25] MEDS: ALBUMIN 25% 100 ML IV ONE ×2 (15:03→22:49)
--- NOTE | 2025-02-25 16:42 | DVHPN2 ---
Subjective Patient is currently off of Levophed as well as dopamine. Patient underwent paracentesis again today in which 4200 mL was removed. Currently we will be getting two doses of IV albumin. Changes from previous H/P or p: No Changes Objective Vitals Vital Signs Date Time Temp Pulse Resp B/P (MAP) Pulse Ox O2 Delivery O2 Flow Rate FiO2 02/25/25 16:15 78 13 130/63 (85) 97 02/25/25 16:00 Room Air* 0 21 02/25/25 12:00 98.1 98.1 Intake/Output Intake and Output 02/25/25 07:00 Intake Total 1369.18 ml Output Total 2100 ml Balance -730.82 ml Intake Oral 1000 ml IV Total 369.18 ml Output Urine Total 1200 ml Stool Total 900 ml # Bowel Movements 4 Exam HEENT pupils are reactive Neck is supple CV is S1-S2 regular rate and rhythm Respiratory diminished breath sounds bases GI positive bowel sounds positive ascites Extremity trace edema [employer] no motor deficit Medications Current Medications Medications Dose Ordered Sig/Zahraa Route Start Time Stop Time Status Last Admin Dose Admin Norepinephrine Bitartrate 250 ml @ 3.75 mls/hr Q24H IV 02/17/25 08:30 02/21/25 08:24 3.75 MLS/HR Ondansetron HCl 4 mg Q4HPRN PRN IV 02/19/25 00:45 02/23/25 20:43 4 MG Pantoprazole Sodium 40 mg BID IV 02/19/25 22:00 02/25/25 09:40 40 MG Hydrocortisone Sodium Succinate 100 mg Q8HR IV 02/19/25 22:00 02/25/25 15:06 100 MG Metronidazole 100 ml @ 100 mls/hr Q8HR IV 02/19/25 22:00 02/25/25 15:06 100 MLS/HR Acetaminophen/ Hydrocodone Bitart 1 tab Q6HPRN PRN PO 02/20/25 12:15 02/21/25 10:08 1 TAB Apixaban 2.5 mg BID PO 02/20/25 22:00 02/25/25 09:41 2.5 MG Sodium Chloride 10 ml QSHIFT@10,22 IV 02/20/25 22:00 02/25/25 09:40 10 ML Phenylephrine HCl 250 ml @ 30 mls/hr Q8H20M IV 02/21/25 13:30 12/3/25 18:10 30 MLS/HR Dopamine HCl/ Dextrose 250 ml @ 5.213 mls/ hr Q24H IV 02/21/25 22:30 02/23/25 13:48 2.606 MLS/HR Promethazine HCl 25 mg Q4HP PRN PO 02/22/25 11:00 Enteral Nutritional Formula 240 ml TIDWM PO 02/22/25 18:00 02/25/25 12:00 240 ML Levofloxacin 50 ml @ 50 mls/hr Q48H IV 02/24/25 10:00 02/24/25 09:07 50 MLS/HR Gabapentin 300 mg BID PO 02/22/25 22:00 02/25/25 09:41 300 MG Bumetanide 1 mg DAILY IV 02/23/25 10:15 02/25/25 09:41 1 MG Lactulose 30 ml DAILY PO 02/25/25 10:00 02/25/25 09:41 30 ML Laboratory Results Laboratory Tests 02/25/25 02:30 Chemistry Test 02/25/25 02:30 Albumin 2.6 g/dL (3.2-4.8) L Calcium Level 8.4 mg/dL (8.7-10.4) L Total Protein 4.6 g/dL (5.7-8.2) L LFT Test 02/25/25 02:30 Alanine Aminotransferase (ALT) 135 U/L (7-40) H Alkaline Phosphatase 856 U/L (46-116) H Aspartate Amino Transferase (AST) 92 U/L (13-40) H Total Bilirubin 8.7 mg/dL (0.2-1.0) H Urinalysis Test 02/18/25 02:57 Urine Color Yellow (Yellow) Urine Clarity Clear (Clear) Urine pH 5.0 (5.0-9.0) Urine Specific [place] 1.020 (1.001-1.035) Urine Protein 1+ (Negative) H Urine Ketones Negative (Negative) Urine Blood Trace /uL (Negative) H Urine Nitrite Negative (Negative) Urine Bilirubin Negative (Negative) Urine Urobilinogen Normal mg/dL (Negative) Urine Leukocyte Esterase Negative /uL (Negative) Urine RBC 3 /hpf (0 - 4) Urine Microscopic WBC 7 /HPF (0-5) H Urine Squamous Epithelial Cells Few /hpf (<5) Urine Bacteria Few /hpf (None Seen) H Urine Hyaline Casts Few /lpf (0 - 2) Urine Yeast (Budding) Occasional /hpf (None Urine Creatinine 159.83 mg/dL (30.0-125.0) H Urine Protein/Creatinine Ratio 0.54 Urine Sodium 64 mmol/L (40-220) Urine Glucose Normal mg/dL (Normal) Urine Total Protein 87.1 mg/dL (1-14) H Microbiology Microbiology Date/Time Source Procedure Growth Status 02/19/25 12:57 Urine - [place] Urine Culture - Final Enterococcus faecalis Complete 02/17/25 15:45 Nose MRSA Screen - Final Complete Assessment/Plan Assessment/Plan 79-year-old female with a known history of hypertension, dyslipidemia, recent diagnosis of liver cirrhosis, portal vein thrombosis currently on anticoagulation presented to the hospital with the abdominal pain found to have 1. Acute hyperkalemia suspect triamterene induced, improved 2. Acute kidney injury with a possible hepatorenal syndrome currently improving 3. GRACE suspect secondary to vasomotor nephropathy 4. Portal vein thrombosis 5. Liver cirrhosis with a ascites status post paracentesis1, repeat2 paracentesis on 02/25(4200 ml) 6. Elevated liver function tests 7. Secondary Coagulopathy due to liver disease 8. Hypotension requiring IV Levophed -IV albumin 8 hours apart x2 doses -continue somatostatin, , paracentesis. Follow up Nephrology recommendations -resume Eliquis. Plan discussed with: Patient, Daughter, Other My Orders Orders - WM ARANGO MD Procedure Category Date Status Time Albumin 25% (Albutein) PHA 02/25/25 In Process 23:00 Date of Service: Feb 25, 2025 Billing Provider: WM ARANGO MD Common Visit Codes: NOT BILLABLE WM ARANGO MD Feb 25, 2025 16:42
--- NOTE | 2025-02-25 20:09 | DVHPN2 ---
Progress Note - Dictate Date Seen: Feb 25, 2025 Medical Necessity Reason Pt with a Central, PICC or Fol: Yes The following are medically ne: Zacarias Catheter Reason for zacarias catheter: Strict I&O Subjective Patient seen at bedside, she is being fed a pureed diet with some assistance Patient is having some trouble swallowing pills Patient had a diarrhea following her lactulose treatments A rectal tube was inserted last night at 800 mL of output was noted Patient remains hemodynamically stable and clinically slowly improving Patient is S/P paracentesis She has been treated with antibiotics for E faecalis UTI vital signs Vital Sign Date Time Temp Pulse Resp B/P (MAP) Pulse Ox O2 Delivery O2 Flow Rate FiO2 02/25/25 18:15 87 17 111/66 (81) 98 02/25/25 18:00 Room Air* 0 21 02/25/25 12:00 98.1 98.1 Total Intake and Output 02/24/25 02/24/25 02/25/25 15:00 23:00 07:00 Intake Total 169.18 ml 700 ml 500 ml Output Total 950 ml 1150 ml Balance 169.18 ml -250 ml -650 ml medications Current Medications Medications Dose Ordered Sig/Zahraa Route Start Time Stop Time Status Last Admin Dose Admin Norepinephrine Bitartrate 250 ml @ 3.75 mls/hr Q24H IV 02/17/25 08:30 02/21/25 08:24 3.75 MLS/HR Ondansetron HCl 4 mg Q4HPRN PRN IV 02/19/25 00:45 02/23/25 20:43 4 MG Pantoprazole Sodium 40 mg BID IV 02/19/25 22:00 02/25/25 09:40 40 MG Hydrocortisone Sodium Succinate 100 mg Q8HR IV 02/19/25 22:00 02/25/25 15:06 100 MG Metronidazole 100 ml @ 100 mls/hr Q8HR IV 02/19/25 22:00 02/25/25 15:06 100 MLS/HR Acetaminophen/ Hydrocodone Bitart 1 tab Q6HPRN PRN PO 02/20/25 12:15 02/21/25 10:08 1 TAB Apixaban 2.5 mg BID PO 02/20/25 22:00 02/25/25 09:41 2.5 MG Sodium Chloride 10 ml QSHIFT@, IV 02/20/25 22:00 12/6/25 09:40 10 ML Phenylephrine HCl 250 ml @ 30 mls/hr Q8H20M IV 02/21/25 13:30 02/22/25 18:10 30 MLS/HR Dopamine HCl/ Dextrose 250 ml @ 5.213 mls/ hr Q24H IV 02/21/25 22:30 02/23/25 13:48 2.606 MLS/HR Promethazine HCl 25 mg Q4HP PRN PO 02/22/25 11:00 Enteral Nutritional Formula 240 ml TIDWM PO 02/22/25 18:00 02/25/25 18:00 240 ML Levofloxacin 50 ml @ 50 mls/hr Q48H IV 02/24/25 10:00 02/24/25 09:07 50 MLS/HR Gabapentin 300 mg BID PO 02/22/25 22:00 02/25/25 09:41 300 MG Bumetanide 1 mg DAILY IV 02/23/25 10:15 02/25/25 09:41 1 MG Lactulose 30 ml DAILY PO 02/25/25 10:00 02/25/25 09:41 30 ML objective Alert awake oriented x3. HEENT neck supple no JVD. Heart regular rate and rhythm S1-S2. On supplemental oxygen Lungs fair air movement without rales wheezes. Abdomen soft nontender positive bowel sounds, mildly distended Extremities no edema positive pulses laboratory and microbiology Laboratory Tests 02/25/25 02:30 Test 02/25/25 02:30 Range/Units Serum Glucose 180 H 74-106 mg/dL Problems(with codes): (1) Adenoma (2) UTI (urinary tract infection) due to Enterococcus (3) Spontaneous bacterial peritonitis (4) Ascites (5) Liver cirrhosis (6) Acute renal failure (7) Pleural effusion Prognosis Assessment plan Patient's records were reviewed from [facility] She was treated for CHF GERD ascites pleural effusion and engorged superior mesenteric vein thrombosis; patient is currently on Eliquis She underwent a CT angio chest and abdomen with IV contrast She was found to have engorged superior mesenteric vein likely filled with thrombus Suspected tumor thrombus distending that extra and intrahepatic portal veins throughout the liver, mucosal thickening possibly related to fluid overload Suspected enhancing masses in the proximal jejunum She also had elevated liver enzymes at that time, her ISABEL was negative and ferritin was normal and hepatitis profile was negative wall She has a prior history of duodenal jejunal bypass or switch which was an older form of a weight loss bypass surgery She was found to have suspected enhancing masses in the jejunum. 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 Advance diet to 2-gram sodium, high-protein diet if patient accepts oral intake. If patient continues to refuse food: Consider initiating Total Parenteral Nutrition (TPN) for nutritional support. Alternatively, consider placement of a nasogastric (NG) tube for enteral feeding. Expected Outcomes/Goals: Provide adequate nutrition support by mouth, tube feeding or TPN Plan discussed with: Patient, Daughter, Other (Nurse Violetta torre it is cold duodenal is a older follow up of a bypass surgery was called or duodenal switch endoscopy escape pathology repeat showed) ANNAMARIE BHATT MD Feb 25, 2025 20:09
--- NOTE | 2025-02-25 23:55 | DVHPN2 ---
Progress Note - Dictate Date Seen: Feb 25, 2025 Medical Necessity Reason Pt with a Central, PICC or Fol: Yes The following are medically ne: Zacarias Catheter Reason for zacarias catheter: Strict I&O Subjective Patient seen and examined at bedside. Breathing comfortably on room air. Overnight events reviewed. vital signs Vital Sign Date Time Temp Pulse Resp B/P (MAP) Pulse Ox O2 Delivery O2 Flow Rate FiO2 02/25/25 22:15 78 13 111/57 (75) 100 02/25/25 22:00 Room Air* 0 21 02/25/25 19:45 97.8 97.8 Total Intake and Output 02/24/25 02/24/25 02/25/25 15:00 23:00 07:00 Intake Total 169.18 ml 700 ml 500 ml Output Total 950 ml 1150 ml Balance 169.18 ml -250 ml -650 ml medications Current Medications Medications Dose Ordered Sig/Zahraa Route Start Time Stop Time Status Last Admin Dose Admin Norepinephrine Bitartrate 250 ml @ 3.75 mls/hr Q24H IV 02/17/25 08:30 02/21/25 08:24 3.75 MLS/HR Ondansetron HCl 4 mg Q4HPRN PRN IV 02/19/25 00:45 02/23/25 20:43 4 MG Pantoprazole Sodium 40 mg BID IV 02/19/25 22:00 02/25/25 21:46 40 MG Hydrocortisone Sodium Succinate 100 mg Q8HR IV 02/19/25 22:00 02/25/25 21:46 100 MG Metronidazole 100 ml @ 100 mls/hr Q8HR IV 02/19/25 22:00 02/25/25 21:46 100 MLS/HR Acetaminophen/ Hydrocodone Bitart 1 tab Q6HPRN PRN PO 02/20/25 12:15 02/21/25 10:08 1 TAB Apixaban 2.5 mg BID PO 02/20/25 22:00 02/25/25 21:46 2.5 MG Sodium Chloride 10 ml QSHIFT@10,22 IV 02/20/25 22:00 02/25/25 21:47 10 ML Phenylephrine HCl 250 ml @ 30 mls/hr Q8H20M IV 02/21/25 13:30 02/22/25 18:10 30 MLS/HR Dopamine HCl/ Dextrose 250 ml @ 5.213 mls/ hr Q24H IV 02/21/25 22:30 02/23/25 13:48 2.606 MLS/HR Promethazine HCl 25 mg Q4HP PRN PO 02/22/25 11:00 Enteral Nutritional Formula 240 ml TIDWM PO 02/22/25 18:00 02/25/25 18:00 240 ML Levofloxacin 50 ml @ 50 mls/hr Q48H IV 02/24/25 10:00 02/24/25 09:07 50 MLS/HR Gabapentin 300 mg BID PO 02/22/25 22:00 02/25/25 21:46 300 MG Bumetanide 1 mg DAILY IV 02/23/25 10:15 02/25/25 09:41 1 MG Lactulose 30 ml DAILY PO 02/25/25 10:00 02/25/25 09:41 30 ML objective Gen.: Patient lying in bed in no apparent distress. Breathing on room air. Head: Normocephalic, atraumatic. Eyes: EOMI/PERRLA. Ears: Normal hearing. Normal anatomy. Neck/trachea: Trachea midline, supple. Nose: Normal external anatomy. Mouth: Moist mucous membranes. Chest: Decreased air entry bilaterally. No wheezing or rhonchi. Cardiovascular: Positive S1, positive S2. Regular rate and rhythm. Abdomen: Positive bowel sounds in all 4 quadrants. Soft, non-tender, non- distended. : Deferred. Rectal: Deferred. Skin: Warm, dry. Intact. Extremities: 2+ radial pulses bilaterally. No lower extremity edema. Neuro: Awake, alert, oriented x3. No gross motor or sensory deficits. Cranial nerves II through XII intact. Gait not assessed. laboratory and microbiology Laboratory Tests 02/25/25 02:30 Test 02/25/25 02:30 Range/Units Serum Glucose 180 H 74-106 mg/dL Assessment/Plan Impression: Pleural effusions Atelectasis Coagulopathy Ascites Events: Breathing on room air Supplemental oxygen PRN Off pressors and dopamine since 02/24/25 Continue steroids -fludrocortisone Continue antibiotics Incentive spirometry Eliquis PO BID Limited abdominal ultrasound reveals moderate amount of ascites. Plan for paracentesis Consent obtained from patient and NOK at bedside. Diurese with Bumex as tolerated Monitor renal function Monitor electrolytes, supplement as necessary GI recommendations appreciated Protonix for GI ppx On lactulose Rectal tube in place. Labs and imaging reviewed. Rest of plan as noted below. Plan: Supplemental oxygen PRN Titrate to keep O2 sats above 92%. Pressors as necessary for hemodynamic support Titrate to keep mean arterial pressure greater than 65 mmHg. Monitor blood pressure Continue bronchodilators PRN. Stress dose steroids Continue antibiotics Incentive spirometry Protonix BID for GI ppx Diurese to euvolemia Monitor renal function. Monitor electrolytes. Supplement as necessary. Monitor ins and outs. Zacarias for strict ins and outs Monitor hemoglobin Transfuse if less than 7.0 g/dL. GI/DVT prophylaxis. Prognosis: Poor given patient's multiple co-morbidities. Rest of plan per hospitalist and other consultants. Thank you, Dr. Heaton, for allowing me to participate in this patient's care. Further recommendations will depend on the patient's clinical course. Please do not hesitate to contact me if you have any questions or concerns. This medical document was created using an electronic medical record system with [employer] dictation system. Although these documentations are being carefully reviewed, there may still be some phonetic and typographical changes. The errors are purely typographical, due to imperfection on the software program, and do not reflect any compromise in the patient's medical care. Dietary Evaluation Review Comments: Nutrition Recommendations: Encourage oral (PO) liquids and feedings as tolerated. Advance diet to 2-gram sodium, high-protein diet if patient accepts oral intake. If patient continues to refuse food: Consider initiating Total Parenteral Nutrition (TPN) for nutritional support. Alternatively, consider placement of a nasogastric (NG) tube for enteral feeding. Expected Outcomes/Goals: Provide adequate nutrition support by mouth, tube feeding or TPN Plan discussed with: Patient, Other (GIANA Capone/KATE) [facility] Feb 25, 2025 23:55
[2025-02-26] VITALS (49 sets, daily range): BP systolic 100–179; BP diastolic 45–78; PULSE 53–152; RESP 9–20; TEMP 97.5–98.3; O2SAT 95–100
[2025-02-26 04:11] LABS: Hematocrit 34.2 % (36.0-46.0); Hemoglobin 11.8 g/dL (12.2-16.2); Mean Corpuscular Hemoglobin 31.0 pg (28.0-32.0); Mean Corpuscular Volume 89.9 fL (80.0-100.0); Nucleated Red Blood Cells % 0.5 %
[2025-02-26 04:26] LABS: Albumin 3.3 g/dL (3.2-4.8); Anion Gap 16 (5-15); BUN/Creatinine Ratio 23.7 (10.0-20.0); Carbon Dioxide 24 mmol/L (20-31); Chloride 105 mmol/L (98-107)
[2025-02-26 04:57] LABS: Alanine Aminotransferase 102 U/L (7-40); Alkaline Phosphatase 645 U/L (46-116); Bilirubin, Total 9.7 mg/dL (0.2-1.0); Blood Urea Nitrogen 51 mg/dL (9-23); Calcium 8.7 mg/dL (8.7-10.4); Glucose 149 mg/dL (74-106); Potassium 2.8 mmol/L (3.5-5.1); Sodium 145 mmol/L (136-145); Total Protein 4.9 g/dL (5.7-8.2)
[2025-02-26] MEDS: POTASSIUM CHL 20MEQ/100ML 100 ML IV SCH ×3 (05:41→21:21)
--- NOTE | 2025-02-26 11:13 | DVHPN2 ---
Progress Note Date Seen: Feb 26, 2025 Medical Necessity Reason Pt with a Central, PICC or Fol: Yes The following are medically ne: Zacarias Catheter Reason for zacarias catheter: Strict I&O Subjective Patient reports: No new complaints Objective vital signs Vital Sign Date Time Temp Pulse Resp B/P (MAP) Pulse Ox O2 Delivery O2 Flow Rate FiO2 02/26/25 10:17 140/70 02/26/25 09:30 75 11 99 02/26/25 08:30 97.5 97.5 02/26/25 08:00 Room Air* 0 21 Total Intake and Output 02/25/25 02/25/25 02/26/25 15:00 23:00 07:00 Intake Total 950 ml 500 ml Output Total 5350 ml 1700 ml Balance -4400 ml -1200 ml medications Current Medications Medications Dose Ordered Sig/Zahraa Route Start Time Stop Time Status Last Admin Dose Admin Norepinephrine Bitartrate 250 ml @ 3.75 mls/hr Q24H IV 02/17/25 08:30 02/21/25 08:24 3.75 MLS/HR Ondansetron HCl 4 mg Q4HPRN PRN IV 02/19/25 00:45 02/23/25 20:43 4 MG Pantoprazole Sodium 40 mg BID IV 02/19/25 22:00 02/26/25 10:17 40 MG Hydrocortisone Sodium Succinate 100 mg Q8HR IV 02/19/25 22:00 02/26/25 05:41 100 MG Metronidazole 100 ml @ 100 mls/hr Q8HR IV 02/19/25 22:00 02/26/25 05:41 100 MLS/HR Acetaminophen/ Hydrocodone Bitart 1 tab Q6HPRN PRN PO 02/20/25 12:15 02/21/25 10:08 1 TAB Apixaban 2.5 mg BID PO 02/20/25 22:00 02/26/25 10:18 2.5 MG Sodium Chloride 10 ml QSHIFT@10,22 IV 02/20/25 22:00 02/26/25 10:18 10 ML Phenylephrine HCl 250 ml @ 30 mls/hr Q8H20M IV 02/21/25 13:30 02/22/25 18:10 30 MLS/HR Dopamine HCl/ Dextrose 250 ml @ 5.213 mls/ hr Q24H IV 02/21/25 22:30 02/23/25 13:48 2.606 MLS/HR Promethazine HCl 25 mg Q4HP PRN PO 02/22/25 11:00 Enteral Nutritional Formula 240 ml TIDWM PO 02/22/25 18:00 02/26/25 08:00 240 ML Levofloxacin 50 ml @ 50 mls/hr Q48H IV 02/24/25 10:00 02/26/25 10:17 50 MLS/HR Gabapentin 300 mg BID PO 02/22/25 22:00 02/26/25 10:18 300 MG Bumetanide 1 mg DAILY IV 02/23/25 10:15 02/26/25 10:17 1 MG Lactulose 30 ml DAILY PO 02/25/25 10:00 02/26/25 10:18 30 ML Examination: LUNGS:Normal, CVS:Normal, MSK:Normal laboratory and microbiology Laboratory Tests 02/26/25 03:30 Test 02/26/25 03:30 Range/Units Serum Glucose 149 H 74-106 mg/dL Microbiology Date/Time Source Procedure Growth Status 02/25/25 12:20 Ascities Fluid Gram Stain - Final Resulted 02/25/25 12:20 Ascities Fluid Body Fluid Culture - Preliminary No growth Resulted 02/19/25 12:57 Urine - Zacarias Port Urine Culture - Final Enterococcus faecalis Complete 02/17/25 15:45 Nose MRSA Screen - Final Complete Problem List/Assessment/Plan Problem List/Assessment/Plan Acute kidney injury superimposed Chronic Kidney Disease stage IV secondary hemodynamic mediated, FENA >2% Portal vein thrombosis abdominal mass cirrhosis w/ ascites Hypokalemia Jaundice Bradycardia Recommendation Kidney function stable stage IV Increased urine output Strict I&Os d/c Octreotide Midodrine KCL replacement Bumex 1 mg IV daily Bilateral echogenic kidney reported on CT scan of the abdomen GI consult Cardiology consult No indication for acute hemodialysis We will continue to follow up Plan discussed with: Patient Dietary Evaluation Review Comments: Nutrition Recommendations: Encourage oral (PO) liquids and feedings as tolerated. Advance diet to 2-gram sodium, high-protein diet if patient accepts oral intake. If patient continues to refuse food: Consider initiating Total Parenteral Nutrition (TPN) for nutritional support. Alternatively, consider placement of a nasogastric (NG) tube for enteral feeding. Expected Outcomes/Goals: Provide adequate nutrition support by mouth, tube feeding or TPN MARI FLOR MD Feb 26, 2025 11:13
--- NOTE | 2025-02-26 16:07 | DVHPN2 ---
Progress Note Date Seen: Feb 26, 2025 Resident Creating Document: MARGUERITE ORELLANA RESIDENT Medical Necessity Reason Pt with a Central, PICC or Fol: Yes The following are medically ne: Zacarias Catheter Reason for zacarias catheter: Strict I&O Subjective Review of Systems Bilirubin trending up 9.7. No active complaint. Patient experiencing low appetite. 100 cc and lifestyle output. Normoactive bowel sounds. Objective vital signs Vital Sign Date Time Temp Pulse Resp B/P (MAP) Pulse Ox O2 Delivery O2 Flow Rate FiO2 02/26/25 14:00 12 100 Nasal Cannula* 2 28 02/26/25 14:00 87 02/26/25 12:00 97.8 133/66 (88) 97.8 Total Intake and Output 02/25/25 02/25/25 02/26/25 15:00 23:00 07:00 Intake Total 950 ml 500 ml Output Total 5350 ml 1700 ml Balance -4400 ml -1200 ml medications Current Medications Medications Dose Ordered Sig/Zahraa Route Start Time Stop Time Status Last Admin Dose Admin Norepinephrine Bitartrate 250 ml @ 3.75 mls/hr Q24H IV 02/17/25 08:30 02/21/25 08:24 3.75 MLS/HR Ondansetron HCl 4 mg Q4HPRN PRN IV 02/19/25 00:45 02/23/25 20:43 4 MG Pantoprazole Sodium 40 mg BID IV 02/19/25 22:00 02/26/25 10:17 40 MG Hydrocortisone Sodium Succinate 100 mg Q8HR IV 02/19/25 22:00 02/26/25 14:08 100 MG Metronidazole 100 ml @ 100 mls/hr Q8HR IV 02/19/25 22:00 02/26/25 14:08 100 MLS/HR Acetaminophen/ Hydrocodone Bitart 1 tab Q6HPRN PRN PO 02/20/25 12:15 02/21/25 10:08 1 TAB Apixaban 2.5 mg BID PO 02/20/25 22:00 02/26/25 10:18 2.5 MG Sodium Chloride 10 ml QSHIFT@10,22 IV 02/20/25 22:00 02/26/25 10:18 10 ML Phenylephrine HCl 250 ml @ 30 mls/hr Q8H20M IV 02/21/25 13:30 02/22/25 18:10 30 MLS/HR Dopamine HCl/ Dextrose 250 ml @ 5.213 mls/ hr Q24H IV 02/21/25 22:30 02/23/25 13:48 2.606 MLS/HR Promethazine HCl 25 mg Q4HP PRN PO 02/22/25 11:00 Enteral Nutritional Formula 240 ml TIDWM PO 02/22/25 18:00 02/26/25 08:00 240 ML Levofloxacin 50 ml @ 50 mls/hr Q48H IV 02/24/25 10:00 02/26/25 10:17 50 MLS/HR Gabapentin 300 mg BID PO 02/22/25 22:00 02/26/25 10:18 300 MG Bumetanide 1 mg DAILY IV 02/23/25 10:15 02/26/25 10:17 1 MG Lactulose 30 ml DAILY PO 02/25/25 10:00 02/26/25 10:18 30 ML Potassium Chloride 100 ml @ 50 mls/hr Q2H IV 02/26/25 14:00 02/26/25 17:59 02/26/25 14:15 50 MLS/HR Examination Patient lying in bed, in no acute distress General: Thin-appearing, afebrile, palor, mucosae are moist Cardiovascular: Bradycardic, normal S1 and S2. No murmurs, gallops or rubs. No JVD elevation. 2+ pedal edema Respiratory: Bilateral decreased air entry Abdomen: Soft, nontender, nondistended, normoactive bowel sounds, no rebound tenderness, no organomegaly, no masses Genitourinary: Deferred Psych/Mental Status: A/Ox2 laboratory and microbiology Laboratory Tests 02/26/25 03:30 Test 02/26/25 03:30 Range/Units Serum Glucose 149 H 74-106 mg/dL Microbiology Date/Time Source Procedure Growth Status 02/25/25 12:20 Ascities Fluid Gram Stain - Final Resulted 02/25/25 12:20 Ascities Fluid Body Fluid Culture - Preliminary No growth Resulted 02/19/25 12:57 Urine - Zacarias Port Urine Culture - Final Enterococcus faecalis Complete 02/17/25 15:45 Nose MRSA Screen - Final Complete Labs and/or images reviewed: Labs reviewed by me, Image(s) reviewed by me Problem List/Assessment/Plan Problem List/Assessment/Plan Spontaneous bacterial peritonitis Cholestatic liver disease ? 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 Heterogeneous signal throughout the liver, not well evaluated without postcontrast imaging, may be due to cirrhosis. Other etiologies, including malignancy can not be excluded. Common bile duct is not visualized, may be obscured by artifact. Can not exclude common bile duct obstruction. Correlate with clinical findings. [place] recent hospitalization: patient underwent CT angio chest and abdomen with IV contrast, found to have SMV thrombus, thrombus distending through extra and intrahepatic portal veins throughout the liver. Suspecting enhancing mass in the proximal jejunum.She has a prior history of duodenal jejunal bypass or switch which was an older form of a weight loss bypass surgery. Underwent upper EGD 01/19/2025. 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 Plan: Recommendation Unfortunately the patient is not a candidate for surgical intervention due to multiple medical comorbidities Once medically stabilized a surveillance endoscopy can be considered in 6-12 months Continue supportive care and also consider hospice placement if the patient's clinical status does not improve Bilirubin 9.7 today, LFTs stable. MRCP can not exclude common bile duct obstruction. Per patient's niece, patient had EGD at [facility], which showed varices, 3cm hiatal hernia, gastritis On IV antibiotics for E faecalis UTI promethazine for nausea Hepatitis panel negative. ISABEL screen negative. Await ascitic fluid cytology rule out malignancy Elevated total bilirubin and alkaline phosphatase suggestive of cholestatic jaundice possibly due to obstruction or mass Ascitic fluid cell count suggestive of spontaneous bacterial peritonitis, continue IV Levaquin Continue Protonix 40 mg IV b.i.d. Continue to monitor labs and supportive care Overall prognosis remains guarded Plan discussed with patient's niece in which all questions have been answered Case discussed with Dr. Rice Plan discussed with: Other (Patient's niece at bedside) Dietary Evaluation Review Comments: Nutrition Recommendations: Encourage oral (PO) liquids and feedings as tolerated. Advance diet to 2-gram sodium, high-protein diet if patient accepts oral intake. If patient continues to refuse food: Consider initiating Total Parenteral Nutrition (TPN) for nutritional support. Alternatively, consider placement of a nasogastric (NG) tube for enteral feeding. Expected Outcomes/Goals: Provide adequate nutrition support by mouth, tube feeding or TPN MARGUERITE ORELLANA RESIDENT Feb 26, 2025 16:07
--- NOTE | 2025-02-26 17:07 | DVHPN2 ---
Subjective Patient is currently off of Levophed as well as dopamine. Patient underwent paracentesis again today in which 4200 mL was removed. Currently we will be getting two doses of IV albumin. Changes from previous H/P or p: No Changes Objective Vitals Vital Signs Date Time Temp Pulse Resp B/P (MAP) Pulse Ox O2 Delivery O2 Flow Rate FiO2 02/26/25 16:00 98.0 105 18 135/68 (90) 98 98.0 02/26/25 16:00 Nasal Cannula* 2 28 Intake/Output Intake and Output 02/26/25 07:00 Intake Total 1450 ml Output Total 7050 ml Balance -5600 ml Intake Oral 1050 ml IV Total 400 ml Output Urine Total 1850 ml Stool Total 1000 ml Other 4200 ml Exam HEENT pupils are reactive Neck is supple CV is S1-S2 regular rate and rhythm Respiratory diminished breath sounds bases GI positive bowel sounds positive ascites 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 Medications Current Medications Medications Dose Ordered Sig/Zahraa Route Start Time Stop Time Status Last Admin Dose Admin Norepinephrine Bitartrate 250 ml @ 3.75 mls/hr Q24H IV 02/17/25 08:30 02/21/25 08:24 3.75 MLS/HR Pantoprazole Sodium 40 mg BID IV 02/19/25 22:00 02/26/25 10:17 40 MG Hydrocortisone Sodium Succinate 100 mg Q8HR IV 02/19/25 22:00 02/26/25 14:08 100 MG Metronidazole 100 ml @ 100 mls/hr Q8HR IV 02/19/25 22:00 02/26/25 14:08 100 MLS/HR Acetaminophen/ Hydrocodone Bitart 1 tab Q6HPRN PRN PO 02/20/25 12:15 02/21/25 10:08 1 TAB Apixaban 2.5 mg BID PO 02/20/25 22:00 02/26/25 10:18 2.5 MG Sodium Chloride 10 ml QSHIFT@10,22 IV 02/20/25 22:00 02/26/25 10:18 10 ML Phenylephrine HCl 250 ml @ 30 mls/hr Q8H20M IV 02/21/25 13:30 02/22/25 18:10 30 MLS/HR Dopamine HCl/ Dextrose 250 ml @ 5.213 mls/ hr Q24H IV 02/21/25 22:30 02/23/25 13:48 2.606 MLS/HR Promethazine HCl 25 mg Q4HP PRN PO 02/22/25 11:00 Enteral Nutritional Formula 240 ml TIDWM PO 02/22/25 18:00 02/26/25 08:00 240 ML Levofloxacin 50 ml @ 50 mls/hr Q48H IV 02/24/25 10:00 02/26/25 10:17 50 MLS/HR Gabapentin 300 mg BID PO 02/22/25 22:00 02/26/25 10:18 300 MG Bumetanide 1 mg DAILY IV 02/23/25 10:15 02/26/25 10:17 1 MG Lactulose 30 ml DAILY PO 02/25/25 10:00 02/26/25 10:18 30 ML Potassium Chloride 100 ml @ 50 mls/hr Q2H IV 02/26/25 14:00 02/26/25 17:59 02/26/25 16:15 50 MLS/HR Laboratory Results Laboratory Tests 02/26/25 03:30 Chemistry Test 02/26/25 03:30 Albumin 3.3 g/dL (3.2-4.8) Calcium Level 8.7 mg/dL (8.7-10.4) Magnesium Level 1.9 mg/dL (1.6-2.6) Total Protein 4.9 g/dL (5.7-8.2) L LFT Test 02/26/25 03:30 Alanine Aminotransferase (ALT) 102 U/L (7-40) H Alkaline Phosphatase 645 U/L (46-116) H Aspartate Amino Transferase (AST) 75 U/L (13-40) H Total Bilirubin 9.7 mg/dL (0.2-1.0) H Urinalysis Test 02/18/25 02:57 Urine Color Yellow (Yellow) Urine Clarity Clear (Clear) Urine pH 5.0 (5.0-9.0) Urine Specific [place] 1.020 (1.001-1.035) Urine Protein 1+ (Negative) H Urine Ketones Negative (Negative) Urine Blood Trace /uL (Negative) H Urine Nitrite Negative (Negative) Urine Bilirubin Negative (Negative) Urine Urobilinogen Normal mg/dL (Negative) Urine Leukocyte Esterase Negative /uL (Negative) Urine RBC 3 /hpf (0 - 4) Urine Microscopic WBC 7 /HPF (0-5) H Urine Squamous Epithelial Cells Few /hpf (<5) Urine Bacteria Few /hpf (None Seen) H Urine Hyaline Casts Few /lpf (0 - 2) Urine Yeast (Budding) Occasional /hpf (None Urine Creatinine 159.83 mg/dL (30.0-125.0) H Urine Protein/Creatinine Ratio 0.54 Urine Sodium 64 mmol/L (40-220) Urine Glucose Normal mg/dL (Normal) Urine Total Protein 87.1 mg/dL (1-14) H Microbiology Microbiology Date/Time Source Procedure Growth Status 02/25/25 12:20 Ascities Fluid Gram Stain - Final Resulted 02/25/25 12:20 Ascities Fluid Body Fluid Culture - Preliminary No growth Resulted 02/19/25 12:57 Urine - [place] Urine Culture - Final Enterococcus faecalis Complete 02/17/25 15:45 Nose MRSA Screen - Final Complete Assessment/Plan Assessment/Plan 79-year-old female with a known history of hypertension, dyslipidemia, recent diagnosis of liver cirrhosis, portal vein thrombosis currently on anticoagulation presented to the hospital with the abdominal pain found to have 1. Acute hyperkalemia suspect triamterene induced, improved 2. Acute kidney injury with a possible hepatorenal syndrome currently improving 3. GRACE suspect secondary to vasomotor nephropathy 4. Portal vein thrombosis 5. Liver cirrhosis with a ascites status post paracentesis1, repeat2 paracentesis on 02/25(4200 ml) 6. Elevated liver function tests 7. Secondary Coagulopathy due to liver disease 8. Hypotension requiring IV Levophed -IV albumin 8 hours apart x2 doses -continue somatostatin, , paracentesis. Follow up Nephrology recommendations -resume Eliquis. Plan discussed with: Other My Orders Orders - WM ARANGO MD Procedure Category Date Status Time Transfer Orders XFER 02/26/25 Transmitted 15:19 Date of Service: Feb 26, 2025 Billing Provider: WM ARANGO MD Common Visit Codes: NOT BILLABLE WM ARANGO MD Feb 26, 2025 17:07
[2025-02-26] MEDS: MORPHINE SULFATE INJ 2 MG/ml SYRG IV PRN (20:59)
[2025-02-26] MEDS: hydrALAZINE HCL 20 MG/ML VL IV PRN (22:33)
--- NOTE | 2025-02-26 22:44 | DVHPN2 ---
Progress Note - Dictate Date Seen: Feb 26, 2025 Medical Necessity Reason Pt with a Central, PICC or Fol: Yes The following are medically ne: Zacarias Catheter Reason for zacarias catheter: Strict I&O Subjective Patient seen and examined at bedside. Breathing comfortably on room air. Overnight events reviewed. vital signs Vital Sign Date Time Temp Pulse Resp B/P (MAP) Pulse Ox O2 Delivery O2 Flow Rate FiO2 02/26/25 22:33 170/70 02/26/25 21:29 96 12 02/26/25 18:00 98 02/26/25 18:00 Nasal Cannula* 2 28 02/26/25 16:00 98.0 98.0 Total Intake and Output 02/25/25 02/25/25 02/26/25 15:00 23:00 07:00 Intake Total 950 ml 500 ml Output Total 5350 ml 1700 ml Balance -4400 ml -1200 ml medications Current Medications Medications Dose Ordered Sig/Zahraa Route Start Time Stop Time Status Last Admin Dose Admin Norepinephrine Bitartrate 250 ml @ 3.75 mls/hr Q24H IV 02/17/25 08:30 02/21/25 08:24 3.75 MLS/HR Pantoprazole Sodium 40 mg BID IV 02/19/25 22:00 02/26/25 22:15 40 MG Hydrocortisone Sodium Succinate 100 mg Q8HR IV 02/19/25 22:00 02/26/25 22:14 100 MG Metronidazole 100 ml @ 100 mls/hr Q8HR IV 02/19/25 22:00 02/26/25 22:15 100 MLS/HR Acetaminophen/ Hydrocodone Bitart 1 tab Q6HPRN PRN PO 02/20/25 12:15 02/26/25 17:07 1 TAB Apixaban 2.5 mg BID PO 02/20/25 22:00 02/26/25 22:14 2.5 MG Sodium Chloride 10 ml QSHIFT@10,22 IV 02/20/25 22:00 02/26/25 22:15 10 ML Phenylephrine HCl 250 ml @ 30 mls/hr Q8H20M IV 02/21/25 13:30 02/22/25 18:10 30 MLS/HR Dopamine HCl/ Dextrose 250 ml @ 5.213 mls/ hr Q24H IV 02/21/25 22:30 02/23/25 13:48 2.606 MLS/HR Promethazine HCl 25 mg Q4HP PRN PO 02/22/25 11:00 Enteral Nutritional Formula 240 ml TIDWM PO 02/22/25 18:00 02/26/25 08:00 240 ML Levofloxacin 50 ml @ 50 mls/hr Q48H IV 02/24/25 10:00 02/26/25 10:17 50 MLS/HR Gabapentin 300 mg BID PO 02/22/25 22:00 02/26/25 22:14 300 MG Bumetanide 1 mg DAILY IV 02/23/25 10:15 02/26/25 10:17 1 MG Lactulose 30 ml DAILY PO 02/25/25 10:00 02/26/25 10:18 30 ML Morphine Sulfate 1 mg Q4HP PRN IV 02/26/25 20:45 02/26/25 20:59 1 MG Hydralazine HCl 10 mg Q6HP PRN IV 02/26/25 20:45 02/26/25 22:33 10 MG Potassium Chloride 100 ml @ 50 mls/hr Q2H IV 02/26/25 20:45 02/27/25 00:44 02/26/25 21:21 50 MLS/HR objective Gen.: Patient lying in bed in no apparent distress. Breathing on room air. Head: Normocephalic, atraumatic. Eyes: EOMI/PERRLA. Ears: Normal hearing. Normal anatomy. Neck/trachea: Trachea midline, supple. Nose: Normal external anatomy. Mouth: Moist mucous membranes. Chest: Decreased air entry bilaterally. No wheezing or rhonchi. Cardiovascular: Positive S1, positive S2. Regular rate and rhythm. Abdomen: Positive bowel sounds in all 4 quadrants. Soft, non-tender, non- distended. : Deferred. Rectal: Deferred. Skin: Warm, dry. Intact. Extremities: 2+ radial pulses bilaterally. No lower extremity edema. Neuro: Awake, alert, oriented x3. No gross motor or sensory deficits. Cranial nerves II through XII intact. Gait not assessed. laboratory and microbiology Laboratory Tests 02/26/25 20:06 02/26/25 03:30 Test 02/26/25 03:30 Range/Units Serum Glucose 149 H 74-106 mg/dL Assessment/Plan Impression: Pleural effusions Atelectasis Coagulopathy Ascites Events: Breathing on room air Supplemental oxygen PRN Off pressors and dopamine since 02/24/25 Continue steroids -fludrocortisone Continue antibiotics Incentive spirometry Eliquis PO BID Limited abdominal ultrasound revealed moderate amount of ascites. Plan for paracentesis; consent obtained from patient and NOK at bedside. Patient is s/p paracentesis on 02/25/25 with 4200 ml removed Diurese with Bumex as tolerated Monitor renal function Monitor electrolytes, supplement as necessary Potassium supplementation Nephrology recs appreciated. GI recommendations appreciated Protonix for GI ppx On lactulose Rectal tube in place. Patient is hemodynamically stable. She is stable for downgrade from the pulmonary standpoint. Labs and imaging reviewed. Rest of plan as noted below. Plan: Supplemental oxygen PRN Titrate to keep O2 sats above 92%. Pressors as necessary for hemodynamic support Titrate to keep mean arterial pressure greater than 65 mmHg. Monitor blood pressure Continue bronchodilators PRN. Stress dose steroids Continue antibiotics Incentive spirometry Protonix BID for GI ppx Diurese to euvolemia Monitor renal function. Monitor electrolytes. Supplement as necessary. Monitor ins and outs. Zacarias for strict ins and outs Monitor hemoglobin Transfuse if less than 7.0 g/dL. GI/DVT prophylaxis. Prognosis: Poor given patient's multiple co-morbidities. Condition: Critical Rest of plan per hospitalist and other consultants. A total of 35 minutes of critical care time was spent reviewing the patient record, examining the patient, making a diagnostic and therapeutic plan, discussing this plan with the medical personnel, following up on diagnostic studies and following the patient for clinical stability excluding any and all procedures. At least 50% of this time was spent in direct, [id number] contact. Thank you, Dr. Heaton, for allowing me to participate in this patient's care. Further recommendations will depend on the patient's clinical course. Please do not hesitate to contact me if you have any questions or concerns. This medical document was created using an electronic medical record system with [employer] dictation system. Although these documentations are being carefully reviewed, there may still be some phonetic and typographical changes. The errors are purely typographical, due to imperfection on the software program, and do not reflect any compromise in the patient's medical care. Dietary Evaluation Review Comments: Nutrition Recommendations: Encourage oral (PO) liquids and feedings as tolerated. Advance diet to 2-gram sodium, high-protein diet if patient accepts oral intake. If patient continues to refuse food: Consider initiating Total Parenteral Nutrition (TPN) for nutritional support. Alternatively, consider placement of a nasogastric (NG) tube for enteral feeding. Expected Outcomes/Goals: Provide adequate nutrition support by mouth, tube feeding or TPN Plan discussed with: Patient, Other (GIANA Tom) Critical Care Time(min): 35 [facility] Feb 26, 2025 22:44
[2025-02-27] VITALS (12 sets, daily range): BP systolic 92–156; BP diastolic 46–71; PULSE 29–108; RESP 8–20; TEMP 96.4–98.3; O2SAT 94–100
[2025-02-27 03:47] LABS: Hematocrit 38.7 % (36.0-46.0); Hemoglobin 13.5 g/dL (12.2-16.2); Mean Corpuscular Hemoglobin 31.2 pg (28.0-32.0); Mean Corpuscular Volume 89.6 fL (80.0-100.0); Nucleated Red Blood Cells % 0.6 %
[2025-02-27 03:56] LABS: Anion Gap 17 (5-15); Calcium 8.8 mg/dL (8.7-10.4); Carbon Dioxide 23 mmol/L (20-31); Potassium 3.7 mmol/L (3.5-5.1)
[2025-02-27 04:01] LABS: BUN/Creatinine Ratio 26.1 (10.0-20.0)
[2025-02-27 04:04] LABS: Alanine Aminotransferase 114 U/L (7-40); Alkaline Phosphatase 694 U/L (46-116); Blood Urea Nitrogen 54 mg/dL (9-23); Chloride 107 mmol/L (98-107); Glucose 168 mg/dL (74-106); Sodium 147 mmol/L (136-145)
[2025-02-27 04:05] LABS: Albumin 3.2 g/dL (3.2-4.8); Bilirubin, Total 11.4 mg/dL (0.2-1.0); Total Protein 4.9 g/dL (5.7-8.2)
[2025-02-27] MEDS: PROMETHAZINE HCL 6.25 MG/5 ML ORAL SYRUP PO PRN (10:44)
--- NOTE | 2025-02-27 14:48 | DVHPN2 ---
Progress Note Date Seen: Feb 27, 2025 Resident Creating Document: MARGUERITE ORELLANA Medical Necessity Reason Pt with a Central, PICC or Fol: Yes The following are medically ne: Zacarias Catheter Reason for zacarias catheter: Strict I&O Subjective Patient reports: No new complaints Objective vital signs Vital Sign Date Time Temp Pulse Resp B/P (MAP) Pulse Ox O2 Delivery O2 Flow Rate FiO2 02/27/25 13:00 98.3 104 18 130/65 (86) 97 98.3 02/27/25 08:00 Nasal Cannula* 2 28 Total Intake and Output 02/26/25 02/26/25 02/27/25 15:00 23:00 07:00 Intake Total 50 ml 1050 ml 650 ml Output Total 1700 ml 1550 ml Balance 50 ml -650 ml -900 ml medications Current Medications Medications Dose Ordered Sig/Zahraa Route Start Time Stop Time Status Last Admin Dose Admin Pantoprazole Sodium 40 mg BID IV 02/19/25 22:00 02/27/25 10:26 40 MG Metronidazole 100 ml @ 100 mls/hr Q8HR IV 02/19/25 22:00 02/27/25 14:27 100 MLS/HR Acetaminophen/ Hydrocodone Bitart 1 tab Q6HPRN PRN PO 02/20/25 12:15 02/27/25 10:25 1 TAB Apixaban 2.5 mg BID PO 02/20/25 22:00 02/27/25 10:09 2.5 MG Sodium Chloride 10 ml QSHIFT@10,22 IV 02/20/25 22:00 02/27/25 10:27 10 ML Promethazine HCl 25 mg Q4HP PRN PO 02/22/25 11:00 02/27/25 10:44 25 MG Enteral Nutritional Formula 240 ml TIDWM PO 02/22/25 18:00 02/27/25 12:00 240 ML Gabapentin 300 mg BID PO 02/22/25 22:00 02/27/25 10:09 300 MG Bumetanide 1 mg DAILY IV 02/23/25 10:15 02/27/25 10:24 1 MG Lactulose 30 ml DAILY PO 02/25/25 10:00 02/27/25 10:09 30 ML Hydralazine HCl 10 mg Q6HP PRN IV 02/26/25 20:45 02/26/25 22:33 10 MG Levofloxacin 50 ml @ 50 mls/hr Q24H IV 02/27/25 10:00 02/27/25 10:10 50 MLS/HR Hydrocortisone Sodium Succinate 50 mg Q8HR IV 02/27/25 22:00 Morphine Sulfate 1 mg Q4HPRN PRN IV 02/27/25 14:45 Examination Patient lying in bed, in no acute distress General: Thin-appearing, afebrile, palor, mucosae are moist Cardiovascular: Bradycardic, normal S1 and S2. No murmurs, gallops or rubs. No JVD elevation. 2+ pedal edema Respiratory: Bilateral decreased air entry Abdomen: Soft, nontender, nondistended, normoactive bowel sounds, no rebound tenderness, no organomegaly, no masses Genitourinary: Deferred Psych/Mental Status: A/Ox2 laboratory and microbiology Laboratory Tests 02/27/25 03:20 Test 02/27/25 03:20 Range/Units Serum Glucose 168 H 74-106 mg/dL Microbiology Date/Time Source Procedure Growth Status 02/25/25 12:20 Ascities Fluid Gram Stain - Final Resulted 02/25/25 12:20 Ascities Fluid Body Fluid Culture - Preliminary No growth Resulted 02/19/25 12:57 Urine - [place] Urine Culture - Final Enterococcus faecalis Complete 02/17/25 15:45 Nose MRSA Screen - Final Complete Labs and/or images reviewed: Labs reviewed by me, Image(s) reviewed by me Problem List/Assessment/Plan Problem List/Assessment/Plan Spontaneous bacterial peritonitis Cholestatic liver disease ? 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 Heterogeneous signal throughout the liver, not well evaluated without postcontrast imaging, may be due to cirrhosis. Other etiologies, including malignancy can not be excluded. Common bile duct is not visualized, may be obscured by artifact. Can not exclude common bile duct obstruction. Correlate with clinical findings. [place] recent hospitalization: patient underwent CT angio chest and abdomen with IV contrast, found to have SMV thrombus, thrombus distending through extra and intrahepatic portal veins throughout the liver. Suspecting enhancing mass in the proximal jejunum.She has a prior history of duodenal jejunal bypass or switch which was an older form of a weight loss bypass surgery. Underwent upper EGD 01/19/2025. 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 Plan: Recommendation Unfortunately the patient is not a candidate for surgical intervention due to multiple medical comorbidities Once medically stabilized a surveillance endoscopy can be considered in 6-12 months Continue supportive care and also consider hospice placement if the patient's clinical status does not improve Bilirubin 9.7 today, LFTs stable. MRCP can not exclude common bile duct obstruction. Per patient's niece, patient had EGD at [facility], which showed varices, 3cm hiatal hernia, gastritis On IV antibiotics for E faecalis UTI promethazine for nausea Hepatitis panel negative. ISABEL screen negative. Await ascitic fluid cytology rule out malignancy Elevated total bilirubin and alkaline phosphatase suggestive of cholestatic jaundice possibly due to obstruction or mass Ascitic fluid cell count suggestive of spontaneous bacterial peritonitis, continue IV Levaquin Continue Protonix 40 mg IV b.i.d. Continue to monitor labs and supportive care Overall prognosis remains guarded Plan discussed with patient's niece in which all questions have been answered Case discussed with Dr. Rice Plan discussed with: Patient Dietary Evaluation Review Comments: Nutrition Recommendations: Encourage oral (PO) liquids and feedings as tolerated. Advance diet to 2-gram sodium, high-protein diet if patient accepts oral intake. If patient continues to refuse food: Consider initiating Total Parenteral Nutrition (TPN) for nutritional support. Alternatively, consider placement of a nasogastric (NG) tube for enteral feeding. Expected Outcomes/Goals: Provide adequate nutrition support by mouth, tube feeding or TPN MARGUERITE ORELLANA RESIDENT Feb 27, 2025 14:48
[2025-02-27] MEDS: MORPHINE SULFATE 4 MG/ML SYR/VIAL IV PRN (15:22)
--- NOTE | 2025-02-27 15:43 | DVHPN2 ---
Subjective Patient is off of pressors, off of dopamine, ammonia level is more than 50. Patient is on lactulose p.r.n.. Patient's leukocytosis is likely reactive secondary to hydrocortisone was tapered off which Changes from previous H/P or p: No Changes Objective Vitals Vital Signs Date Time Temp Pulse Resp B/P (MAP) Pulse Ox O2 Delivery O2 Flow Rate FiO2 02/27/25 15:22 102 16 115/73 02/27/25 13:00 98.3 97 98.3 02/27/25 08:00 Nasal Cannula* 2 28 Intake/Output Intake and Output 02/27/25 07:00 Intake Total 1750 ml Output Total 3250 ml Balance -1500 ml Intake Oral 1100 ml IV Total 650 ml Output Urine Total 2300 ml Stool Total 950 ml Exam HEENT pupils are reactive Neck is supple CV is S1-S2 regular rate and rhythm Respiratory diminished breath sounds bases GI positive bowel sounds positive ascites 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 Medications Current Medications Medications Dose Ordered Sig/Zahraa Route Start Time Stop Time Status Last Admin Dose Admin Pantoprazole Sodium 40 mg BID IV 02/19/25 22:00 02/27/25 10:26 40 MG Metronidazole 100 ml @ 100 mls/hr Q8HR IV 02/19/25 22:00 02/27/25 14:27 100 MLS/HR Acetaminophen/ Hydrocodone Bitart 1 tab Q6HPRN PRN PO 02/20/25 12:15 02/27/25 10:25 1 TAB Apixaban 2.5 mg BID PO 02/20/25 22:00 02/27/25 10:09 2.5 MG Sodium Chloride 10 ml QSHIFT@10,22 IV 02/20/25 22:00 02/27/25 10:27 10 ML Promethazine HCl 25 mg Q4HP PRN PO 02/22/25 11:00 02/27/25 10:44 25 MG Enteral Nutritional Formula 240 ml TIDWM PO 02/22/25 18:00 02/27/25 12:00 240 ML Gabapentin 300 mg BID PO 02/22/25 22:00 02/27/25 10:09 300 MG Bumetanide 1 mg DAILY IV 02/23/25 10:15 02/27/25 10:24 1 MG Lactulose 30 ml DAILY PO 02/25/25 10:00 02/27/25 10:09 30 ML Hydralazine HCl 10 mg Q6HP PRN IV 02/26/25 20:45 02/26/25 22:33 10 MG Levofloxacin 50 ml @ 50 mls/hr Q24H IV 02/27/25 10:00 02/27/25 10:10 50 MLS/HR Hydrocortisone Sodium Succinate 50 mg Q8HR IV 02/27/25 22:00 Morphine Sulfate 1 mg Q4HPRN PRN IV 02/27/25 14:45 02/27/25 15:22 1 MG Laboratory Results Laboratory Tests 02/27/25 03:20 Chemistry Test 02/27/25 03:20 Albumin 3.2 g/dL (3.2-4.8) Calcium Level 8.8 mg/dL (8.7-10.4) Total Protein 4.9 g/dL (5.7-8.2) L LFT Test 02/27/25 03:20 Alanine Aminotransferase (ALT) 114 U/L (7-40) H Alkaline Phosphatase 694 U/L (46-116) H Aspartate Amino Transferase (AST) 80 U/L (13-40) H Total Bilirubin 11.4 mg/dL (0.2-1.0) H Urinalysis Test 02/18/25 02:57 Urine Color Yellow (Yellow) Urine Clarity Clear (Clear) Urine pH 5.0 (5.0-9.0) Urine Specific [place] 1.020 (1.001-1.035) Urine Protein 1+ (Negative) H Urine Ketones Negative (Negative) Urine Blood Trace /uL (Negative) H Urine Nitrite Negative (Negative) Urine Bilirubin Negative (Negative) Urine Urobilinogen Normal mg/dL (Negative) Urine Leukocyte Esterase Negative /uL (Negative) Urine RBC 3 /hpf (0 - 4) Urine Microscopic WBC 7 /HPF (0-5) H Urine Squamous Epithelial Cells Few /hpf (<5) Urine Bacteria Few /hpf (None Seen) H Urine Hyaline Casts Few /lpf (0 - 2) Urine Yeast (Budding) Occasional /hpf (None Urine Creatinine 159.83 mg/dL (30.0-125.0) H Urine Protein/Creatinine Ratio 0.54 Urine Sodium 64 mmol/L (40-220) Urine Glucose Normal mg/dL (Normal) Urine Total Protein 87.1 mg/dL (1-14) H Microbiology Microbiology Date/Time Source Procedure Growth Status 02/25/25 12:20 Ascities Fluid Gram Stain - Final Resulted 02/25/25 12:20 Ascities Fluid Body Fluid Culture - Preliminary No growth Resulted 02/19/25 12:57 Urine - [place] Urine Culture - Final Enterococcus faecalis Complete 02/17/25 15:45 Nose MRSA Screen - Final Complete Assessment/Plan Assessment/Plan 79-year-old female with a known history of hypertension, dyslipidemia, recent diagnosis of liver cirrhosis, portal vein thrombosis currently on anticoagulation presented to the hospital with the abdominal pain found to have 1. Acute hyperkalemia suspect triamterene induced, improved 2. Acute kidney injury with a possible hepatorenal syndrome currently improving 3. GRACE suspect secondary to vasomotor nephropathy 4. Portal vein thrombosis 5. Liver cirrhosis with a ascites status post paracentesis1, repeat2 paracentesis on 02/25(4200 ml) 6. Elevated liver function tests 7. Secondary Coagulopathy due to liver disease 8. Leukocytosis likely reactive secondary to hydrocortisone Taper of hydrocortisone -continue somatostatin, , paracentesis. Follow up Nephrology recommendations -continue Eliquis, follow up GI recommendations. Plan discussed with: Patient, Daughter My Orders Orders - WM ARANGO MD Procedure Category Date Status Time Hydrocortisone PHA 02/27/25 In Process Succinate Inj 22:00 Date of Service: Feb 27, 2025 Billing Provider: WM ARANGO MD Common Visit Codes: NOT BILLABLE WM ARANGO MD Feb 27, 2025 15:42
[2025-02-27] MEDS: HYDROCORTISONE SOD SUCC 100 MG/2ML INJ VIAL IV SCH (22:10)
--- NOTE | 2025-02-27 23:46 | DVHPN2 ---
Progress Note - Dictate Date Seen: Feb 27, 2025 Medical Necessity Reason Pt with a Central, PICC or Fol: Yes The following are medically ne: Zacarias Catheter Reason for zacarias catheter: Strict I&O Subjective Patient seen and examined at bedside. Breathing comfortably on room air. Overnight events reviewed. vital signs Vital Sign Date Time Temp Pulse Resp B/P (MAP) Pulse Ox O2 Delivery O2 Flow Rate FiO2 02/27/25 21:00 97.9 98 17 92/62 (72) 95 97.9 02/27/25 08:00 Nasal Cannula* 2 28 Total Intake and Output 02/26/25 02/26/25 02/27/25 15:00 23:00 07:00 Intake Total 50 ml 1050 ml 650 ml Output Total 1700 ml 1550 ml Balance 50 ml -650 ml -900 ml medications Current Medications Medications Dose Ordered Sig/Zahraa Route Start Time Stop Time Status Last Admin Dose Admin Pantoprazole Sodium 40 mg BID IV 02/19/25 22:00 02/27/25 22:09 40 MG Metronidazole 100 ml @ 100 mls/hr Q8HR IV 02/19/25 22:00 02/27/25 22:09 100 MLS/HR Acetaminophen/ Hydrocodone Bitart 1 tab Q6HPRN PRN PO 02/20/25 12:15 02/27/25 10:25 1 TAB Apixaban 2.5 mg BID PO 02/20/25 22:00 02/27/25 22:10 2.5 MG Sodium Chloride 10 ml QSHIFT@10,22 IV 02/20/25 22:00 02/27/25 22:10 10 ML Promethazine HCl 25 mg Q4HP PRN PO 02/22/25 11:00 02/27/25 10:44 25 MG Enteral Nutritional Formula 240 ml TIDWM PO 02/22/25 18:00 02/27/25 18:00 240 ML Gabapentin 300 mg BID PO 02/22/25 22:00 02/27/25 22:10 300 MG Bumetanide 1 mg DAILY IV 02/23/25 10:15 02/27/25 10:24 1 MG Lactulose 30 ml DAILY PO 02/25/25 10:00 02/27/25 10:09 30 ML Hydralazine HCl 10 mg Q6HP PRN IV 02/26/25 20:45 02/26/25 22:33 10 MG Levofloxacin 50 ml @ 50 mls/hr Q24H IV 02/27/25 10:00 02/27/25 10:10 50 MLS/HR Hydrocortisone Sodium Succinate 50 mg Q8HR IV 02/27/25 22:00 02/27/25 22:10 50 MG Morphine Sulfate 1 mg Q4HPRN PRN IV 02/27/25 14:45 02/27/25 15:22 1 MG objective Gen.: Patient lying in bed in no apparent distress. Breathing on room air. Head: Normocephalic, atraumatic. Eyes: EOMI/PERRLA. Ears: Normal hearing. Normal anatomy. Neck/trachea: Trachea midline, supple. Nose: Normal external anatomy. Mouth: Moist mucous membranes. Chest: Decreased air entry bilaterally. No wheezing or rhonchi. Cardiovascular: Positive S1, positive S2. Regular rate and rhythm. Abdomen: Positive bowel sounds in all 4 quadrants. Soft, non-tender, non- distended. : Deferred. Rectal: Deferred. Skin: Warm, dry. Intact. Extremities: 2+ radial pulses bilaterally. No lower extremity edema. Neuro: Awake, alert, oriented x3. No gross motor or sensory deficits. Cranial nerves II through XII intact. Gait not assessed. laboratory and microbiology Laboratory Tests 02/27/25 03:20 Test 02/27/25 03:20 Range/Units Serum Glucose 168 H 74-106 mg/dL Assessment/Plan Impression: Pleural effusions Atelectasis Coagulopathy Ascites Events: Currently on supplemental oxygen 2 LPM NC Taper O2 as tolerated Off pressors and dopamine since 02/24/25 Continue steroids Continue antibiotics Incentive spirometry Eliquis PO BID Limited abdominal ultrasound revealed moderate amount of ascites. Patient is s/p paracentesis on 02/25/25 with 4200 ml removed We will monitor for recurrence of ascites Diurese with Bumex as tolerated Monitor renal function Monitor electrolytes, supplement as necessary Potassium supplementation Nephrology recs appreciated. GI recommendations appreciated Protonix for GI ppx On lactulose Rectal tube in place. Head of bed elevation Aspiration precautions Pain control Avoid oversedation Patient is hemodynamically stable. Labs and imaging reviewed. Rest of plan as noted below. Plan: Supplemental oxygen Titrate to keep O2 sats above 92%. Pressors as necessary for hemodynamic support Titrate to keep mean arterial pressure greater than 65 mmHg. Monitor blood pressure Continue bronchodilators PRN. Stress dose steroids Continue antibiotics Incentive spirometry Protonix BID for GI ppx Diurese to euvolemia Monitor renal function. Monitor electrolytes. Supplement as necessary. Monitor ins and outs. Zacarias for strict ins and outs Monitor hemoglobin Transfuse if less than 7.0 g/dL. GI/DVT prophylaxis. Prognosis: Poor given patient's multiple co-morbidities. Condition: Critical Rest of plan per hospitalist and other consultants. A total of 35 minutes of critical care time was spent reviewing the patient record, examining the patient, making a diagnostic and therapeutic plan, discussing this plan with the medical personnel, following up on diagnostic studies and following the patient for clinical stability excluding any and all procedures. At least 50% of this time was spent in direct, [id number] contact. Thank you, Dr. Heaton, for allowing me to participate in this patient's care. Further recommendations will depend on the patient's clinical course. Please do not hesitate to contact me if you have any questions or concerns. This medical document was created using an electronic medical record system with Nitro dictation system. Although these documentations are being carefully reviewed, there may still be some phonetic and typographical changes. The errors are purely typographical, due to imperfection on the software program, and do not reflect any compromise in the patient's medical care. Dietary Evaluation Review Comments: Nutrition Recommendations: Encourage oral (PO) liquids and feedings as tolerated. Advance diet to 2-gram sodium, high-protein diet if patient accepts oral intake. If patient continues to refuse food: Consider initiating Total Parenteral Nutrition (TPN) for nutritional support. Alternatively, consider placement of a nasogastric (NG) tube for enteral feeding. Expected Outcomes/Goals: Provide adequate nutrition support by mouth, tube feeding or TPN Plan discussed with: Patient, Other (GIANA Stephen) [facility] Feb 27, 2025 23:46
[2025-02-28] VITALS (59 sets, daily range): BP systolic 77–113; BP diastolic 41–75; PULSE 87–132; RESP 8–26; TEMP 97–98.7; O2SAT 76–100
[2025-02-28] MEDS ORDERED: SODIUM CHLORIDE 0.9% 250 ML IV ONE (08:20)
[2025-02-28] MEDS ORDERED: SODIUM CHLORIDE 0.9% 1,000 ML IV ONE (08:20)
[2025-02-28 09:07] LABS: Base Excess -5.3 mmol/L (-2.0-3.0)
--- NOTE | 2025-02-28 09:59 | DVH ---
EXAM: XY CHEST PORTABLE HISTORY: RESP FAIL COMPARISON: XY CHEST PORTABLE on DOS: 02/19/25, XY CHEST PORTABLE on DOS: 02/19/25 TECHNIQUE: Portable AP view of the chest was performed. FINDINGS: The film is rotated LPO. There is a new right upper extremity PICC line with its tip in the SVC-RA junction. There are mild opacities in the lung bases, improved compared with prior chest x-ray. No pneumothorax or pulmonary edema. The heart is not enlarged. IMPRESSION: 1. New right upper extremity PICC line in good position. 2. Mild bilateral lung base opacities are improved compared with chest x-ray dated 02/19/2025.
--- NOTE | 2025-02-28 10:15 | DVHPN2 ---
Progress Note - Dictate Date Seen: Feb 28, 2025 Medical Necessity Reason Pt with a Central, PICC or Fol: Yes The following are medically ne: Zacarias Catheter Reason for zacarias catheter: Strict I&O Subjective Lethargic this morning, relatively hypotensive. vital signs Vital Sign Date Time Temp Pulse Resp B/P (MAP) Pulse Ox O2 Delivery O2 Flow Rate FiO2 02/28/25 08:18 89/55 (66) 02/28/25 08:00 98.7 104 17 96 98.7 02/27/25 20:00 Nasal Cannula* 2 28 Total Intake and Output 02/27/25 02/27/25 02/28/25 15:00 23:00 07:00 Intake Total 560 ml 100 ml Output Total 400 ml Balance 160 ml 100 ml medications Current Medications Medications Dose Ordered Sig/Zahraa Route Start Time Stop Time Status Last Admin Dose Admin Pantoprazole Sodium 40 mg BID IV 02/19/25 22:00 02/28/25 09:23 40 MG Metronidazole 100 ml @ 100 mls/hr Q8HR IV 02/19/25 22:00 02/28/25 06:02 100 MLS/HR Acetaminophen/ Hydrocodone Bitart 1 tab Q6HPRN PRN PO 02/20/25 12:15 02/27/25 10:25 1 TAB Apixaban 2.5 mg BID PO 02/20/25 22:00 02/27/25 22:10 2.5 MG Sodium Chloride 10 ml QSHIFT@10,22 IV 02/20/25 22:00 02/27/25 22:10 10 ML Promethazine HCl 25 mg Q4HP PRN PO 02/22/25 11:00 02/27/25 10:44 25 MG Enteral Nutritional Formula 240 ml TIDWM PO 02/22/25 18:00 02/27/25 18:00 240 ML Gabapentin 300 mg BID PO 02/22/25 22:00 02/27/25 22:10 300 MG Bumetanide 1 mg DAILY IV 02/23/25 10:15 02/27/25 10:24 1 MG Lactulose 30 ml DAILY PO 02/25/25 10:00 02/28/25 09:23 30 ML Hydralazine HCl 10 mg Q6HP PRN IV 02/26/25 20:45 02/26/25 22:33 10 MG Levofloxacin 50 ml @ 50 mls/hr Q24H IV 02/27/25 10:00 02/28/25 09:23 50 MLS/HR Hydrocortisone Sodium Succinate 50 mg Q8HR IV 02/27/25 22:00 02/28/25 06:02 50 MG Morphine Sulfate 1 mg Q4HPRN PRN IV 02/27/25 14:45 02/27/25 15:22 1 MG Norepinephrine Bitartrate 250 ml @ 3.75 mls/hr Q24H IV 02/28/25 10:00 UNV Phenylephrine HCl 250 ml @ 30 mls/hr Q8H20M IV 02/28/25 10:00 UNV objective Gen: nad, cachectic, lethargic lungs: cta anteriorly cvs: no rub abd: soft, bowel sounds audible ext: no edema laboratory and microbiology Laboratory Tests 02/27/25 03:20 Test 02/27/25 03:20 Range/Units Serum Glucose 168 H 74-106 mg/dL Assessment/Plan Problem List/Assessment/Plan Acute kidney injury superimposed Chronic Kidney Disease stage IV secondary hemodynamic mediated, FENA >2% Portal vein thrombosis abdominal mass cirrhosis w/ ascites Hypokalemia Jaundice Bradycardia Recommendation - we will hold diuretics - judicious fluid challenge - we will continue to follow closely. Dietary Evaluation Review Comments: Nutrition Recommendations: Encourage oral (PO) liquids and feedings as tolerated. Advance diet to 2-gram sodium, high-protein diet if patient accepts oral intake. If patient continues to refuse food: Consider initiating Total Parenteral Nutrition (TPN) for nutritional support. Alternatively, consider placement of a nasogastric (NG) tube for enteral feeding. Expected Outcomes/Goals: Provide adequate nutrition support by mouth, tube feeding or TPN Plan discussed with: JIM Bullard MD Feb 28, 2025 10:15
[2025-02-28] MEDS: PHENYLEPHRINE IV 250 ML IV SCH (10:30)
[2025-02-28 10:40] LABS: Hematocrit 40.7 % (36.0-46.0); Hemoglobin 13.7 g/dL (12.2-16.2); Mean Corpuscular Hemoglobin 30.0 pg (28.0-32.0); Mean Corpuscular Volume 89.6 fL (80.0-100.0); Nucleated Red Blood Cells % 0.6 %
[2025-02-28 10:57] LABS: Alanine Aminotransferase 132 U/L (7-40); Albumin 2.9 g/dL (3.2-4.8); Alkaline Phosphatase 692 U/L (46-116); Anion Gap 14 (5-15); Blood Urea Nitrogen 60 mg/dL (9-23); Calcium 8.8 mg/dL (8.7-10.4); Carbon Dioxide 24 mmol/L (20-31); Chloride 108 mmol/L (98-107); Glucose 141 mg/dL (74-106); Magnesium 1.8 mg/dL (1.6-2.6); Potassium 3.5 mmol/L (3.5-5.1); Sodium 146 mmol/L (136-145)
[2025-02-28 10:58] LABS: Bilirubin, Total 11.5 mg/dL (0.2-1.0)
[2025-02-28] MEDS: NOREPINEPHRINE 8 MG/250ML KIT 250 ML IV SCH (11:01)
[2025-02-28 11:14] LABS: BUN/Creatinine Ratio 25.3 (10.0-20.0)
[2025-02-28 11:15] LABS: Total Protein 4.5 g/dL (5.7-8.2)
[2025-02-28] MEDS: NOREPINEPHRINE 8 MG/250ML KIT 250 ML IV ONE (11:15)
--- NOTE | 2025-02-28 12:35 | DVHPN2 ---
Progress Note Date Seen: Feb 28, 2025 Resident Creating Document: MARGUERITE ORELLANA RESIDENT Medical Necessity Reason Pt with a Central, PICC or Fol: Yes The following are medically ne: Zacarias Catheter Reason for zacarias catheter: Strict I&O Subjective Review of Systems Overnight, blood pressure dropped, patient is started on Levophed. Transferred to [facility], patient appears lethargic, ammonia 25. On waking up, A&O x3 chest x- ray, pending cultures ordered WBC trending up Objective vital signs Vital Sign Date Time Temp Pulse Resp B/P (MAP) Pulse Ox O2 Delivery O2 Flow Rate FiO2 02/28/25 11:07 82/55 02/28/25 08:00 98.7 104 17 96 98.7 02/27/25 20:00 Nasal Cannula* 2 28 Total Intake and Output 02/27/25 02/27/25 02/28/25 15:00 23:00 07:00 Intake Total 560 ml 100 ml Output Total 400 ml Balance 160 ml 100 ml medications Current Medications Medications Dose Ordered Sig/Zahraa Route Start Time Stop Time Status Last Admin Dose Admin Pantoprazole Sodium 40 mg BID IV 02/19/25 22:00 02/28/25 09:23 40 MG Metronidazole 100 ml @ 100 mls/hr Q8HR IV 02/19/25 22:00 02/28/25 06:02 100 MLS/HR Acetaminophen/ Hydrocodone Bitart 1 tab Q6HPRN PRN PO 02/20/25 12:15 02/27/25 10:25 1 TAB Apixaban 2.5 mg BID PO 02/20/25 22:00 02/27/25 22:10 2.5 MG Sodium Chloride 10 ml QSHIFT@10,22 IV 02/20/25 22:00 02/28/25 11:02 10 ML Promethazine HCl 25 mg Q4HP PRN PO 02/22/25 11:00 02/27/25 10:44 25 MG Enteral Nutritional Formula 240 ml TIDWM PO 02/22/25 18:00 02/27/25 18:00 240 ML Gabapentin 300 mg BID PO 02/22/25 22:00 02/27/25 22:10 300 MG Lactulose 30 ml DAILY PO 02/25/25 10:00 02/28/25 09:23 30 ML Hydralazine HCl 10 mg Q6HP PRN IV 02/26/25 20:45 02/26/25 22:33 10 MG Levofloxacin 50 ml @ 50 mls/hr Q24H IV 02/27/25 10:00 02/28/25 09:23 50 MLS/HR Hydrocortisone Sodium Succinate 50 mg Q8HR IV 02/27/25 22:00 02/28/25 06:02 50 MG Morphine Sulfate 1 mg Q4HPRN PRN IV 02/27/25 14:45 02/27/25 15:22 1 MG Norepinephrine Bitartrate 250 ml @ 3.75 mls/hr Q24H IV 02/28/25 10:00 02/28/25 11:01 3.75 MLS/HR Phenylephrine HCl 250 ml @ 30 mls/hr Q8H20M IV 02/28/25 10:00 Examination Patient lying in bed, in no acute distress General: Thin-appearing, afebrile, palor, mucosae are moist Cardiovascular: Regular, normal S1 and S2. No murmurs, gallops or rubs. No JVD elevation. 2+ pedal edema Respiratory: Bilateral decreased air entry Abdomen: Soft, tender, nondistended, normoactive bowel sounds, no rebound tenderness, no organomegaly, no masses Genitourinary: Deferred Psych/Mental Status: A/Ox3 laboratory and microbiology Laboratory Tests 02/28/25 10:02 Test 02/28/25 10:02 Range/Units Serum Glucose 141 H 74-106 mg/dL Microbiology Date/Time Source Procedure Growth Status 02/25/25 12:20 Ascities Fluid Gram Stain - Final Resulted 02/25/25 12:20 Ascities Fluid Body Fluid Culture - Preliminary No growth Resulted 02/19/25 12:57 Urine - [place] Urine Culture - Final Enterococcus faecalis Complete 02/17/25 15:45 Nose MRSA Screen - Final Complete Labs and/or images reviewed: Labs reviewed by me, Image(s) reviewed by me Problem List/Assessment/Plan Problem List/Assessment/Plan Spontaneous bacterial peritonitis Cholestatic liver disease ? 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 Heterogeneous signal throughout the liver, not well evaluated without postcontrast imaging, may be due to cirrhosis. Other etiologies, including malignancy can not be excluded. Common bile duct is not visualized, may be obscured by artifact. Can not exclude common bile duct obstruction. Correlate with clinical findings. [place] recent hospitalization: patient underwent CT angio chest and abdomen with IV contrast, found to have SMV thrombus, thrombus distending through extra and intrahepatic portal veins throughout the liver. Suspecting enhancing mass in the proximal jejunum.She has a prior history of duodenal jejunal bypass or switch which was an older form of a weight loss bypass surgery. Underwent upper EGD 01/19/2025. 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 Plan: Recommendation Unfortunately the patient is not a candidate for surgical intervention due to multiple medical comorbidities. Continue pressors. Started meropenem 02/28. KUB shows Colonic distention measuring up to 7 cm. NPO, NG to LIS, avoid narcotics Once medically stabilized a surveillance endoscopy can be considered in 6-12 months Continue supportive care and also consider hospice placement if the patient's clinical status does not improve Bilirubin trending up to 11.5, LFTs stable. MRCP can not exclude common bile duct obstruction. Per patient's niece, patient had EGD at [facility], which showed varices, 3cm hiatal hernia, gastritis On IV antibiotics for E faecalis UTI promethazine for nausea Hepatitis panel negative. ISABEL screen negative. Await ascitic fluid cytology rule out malignancy Elevated total bilirubin and alkaline phosphatase suggestive of cholestatic jaundice possibly due to obstruction or mass Ascitic fluid cell count suggestive of spontaneous bacterial peritonitis, continue IV Levaquin Continue Protonix 40 mg IV b.i.d. Continue to monitor labs and supportive care Overall prognosis remains guarded Plan discussed with patient's niece in which all questions have been answered Case discussed with Dr. Rice Plan discussed with: Patient, Other (Niece at bedside) My Orders My Orders Orders - MARGUERITE ORELLANA RESIDENT Procedure Category Date Status Time Chest Xray 1 View XY 02/28/25 Logged 12:09 Kub Abdomen Single XY 02/28/25 Logged View 12:09 Blood Culture MAKENZIE 02/28/25 Logged 12:10 Dietary Evaluation Review Comments: Nutrition Recommendations: Encourage oral (PO) liquids and feedings as tolerated. Advance diet to 2-gram sodium, high-protein diet if patient accepts oral intake. If patient continues to refuse food: Consider initiating Total Parenteral Nutrition (TPN) for nutritional support. Alternatively, consider placement of a nasogastric (NG) tube for enteral feeding. Expected Outcomes/Goals: Provide adequate nutrition support by mouth, tube feeding or TPN MARGUERITE ORELLANA RESIDENT Feb 28, 2025 12:35
--- NOTE | 2025-02-28 15:03 | DVH ---
CHEST RADIOGRAPH Indication: r/o aspiration Technique: Single frontal view of the chest was obtained COMPARISON: XY CHEST PORTABLE on DOS: 02/28/25, XY CHEST PORTABLE on DOS: 02/19/25, XY CHEST PORTABLE on DOS: 02/19/25, XR CHEST 2 VIEW on DOS: 05/24/24 FINDINGS: Lines and Tubes: Right PICC in satisfactory position overlying the superior vena cava. Lungs: Low lung volumes. Bibasilar subsegmental atelectasis. Pleura: No effusion.No pneumothorax. Cardiomediastinal contours: Cardiomegaly. Bones: Unremarkable IMPRESSION: Low lung volumes with bibasilar subsegmental atelectasis.
[2025-02-28 15:07] LABS: Glucose, Body Fluid 172.0 mg/dL (.); LD, Body Fluid 26.0 IU/L (.)
--- NOTE | 2025-02-28 15:18 | DVH ---
Date: 02/28/2025 02:16 PM Examination: XY KUB ABDOMEN SINGLE VIEW History: tenderness COMPARISON: CT CT AB PEL WO CON-NO ORAL OR IV on DOS: 02/17/25, US ABDOMEN COMPLETE on DOS: 01/13/25 TECHNIQUE: Frontal views of the abdomen was obtained. FINDINGS: Colonic distention measuring up to 7 cm. No acute osseous abnormality identified. IMPRESSION: Colonic distention measuring up to 7 cm.
--- NOTE | 2025-02-28 15:36 | DVHPN2 ---
Subjective Patient's systolic blood pressure was less than 90 requiring Levophed currently upgraded to D OU. Plan of care discussed with the patient's family member including daughter at bedside. Changes from previous H/P or p: No Changes Objective Vitals Vital Signs Date Time Temp Pulse Resp B/P (MAP) Pulse Ox O2 Delivery O2 Flow Rate FiO2 02/28/25 11:07 82/55 02/28/25 08:00 98.7 104 17 96 98.7 02/28/25 08:00 Nasal Cannula* 2 28 Intake/Output Intake and Output 02/28/25 07:00 Intake Total 660 ml Output Total 400 ml Balance 260 ml Intake Oral 560 ml IV Total 100 ml Output Urine Total 400 ml Exam HEENT pupils are reactive Neck is supple CV is S1-S2 regular rate and rhythm Respiratory diminished breath sounds bases GI positive bowel sounds positive ascites Extremity trace edema [employer] no motor deficit Medications Current Medications Medications Dose Ordered Sig/Zahraa Route Start Time Stop Time Status Last Admin Dose Admin Pantoprazole Sodium 40 mg BID IV 02/19/25 22:00 02/28/25 09:23 40 MG Metronidazole 100 ml @ 100 mls/hr Q8HR IV 02/19/25 22:00 02/28/25 14:34 100 MLS/HR Acetaminophen/ Hydrocodone Bitart 1 tab Q6HPRN PRN PO 02/20/25 12:15 02/27/25 10:25 1 TAB Apixaban 2.5 mg BID PO 02/20/25 22:00 02/27/25 22:10 2.5 MG Sodium Chloride 10 ml QSHIFT@10,22 IV 02/20/25 22:00 02/28/25 11:02 10 ML Promethazine HCl 25 mg Q4HP PRN PO 02/22/25 11:00 02/27/25 10:44 25 MG Enteral Nutritional Formula 240 ml TIDWM PO 02/22/25 18:00 02/27/25 18:00 240 ML Gabapentin 300 mg BID PO 02/22/25 22:00 02/27/25 22:10 300 MG Lactulose 30 ml DAILY PO 02/25/25 10:00 02/28/25 09:23 30 ML Hydralazine HCl 10 mg Q6HP PRN IV 02/26/25 20:45 02/26/25 22:33 10 MG Levofloxacin 50 ml @ 50 mls/hr Q24H IV 02/27/25 10:00 02/28/25 09:23 50 MLS/HR Hydrocortisone Sodium Succinate 50 mg Q8HR IV 02/27/25 22:00 02/28/25 14:33 50 MG Morphine Sulfate 1 mg Q4HPRN PRN IV 02/27/25 14:45 02/27/25 15:22 1 MG Norepinephrine Bitartrate 250 ml @ 3.75 mls/hr Q24H IV 02/28/25 10:00 02/28/25 11:01 3.75 MLS/HR Phenylephrine HCl 250 ml @ 30 mls/hr Q8H20M IV 02/28/25 10:00 Laboratory Results Laboratory Tests 02/28/25 10:02 Chemistry Test 02/28/25 10:02 Albumin 2.9 g/dL (3.2-4.8) L Calcium Level 8.8 mg/dL (8.7-10.4) Magnesium Level 1.8 mg/dL (1.6-2.6) Total Protein 4.5 g/dL (5.7-8.2) L LFT Test 02/28/25 10:02 Alanine Aminotransferase (ALT) 132 U/L (7-40) H Alkaline Phosphatase 692 U/L (46-116) H Aspartate Amino Transferase (AST) 97 U/L (13-40) H Total Bilirubin 11.5 mg/dL (0.2-1.0) H Urinalysis Test 02/18/25 02:57 Urine Color Yellow (Yellow) Urine Clarity Clear (Clear) Urine pH 5.0 (5.0-9.0) Urine Specific [place] 1.020 (1.001-1.035) Urine Protein 1+ (Negative) H Urine Ketones Negative (Negative) Urine Blood Trace /uL (Negative) H Urine Nitrite Negative (Negative) Urine Bilirubin Negative (Negative) Urine Urobilinogen Normal mg/dL (Negative) Urine Leukocyte Esterase Negative /uL (Negative) Urine RBC 3 /hpf (0 - 4) Urine Microscopic WBC 7 /HPF (0-5) H Urine Squamous Epithelial Cells Few /hpf (<5) Urine Bacteria Few /hpf (None Seen) H Urine Hyaline Casts Few /lpf (0 - 2) Urine Yeast (Budding) Occasional /hpf (None Urine Creatinine 159.83 mg/dL (30.0-125.0) H Urine Protein/Creatinine Ratio 0.54 Urine Sodium 64 mmol/L (40-220) Urine Glucose Normal mg/dL (Normal) Urine Total Protein 87.1 mg/dL (1-14) H Blood Gas Results Test 02/28/25 08:47 Arterial Blood pH 7.382 (7.350-7.450) FiO2 % 28.0 Microbiology Microbiology Date/Time Source Procedure Growth Status 02/25/25 12:20 Ascities Fluid Gram Stain - Final Resulted 02/25/25 12:20 Ascities Fluid Body Fluid Culture - Preliminary No growth Resulted 02/19/25 12:57 Urine - [place] Urine Culture - Final Enterococcus faecalis Complete 02/17/25 15:45 Nose MRSA Screen - Final Complete Assessment/Plan Assessment/Plan 79-year-old female with a known history of hypertension, dyslipidemia, recent diagnosis of liver cirrhosis, portal vein thrombosis currently on anticoagulation presented to the hospital with the abdominal pain found to have 1. Acute hyperkalemia suspect triamterene induced, improved 2. Acute kidney injury with a possible hepatorenal syndrome currently improving 3. Hypotension requiring Levophed, upgraded to D OU 4. Portal vein thrombosis 5. Liver cirrhosis with a ascites status post paracentesis1, repeat2 paracentesis on 02/25(4200 ml) 6. Elevated liver function tests 7. Secondary Coagulopathy due to liver disease 8. Leukocytosis likely reactive secondary to hydrocortisone Upgraded to D OU continue Levophed -continue somatostatin, , paracentesis. Follow up Nephrology recommendations -continue Eliquis, follow up GI recommendations. Plan discussed with: Patient, Daughter My Orders Orders - WM ARANGO MD Procedure Category Date Status Time Abg W/ Co-Ox RT 02/28/25 Logged 08:28 Chest Portable XY 02/28/25 Resulted 08:28 Transfer Orders XFER 02/28/25 Transmitted 09:47 Norepinephrine 8 PHA 02/28/25 In Process Mg/250ml Kit 10:00 Phenylephrine Iv PHA 02/28/25 In Process (Phenylephrine/Ns) 10:00 Date of Service: Feb 28, 2025 Billing Provider: WM ARANGO MD Common Visit Codes: NOT BILLABLE WM ARANGO MD Feb 28, 2025 15:35
[2025-02-28] MEDS: MEROPENEM 500MG IVPB 50 ML IV ONE (18:35)
--- NOTE | 2025-02-28 23:33 | DVHPN2 ---
Progress Note - Dictate Date Seen: Feb 28, 2025 Medical Necessity Reason Pt with a Central, PICC or Fol: Yes The following are medically ne: Zacarias Catheter Reason for zacarias catheter: Strict I&O Subjective Patient seen and examined at bedside. On supplemental oxygen Overnight events reviewed. vital signs Vital Sign Date Time Temp Pulse Resp B/P (MAP) Pulse Ox O2 Delivery O2 Flow Rate FiO2 02/28/25 19:15 98 9 90/60 (70) 96 02/28/25 18:00 Nasal Cannula* 2 28 02/28/25 16:00 97.8 97.8 Total Intake and Output 02/27/25 02/27/25 02/28/25 15:00 23:00 07:00 Intake Total 560 ml 100 ml Output Total 400 ml Balance 160 ml 100 ml medications Current Medications Medications Dose Ordered Sig/Zahraa Route Start Time Stop Time Status Last Admin Dose Admin Pantoprazole Sodium 40 mg BID IV 02/19/25 22:00 02/28/25 22:36 40 MG Metronidazole 100 ml @ 100 mls/hr Q8HR IV 02/19/25 22:00 02/28/25 22:36 100 MLS/HR Apixaban 2.5 mg BID PO 02/20/25 22:00 02/27/25 22:10 2.5 MG Sodium Chloride 10 ml QSHIFT@10,22 IV 02/20/25 22:00 02/28/25 22:37 10 ML Promethazine HCl 25 mg Q4HP PRN PO 02/22/25 11:00 02/27/25 10:44 25 MG Enteral Nutritional Formula 240 ml TIDWM PO 02/22/25 18:00 02/27/25 18:00 240 ML Gabapentin 300 mg BID PO 02/22/25 22:00 02/27/25 22:10 300 MG Lactulose 30 ml DAILY PO 02/25/25 10:00 02/28/25 09:23 30 ML Hydralazine HCl 10 mg Q6HP PRN IV 02/26/25 20:45 02/26/25 22:33 10 MG Hydrocortisone Sodium Succinate 50 mg Q8HR IV 02/27/25 22:00 02/28/25 22:36 50 MG Morphine Sulfate 1 mg Q4HPRN PRN IV 02/27/25 14:45 02/27/25 15:22 1 MG Norepinephrine Bitartrate 250 ml @ 3.75 mls/hr Q24H IV 02/28/25 10:00 02/28/25 11:01 3.75 MLS/HR Phenylephrine HCl 250 ml @ 30 mls/hr Q8H20M IV 02/28/25 10:00 Meropenem 50 ml @ 17 mls/hr Q12HR IV 03/01/25 10:00 objective Gen.: Patient lying in bed in no apparent distress. On supplemental oxygen. Head: Normocephalic, atraumatic. Eyes: EOMI/PERRLA. Ears: Normal hearing. Normal anatomy. Neck/trachea: Trachea midline, supple. Nose: Normal external anatomy. Mouth: Moist mucous membranes. Chest: Decreased air entry bilaterally. No wheezing or rhonchi. Cardiovascular: Positive S1, positive S2. Regular rate and rhythm. Abdomen: Positive bowel sounds in all 4 quadrants. Soft, non-tender, non- distended. : Deferred. Rectal: Deferred. Skin: Warm, dry. Intact. Extremities: 2+ radial pulses bilaterally. No lower extremity edema. Neuro: Awake, alert, oriented x3. No gross motor or sensory deficits. Cranial nerves II through XII intact. Gait not assessed. laboratory and microbiology Laboratory Tests 02/28/25 10:02 Test 02/28/25 10:02 Range/Units Serum Glucose 141 H 74-106 mg/dL Assessment/Plan Impression: Pleural effusions Atelectasis Coagulopathy Ascites Events: Currently on supplemental oxygen 2 LPM NC Taper O2 as tolerated Head of bed elevation Aspiration precautions. Off pressors and dopamine since 02/24/25 Continue steroids Continue antibiotics Incentive spirometry Eliquis PO BID Limited abdominal ultrasound revealed moderate amount of ascites. Patient is s/p paracentesis on 02/25/25 with 4200 ml removed We will monitor for recurrence of ascites Monitor blood pressure. Monitor renal function Monitor electrolytes, supplement as necessary Maintain euvolemia Nephrology recs appreciated. GI recommendations appreciated Protonix for GI ppx On lactulose Rectal tube in place. Head of bed elevation Aspiration precautions Pain control Avoid oversedation Patient is hemodynamically stable. Poor prognosis. Labs and imaging reviewed. Rest of plan as noted below. Plan: Supplemental oxygen Titrate to keep O2 sats above 92%. Pressors as necessary for hemodynamic support Titrate to keep mean arterial pressure greater than 65 mmHg. Monitor blood pressure Continue bronchodilators PRN. Stress dose steroids Continue antibiotics Incentive spirometry Protonix BID for GI ppx Diurese to euvolemia Monitor renal function. Monitor electrolytes. Supplement as necessary. Monitor ins and outs. Zacarias for strict ins and outs Monitor hemoglobin Transfuse if less than 7.0 g/dL. GI/DVT prophylaxis. Prognosis: Poor given patient's multiple co-morbidities. Condition: Critical Rest of plan per hospitalist and other consultants. A total of 35 minutes of critical care time was spent reviewing the patient record, examining the patient, making a diagnostic and therapeutic plan, discussing this plan with the medical personnel, following up on diagnostic studies and following the patient for clinical stability excluding any and all procedures. At least 50% of this time was spent in direct, [id number] contact. Thank you, Dr. Heaton, for allowing me to participate in this patient's care. Further recommendations will depend on the patient's clinical course. Please do not hesitate to contact me if you have any questions or concerns. This medical document was created using an electronic medical record system with [employer] dictation system. Although these documentations are being carefully reviewed, there may still be some phonetic and typographical changes. The errors are purely typographical, due to imperfection on the software program, and do not reflect any compromise in the patient's medical care. Dietary Evaluation Review Comments: Nutrition Recommendations: Encourage oral (PO) liquids and feedings as tolerated. Advance diet to 2-gram sodium, high-protein diet if patient accepts oral intake. If patient continues to refuse food: Consider initiating Total Parenteral Nutrition (TPN) for nutritional support. Alternatively, consider placement of a nasogastric (NG) tube for enteral feeding. Expected Outcomes/Goals: Provide adequate nutrition support by mouth, tube feeding or TPN Plan discussed with: Patient, Other (GIANA Obrien) FAVIOLA STKOES [facility] Feb 28, 2025 23:33
[2025-03-01] VITALS (94 sets, daily range): BP systolic 70–134; BP diastolic 38–115; PULSE 70–181; RESP 7–24; TEMP 97.4–99; O2SAT 94–99
[2025-03-01 03:27] LABS: Hematocrit 45.5 % (36.0-46.0); Hemoglobin 15.2 g/dL (12.2-16.2); Mean Corpuscular Hemoglobin 29.9 pg (28.0-32.0); Mean Corpuscular Volume 89.6 fL (80.0-100.0); Nucleated Red Blood Cells % 1.7 %
[2025-03-01 03:39] LABS: Anion Gap 17 (5-15); Carbon Dioxide 22 mmol/L (20-31); Magnesium 1.9 mg/dL (1.6-2.6); Potassium 3.6 mmol/L (3.5-5.1)
[2025-03-01 03:48] LABS: Alanine Aminotransferase 144 U/L (7-40); Albumin 2.9 g/dL (3.2-4.8); Alkaline Phosphatase 737 U/L (46-116); Bilirubin, Total 15.0 mg/dL (0.2-1.0); Blood Urea Nitrogen 67 mg/dL (9-23); Calcium 8.6 mg/dL (8.7-10.4); Chloride 107 mmol/L (98-107); Glucose 189 mg/dL (74-106); Sodium 146 mmol/L (136-145)
[2025-03-01 03:58] LABS: BUN/Creatinine Ratio 28.9 (10.0-20.0)
[2025-03-01 03:59] LABS: Total Protein 4.6 g/dL (5.7-8.2)
[2025-03-01 05:56] LABS: Base Excess -5.6 mmol/L (-2.0-3.0)
[2025-03-01] MEDS: dilTIAZem 25 MG/5 ML VIAL IV ONE ×2 (06:14→06:16)
[2025-03-01] MEDS: MEROPENEM 500MG IVPB 50 ML IV SCH (10:30)
[2025-03-01] MEDS: LACTULOSE 10g/15ml SOLN 473ML PR SCH (10:32)
--- NOTE | 2025-03-01 10:34 | DVH ---
EXAM: XY KUB ABDOMEN SINGLE VIEW INDICATION: CHECK COLONIC DISTENTION COMPARISON: XY KUB ABDOMEN SINGLE VIEW on DOS: 02/28/25, CT CT AB PEL WO CON-NO ORAL OR IV on DOS: 02/17/25, US ABDOMEN COMPLETE on DOS: 01/13/25 TECHNIQUE: 1 radiographic views of the abdomen. FINDINGS: Nonspecific bowel-gas pattern. Cholelithiasis. There is no definite evidence for pneumoperitoneum. IMPRESSION: Nonspecific bowel-gas pattern.
--- NOTE | 2025-03-01 12:41 | ECG ---
[facility] Test Date: 2025-03-01 Test Time: 12:40:00 Pat Name: TRENT MCKEON Department: Respiratoy Room: 0261 A Gender: F Columnist: : 1950 Requested By: JOON JEFFERS Order Number: [id number] Reading MD: Micah Olsen Measurements Intervals [place] Rate: 182 P: 0 ME: 0 QRS: -50 QRSD: 79 T: 179 QT: 321 QTc: 559 Interpretive Statements Supraventricular tachycardia Anterolateral infarct, age indeterminate Electronically Signed On 03-02-2025 18:29:11 PST by Micah Olsen Please click the below link to view image of tracing.
[2025-03-01] MEDS: MAGNESIUM SULFATE 1GM/100ML 100 ML IV ONE ×2 (12:59→13:02)
--- NOTE | 2025-03-01 13:03 | DVHNC2 ---
Cardioversion Vagal maneuver: Were attempted Attempts: x2, Joules (75 J followed by 100 J) Resulted Rhythm: SVT Informed consent obtained: Yes Risks/benefits/alt described: Yes Notes Procedure performed once DCCV. Indication is supraventricular tachycardia with a heart rate in the 180s bpm and associated hypotension with systolic blood pressure in the 80s mmHg. Notified of SVT with twelve-lead electrocardiogram completed and reviewed. Full informed consent was obtained at bedside from rosemarie tsang as the patient was unstable. Patient was prepped as usual manner with anterior-posterior cardioversion pads positioned and placed on a supine position. Initially attempted synchronized cardioversion with 75 joules at 1253 hrs with transient transition into a sinus tachycardia rhythm. Rhythm changed back into a supraventricular tachycardia rhythm for which she underwent a second unsuccessful synchronized cardioversion at 100 joules at 1256. At this time, the patient requested no further DCCV shocks for which she was initiated on antiarrhythmic agent and electrolyte replacement along with heparin gtt. She successfully transitioned into a normal sinus rhythm after amiodarone bolus. Date of Service: Mar 01, 2025 Billing Provider: TIMOTHY MOORE Cardiology Common Codes: PROCEDURE ONLY Cardiology Procedure Codes: 22160-MV CARDIOVERSION TIMOTHY MOORE Mar 01, 2025 13:02
--- NOTE | 2025-03-01 13:03 | DVHPN2 ---
Consult Progress Note Date Seen: Mar 01, 2025 Subjective Other Systems: Notified of hemodynamic instability: SVT 180s bpm with associated SBP in the 80s mmHg Objective vital signs Vital Sign Date Time Temp Pulse Resp B/P (MAP) Pulse Ox O2 Delivery O2 Flow Rate FiO2 03/01/25 11:45 86/54 03/01/25 10:34 104 15 03/01/25 06:15 97 03/01/25 06:00 Nasal Cannula* 2 28 03/01/25 05:00 99.0 99.0 Total Intake and Output 02/28/25 02/28/25 03/01/25 15:00 23:00 07:00 Intake Total 348.75 ml 410.00 ml Output Total 575 ml 550 ml 500 ml Balance -575 ml -201.25 ml -90.00 ml medications Current Medications Medications Dose Ordered Sig/Zahraa Route Start Time Stop Time Status Last Admin Dose Admin Pantoprazole Sodium 40 mg BID IV 02/19/25 22:00 02/28/25 22:36 40 MG Metronidazole 100 ml @ 100 mls/hr Q8HR IV 02/19/25 22:00 03/01/25 05:35 100 MLS/HR Apixaban 2.5 mg BID PO 02/20/25 22:00 02/27/25 22:10 2.5 MG Sodium Chloride 10 ml QSHIFT@10,22 IV 02/20/25 22:00 02/28/25 22:37 10 ML Promethazine HCl 25 mg Q4HP PRN PO 02/22/25 11:00 02/27/25 10:44 25 MG Enteral Nutritional Formula 240 ml TIDWM PO 02/22/25 18:00 02/27/25 18:00 240 ML Gabapentin 300 mg BID PO 02/22/25 22:00 02/27/25 22:10 300 MG Hydralazine HCl 10 mg Q6HP PRN IV 02/26/25 20:45 02/26/25 22:33 10 MG Hydrocortisone Sodium Succinate 50 mg Q8HR IV 02/27/25 22:00 03/01/25 05:35 50 MG Morphine Sulfate 1 mg Q4HPRN PRN IV 02/27/25 14:45 03/01/25 10:34 1 MG Norepinephrine Bitartrate 250 ml @ 3.75 mls/hr Q24H IV 02/28/25 10:00 03/01/25 11:17 30 MLS/HR Phenylephrine HCl 250 ml @ 30 mls/hr Q8H20M IV 02/28/25 10:00 Meropenem 50 ml @ 17 mls/hr Q12HR IV 03/01/25 10:00 Lactulose 300 ml DAILY VT 03/01/25 10:00 03/01/25 10:32 300 ML Examination: GENERAL:Abnormal, LUNGS:Abnormal, CVS:Abnormal, MSK:Abnormal, SKIN:Abnormal, NEURO:Abnormal laboratory and microbiology Laboratory Tests 03/01/25 02:59 Test 03/01/25 02:59 Range/Units Serum Glucose 189 H 74-106 mg/dL Problem List/Assessment/Plan Problem List/Assessment/Plan Supraventricular tachycardia status post unsuccessful DCCV, now NSR Junctional tachycardia, resolved Acute on chronic HFrEF, NHYA class III, ?ischemic CM Rule out acute DVT/PE Occlusive thrombus in left cephalic vein Portal vein thrombosis Nonalcoholic liver cirrhosis Ascites status post paracentesis x 2 (-4.2 L) Right upper lobe pulmonary nodule Nodule within superior right renal pole Hyperkalemia, resolved GRACE on CKD Transaminitis Possible malignancy, ?duodenal mass Plan/Recommendations (Dr. Olsen) A transthoracic echocardiogram reveals an EF of 20-25% with severe global hypokinesis, anterior apical and inferior apical akinesis. Notified of SVT, attempted unsuccessful DCCV x 2 (see full dictated report under procedures). Continue amiodarone drip low-dose and monitor HR and LFTs closely. Replete electrolytes as necessary, K>4 and Mg >2. Transition to quad concentration Levophed and phenylephrine drips. Avoid dopamine drip or midodrine therapy. Unable to swallow neither successful placement of NTG with Eliquis therapy held fro two days. Initiate heparin drip per pharmacy protocol. Rule out acute lower extremity DVT. Unable to rule out acute PE at this time given GRACE and clinical instability. Initiate albumin IV. Thank you for allowing us to care for this patient. Please call with any questions or concerns. Critical care time: 40 min. This medical document was created using an electronic medical record system with voice recognition software and computerized dictation system. Although this document has been carefully reviewed, there might still be some phonetic and typographical errors. Occasional wrong-word or ``sound-alike substitutions may have occurred due to the inherent limitations of voice recognition software. These areas are purely typographical due to imperfections of the software programs and do not reflect any compromise in the patient's medical care. Please read the chart carefully and recognize, using context, where these substitutions have occurred. Plan discussed with: Patient, Other (Niece at bedside) Dietary Evaluation Review Comments: Nutrition Recommendations: Encourage oral (PO) liquids and feedings as tolerated. Advance diet to 2-gram sodium, high-protein diet if patient accepts oral intake. If patient continues to refuse food: Consider initiating Total Parenteral Nutrition (TPN) for nutritional support. Alternatively, consider placement of a nasogastric (NG) tube for enteral feeding. Expected Outcomes/Goals: Provide adequate nutrition support by mouth, tube feeding or TPN Date of Service: Mar 01, 2025 Billing Provider: TIMOTHY MOORE Cardiology Common Codes: 92912-[id number] CARE 30-74 MIN TIMOTHY MOORE Mar 01, 2025 13:03
[2025-03-01] MEDS: AMIODARONE BOLUS KIT 100 ML IV ONE ×2 (13:05→13:30)
[2025-03-01] MEDS: PHENYLEPHRINE INJ 80 MG in SODIUM CHL 0.9% 242 ML IV SCH (13:30)
[2025-03-01 13:47] LABS: Hematocrit 42.5 % (36.0-46.0); Hemoglobin 14.1 g/dL (12.2-16.2); Mean Corpuscular Hemoglobin 29.6 pg (28.0-32.0); Mean Corpuscular Volume 89.6 fL (80.0-100.0); Nucleated Red Blood Cells % 1.7 %
[2025-03-01 13:48] LABS: INR 1.91 (0.9-1.15); Partial Thromboplastin Time 37.3 SEC (24.5-34.5); Prothrombin Time 19.0 sec (9.3-11.8)
[2025-03-01] MEDS: HEPARIN SODIUM (PORCINE) 5000 UNITS/ML 1ML VIAL ONE (14:13)
[2025-03-01] MEDS: ALBUMIN 25% 50 ML IV SCH (14:38)
[2025-03-01] MEDS: HEPARIN SODIUM (PORCINE) 5000 UNITS/ML 1ML VIAL IV ONE (14:40)
[2025-03-01] MEDS: HEPARIN DRIP/D5W 100UNITS/ML 250 ML IV SCH (14:40)
--- NOTE | 2025-03-01 14:44 | DVH ---
US BiLat Lower DVT HISTORY: Edema COMPARISON: US LT UPPER DVT on DOS: 02/20/25, VAS VENOUS LOWER EXTREM RIGHT on DOS: 12/01/23 TECHNIQUE: Realtime grayscale, color flow, and Doppler ultrasound images of the deep venous structures with spectral waveform analysis were obtained. Doppler spectral waveform analysis of the bilateral lower extremity veins was performed. FINDINGS: Right Lower Extremity: Right common femoral vein: Normal compressibility and flow. Right femoral vein: Normal compressibility and flow. Right popliteal vein: Normal compressibility and flow. Left Lower Extremity: Left common femoral vein: Normal compressibility and flow. Left femoral vein: Normal compressibility and flow. Left popliteal vein: Normal compressibility and flow. Bilateral lower extremity edema. IMPRESSION: NO SONOGRAPHIC EVIDENCE FOR DEEP VENOUS THROMBOSIS IN THE BILATERAL LOWER EXTREMITY VEINS.
--- NOTE | 2025-03-01 15:17 | DVHPN2 ---
Progress Note Date Seen: Mar 01, 2025 Resident Creating Document: MARGUERITE ORELLANA RESIDENT Medical Necessity Reason Pt with a Central, PICC or Fol: Yes The following are medically ne: Zacarias Catheter Reason for zacarias catheter: Strict I&O Subjective Review of Systems Patient looking fragile. NG could not be placed. Bowel sounds normoactive. Overnight KUB unremarkable. On Levophed 22. Underwent cardioversion x2, converted to sinus rhythm. WBC trending up to 26. Started anemia drip. Objective vital signs Vital Sign Date Time Temp Pulse Resp B/P (MAP) Pulse Ox O2 Delivery O2 Flow Rate FiO2 03/01/25 14:37 101 15 107/63 03/01/25 13:30 96 03/01/25 06:00 Nasal Cannula* 2 28 03/01/25 05:00 99.0 99.0 Total Intake and Output 02/28/25 02/28/25 03/01/25 15:00 23:00 07:00 Intake Total 348.75 ml 410.00 ml Output Total 575 ml 550 ml 500 ml Balance -575 ml -201.25 ml -90.00 ml medications Current Medications Medications Dose Ordered Sig/Zahraa Route Start Time Stop Time Status Last Admin Dose Admin Pantoprazole Sodium 40 mg BID IV 02/19/25 22:00 03/01/25 10:30 40 MG Metronidazole 100 ml @ 100 mls/hr Q8HR IV 02/19/25 22:00 03/01/25 05:35 100 MLS/HR Sodium Chloride 10 ml QSHIFT@10,22 IV 02/20/25 22:00 03/01/25 10:30 10 ML Promethazine HCl 25 mg Q4HP PRN PO 02/22/25 11:00 02/27/25 10:44 25 MG Enteral Nutritional Formula 240 ml TIDWM PO 02/22/25 18:00 02/27/25 18:00 240 ML Gabapentin 300 mg BID PO 02/22/25 22:00 02/27/25 22:10 300 MG Hydralazine HCl 10 mg Q6HP PRN IV 02/26/25 20:45 02/26/25 22:33 10 MG Morphine Sulfate 1 mg Q4HPRN PRN IV 02/27/25 14:45 03/01/25 14:37 1 MG Meropenem 50 ml @ 17 mls/hr Q12HR IV 03/01/25 10:00 03/01/25 10:30 17 MLS/HR Lactulose 300 ml DAILY SC 03/01/25 10:00 03/01/25 10:32 300 ML Amiodarone HCl 250 ml @ 16.66 mls/ hr Q15H1M IV 03/01/25 19:15 03/01/25 13:15 16.66 MLS/HR Albumin Human 50 ml @ 100 mls/hr Q8H IV 03/01/25 13:15 03/02/25 05:44 03/01/25 14:38 100 MLS/HR Heparin Sodium/ Dextrose 250 ml @ 13 mls/hr [id number] IV 03/01/25 14:00 03/01/25 14:40 13 MLS/HR Phenylephrine HCl 80 mg/Sodium Chloride 250 ml @ 7.5 mls/hr Q24H IV 03/01/25 13:30 Norepinephrine Bitartrate 32 mg/ Sodium Chloride 250 ml @ 0.938 mls/ hr Q24H IV 03/01/25 13:30 Hydrocortisone Sodium Succinate 100 mg Q8HR IV 03/01/25 15:00 Examination Patient lying in bed, in no acute distress General: Thin-appearing, afebrile, palor, mucosae are moist Cardiovascular: Regular, normal S1 and S2. No murmurs, gallops or rubs. No JVD elevation. 2+ pedal edema Respiratory: Bilateral decreased air entry Abdomen: Soft, tender, nondistended, normoactive bowel sounds, no rebound tenderness, no organomegaly, no masses Genitourinary: Deferred Psych/Mental Status: A/Ox3 laboratory and microbiology Laboratory Tests 03/01/25 13:20 03/01/25 02:59 Test 03/01/25 02:59 Range/Units Serum Glucose 189 H 74-106 mg/dL Microbiology Date/Time Source Procedure Growth Status 02/28/25 13:33 Blood Blood Culture - Preliminary NO GROWTH AFTER 24 HOURS OF INCUBATION. Resulted 02/25/25 12:20 Ascities Fluid Gram Stain - Final Resulted 02/25/25 12:20 Ascities Fluid Body Fluid Culture - Preliminary No growth Resulted 02/19/25 12:57 Urine - Zacarias Port Urine Culture - Final Enterococcus faecalis Complete 02/17/25 15:45 Nose MRSA Screen - Final Complete Labs and/or images reviewed: Labs reviewed by me, Image(s) reviewed by me Problem List/Assessment/Plan Problem List/Assessment/Plan Spontaneous bacterial peritonitis Cholestatic liver disease ? 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 Heterogeneous signal throughout the liver, not well evaluated without postcontrast imaging, may be due to cirrhosis. Other etiologies, including malignancy can not be excluded. Common bile duct is not visualized, may be obscured by artifact. Can not exclude common bile duct obstruction. Correlate with clinical findings. [place] recent hospitalization: patient underwent CT angio chest and abdomen with IV contrast, found to have SMV thrombus, thrombus distending through extra and intrahepatic portal veins throughout the liver. Suspecting enhancing mass in the proximal jejunum.She has a prior history of duodenal jejunal bypass or switch which was an older form of a weight loss bypass surgery. Underwent upper EGD 01/19/2025. 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 Plan: Recommendation Unfortunately the patient is not a candidate for surgical intervention due to multiple medical comorbidities. Continue pressors. Started meropenem 02/28. Repeat blood culture 02/28 - Prelim negative. Repeat KUB shows nonobstructive bowel pattern. NPO, started Clinimix Unable to swallow. Keep NPO Once medically stabilized a surveillance endoscopy can be considered in 6-12 months Continue supportive care and also consider hospice placement if the patient's clinical status does not improve Bilirubin trending up to 11.5, LFTs stable. MRCP can not exclude common bile duct obstruction. Per patient's niece, patient had EGD at [facility], which showed varices, 3cm hiatal hernia, gastritis On IV antibiotics for E faecalis UTI promethazine for nausea Hepatitis panel negative. ISABEL screen negative. Await ascitic fluid cytology rule out malignancy Elevated total bilirubin and alkaline phosphatase suggestive of cholestatic jaundice possibly due to obstruction or mass Ascitic fluid cell count suggestive of spontaneous bacterial peritonitis, continue IV Levaquin Continue Protonix 40 mg IV b.i.d. Continue to monitor labs and supportive care Overall prognosis remains guarded Plan discussed with patient's niece in which all questions have been answered Case discussed with Dr. Rice Plan discussed with: Patient, Other (Niece at bedside) My Orders My Orders Orders - MARGUERITE ORELLANA Procedure Category Date Status Time Npo (Nothing By DIET 02/28/25 Transmitted Mouth) Diet Dinner Ng To Lis KODAK 02/28/25 In Process 16:32 Place Ng ORDERS 02/28/25 Transmitted 16:32 Communication Order ORDERS 02/28/25 Transmitted 16:36 Meropenem 500mg Ivpb PHA 03/01/25 In Process (Merrem 500mg/50ml 10:00 Dietary Evaluation Review Comments: Nutrition Recommendations: Encourage oral (PO) liquids and feedings as tolerated. Advance diet to 2-gram sodium, high-protein diet if patient accepts oral intake. If patient continues to refuse food: Consider initiating Total Parenteral Nutrition (TPN) for nutritional support. Alternatively, consider placement of a nasogastric (NG) tube for enteral feeding. Expected Outcomes/Goals: Provide adequate nutrition support by mouth, tube feeding or TPN MARGUERITE ORELLANA RESIDENT Mar 01, 2025 15:17
[2025-03-01] MEDS ORDERED: CLINIMIX PER PHARMACY 0 ML IV SCH (15:30)
--- NOTE | 2025-03-01 15:45 | DVHPN2 ---
Subjective Yesterday patient was upgraded to D OU currently on Levophed, today patient has had SVT requiring cardioversion/shock. Patient is currently heart rate is around 100-110. Changes from previous H/P or p: No Changes Objective Vitals Vital Signs Date Time Temp Pulse Resp B/P (MAP) Pulse Ox O2 Delivery O2 Flow Rate FiO2 03/01/25 15:15 75/44 03/01/25 14:37 101 15 03/01/25 13:30 96 03/01/25 06:00 Nasal Cannula* 2 28 03/01/25 05:00 99.0 99.0 Intake/Output Intake and Output 03/01/25 07:00 Intake Total 758.75 ml Output Total 1625 ml Balance -866.25 ml Intake Oral 240 ml IV Total 518.75 ml Output Urine Total 550 ml Stool Total 1075 ml Exam HEENT pupils are reactive Neck is supple CV is S1-S2 r regular rhythm with a rate around 100/110 Respiratory diminished breath sounds bases GI positive bowel sounds positive ascites Extremity trace edema [employer] no motor deficit Medications Current Medications Medications Dose Ordered Sig/Zahraa Route Start Time Stop Time Status Last Admin Dose Admin Pantoprazole Sodium 40 mg BID IV 02/19/25 22:00 03/01/25 10:30 40 MG Metronidazole 100 ml @ 100 mls/hr Q8HR IV 02/19/25 22:00 03/01/25 05:35 100 MLS/HR Sodium Chloride 10 ml QSHIFT@10,22 IV 02/20/25 22:00 03/01/25 10:30 10 ML Promethazine HCl 25 mg Q4HP PRN PO 02/22/25 11:00 02/27/25 10:44 25 MG Enteral Nutritional Formula 240 ml TIDWM PO 02/22/25 18:00 02/27/25 18:00 240 ML Gabapentin 300 mg BID PO 02/22/25 22:00 02/27/25 22:10 300 MG Hydralazine HCl 10 mg Q6HP PRN IV 02/26/25 20:45 02/26/25 22:33 10 MG Morphine Sulfate 1 mg Q4HPRN PRN IV 02/27/25 14:45 03/01/25 14:37 1 MG Meropenem 50 ml @ 17 mls/hr Q12HR IV 03/01/25 10:00 03/01/25 10:30 17 MLS/HR Lactulose 300 ml DAILY FL 03/01/25 10:00 03/01/25 10:32 300 ML Amiodarone HCl 250 ml @ 16.66 mls/ hr Q15H1M IV 03/01/25 19:15 03/01/25 13:15 16.66 MLS/HR Albumin Human 50 ml @ 100 mls/hr Q8H IV 03/01/25 13:15 03/02/25 05:44 03/01/25 14:38 100 MLS/HR Heparin Sodium/ Dextrose 250 ml @ 13 mls/hr [id number] IV 03/01/25 14:00 03/01/25 14:40 13 MLS/HR Phenylephrine HCl 80 mg/Sodium Chloride 250 ml @ 7.5 mls/hr Q24H IV 03/01/25 13:30 Norepinephrine Bitartrate 32 mg/ Sodium Chloride 250 ml @ 0.938 mls/ hr Q24H IV 03/01/25 13:30 Hydrocortisone Sodium Succinate 100 mg Q8HR IV 03/01/25 15:00 Amino Acids 0 ml @ 0 mls/hr PER PHARMACY IV 03/01/25 15:30 UNV Laboratory Results Laboratory Tests 03/01/25 02:59 03/01/25 13:20 Chemistry Test 03/01/25 02:59 Albumin 2.9 g/dL (3.2-4.8) L Calcium Level 8.6 mg/dL (8.7-10.4) L Magnesium Level 1.9 mg/dL (1.6-2.6) Total Protein 4.6 g/dL (5.7-8.2) L Coagulation Test 03/01/25 13:20 Prothrombin Time 19.0 sec (9.3-11.8) H Prothrombin Time INR 1.91 (0.9-1.15) H Activated Partial Thromboplast Time 37.3 SEC (24.5-34.5) H LFT Test 03/01/25 02:59 Alanine Aminotransferase (ALT) 144 U/L (7-40) H Alkaline Phosphatase 737 U/L (46-116) H Aspartate Amino Transferase (AST) 101 U/L (13-40) H Total Bilirubin 15.0 mg/dL (0.2-1.0) H Urinalysis Test 02/18/25 02:57 Urine Color Yellow (Yellow) Urine Clarity Clear (Clear) Urine pH 5.0 (5.0-9.0) Urine Specific Humphrey 1.020 (1.001-1.035) Urine Protein 1+ (Negative) H Urine Ketones Negative (Negative) Urine Blood Trace /uL (Negative) H Urine Nitrite Negative (Negative) Urine Bilirubin Negative (Negative) Urine Urobilinogen Normal mg/dL (Negative) Urine Leukocyte Esterase Negative /uL (Negative) Urine RBC 3 /hpf (0 - 4) Urine Microscopic WBC 7 /HPF (0-5) H Urine Squamous Epithelial Cells Few /hpf (<5) Urine Bacteria Few /hpf (None Seen) H Urine Hyaline Casts Few /lpf (0 - 2) Urine Yeast (Budding) Occasional /hpf (None Urine Creatinine 159.83 mg/dL (30.0-125.0) H Urine Protein/Creatinine Ratio 0.54 Urine Sodium 64 mmol/L (40-220) Urine Glucose Normal mg/dL (Normal) Urine Total Protein 87.1 mg/dL (1-14) H Blood Gas Results Test 03/01/25 05:46 Arterial Blood pH 7.419 (7.350-7.450) FiO2 % 28.0 Microbiology Microbiology Date/Time Source Procedure Growth Status 02/28/25 13:33 Blood Blood Culture - Preliminary NO GROWTH AFTER 24 HOURS OF INCUBATION. Resulted 02/25/25 12:20 Ascities Fluid Gram Stain - Final Resulted 02/25/25 12:20 Ascities Fluid Body Fluid Culture - Preliminary No growth Resulted 02/19/25 12:57 Urine - [place] Urine Culture - Final Enterococcus faecalis Complete 02/17/25 15:45 Nose MRSA Screen - Final Complete Assessment/Plan Assessment/Plan 79-year-old female with a known history of hypertension, dyslipidemia, recent diagnosis of liver cirrhosis, portal vein thrombosis currently on anticoagulation presented to the hospital with the abdominal pain found to have 1. Acute hyperkalemia suspect triamterene induced, improved 2. Acute kidney injury with a possible hepatorenal syndrome currently improving 3. Hypotension requiring Levophed, upgraded to D OU 4. Portal vein thrombosis 5. Liver cirrhosis with a ascites status post paracentesis1, repeat2 paracentesis on 02/25(4200 ml) 6. SVT status post electrical cardioversion. 7. Secondary Coagulopathy due to liver disease 8. Leukocytosis likely reactive secondary to hydrocortisone -hold Eliquis, start heparin drip, IV amiodarone drip -continue somatostatin, , paracentesis. Follow up Nephrology recommendations -follow up GI recommendation, plan of care discussed with the patient's daughter as well as patient's daughter's friend. Plan discussed with: Patient, Daughter My Orders Orders - WM ARANGO MD Procedure Category Date Status Time Lactulose Rectal PHA 03/01/25 In Process 10:00 Hydrocortisone PHA 03/01/25 In Process Succinate Inj 15:00 Date of Service: Mar 01, 2025 Billing Provider: WM ARANGO MD Common Visit Codes: NOT BILLABLE WM ARANGO MD Mar 01, 2025 15:45
[2025-03-01] MEDS: HYDROCORTISONE SOD SUCC 100 MG/2ML INJ VIAL IV SCH (15:52)
[2025-03-01] MEDS: NOREPINEPHRINE BITARTRATE 32 MG in SODIUM CHL 0.9% 218 ML IV SCH (17:17)
[2025-03-01 18:14] LABS: Lactic Acid w/Reflex 3.0 mmol/L (0.4-2.0)
--- NOTE | 2025-03-01 18:20 | DVHPN2 ---
Progress Note - Dictate Date Seen: Mar 01, 2025 Medical Necessity Reason Pt with a Central, PICC or Fol: Yes The following are medically ne: Zacarias Catheter Reason for zacarias catheter: Strict I&O Subjective Transferred to [facility] due to hypotension, reported dysrhythmia overnight. Patient requiring vasopressor Patient's family at bedside vital signs Vital Sign Date Time Temp Pulse Resp B/P (MAP) Pulse Ox O2 Delivery O2 Flow Rate FiO2 03/01/25 15:15 75/44 03/01/25 14:37 101 15 03/01/25 13:30 96 03/01/25 06:00 Nasal Cannula* 2 28 03/01/25 05:00 99.0 99.0 Total Intake and Output 02/28/25 02/28/25 03/01/25 15:00 23:00 07:00 Intake Total 348.75 ml 410.00 ml Output Total 575 ml 550 ml 500 ml Balance -575 ml -201.25 ml -90.00 ml medications Current Medications Medications Dose Ordered Sig/Zahraa Route Start Time Stop Time Status Last Admin Dose Admin Pantoprazole Sodium 40 mg BID IV 02/19/25 22:00 03/01/25 10:30 40 MG Metronidazole 100 ml @ 100 mls/hr Q8HR IV 02/19/25 22:00 03/01/25 15:52 100 MLS/HR Sodium Chloride 10 ml QSHIFT@10,22 IV 02/20/25 22:00 03/01/25 10:30 10 ML Promethazine HCl 25 mg Q4HP PRN PO 02/22/25 11:00 02/27/25 10:44 25 MG Enteral Nutritional Formula 240 ml TIDWM PO 02/22/25 18:00 02/27/25 18:00 240 ML Gabapentin 300 mg BID PO 02/22/25 22:00 02/27/25 22:10 300 MG Hydralazine HCl 10 mg Q6HP PRN IV 02/26/25 20:45 02/26/25 22:33 10 MG Morphine Sulfate 1 mg Q4HPRN PRN IV 02/27/25 14:45 03/01/25 14:37 1 MG Meropenem 50 ml @ 17 mls/hr Q12HR IV 03/01/25 10:00 03/01/25 10:30 17 MLS/HR Lactulose 300 ml DAILY AL 03/01/25 10:00 03/01/25 10:32 300 ML Amiodarone HCl 250 ml @ 16.66 mls/ hr Q15H1M IV 03/01/25 19:15 03/01/25 13:15 16.66 MLS/HR Albumin Human 50 ml @ 100 mls/hr Q8H IV 03/01/25 13:15 03/02/25 05:44 03/01/25 14:38 100 MLS/HR Heparin Sodium/ Dextrose 250 ml @ 13 mls/hr [id number] IV 03/01/25 14:00 03/01/25 14:40 13 MLS/HR Phenylephrine HCl 80 mg/Sodium Chloride 250 ml @ 7.5 mls/hr Q24H IV 03/01/25 13:30 Norepinephrine Bitartrate 32 mg/ Sodium Chloride 250 ml @ 0.938 mls/ hr Q24H IV 03/01/25 13:30 03/01/25 17:17 11.25 MLS/HR Hydrocortisone Sodium Succinate 100 mg Q8HR IV 03/01/25 15:00 03/01/25 15:52 100 MG Amino Acids 0 ml @ 0 mls/hr PER PHARMACY IV 03/01/25 15:30 Amino Acids/ Electrolytes/ Dextrose 1,000 ml @ 41 mls/hr DAILY@2200 IV 03/01/25 22:00 Diagnostic Test (Pha) 1 strip Q6HR 03/02/25 00:00 Insulin Human Regular FOLLOW SLIDING SCALE Q6HR SC 03/02/25 00:00 Dextrose 50 ml UD IV 03/01/25 22:00 Levofloxacin 50 ml @ 50 mls/hr DAILY IV 03/02/25 10:00 UNV Levofloxacin/ Dextrose 100 ml @ 100 mls/hr DAILY IV 03/02/25 10:00 UNV objective Gen: Somnolent lungs: cta anteriorly cvs: no rub abd: soft, bowel sounds audible ext: no edema laboratory and microbiology Laboratory Tests 03/01/25 13:20 03/01/25 02:59 Test 03/01/25 02:59 Range/Units Serum Glucose 189 H 74-106 mg/dL Assessment/Plan Problem List/Assessment/Plan Acute kidney injury superimposed Chronic Kidney Disease stage IV secondary hemodynamic mediated, FENA >2% Portal vein thrombosis abdominal mass cirrhosis w/ ascites Hypokalemia Jaundice Bradycardia Recommendation - essentially stable GFR and electrolytes. - we will repeat urine sodium given recent additional hemodynamic changes - discussed plan of care from Nephrology perspective with patient's family at bedside. Dietary Evaluation Review Comments: Nutrition Recommendations: Encourage oral (PO) liquids and feedings as tolerated. Advance diet to 2-gram sodium, high-protein diet if patient accepts oral intake. If patient continues to refuse food: Consider initiating Total Parenteral Nutrition (TPN) for nutritional support. Alternatively, consider placement of a nasogastric (NG) tube for enteral feeding. Expected Outcomes/Goals: Provide adequate nutrition support by mouth, tube feeding or TPN Plan discussed with: JIM Ugalde MD Mar 01, 2025 18:20
[2025-03-01] MEDS ORDERED: DEXTROSE (50%) 50ML SYRG IV SCH (22:00)
[2025-03-01] MEDS: AMINO ACID INFUSION IN D10W 1,000 ML IV SCH (23:39)
[2025-03-01 23:54] LABS: INR 3.0 (0.9-1.15); Partial Thromboplastin Time 20.9 SEC (24.5-34.5); Prothrombin Time 28.5 sec (9.3-11.8)
--- NOTE | 2025-03-01 23:58 | DVHPN2 ---
Progress Note - Dictate Date Seen: Mar 01, 2025 Medical Necessity Reason Pt with a Central, PICC or Fol: Yes The following are medically ne: Zacarias Catheter Reason for zacarias catheter: Strict I&O Subjective Patient seen and examined at bedside. On supplemental oxygen Overnight events reviewed. vital signs Vital Sign Date Time Temp Pulse Resp B/P (MAP) Pulse Ox O2 Delivery O2 Flow Rate FiO2 03/01/25 22:00 88 03/01/25 22:00 15 97 Nasal Cannula* 2 28 03/01/25 20:45 03/01/25 20:00 97.4 97.4 Total Intake and Output 02/28/25 02/28/25 03/01/25 15:00 23:00 07:00 Intake Total 348.75 ml 410.00 ml Output Total 575 ml 550 ml 500 ml Balance -575 ml -201.25 ml -90.00 ml medications Current Medications Medications Dose Ordered Sig/Zahraa Route Start Time Stop Time Status Last Admin Dose Admin Pantoprazole Sodium 40 mg BID IV 02/19/25 22:00 03/01/25 22:34 40 MG Metronidazole 100 ml @ 100 mls/hr Q8HR IV 02/19/25 22:00 03/01/25 22:35 100 MLS/HR Sodium Chloride 10 ml QSHIFT@10,22 IV 02/20/25 22:00 03/01/25 22:34 10 ML Promethazine HCl 25 mg Q4HP PRN PO 02/22/25 11:00 02/27/25 10:44 25 MG Enteral Nutritional Formula 240 ml TIDWM PO 02/22/25 18:00 02/27/25 18:00 240 ML Gabapentin 300 mg BID PO 02/22/25 22:00 02/27/25 22:10 300 MG Hydralazine HCl 10 mg Q6HP PRN IV 02/26/25 20:45 02/26/25 22:33 10 MG Morphine Sulfate 1 mg Q4HPRN PRN IV 02/27/25 14:45 03/01/25 19:25 1 MG Meropenem 50 ml @ 17 mls/hr Q12HR IV 03/01/25 10:00 03/01/25 22:35 17 MLS/HR Lactulose 300 ml DAILY FL 03/01/25 10:00 03/01/25 10:32 300 ML Amiodarone HCl 250 ml @ 16.66 mls/ hr Q15H1M IV 03/01/25 19:15 03/01/25 13:15 16.66 MLS/HR Albumin Human 50 ml @ 100 mls/hr Q8H IV 03/01/25 13:15 03/02/25 05:44 03/01/25 22:34 100 MLS/HR Heparin Sodium/ Dextrose 250 ml @ 13 mls/hr [id number] IV 03/01/25 14:00 03/01/25 14:40 13 MLS/HR Phenylephrine HCl 80 mg/Sodium Chloride 250 ml @ 7.5 mls/hr Q24H IV 03/01/25 13:30 Norepinephrine Bitartrate 32 mg/ Sodium Chloride 250 ml @ 0.938 mls/ hr Q24H IV 03/01/25 13:30 03/01/25 17:17 11.25 MLS/HR Hydrocortisone Sodium Succinate 100 mg Q8HR IV 03/01/25 15:00 03/01/25 22:34 100 MG Amino Acids 0 ml @ 0 mls/hr PER PHARMACY IV 03/01/25 15:30 Amino Acids/ Electrolytes/ Dextrose 1,000 ml @ 41 mls/hr DAILY@2200 IV 03/01/25 22:00 03/01/25 23:39 41 MLS/HR Diagnostic Test (Pha) 1 strip Q6HR 03/02/25 00:00 Insulin Human Regular FOLLOW SLIDING SCALE Q6HR SC 03/02/25 00:00 Dextrose 50 ml UD IV 03/01/25 22:00 Levofloxacin 50 ml @ 50 mls/hr DAILY IV 03/02/25 10:00 UNV Levofloxacin/ Dextrose 100 ml @ 100 mls/hr DAILY IV 03/02/25 10:00 UNV objective Gen.: Patient lying in bed in no apparent distress. On supplemental oxygen. Head: Normocephalic, atraumatic. Eyes: EOMI/PERRLA. Ears: Normal hearing. Normal anatomy. Neck/trachea: Trachea midline, supple. Nose: Normal external anatomy. Mouth: Moist mucous membranes. Chest: Decreased air entry bilaterally. No wheezing or rhonchi. Cardiovascular: Positive S1, positive S2. Regular rate and rhythm. Abdomen: Positive bowel sounds in all 4 quadrants. Soft, non-tender, non- distended. : Deferred. Rectal: Deferred. Skin: Warm, dry. Intact. Extremities: 2+ radial pulses bilaterally. No lower extremity edema. Neuro: Awake, alert, oriented x3. No gross motor or sensory deficits. Cranial nerves II through XII intact. Gait not assessed. laboratory and microbiology Laboratory Tests 03/01/25 13:20 03/01/25 02:59 Test 03/01/25 02:59 Range/Units Serum Glucose 189 H 74-106 mg/dL Assessment/Plan Impression: Pleural effusions Atelectasis Coagulopathy Ascites Events: Currently on supplemental oxygen 2 LPM NC Taper O2 as tolerated Patient upgraded to ICU due to SVT S/p shock ABG reviewed, compensated. Metabolic acidosis with respiratory compensation. Head of bed elevation Aspiration precautions. Pressors for hemodynamic support On Levophed 26 mcg/min. Titrate to keep MAP above 65 mmHg/SBP above 90 mmHg. Start Pradeep-Synephrine Cardiology recs appreciated. On amiodarone drip. Continue steroids Continue antibiotics Incentive spirometry Eliquis PO BID Limited abdominal ultrasound revealed moderate amount of ascites. Patient is s/p paracentesis on 02/25/25 with 4200 ml removed We will monitor for recurrence of ascites Monitor blood pressure. Monitor renal function Monitor electrolytes, supplement as necessary Maintain euvolemia Nephrology recs appreciated. GI recommendations appreciated Protonix for GI ppx On lactulose Rectal tube in place. Pain control Avoid oversedation Patient is hemodynamically stable. Poor prognosis. Labs and imaging reviewed. Rest of plan as noted below. Plan: Supplemental oxygen Titrate to keep O2 sats above 92%. Pressors for hemodynamic support Titrate to keep MAP above 65 mmHg/SBP above 90 mmHg. Monitor blood pressure Continue bronchodilators PRN. Stress dose steroids Continue antibiotics Incentive spirometry Protonix BID for GI ppx Diurese to euvolemia Monitor renal function. Monitor electrolytes. Supplement as necessary. Monitor ins and outs. Kenji for strict ins and outs Monitor hemoglobin Transfuse if less than 7.0 g/dL. GI/DVT prophylaxis. Prognosis: Poor given patient's multiple co-morbidities. Condition: Critical Rest of plan per hospitalist and other consultants. A total of 35 minutes of critical care time was spent reviewing the patient record, examining the patient, making a diagnostic and therapeutic plan, discussing this plan with the medical personnel, following up on diagnostic studies and following the patient for clinical stability excluding any and all procedures. At least 50% of this time was spent in direct, [id number] contact. Thank you, Dr. Heaton, for allowing me to participate in this patient's care. Further recommendations will depend on the patient's clinical course. Please do not hesitate to contact me if you have any questions or concerns. This medical document was created using an electronic medical record system with [employer] dictation system. Although these documentations are being carefully reviewed, there may still be some phonetic and typographical changes. The errors are purely typographical, due to imperfection on the software program, and do not reflect any compromise in the patient's medical care. Dietary Evaluation Review Comments: Nutrition Recommendations: Encourage oral (PO) liquids and feedings as tolerated. Advance diet to 2-gram sodium, high-protein diet if patient accepts oral intake. If patient continues to refuse food: Consider initiating Total Parenteral Nutrition (TPN) for nutritional support. Alternatively, consider placement of a nasogastric (NG) tube for enteral feeding. Expected Outcomes/Goals: Provide adequate nutrition support by mouth, tube feeding or TPN Plan discussed with: Other (GIANA Justice) Critical Care Time(min): 35 [facility] Mar 01, 2025 23:58
[2025-03-02] VITALS (98 sets, daily range): BP systolic 71–252; BP diastolic 38–224; PULSE 77–127; RESP 7–43; TEMP 96.7–99; O2SAT 92–100
[2025-03-02] MEDS: HEPARIN DRIP/D5W 100UNITS/ML 250 ML IV SCH ×3 (00:13→21:23)
[2025-03-02] MEDS: HEPARIN SODIUM (PORCINE) 5000 UNITS/ML 1ML VIAL IV ONE (00:13)
[2025-03-02] MEDS: ACCU-CHEK COMFORT CURVE STRIP VI SCH (00:14)
[2025-03-02] MEDS: InsuLIN REG 1unit/0.01ml Soln (100units/ml) SC SCH (00:15)
[2025-03-02 04:35] LABS: Hematocrit 38.7 % (36.0-46.0); Hemoglobin 12.8 g/dL (12.2-16.2); Mean Corpuscular Hemoglobin 30.1 pg (28.0-32.0); Mean Corpuscular Volume 91.0 fL (80.0-100.0)
[2025-03-02 04:38] LABS: Anion Gap 17 (5-15); Carbon Dioxide 21 mmol/L (20-31); Magnesium 2.1 mg/dL (1.6-2.6)
[2025-03-02 04:44] LABS: BUN/Creatinine Ratio 33.9 (10.0-20.0)
[2025-03-02 04:48] LABS: Alanine Aminotransferase 128 U/L (7-40); Albumin 2.8 g/dL (3.2-4.8); Alkaline Phosphatase 595 U/L (46-116); Bilirubin, Total 17.1 mg/dL (0.2-1.0); Calcium 8.1 mg/dL (8.7-10.4); Chloride 108 mmol/L (98-107); Glucose 230 mg/dL (74-106); Potassium 3.3 mmol/L (3.5-5.1); Sodium 146 mmol/L (136-145); Total Protein 4.1 g/dL (5.7-8.2)
[2025-03-02 04:50] LABS: Blood Urea Nitrogen 82 mg/dL (9-23)
[2025-03-02 06:00] LABS: Anisocytosis Slight; Nucleated Red Blood Cells % 2.0 %; Total Cells Counted 100.0 (100)
[2025-03-02] MEDS: POTASSIUM CHL 20MEQ/100ML 100 ML IV ONE (06:13)
--- NOTE | 2025-03-02 06:26 | DVH ---
CHEST RADIOGRAPH INDICATION: CHF EXACERBATION TECHNIQUE: Single frontal view of the chest was obtained. COMPARISON: XY CHEST XRAY 1 VIEW on DOS: 02/28/25. FINDINGS: Lines and Tubes: There is a right PICC with its tip terminating in the superior vena cava. Lungs: No focal consolidation. Pleura: No effusion. Right apical pneumothorax, about 30% volume. Cardiomediastinal contours: Stable. Bones: No acute osseous abnormality. IMPRESSION: 1. Right apical pneumothorax, about 30% volume.
[2025-03-02 09:22] LABS: Prothrombin Time 44.4 sec (9.3-11.8)
[2025-03-02 09:25] LABS: Lactic Acid w/Reflex 4.1 mmol/L (0.4-2.0)
[2025-03-02 09:31] LABS: INR 4.9 (0.9-1.15); Partial Thromboplastin Time > 139.0 SEC (24.5-34.5)
--- NOTE | 2025-03-02 10:19 | CONS ---
Pharmacy Clinical Information: HOLD HEPARIN DRIP X1HR. THEN DECREASE HEPARIN DRIP RATE TO 1630 UNITS/HR PER APTT OF >139 NEXT APTT DRAW SCHEDULED FOR 1700 PER RX PROTOCOL GIANA Goodson CONFIRMED AND READ BACK Beth Hernandez PHARMACIST Mar 02, 2025 10:19
[2025-03-02] MEDS: PHENYLEPHRINE IV 250 ML IV ONE (10:25)
--- NOTE | 2025-03-02 11:40 | DVHPN2 ---
Progress Note Date Seen: Mar 02, 2025 Resident Creating Document: MARGUERITE ORELLANA RESIDENT Medical Necessity Reason Pt with a Central, PICC or Fol: Yes The following are medically ne: Zacarias Catheter Reason for zacarias catheter: Strict I&O Subjective Review of Systems 03/01-Patient looking fragile. NG could not be placed. Bowel sounds normoactive. Overnight KUB unremarkable. On Levophed . Underwent cardioversion x2, converted to sinus rhythm. WBC trending up to 26. Started amiodarone drip. 03/02-WBC trending up. Chest x-ray shows right apical pneumothorax. Patient on Levophed and amiodarone drips. Abdomen hypoactive. Objective vital signs Vital Sign Date Time Temp Pulse Resp B/P (MAP) Pulse Ox O2 Delivery O2 Flow Rate FiO2 03/02/25 06:45 82 15 99/66 (77) 98 03/02/25 06:00 Nasal Cannula* 2 28 03/02/25 04:00 99.0 99.0 Total Intake and Output 03/01/25 03/01/25 03/02/25 15:00 23:00 07:00 Intake Total 299.43 ml 402.28 ml 639.62 ml Output Total 475 ml 450 ml Balance 299.43 ml -72.72 ml 189.62 ml medications Current Medications Medications Dose Ordered Sig/Zahraa Route Start Time Stop Time Status Last Admin Dose Admin Pantoprazole Sodium 40 mg BID IV 02/19/25 22:00 03/02/25 10:37 40 MG Metronidazole 100 ml @ 100 mls/hr Q8HR IV 02/19/25 22:00 03/02/25 06:13 100 MLS/HR Sodium Chloride 10 ml QSHIFT@10,22 IV 02/20/25 22:00 03/02/25 10:37 10 ML Promethazine HCl 25 mg Q4HP PRN PO 02/22/25 11:00 02/27/25 10:44 25 MG Enteral Nutritional Formula 240 ml TIDWM PO 02/22/25 18:00 02/27/25 18:00 240 ML Gabapentin 300 mg BID PO 02/22/25 22:00 02/27/25 22:10 300 MG Hydralazine HCl 10 mg Q6HP PRN IV 02/26/25 20:45 02/26/25 22:33 10 MG Morphine Sulfate 1 mg Q4HPRN PRN IV 02/27/25 14:45 03/02/25 03:58 1 MG Meropenem 50 ml @ 17 mls/hr Q12HR IV 03/01/25 10:00 03/02/25 10:37 17 MLS/HR Lactulose 300 ml DAILY SD 03/01/25 10:00 03/01/25 10:32 300 ML Amiodarone HCl 250 ml @ 16.66 mls/ hr Q15H1M IV 03/01/25 19:15 03/02/25 02:16 16.66 MLS/HR Phenylephrine HCl 80 mg/Sodium Chloride 250 ml @ 7.5 mls/hr Q24H IV 03/01/25 13:30 Norepinephrine Bitartrate 32 mg/ Sodium Chloride 250 ml @ 0.938 mls/ hr Q24H IV 03/01/25 13:30 03/01/25 17:17 11.25 MLS/HR Hydrocortisone Sodium Succinate 100 mg Q8HR IV 03/01/25 15:00 03/02/25 06:14 100 MG Amino Acids 0 ml @ 0 mls/hr PER PHARMACY IV 03/01/25 15:30 Amino Acids/ Electrolytes/ Dextrose 1,000 ml @ 41 mls/hr DAILY@2200 IV 03/01/25 22:00 03/01/25 23:39 41 MLS/HR Diagnostic Test (Pha) 1 strip Q6HR 03/02/25 00:00 03/02/25 06:14 1 STRIP Insulin Human Regular FOLLOW SLIDING SCALE Q6HR SC 03/02/25 00:00 03/02/25 06:16 4 UNITS Dextrose 50 ml UD IV 03/01/25 22:00 Levofloxacin 50 ml @ 50 mls/hr DAILY IV 03/02/25 10:00 UNV Levofloxacin/ Dextrose 100 ml @ 100 mls/hr DAILY IV 03/02/25 10:00 UNV Heparin Sodium/ Dextrose 250 ml @ 13 mls/hr [id number] IV 03/02/25 10:30 Examination Patient lying in bed, in no acute distress General: Thin-appearing, afebrile, palor, mucosae are moist Cardiovascular: Regular, normal S1 and S2. No murmurs, gallops or rubs. No JVD elevation. 2+ pedal edema Respiratory: Bilateral decreased air entry Abdomen: Soft, tender, nondistended, normoactive bowel sounds, no rebound tenderness, no organomegaly, no masses Genitourinary: Deferred Psych/Mental Status: A/Ox3 laboratory and microbiology Laboratory Tests 03/02/25 03:40 Test 03/02/25 03:40 Range/Units Serum Glucose 230 H 74-106 mg/dL Microbiology Date/Time Source Procedure Growth Status 02/28/25 13:33 Blood Blood Culture - Preliminary NO GROWTH AFTER 24 HOURS OF INCUBATION. Resulted 02/25/25 12:20 Ascities Fluid Gram Stain - Final Complete 02/25/25 12:20 Ascities Fluid Body Fluid Culture - Final Complete 02/19/25 12:57 Urine - Zacarias Port Urine Culture - Final Enterococcus faecalis Complete 02/17/25 15:45 Nose MRSA Screen - Final Complete Labs and/or images reviewed: Labs reviewed by me, Image(s) reviewed by me Problem List/Assessment/Plan Problem List/Assessment/Plan Spontaneous bacterial peritonitis Cholestatic liver disease ? 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 Heterogeneous signal throughout the liver, not well evaluated without postcontrast imaging, may be due to cirrhosis. Other etiologies, including malignancy can not be excluded. Common bile duct is not visualized, may be obscured by artifact. Can not exclude common bile duct obstruction. Correlate with clinical findings. [facility] recent hospitalization: patient underwent CT angio chest and abdomen with IV contrast, found to have SMV thrombus, thrombus distending through extra and intrahepatic portal veins throughout the liver. Suspecting enhancing mass in the proximal jejunum.She has a prior history of duodenal jejunal bypass or switch which was an older form of a weight loss bypass surgery. Underwent upper EGD 01/19/2025. 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 Plan: Recommendation Unfortunately the patient is not a candidate for surgical intervention due to multiple medical comorbidities. Continue pressors. Started meropenem 02/28. Repeat blood culture 02/28 - Prelim negative. Repeat KUB shows nonobstructive bowel pattern. NPO, started Clinimix Unable to swallow. Keep NPO Patient developing anion gap metabolic acidosis, chest x-ray showing right apical pneumothorax. Boring Machine Set Up Operator to place chest tube. Family requesting higher level of care Once medically stabilized a surveillance endoscopy can be considered in 6-12 months Continue supportive care and also consider hospice placement if the patient's clinical status does not improve Bilirubin trending up, LFTs up, MRCP can not exclude common bile duct obstruction. Per patient's niece, patient had EGD at [facility], which showed varices, 3cm hiatal hernia, gastritis On IV antibiotics for E faecalis UTI Continue Protonix 40 mg IV b.i.d. Recommended Infectious Disease consultation Overall prognosis remains guarded Plan discussed with patient's niece in which all questions have been answered Case discussed with Dr. Rice Plan discussed with: Other (Niece at bedside, RN) My Orders My Orders Orders - MARGUERITE ORELLANA Procedure Category Date Status Time Clinimix Per Pharmacy KODAK 03/01/25 In Process 15:17 Clinimix Per Pharmacy PHA 03/01/25 In Process 15:30 Amino Acid Infusion PHA 03/01/25 In Process In D10w (Clinimix 4. 22:00 Insulin R (Human) PHA 03/02/25 In Process (Insulin R) 00:00 Dextrose 50% Syringe PHA 03/01/25 In Process 22:00 Glucose Blood PHA 03/02/25 In Process (Accu-Chek Comfort 00:00 Clinimix Per Pharmacy KODAK 03/01/25 In Process 22:00 Urine Bacterial MAKENZIE 03/01/25 Logged Culture 16:55 Respiratory Culture MAKENZIE 03/01/25 Logged W/ Gs 16:55 Abg W/ Co-Ox RT 03/02/25 Logged 10:46 Dietary Evaluation Review Comments: Nutrition Recommendations: Encourage oral (PO) liquids and feedings as tolerated. Advance diet to 2-gram sodium, high-protein diet if patient accepts oral intake. If patient continues to refuse food: Consider initiating Total Parenteral Nutrition (TPN) for nutritional support. Alternatively, consider placement of a nasogastric (NG) tube for enteral feeding. Expected Outcomes/Goals: Provide adequate nutrition support by mouth, tube feeding or TPN MARGUERITE ORELLANA Mar 02, 2025 11:40
--- NOTE | 2025-03-02 11:46 | DVH ---
CHEST RADIOGRAPH INDICATION: RE-CHECK PNEUMOTHORAX TECHNIQUE: Single frontal view of the chest was obtained COMPARISON: XY CHEST PORTABLE on DOS: 03/02/25, XY CHEST XRAY 1 VIEW on DOS: 02/28/25, XY CHEST PORTABLE on DOS: 02/28/25, XY CHEST PORTABLE on DOS: 02/19/25, XY CHEST PORTABLE on DOS: 02/19/25 FINDINGS: Lines and Tubes: Right PICC in satisfactory position overlying the superior vena cava. Lungs: Low lung volumes. Bibasilar subsegmental atelectasis. Pleura: No effusion. No pneumothorax. Cardiomediastinal contours: Unremarkable Bones: Unremarkable IMPRESSION: No definite appreciable pneumothorax. CT could be obtained to further evaluate if clinically indicated.
--- NOTE | 2025-03-02 12:36 | ECG ---
[facility] Test Date: 2025-03-01 Test Time: 13:19:33 Pat Name: TRENT MCKEON Department: Respiratoy Room: 0261 A Gender: F Manager [employer]: : 1950 Requested By: JOON JEFFERS Order Number: [id number] Reading MD: Micah Olsen Measurements Intervals [place] Rate: 72 P: 42 MA: 99 QRS: -39 QRSD: 82 T: 120 QT: 395 QTc: 433 Interpretive Statements Incomplete analysis due to missing data in precordial lead(s) Sinus rhythm Short MA interval Abnormal R-wave progression, late transition Inferior infarct, old Lateral leads are also involved Missing lead(s): V3 Electronically Signed On 03-02-2025 18:29:18 PST by Micah Olsen Please click the below link to view image of tracing.
--- NOTE | 2025-03-02 12:36 | ECG ---
[facility] Test Date: 2025-03-01 Test Time: 06:03:09 Pat Name: TRENT MCKEON Department: Room: 0261 A Gender: F Laboratory Coordinator: : 1950 Requested By: TIMOTHY MOORE Order Number: [id number] Reading MD: Micah Olsen Measurements Intervals [place] Rate: 176 P: -84 GA: 64 QRS: -55 QRSD: 80 T: 190 QT: 336 QTc: 575 Interpretive Statements Supraventricular tachycardia Inferoposterior infarct, recent Abnormal lateral Q waves Probable anterior infarct, age indeterminate Electronically Signed On 03-02-2025 18:27:58 PST by Micah Olsen Please click the below link to view image of tracing.
--- NOTE | 2025-03-02 13:45 | DVH ---
INDICATION: RE-CHECK PNEUMOTHORAX TECHNIQUE: Single frontal view of the chest was obtained COMPARISON: XY CHEST PORTABLE on DOS: 03/02/25, XY CHEST PORTABLE on DOS: 03/02/25, XY CHEST XRAY 1 VIEW on DOS: 02/28/25, XY CHEST PORTABLE on DOS: 02/28/25, XY CHEST PORTABLE on DOS: 02/19/25, XY CHEST PORTABLE on DOS: 03/02/25 FINDINGS: Lines and Tubes: Right PICC in satisfactory position overlying the superior vena cava. Lungs: Low lung volumes. Bibasilar subsegmental atelectasis. Pleura: No effusion. Small right apical pneumothorax. Consider CT examination for confirmation. Cardiomediastinal contours: Unremarkable Bones: Unremarkable IMPRESSION: Small right apical pneumothorax. Consider CT examination for confirmation.
[2025-03-02 13:58] LABS: Base Excess -8.5 mmol/L (-2.0-3.0)
--- NOTE | 2025-03-02 15:06 | DVHPN2 ---
Progress Note - Dictate Date Seen: Mar 02, 2025 Medical Necessity Reason Pt with a Central, PICC or Fol: Yes The following are medically ne: Zacarias Catheter Reason for zacarias catheter: Strict I&O Subjective Patient was seen earlier this morning, she was somnolent. Urine volumes remain in the oliguric range. Patient with persistent significant hypotension. vital signs Vital Sign Date Time Temp Pulse Resp B/P (MAP) Pulse Ox O2 Delivery O2 Flow Rate FiO2 03/02/25 12:35 97.4 101 17 114/60 97.4 03/02/25 06:45 98 03/02/25 06:00 Nasal Cannula* 2 28 Total Intake and Output 03/01/25 03/01/25 03/02/25 14:59 22:59 06:59 Intake Total 235.71 ml 412.59 ml 619.28 ml Output Total 475 ml 450 ml Balance 235.71 ml -62.41 ml 169.28 ml medications Current Medications Medications Dose Ordered Sig/Zahraa Route Start Time Stop Time Status Last Admin Dose Admin Pantoprazole Sodium 40 mg BID IV 02/19/25 22:00 03/02/25 10:37 40 MG Metronidazole 100 ml @ 100 mls/hr Q8HR IV 02/19/25 22:00 03/02/25 06:13 100 MLS/HR Sodium Chloride 10 ml QSHIFT@10,22 IV 02/20/25 22:00 03/02/25 10:37 10 ML Promethazine HCl 25 mg Q4HP PRN PO 02/22/25 11:00 02/27/25 10:44 25 MG Enteral Nutritional Formula 240 ml TIDWM PO 02/22/25 18:00 02/27/25 18:00 240 ML Gabapentin 300 mg BID PO 02/22/25 22:00 02/27/25 22:10 300 MG Hydralazine HCl 10 mg Q6HP PRN IV 02/26/25 20:45 02/26/25 22:33 10 MG Morphine Sulfate 1 mg Q4HPRN PRN IV 02/27/25 14:45 03/02/25 03:58 1 MG Meropenem 50 ml @ 17 mls/hr Q12HR IV 03/01/25 10:00 03/02/25 10:37 17 MLS/HR Lactulose 300 ml DAILY MA 03/01/25 10:00 03/01/25 10:32 300 ML Amiodarone HCl 250 ml @ 16.66 mls/ hr Q15H1M IV 03/01/25 19:15 03/02/25 02:16 16.66 MLS/HR Phenylephrine HCl 80 mg/Sodium Chloride 250 ml @ 7.5 mls/hr Q24H IV 03/01/25 13:30 Norepinephrine Bitartrate 32 mg/ Sodium Chloride 250 ml @ 0.938 mls/ hr Q24H IV 03/01/25 13:30 03/02/25 13:04 10.313 MLS/HR Hydrocortisone Sodium Succinate 100 mg Q8HR IV 03/01/25 15:00 03/02/25 06:14 100 MG Amino Acids 0 ml @ 0 mls/hr PER PHARMACY IV 03/01/25 15:30 Amino Acids/ Electrolytes/ Dextrose 1,000 ml @ 41 mls/hr DAILY@2200 IV 03/01/25 22:00 03/01/25 23:39 41 MLS/HR Diagnostic Test (Pha) 1 strip Q6HR 03/02/25 00:00 03/02/25 12:28 1 STRIP Insulin Human Regular FOLLOW SLIDING SCALE Q6HR SC 03/02/25 00:00 03/02/25 12:35 4 UNITS Dextrose 50 ml UD IV 03/01/25 22:00 Levofloxacin 50 ml @ 50 mls/hr DAILY IV 03/02/25 10:00 UNV Levofloxacin/ Dextrose 100 ml @ 100 mls/hr DAILY IV 03/02/25 10:00 UNV Heparin Sodium/ Dextrose 250 ml @ 13 mls/hr [id number] IV 03/02/25 10:30 objective Gen: Somnolent lungs: cta anteriorly cvs: no rub abd: soft, bowel sounds audible ext: + edema laboratory and microbiology Laboratory Tests 03/02/25 03:40 Test 03/02/25 03:40 Range/Units Serum Glucose 230 H 74-106 mg/dL Assessment/Plan Problem List/Assessment/Plan Acute kidney injury superimposed Chronic Kidney Disease stage IV secondary hemodynamic mediated, FENA >2% Portal vein thrombosis abdominal mass cirrhosis w/ ascites Hypokalemia Jaundice Bradycardia Mild hypernatremia Recommendation - given persistent oliguria that may be multifactorial, Mrs. Mcarthur is at high risk for further deterioration in kidney function Related to underlying hypotension/shock and multiorgan involvement. - we will repeat urine sodium, trial of loop diuretic IV push x1 dose and will reassess response. Dietary Evaluation Review Comments: Nutrition Recommendations: Encourage oral (PO) liquids and feedings as tolerated. Advance diet to 2-gram sodium, high-protein diet if patient accepts oral intake. If patient continues to refuse food: Consider initiating Total Parenteral Nutrition (TPN) for nutritional support. Alternatively, consider placement of a nasogastric (NG) tube for enteral feeding. Expected Outcomes/Goals: Provide adequate nutrition support by mouth, tube feeding or TPN Plan discussed with: Other JIM NICHOLSON MD Mar 02, 2025 15:06
--- NOTE | 2025-03-02 15:53 | DVHPN2 ---
Consult Progress Note Subjective Other Systems: Patient now in sinus tachycardia on cardiac sonographer (low 100's) Objective vital signs Vital Sign Date Time Temp Pulse Resp B/P (MAP) Pulse Ox O2 Delivery O2 Flow Rate FiO2 03/02/25 14:45 102 16 83/53 (63) 98 03/02/25 14:40 97.2 97.2 03/02/25 06:00 Nasal Cannula* 2 28 Total Intake and Output 03/01/25 03/01/25 03/02/25 14:59 22:59 06:59 Intake Total 235.71 ml 412.59 ml 619.28 ml Output Total 475 ml 450 ml Balance 235.71 ml -62.41 ml 169.28 ml medications Current Medications Medications Dose Ordered Sig/Zahraa Route Start Time Stop Time Status Last Admin Dose Admin Pantoprazole Sodium 40 mg BID IV 02/19/25 22:00 03/02/25 10:37 40 MG Metronidazole 100 ml @ 100 mls/hr Q8HR IV 02/19/25 22:00 03/02/25 15:02 100 MLS/HR Sodium Chloride 10 ml QSHIFT@10,22 IV 02/20/25 22:00 03/02/25 10:37 10 ML Promethazine HCl 25 mg Q4HP PRN PO 02/22/25 11:00 02/27/25 10:44 25 MG Enteral Nutritional Formula 240 ml TIDWM PO 02/22/25 18:00 02/27/25 18:00 240 ML Gabapentin 300 mg BID PO 02/22/25 22:00 02/27/25 22:10 300 MG Hydralazine HCl 10 mg Q6HP PRN IV 02/26/25 20:45 02/26/25 22:33 10 MG Morphine Sulfate 1 mg Q4HPRN PRN IV 02/27/25 14:45 03/02/25 03:58 1 MG Meropenem 50 ml @ 17 mls/hr Q12HR IV 03/01/25 10:00 03/02/25 10:37 17 MLS/HR Lactulose 300 ml DAILY AK 03/01/25 10:00 03/01/25 10:32 300 ML Amiodarone HCl 250 ml @ 16.66 mls/ hr Q15H1M IV 03/01/25 19:15 03/02/25 02:16 16.66 MLS/HR Phenylephrine HCl 80 mg/Sodium Chloride 250 ml @ 7.5 mls/hr Q24H IV 03/01/25 13:30 Norepinephrine Bitartrate 32 mg/ Sodium Chloride 250 ml @ 0.938 mls/ hr Q24H IV 03/01/25 13:30 03/02/25 13:04 10.313 MLS/HR Hydrocortisone Sodium Succinate 100 mg Q8HR IV 03/01/25 15:00 03/02/25 06:14 100 MG Amino Acids 0 ml @ 0 mls/hr PER PHARMACY IV 03/01/25 15:30 Amino Acids/ Electrolytes/ Dextrose 1,000 ml @ 41 mls/hr DAILY@2200 IV 03/01/25 22:00 03/01/25 23:39 41 MLS/HR Diagnostic Test (Pha) 1 strip Q6HR 03/02/25 00:00 03/02/25 12:28 1 STRIP Insulin Human Regular FOLLOW SLIDING SCALE Q6HR SC 03/02/25 00:00 03/02/25 12:35 4 UNITS Dextrose 50 ml UD IV 03/01/25 22:00 Levofloxacin 50 ml @ 50 mls/hr DAILY IV 03/02/25 10:00 UNV Levofloxacin/ Dextrose 100 ml @ 100 mls/hr DAILY IV 03/02/25 10:00 UNV Heparin Sodium/ Dextrose 250 ml @ 13 mls/hr [id number] IV 03/02/25 10:30 Examination: GENERAL:Abnormal, LUNGS:Normal, CVS:Abnormal (Generalized edema), SKIN:Abnormal (Jaundice), NEURO:Abnormal (Confused) laboratory and microbiology Laboratory Tests 03/02/25 03:40 Test 03/02/25 03:40 Range/Units Serum Glucose 230 H 74-106 mg/dL Problem List/Assessment/Plan Problem List/Assessment/Plan Supraventricular tachycardia status post unsuccessful DCCV, now NSR Junctional tachycardia, resolved Acute on chronic HFrEF, NHYA class III, ?ischemic CM Rule out acute DVT/PE Occlusive thrombus in left cephalic vein Portal vein thrombosis Nonalcoholic liver cirrhosis Esophageal varices (as per [facility] record) Ascites status post paracentesis x 2 (-4.2 L) Right upper lobe pulmonary nodule Small right apical pneumothorax Nodule within superior right renal pole Hyperkalemia, resolved GRACE on CKD Transaminitis Possible malignancy, ?duodenal mass Plan/Recommendations (Dr. Olsen): A transthoracic echocardiogram reveals an EF of 20-25% with severe global hypokinesis, anterior apical and inferior apical akinesis. Unable to initiate guideline directed medical therapy for CHF given that the patient is on vasopressor therapy. Patient went into SVT on 03/01/2025 and underwent an unsuccessful direct current cardioversion x2 (see full dictated report under procedures). The patient was initiated on low-dose amiodarone drip and is now currently in sinus tachycardia. We will recommend to discontinue amiodarone given LFTs trending up. Consider adenosine if patient goes back into SVT as this is a class 1 recommendation per guidelines. Consider direct current cardioversion if patient becomes unstable. Unable to initiate beta-blockers at this time given that the patient is on high dose vasopressor therapy. Replete electrolytes as necessary, K>4 and Mg >2. Transition to quad concentration Levophed and phenylephrine drips. Avoid dopamine drip or midodrine therapy. The patient is unable to swallow and has esophageal varices; thus there is no NGT in place. The patient prognosis is very poor. Primary care team had a long discussion with the patient's niece and her at bedside regarding code status. Thank you for allowing us to care for this patient. Please call with any questions or concerns. Critical care time: 40 min. This medical document was created using an electronic medical record system with voice recognition software and computerized dictation system. Although this document has been carefully reviewed, there might still be some phonetic and typographical errors. Occasional wrong-word or ``sound-alike substitutions may have occurred due to the inherent limitations of voice recognition software. These areas are purely typographical due to imperfections of the software programs and do not reflect any compromise in the patient's medical care. Please read the chart carefully and recognize, using context, where these substitutions have occurred. Plan discussed with: Patient, Other (Niece at bedside) Dietary Evaluation Review Comments: Nutrition Recommendations: Encourage oral (PO) liquids and feedings as tolerated. Advance diet to 2-gram sodium, high-protein diet if patient accepts oral intake. If patient continues to refuse food: Consider initiating Total Parenteral Nutrition (TPN) for nutritional support. Alternatively, consider placement of a nasogastric (NG) tube for enteral feeding. Expected Outcomes/Goals: Provide adequate nutrition support by mouth, tube feeding or TPN Date of Service: Mar 02, 2025 Billing Provider: GEOVANNY JAFFE Common Visit Codes: 07958-[id number] CARE 30-74 MIN GEOVANNY JAFFE Mar 02, 2025 15:53
--- NOTE | 2025-03-02 15:53 | DVHPN2 ---
Subjective Patient was seen and evaluated by me in the presence of bedside RN and at as well as patient's niece came and are has been. Patient is very lethargic and drowsy and vomiting that she wants to go home,. Her breathing was between 8-9. I asked her to breathing through the nose and she followed commands currently breathing is between 12-20. RT will be called in case patient needs face mask noninvasive respiration as well as may need intubation. I talked to came a Yonatan in the her they are leaning towards comfort care but they still need to have talked to the other siblings as other sibling might be not on the same page. Patient's liver functions are trending up including T with a up to 17, patient is getting obtunded she might need elective intubation. I talked to niece came and who dial the phone number for one of the family member who is a internus I talked to him in detail regarding current plan of care. He is requesting full code. Zuniga will be notified regarding any elective intubation if GI two. Family will get back to me if they decide regarding comfort care after discussion with the other siblings but right now patient is full code as every resuscitation has to be done. Patient's last night was on Clinimix because of poor oral intake, currently the Clinimix has been discontinued as per bedside RN. Patient will be placed on Clinimix/TPN. Changes from previous H/P or p: No Changes Objective Vitals Vital Signs Date Time Temp Pulse Resp B/P (MAP) Pulse Ox O2 Delivery O2 Flow Rate FiO2 03/02/25 12:35 97.4 101 17 114/60 97.4 03/02/25 10:45 95 03/02/25 06:00 Nasal Cannula* 2 28 Intake/Output Intake and Output 03/02/25 06:59 Intake Total 1267.58 ml Output Total 925 ml Balance 342.58 ml Intake Oral 0 ml IV Total 1267.58 ml Output Urine Total 550 ml Stool Total 375 ml Exam HEENT pupils are reactive , positive scleral icterus with a severe jaundice CVS S1-S2 tachycardia events to 120s to 130s Respiration very diminished at lung bases GI sluggish bowel sounds with a minimal positive ascites Extremities positive edema PRACTICE DIRECTOR very minimally following commands but very lethargic and drowsy. Medications Current Medications Medications Dose Ordered Sig/Zahraa Route Start Time Stop Time Status Last Admin Dose Admin Pantoprazole Sodium 40 mg BID IV 02/19/25 22:00 03/02/25 10:37 40 MG Metronidazole 100 ml @ 100 mls/hr Q8HR IV 02/19/25 22:00 03/02/25 15:02 100 MLS/HR Sodium Chloride 10 ml QSHIFT@10,22 IV 02/20/25 22:00 03/02/25 10:37 10 ML Promethazine HCl 25 mg Q4HP PRN PO 02/22/25 11:00 02/27/25 10:44 25 MG Enteral Nutritional Formula 240 ml TIDWM PO 02/22/25 18:00 02/27/25 18:00 240 ML Gabapentin 300 mg BID PO 02/22/25 22:00 02/27/25 22:10 300 MG Hydralazine HCl 10 mg Q6HP PRN IV 02/26/25 20:45 02/26/25 22:33 10 MG Morphine Sulfate 1 mg Q4HPRN PRN IV 02/27/25 14:45 03/02/25 03:58 1 MG Meropenem 50 ml @ 17 mls/hr Q12HR IV 03/01/25 10:00 03/02/25 10:37 17 MLS/HR Lactulose 300 ml DAILY [place] 03/01/25 10:00 03/01/25 10:32 300 ML Amiodarone HCl 250 ml @ 16.66 mls/ hr Q15H1M IV 03/01/25 19:15 03/02/25 02:16 16.66 MLS/HR Phenylephrine HCl 80 mg/Sodium Chloride 250 ml @ 7.5 mls/hr Q24H IV 03/01/25 13:30 Norepinephrine Bitartrate 32 mg/ Sodium Chloride 250 ml @ 0.938 mls/ hr Q24H IV 03/01/25 13:30 03/02/25 13:04 10.313 MLS/HR Hydrocortisone Sodium Succinate 100 mg Q8HR IV 03/01/25 15:00 03/02/25 06:14 100 MG Amino Acids 0 ml @ 0 mls/hr PER PHARMACY IV 03/01/25 15:30 Amino Acids/ Electrolytes/ Dextrose 1,000 ml @ 41 mls/hr DAILY@2200 IV 03/01/25 22:00 03/01/25 23:39 41 MLS/HR Diagnostic Test (Pha) 1 strip Q6HR 03/02/25 00:00 03/02/25 12:28 1 STRIP Insulin Human Regular FOLLOW SLIDING SCALE Q6HR SC 03/02/25 00:00 03/02/25 12:35 4 UNITS Dextrose 50 ml UD IV 03/01/25 22:00 Levofloxacin 50 ml @ 50 mls/hr DAILY IV 03/02/25 10:00 UNV Levofloxacin/ Dextrose 100 ml @ 100 mls/hr DAILY IV 03/02/25 10:00 UNV Heparin Sodium/ Dextrose 250 ml @ 13 mls/hr [id number] IV 03/02/25 10:30 Laboratory Results Laboratory Tests 03/02/25 03:40 Chemistry Test 03/02/25 03:40 Albumin 2.8 g/dL (3.2-4.8) L Calcium Level 8.1 mg/dL (8.7-10.4) L Magnesium Level 2.1 mg/dL (1.6-2.6) Phosphorus Level 4.8 mg/dL (2.4-5.1) Total Protein 4.1 g/dL (5.7-8.2) L Coagulation Test 03/01/25 22:24 03/02/25 08:30 Prothrombin Time 28.5 sec (9.3-11.8) H 44.4 sec (9.3-11.8) H Prothrombin Time INR 3.00 (0.9-1.15) H 4.9 (0.9-1.15) *H Activated Partial Thromboplast Time 20.9 SEC (24.5-34.5) L > 139.0 SEC (24.5-34.5) *H LFT Test 03/02/25 03:40 Alanine Aminotransferase (ALT) 128 U/L (7-40) H Alkaline Phosphatase 595 U/L (46-116) H Aspartate Amino Transferase (AST) 121 U/L (13-40) H Total Bilirubin 17.1 mg/dL (0.2-1.0) H Urinalysis Test 02/18/25 02:57 Urine Color Yellow (Yellow) Urine Clarity Clear (Clear) Urine pH 5.0 (5.0-9.0) Urine Specific [place] 1.020 (1.001-1.035) Urine Protein 1+ (Negative) H Urine Ketones Negative (Negative) Urine Blood Trace /uL (Negative) H Urine Nitrite Negative (Negative) Urine Bilirubin Negative (Negative) Urine Urobilinogen Normal mg/dL (Negative) Urine Leukocyte Esterase Negative /uL (Negative) Urine RBC 3 /hpf (0 - 4) Urine Microscopic WBC 7 /HPF (0-5) H Urine Squamous Epithelial Cells Few /hpf (<5) Urine Bacteria Few /hpf (None Seen) H Urine Hyaline Casts Few /lpf (0 - 2) Urine Yeast (Budding) Occasional /hpf (None Urine Creatinine 159.83 mg/dL (30.0-125.0) H Urine Protein/Creatinine Ratio 0.54 Urine Sodium 64 mmol/L (40-220) Urine Glucose Normal mg/dL (Normal) Urine Total Protein 87.1 mg/dL (1-14) H Blood Gas Results Test 03/02/25 10:52 Arterial Blood pH 7.380 (7.350-7.450) FiO2 % 28.0 Microbiology Microbiology Date/Time Source Procedure Growth Status 02/28/25 13:33 Blood Blood Culture - Preliminary NO GROWTH AFTER 48 HOURS OF INCUBATION. Resulted 02/25/25 12:20 Ascities Fluid Gram Stain - Final Complete 02/25/25 12:20 Ascities Fluid Body Fluid Culture - Final Complete 02/19/25 12:57 Urine - [place] Urine Culture - Final Enterococcus faecalis Complete 02/17/25 15:45 Nose MRSA Screen - Final Complete Assessment/Plan Assessment/Plan 79-year-old female with a known history of hypertension, dyslipidemia, recent diagnosis of liver cirrhosis, portal vein thrombosis currently on anticoagulation presented to the hospital with the abdominal pain found to have 1. Acute hypoxic respiratory failure requiring O2 supplementation with a respiration rate , continue O2 supplementation may need elective intubation complaining of 2. End-stage liver disease with the liver cirrhosis status post paracentesis x2 3. Elevated leukocytosis suspect secondary to hydrocortisone induced and maybe underlying sepsis secondary to UTI with a Enterococcus faecalis 4. Suspected spontaneous bacterial peritonitis, on meropenem and Flagyl 5. Hypotension requiring IV Levophed 6. SVT status post cardioversion currently on IV amiodarone drip 7. Oral intake for last few days currently on verbal worse Clinimix overnight we will continue Clinimix/TPN. 8. Secondary coagulopathy secondary to liver disease 9. Leukocytosis likely hydrocortisone induced underlying sepsis can not be excluded, blood culture negative to date 10. Urinary tract infection with a Enterococcus faecalis 11. Portal vein thrombosis currently on heparin drip 12. AKA suspect hemodynamically mediated with a underlying CKD 13. Severe protein calorie malnutrition 1. Acute hyperkalemia suspect triamterene induced, improved 2. Acute kidney injury with a possible hepatorenal syndrome currently improving 3. Hypotension requiring Levophed, upgraded to D OU 4. Portal vein thrombosis 5. Liver cirrhosis with a ascites status post paracentesis1, repeat2 paracentesis on 02/25(4200 ml) 6. SVT status post electrical cardioversion. 7. Secondary Coagulopathy due to liver disease -continue Clinimix, continue IV antibiotics, aspiration and fall precautions -continue amiodarone drip, heparin drip -patient's remains critical paroxysmal guarded. Talked to family member including came and her at bedside they will talked with the other siblings regarding further decision regarding comfort care versus full code -currently patient is full code and continue aggressive management. We will follow up Pulmonary, GI, Nephrology recommendations. Plan discussed with: Other (Patient's niece came and her at bedside also talked to one of the internists who has a family member on the phone and updated regarding current critical condition and may need elective intubation.) My Orders Orders - WM ARANGO MD Procedure Category Date Status Time * Nursing Program Director CONS 03/01/25 Transmitted Consult Chest Portable XY 03/02/25 Resulted 05:00 Date of Service: Mar 02, 2025 Billing Provider: WM ARANGO MD Common Visit Codes: NOT BILLABLE WM ARANGO MD Mar 02, 2025 15:53
[2025-03-02] MEDS: BUMETANIDE 2.5mg/10ml (0.25 mg/ml) INJ IV ONE (17:40)
[2025-03-02] MEDS: BUMETANIDE INJECTION 10 ML ONE (17:44)
[2025-03-02 18:09] LABS: INR 2.63 (0.9-1.15); Partial Thromboplastin Time 39.2 SEC (24.5-34.5); Prothrombin Time 25.3 sec (9.3-11.8)
--- NOTE | 2025-03-02 19:50 | DVH ---
ULTRASOUND ABDOMEN: REASON FOR EXAM: evaluate common bile duct biliary tree TECHNIQUE: Real-time sector scans in the transverse and longitudinal planes were obtained through the abdomen. FINDINGS: The liver demonstrates coarse echotexture. The liver is echogenic. The liver appears somewhat nodular, suggestive of cirrhosis. The portal vein is not well visualized. There is no intrahepatic biliary ductal dilatation. The gallbladder is surgically absent. The visualized portion of the pancreas is unremarkable. The right kidney measures 9.5 cm. There is no hydronephrosis or nephrolithiasis. There is no evidence of focal renal mass or cyst. The visualized portions of the abdominal aorta demonstrate no evidence of aneurysmal dilatation. The visualized inferior vena cava is unremarkable. There is a small amount of ascites throughout the abdomen. IMPRESSION: Echogenic, coarse liver with somewhat nodular appearance suggestive of cirrhosis. Small amount of ascites throughout the abdomen. No intrahepatic biliary dilation identified. The common bile duct is not seen. Prior cholecystectomy.
[2025-03-02] MEDS: NOREPINEPHRINE BITARTRATE 32 MG in SODIUM CHL 0.9% 218 ML IV SCH (21:28)
[2025-03-02] MEDS: OCTREOTIDE ACETATE 100 MCG/ML VL SUBCUT SCH (21:29)
--- NOTE | 2025-03-02 22:02 | DVHPN2 ---
Progress Note - Dictate Date Seen: Mar 02, 2025 Medical Necessity Reason Pt with a Central, PICC or Fol: Yes The following are medically ne: Zacarias Catheter Reason for zacarias catheter: Strict I&O Subjective Patient seen and examined at bedside. On supplemental oxygen Overnight events reviewed. vital signs Vital Sign Date Time Temp Pulse Resp B/P (MAP) Pulse Ox O2 Delivery O2 Flow Rate FiO2 03/02/25 21:17 116 16 138/90 03/02/25 18:45 98 03/02/25 18:00 Nasal Cannula* 2 28 03/02/25 16:15 98.1 98.1 Total Intake and Output 03/01/25 03/01/25 03/02/25 15:00 23:00 07:00 Intake Total 299.43 ml 402.28 ml 639.62 ml Output Total 475 ml 450 ml Balance 299.43 ml -72.72 ml 189.62 ml medications Current Medications Medications Dose Ordered Sig/Zahraa Route Start Time Stop Time Status Last Admin Dose Admin Pantoprazole Sodium 40 mg BID IV 02/19/25 22:00 03/02/25 21:26 40 MG Sodium Chloride 10 ml QSHIFT@10,22 IV 02/20/25 22:00 03/02/25 21:30 10 ML Promethazine HCl 25 mg Q4HP PRN PO 02/22/25 11:00 02/27/25 10:44 25 MG Enteral Nutritional Formula 240 ml TIDWM PO 02/22/25 18:00 02/27/25 18:00 240 ML Gabapentin 300 mg BID PO 02/22/25 22:00 02/27/25 22:10 300 MG Hydralazine HCl 10 mg Q6HP PRN IV 02/26/25 20:45 02/26/25 22:33 10 MG Morphine Sulfate 1 mg Q4HPRN PRN IV 02/27/25 14:45 03/02/25 20:47 1 MG Meropenem 50 ml @ 17 mls/hr Q12HR IV 03/01/25 10:00 03/02/25 21:27 17 MLS/HR Lactulose 300 ml DAILY [place] 03/01/25 10:00 03/01/25 10:32 300 ML Amiodarone HCl 250 ml @ 16.66 mls/ hr Q15H1M IV 03/01/25 19:15 03/02/25 18:41 16.66 MLS/HR Phenylephrine HCl 80 mg/Sodium Chloride 250 ml @ 7.5 mls/hr Q24H IV 03/01/25 13:30 Hydrocortisone Sodium Succinate 100 mg Q8HR IV 03/01/25 15:00 03/02/25 21:26 100 MG Amino Acids 0 ml @ 0 mls/hr PER PHARMACY IV 03/01/25 15:30 Amino Acids/ Electrolytes/ Dextrose 1,000 ml @ 41 mls/hr DAILY@2200 IV 03/01/25 22:00 03/02/25 21:58 41 MLS/HR Diagnostic Test (Pha) 1 strip Q6HR 03/02/25 00:00 03/02/25 17:57 1 STRIP Insulin Human Regular FOLLOW SLIDING SCALE Q6HR SC 03/02/25 00:00 03/02/25 18:50 2 UNITS Dextrose 50 ml UD IV 03/01/25 22:00 Levofloxacin 50 ml @ 50 mls/hr DAILY IV 03/02/25 10:00 UNV Levofloxacin/ Dextrose 100 ml @ 100 mls/hr DAILY IV 03/02/25 10:00 UNV Octreotide Acetate 100 mcg TID SUBCUT 03/02/25 22:00 03/02/25 21:29 100 MCG Ondansetron HCl 4 mg Q6HPRN PRN IV 03/02/25 17:15 Norepinephrine Bitartrate 32 mg/ Sodium Chloride 250 ml @ 0.938 mls/ hr Q24H IV 03/02/25 21:00 03/02/25 21:28 11.484 MLS/HR Heparin Sodium/ Dextrose 250 ml @ 13 mls/hr [id number] IV 03/02/25 21:15 03/02/25 21:23 13 MLS/HR objective Gen.: Patient lying in bed in no apparent distress. On supplemental oxygen. Head: Normocephalic, atraumatic. Eyes: EOMI/PERRLA. Ears: Normal hearing. Normal anatomy. Neck/trachea: Trachea midline, supple. Nose: Normal external anatomy. Mouth: Moist mucous membranes. Chest: Decreased air entry bilaterally. No wheezing or rhonchi. Cardiovascular: Positive S1, positive S2. Regular rate and rhythm. Abdomen: Positive bowel sounds in all 4 quadrants. Soft, non-tender, non- distended. : Deferred. Rectal: Deferred. Skin: Warm, dry. Intact. Extremities: 2+ radial pulses bilaterally. No lower extremity edema. Neuro: Awake, alert, oriented x3. No gross motor or sensory deficits. Cranial nerves II through XII intact. Gait not assessed. laboratory and microbiology Laboratory Tests 03/02/25 20:45 03/02/25 03:40 Test 03/02/25 03:40 Range/Units Serum Glucose 230 H 74-106 mg/dL Assessment/Plan Impression: Pleural effusions Atelectasis Coagulopathy Ascites Events: Remains on supplemental oxygen 2 LPM NC Taper O2 as tolerated Patient was upgraded to ICU due to SVT S/p shock CXR today reveals small right apical pneumothorax. ABG reviewed, compensated. Metabolic acidosis with respiratory compensation. Limited chest ultrasound shows no lung sliding in second/third intercostal space. Family agreed for chest tube placement if necessary Advance directives and goals of care discussed. Head of bed elevation Aspiration precautions. Pressors for hemodynamic support On Levophed 26 mcg/min. Titrate to keep MAP above 65 mmHg/SBP above 90 mmHg. Cardiology recs appreciated. Echocardiogram reviewed; EF of 20-25% with severe global hypokinesis, anterior apical and inferior apical akinesis. Continue steroids Continue antibiotics Incentive spirometry Eliquis PO BID Limited abdominal ultrasound revealed moderate amount of ascites. Patient is s/p paracentesis on 02/25/25 with 4200 ml removed We will monitor for recurrence of ascites Monitor blood pressure. Monitor renal function Monitor electrolytes, supplement as necessary Maintain euvolemia Nephrology recs appreciated. GI recommendations appreciated Protonix for GI ppx Continue lactulose Rectal tube in place. Pain control Avoid oversedation Patient is hemodynamically stable. Poor prognosis. Labs and imaging reviewed. Rest of plan as noted below. Plan: Supplemental oxygen Titrate to keep O2 sats above 92%. Pressors for hemodynamic support Titrate to keep MAP above 65 mmHg/SBP above 90 mmHg. Monitor blood pressure Continue bronchodilators PRN. Stress dose steroids Continue antibiotics Incentive spirometry Protonix BID for GI ppx Diurese to euvolemia Monitor renal function. Monitor electrolytes. Supplement as necessary. Monitor ins and outs. Zacarias for strict ins and outs Monitor hemoglobin Transfuse if less than 7.0 g/dL. GI/DVT prophylaxis. Prognosis: Poor given patient's multiple co-morbidities. Condition: Critical Rest of plan per hospitalist and other consultants. A total of 35 minutes of critical care time was spent reviewing the patient record, examining the patient, making a diagnostic and therapeutic plan, discussing this plan with the medical personnel, following up on diagnostic studies and following the patient for clinical stability excluding any and all procedures. At least 50% of this time was spent in direct, [id number] contact. Thank you, Dr. Heaton, for allowing me to participate in this patient's care. Further recommendations will depend on the patient's clinical course. Please do not hesitate to contact me if you have any questions or concerns. This medical document was created using an electronic medical record system with [employer] dictation system. Although these documentations are being carefully reviewed, there may still be some phonetic and typographical changes. The errors are purely typographical, due to imperfection on the software program, and do not reflect any compromise in the patient's medical care. Dietary Evaluation Review Comments: Nutrition Recommendations: Encourage oral (PO) liquids and feedings as tolerated. Advance diet to 2-gram sodium, high-protein diet if patient accepts oral intake. If patient continues to refuse food: Consider initiating Total Parenteral Nutrition (TPN) for nutritional support. Alternatively, consider placement of a nasogastric (NG) tube for enteral feeding. Expected Outcomes/Goals: Provide adequate nutrition support by mouth, tube feeding or TPN Plan discussed with: Other (GIANA Goodson) Critical Care Time(min): 35 FAVIOLA STOKES Mar 02, 2025 22:02
[2025-03-02] MEDS: VASOPRESSIN 20 UNITS in SODIUM CHL 0.9% 99 ML IV SCH (23:33)
[2025-03-03] VITALS (52 sets, daily range): BP systolic 26–95; BP diastolic 11–55; PULSE 52–124; RESP 4–29; TEMP 96.9–97; O2SAT 44–99
[2025-03-03] MEDS: ONDANSETRON HCL 4 MG/2 ML VIAL IV PRN (00:03)
[2025-03-03] MEDS: EPINEPHrine HCL 250 ML IV ONE (00:30)
[2025-03-03] MEDS: EPINEPHrine HCL INJECTION 16 MG in D5W 5% 234 ML IV SCH (00:56)
[2025-03-03 01:49] LABS: Base Excess -15.2 mmol/L (-2.0-3.0)
[2025-03-03] MEDS: DOPamine 1600MCG/ML D5W 250 ML IV SCH (02:06)
[2025-03-03] MEDS: SODIUM BICARB 8.4% 50Meq/50ml SYR INJ ONE (02:07)
[2025-03-03] MEDS: DOPamine 1600MCG/ML D5W 250 ML IV ONE (02:07)
[2025-03-03] MEDS: SODIUM BICARB 8.4% 50Meq/50ml SYR Vial IV ONE (02:08)
[2025-03-03] MEDS ORDERED: PROCHLORPERAZINE EDISYLATE 5 MG/ML 2ML VIAL IV ONE (02:15)
[2025-03-03 03:12] LABS: Base Excess -12.6 mmol/L (-2.0-3.0)
[2025-03-03 04:25] LABS: Anion Gap 28 (5-15); Magnesium 2.4 mg/dL (1.6-2.6); Potassium 4.5 mmol/L (3.5-5.1)
[2025-03-03 04:36] LABS: Alanine Aminotransferase 173 U/L (7-40); Albumin 2.4 g/dL (3.2-4.8); Alkaline Phosphatase 388 U/L (46-116); Bilirubin, Total 16.8 mg/dL (0.2-1.0); Blood Urea Nitrogen 84 mg/dL (9-23); Calcium 7.7 mg/dL (8.7-10.4); Carbon Dioxide 13 mmol/L (20-31); Chloride 110 mmol/L (98-107); Glucose 203 mg/dL (74-106); Sodium 151 mmol/L (136-145)
[2025-03-03 04:38] LABS: BUN/Creatinine Ratio 32.2 (10.0-20.0); Total Protein 3.4 g/dL (5.7-8.2)
[2025-03-03 04:56] LABS: Prothrombin Time 45.0 sec (9.3-11.8)
[2025-03-03 05:00] LABS: INR 4.98 (0.9-1.15)
[2025-03-03 05:20] LABS: Hemoglobin 8.3 g/dL (12.2-16.2)
[2025-03-03 05:21] LABS: Hematocrit 26.0 % (36.0-46.0); Mean Corpuscular Hemoglobin 30.4 pg (28.0-32.0); Mean Corpuscular Volume 95.9 fL (80.0-100.0)
[2025-03-03 07:00] LABS: Nucleated Red Blood Cells % 5.0 %; Total Cells Counted 100.0 (100)
[2025-03-03 07:01] LABS: Anisocytosis Moderate
--- NOTE | 2025-03-03 07:22 | DVHINCON2 ---
Date of service: Mar 02, 2025 Family History: Patient reports no known family medical history. Allergies: Coded Allergies: Penicillins (Verified Allergy, Unknown, 02/17/25) Current Medications Current Medications Medications (Trade) Dose Ordered Sig/Zahraa Route PRN Reason Start Time Stop Time Status Last Admin Levofloxacin 50 ml @ 50 mls/hr DAILY IV 03/02/25 10:00 UNV Levofloxacin/ Dextrose 100 ml @ 100 mls/hr DAILY IV 03/02/25 10:00 UNV Heparin Sodium/ Dextrose 250 ml @ 13 mls/hr [id number] IV 03/02/25 10:30 03/02/25 21:12 DC Octreotide Acetate (SandoSTATIN) 100 mcg TID SUBCUT 03/02/25 22:00 03/03/25 05:34 Ondansetron HCl (Zofran) 4 mg Q6HPRN PRN IV NAUSEA / VOMITING 03/02/25 17:15 03/03/25 00:03 Norepinephrine Bitartrate 32 mg/ Sodium Chloride 250 ml @ 0.938 mls/ hr Q24H IV 03/02/25 21:00 03/02/25 21:28 Heparin Sodium/ Dextrose 250 ml @ 13 mls/hr [id number] IV 03/02/25 21:15 03/02/25 21:23 Vasopressin 20 units/Sodium Chloride 100 ml @ 9 mls/hr [id number] IV 03/02/25 23:00 03/03/25 06:53 Epinephrine HCl 16 mg/Dextrose 250 ml @ 1.875 mls/ hr Q24H IV 03/03/25 00:30 03/03/25 00:56 Dopamine HCl/ Dextrose 250 ml @ 13.688 mls/ hr [id number] IV 03/03/25 02:00 03/03/25 02:06 Vital Signs Vital Signs Date Time Temp Pulse Resp B/P (MAP) Pulse Ox O2 Delivery O2 Flow Rate FiO2 03/03/25 06:53 0/0 03/03/25 06:00 15 Nasal Cannula* 3 32 03/03/25 06:00 78 03/03/25 04:26 85 03/03/25 00:02 97.0 97.0 Labs/Diagnostic Data Labs Test 03/03/25 05:30 03/03/25 04:41 03/03/25 03:59 03/03/25 03:02 Range/Units POC Glucose 155 H 70-106 mg/dl White Blood Count 31.0 *H 4.4-10.8 10^3/uL Red Blood Count 2.71 L 4.0-5.20 10^6/uL Hemoglobin 8.3 #L 12.2-16.2 g/dL Hematocrit 26.0 #L 36.0-46.0 % Mean Corpuscular Volume 95.9 # 80.0-100.0 fL Mean Corpuscular Hemoglobin 30.4 28.0-32.0 pg Mean Corpuscular Hemoglobin Concent 31.8 L 32.0-36.0 g/dL Red Cell Distribution Width 24.2 H 11.8-14.3 % Platelet Count 151 140-450 10^3/uL Mean Platelet Volume 10.8 6.9-10.8 fL Neutrophils (%) (Auto) 37.0-80.0 % Lymphocytes (%) (Auto) 10.0-50.0 % Monocytes (%) (Auto) 0.0-12.0 % Basophils (%) (Auto) 0.0-2.0 % Neutrophils # (Auto) 1.6-8.6 10 ^3/uL Lymphocytes # (Auto) 0.4-5.4 10 ^3/uL Monocytes # (Auto) 0-1.3 10 ^3/uL Nucleated Red Blood Cells % Prothrombin Time 45.0 H 9.3-11.8 sec Prothrombin Time INR 4.98 *H 0.9-1.15 Sodium Level 151 #H 136-145 mmol/L Potassium Level 4.5 3.5-5.1 mmol/L Chloride Level 110 H 98-107 mmol/L Carbon Dioxide Level 13 L 20-31 mmol/L Anion Gap 28 H 5-15 Blood Urea Nitrogen 84 *H 9-23 mg/dL Creatinine 2.61 H 0.550-1.02 mg/dL Glomerular Filtration Rate Calc 18 >90 mL/min BUN/Creatinine Ratio 32.2 H 10.0-20.0 Serum Glucose 203 H 74-106 mg/dL Calcium Level 7.7 L 8.7-10.4 mg/dL Phosphorus Level 6.1 H 2.4-5.1 mg/dL Magnesium Level 2.4 1.6-2.6 mg/dL Total Bilirubin 16.8 H 0.2-1.0 mg/dL Aspartate Amino Transferase (AST) 364 H 13-40 U/L Alanine Aminotransferase (ALT) 173 H 7-40 U/L Alkaline Phosphatase 388 H 46-116 U/L Total Protein 3.4 L 5.7-8.2 g/dL Albumin 2.4 L 3.2-4.8 g/dL Blood Gas Specimen Type Arterial Blood Gas Sample Site Right radial Blood Gas Patient Temperature 37.0 Arterial Blood Date Drawn Arterial Blood pH 7.337 L 7.350-7.450 Arterial Blood Partial Pressure CO2 22.3 L 32.0-45.0 mmHg Arterial Blood Partial Pressure O2 90.8 83.0-108.0 mmHg Arterial Blood HCO3 11.7 L 21.0-28.0 mmol/L Arterial Blood Oxygen Saturation 94.6 94.0-98.0 % Arterial Blood Base Excess -12.6 L -2.0-3.0 mmol/L Arterial Blood Oxyhemoglobin 93.2 L 94.0-98.0 % Arterial Blood Carboxyhemoglobin 0.9 0.5-1.5 % Arterial Blood Methemoglobin 0.6 0.0-1.5 % Arterial Blood Deoxyhemoglobin 5.3 H 0.0-5.0 % Sebastian Test Modified Blood Gas Total Hemoglobin 9.30 L 12.0-16.0 g/dL Blood Gas Liter Flow 3.00 Blood Gas Modality Nasal cannula FiO2 % 32.0 Test 03/03/25 01:36 03/02/25 18:40 03/02/25 17:48 03/02/25 08:30 Range/Units Blood Gas Critical Value Read Back Yes Blood Gas Notified Whom toña Dykes, arvin Blood Gas Notified Time [id number] Blood Gas Notified By jonathan Danielle, protection specialist Urine Creatinine 51.16 30.0-125.0 mg/dL Urine Sodium < 10 L 40-220 mmol/L Activated Partial Thromboplast Time 39.2 H 24.5-34.5 SEC Lactic Acid Level 4.1 *H 0.4-2.0 mmol/L Test 03/02/25 03:40 03/01/25 13:20 02/25/25 12:20 02/24/25 02:39 Range/Units Anisocytosis (manual) Slight Ammonia 69 H 11-32 umol/L Eosinophils (%) (Auto) 0.0 0.0-7.0 % Eosinophils # (Auto) 0 0-0.8 10 ^3/uL Basophils # (Auto) 0 0-0.2 10 ^3/uL Body Fluid Source Peritoneal fluid Body Fluid pH 8.0 Body Fluid WBC (Manual) 192 0-200 CUMM Body Fluid RBC (Manual) 5074 H 0-2000 CUMM Body Fluid Mononuclear Cells 65 % Body Fluid Polymorphonuclear Cells 35 H 0-25 % Body Fluid Glucose 172 . mg/dL Body Fluid Total Protein 0.9 . g/dL Body Fluid Lactate Dehydrogenase 26 . IU/L Direct Bilirubin 6.4 H <0.3 mg/dL Free Thyroxine (T4) Calculated 0.73 L 0.89-1.76 ng/dL Free Triiodothyronine (T3) pg/mL 1.79 L 2.3-4.2 pg/mL Test 02/23/25 02:50 02/20/25 17:35 02/20/25 02:47 02/20/25 00:22 Range/Units Hemoglobin A1c 4.6 <5.7 % A1C Triglycerides Level 123 < 150 mg/dL Cholesterol Level 149 < 200 mg/dL LDL Cholesterol 100 H < 100 mg/dL HDL Cholesterol 6 L 40-59 mg/dL Thyroid Stimulating Hormone (TSH) 0.16 L 0.55-4.78 uIU/mL Vitamin D 25-Hydroxy 52.1 30.0-100 ng/mL Anti-Nuclear Antibody Screen Negative Negative Hepatitis A IgM Antibody Negative Hepatitis A Antibody Total Negative Negative Hepatitis B Surface Antigen Negative Negative Hepatitis B Surface Antibody Negative Negative Hepatitis B Core Total Antibody Negative Negative Hepatitis B Core IgM Antibody Negative Negative Hepatitis C Antibody Negative Negative Parathyroid Hormone (Intact) 85.0 H 18.4-80.1 pg/mL Test 02/18/25 02:57 02/16/25 23:57 Range/Units Urine Color Yellow Yellow Urine Clarity Clear Clear Urine pH 5.0 5.0-9.0 Urine Specific [place] 1.020 1.001-1.035 Urine Protein 1+ H Negative Urine Ketones Negative Negative Urine Blood Trace H Negative /uL Urine Nitrite Negative Negative Urine Bilirubin Negative Negative Urine Urobilinogen Normal Negative mg/dL Urine Leukocyte Esterase Negative Negative /uL Urine RBC 3 0 - 4 /hpf Urine Microscopic WBC 7 H 0-5 /HPF Urine Squamous Epithelial Cells Few <5 /hpf Urine Bacteria Few H None Seen /hpf Urine Hyaline Casts Few 0 - 2 /lpf Urine Yeast (Budding) Occasional None Seen /hpf Urine Protein/Creatinine Ratio 0.54 Urine Glucose Normal Normal mg/dL Urine Total Protein 87.1 H 1-14 mg/dL Lipase 25 12-53 U/L Microbiology Date/Time Source Procedure Growth Status 02/28/25 13:33 Blood Blood Culture - Preliminary NO GROWTH AFTER 48 HOURS OF INCUBATION. Resulted 02/25/25 12:20 Ascities Fluid Gram Stain - Final Complete 02/25/25 12:20 Ascities Fluid Body Fluid Culture - Final Complete 02/19/25 12:57 Urine - [place] Urine Culture - Final Enterococcus faecalis Complete 02/17/25 15:45 Nose MRSA Screen - Final Complete Problems(with codes): (1) Hyperkalemia (2) Acute renal failure (3) Liver cirrhosis (4) Ascites (5) Pleural effusion (6) Spontaneous bacterial peritonitis (7) Adenoma (8) UTI (urinary tract infection) due to Enterococcus (9) Decompensated cirrhosis (10) Shock (11) Hepatorenal failure Plan/Recommendation ASSESSMENT AND PLAN: ID Problem List: \-- 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 \-- Portal vein thrombosis (diagnosed December 2024) \-- Spontaneous bacterial peritonitis (SBP) / concern for secondary bacterial peritonitis after recent jejunal polypectomy \-- Septic shock with mixed hypovolemic/vasodilatory physiology; immunocompromised host (advanced cirrhosis) \-- Hepatorenal failure / GRACE on CKD \-- Hyperammonemia \-- Hypernatremia \-- Hyperkalemia (K 7 on presentation) \-- Anemia \-- Thrombocytopenia and platelet dysfunction (from liver disease and uremia) \-- Enterococcus urinary tract infection \-- Right apical pneumothorax (~30% volume) \-- Small bilateral pleural effusions with bibasilar atelectasis \-- Right lung pulmonary nodule (2.6 cm, per CT) \-- 4.1 cm peripherally enhancing calcified soft-tissue nodule at right renal pole \-- Hypertension \-- Hyperlipidemia \-- Congestive heart failure \-- History of cystectomy \-- Penicillin allergy Assessment: This is a 74 y.o. 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 She presented with weakness, abdominal distension, severe hyperkalemia (K 7), and acute kidney injury (Cr 1.93). She underwent paracentesis with 1.8 L ascitic fluid removed; fluid was consistent with spontaneous bacterial peritonitis and she was started on levofloxacin and metronidazole. She became hypotensive and was escalated from levofloxacin to meropenem. Bilirubin has continued to rise (now total bilirubin 16.8). She is now in decompensated liver failure with large-volume ascites, hyperbilirubinemia, hyperammonemia, portal vein thrombosis, and evidence of hepatorenal failure (BUN 84, Cr 2.81) in the setting of advanced cirrhosis. Recent jejunal intervention raises concern for bacterial translocation and possible secondary bacterial peritonitis in an immunocompromised host. She has Enterococcus UTI and worsening leukocytosis with ongoing vasopressor requirements. Imaging reveals large-volume ascites, heterogeneous liver parenchyma (cirrhosis vs malignancy; MRCP unable to exclude CBD obstruction or malignancy), small daniel ateral pleural effusions with dependent atelectasis, a right apical pneumothorax (~30%), a right lung pulmonary nodule (2.6 cm), and a 4.1 cm peripherally enhancing calcified soft-tissue nodule at the right renal pole. She remains DNI, with goals of care allowing BiPAP and vasopressors only; overall prognosis is poor. Plan: \-- Presumed SBP / possible secondary bacterial peritonitis post?jejunal procedure in decompensated cirrhosis \-- Continue meropenem. \-- Broaden antimicrobial coverage from meropenem to meropenem plus mycophenem (drug name unclear in transcript; verify actual agent and dosing in MAY) due to worsening leukocytosis and increasing vasopressor needs, with the intention to cover: \-- Secondary bacterial peritonitis related to recent small bowel procedure and possible gut translocation. \-- Spontaneous bacterial peritonitis. \-- Enterococcus urinary tract infection. \-- If the patient further decompensates with new fevers and/or worsening abdominal pain, empirically add linezolid 600 mg PO/IV BID for possible resistant Enterococcus coverage in this immunocompromised host. \-- Continue close hemodynamic monitoring in collaboration with the intensive care team; maintain MAP ? 65 mmHg with vasopressors as needed. \-- Decompensated alcohol-related cirrhosis with portal vein thrombosis, large- volume ascites, hyperbilirubinemia, and concern for malignancy/CBD obstruction \-- Recognize advanced decompensation with total bilirubin 16.8 and heterogeneous liver on MRCP; malignancy and/or common bile duct obstruction cannot be excluded based on available imaging. \-- Continue GI/hepatology-directed management of decompensated cirrhosis and portal hypertension. \-- MRCP findings (large-volume ascites, heterogeneous hepatic signal; limited without post-contrast imaging) and potential biliary obstruction vs malignancy to be followed by GI as clinically appropriate. \-- Hepatorenal failure / GRACE on CKD; hypernatremia and prior hyperkalemia \-- Current labs: Na 151, BUN 84, Cr 2.81; earlier K 7 and Cr 1.93 at presentation. \-- Management of renal failure and associated electrolyte abnormalities per nephrology service. \-- Patient is unlikely to be a good dialysis candidate per treating team; defer to nephrology and [id number] discussions. \-- Shock (mixed hypovolemic/vasodilatory) in advanced cirrhosis \-- Continue vasopressor support under intensive care team guidance, targeting M AP ? 65 mmHg. \-- Consider addition of octreotide and somatostatin analogs to improve splanchnic vasoconstriction in the setting of cirrhosis and portal hypertension, per ICU/GI teams. \-- Maintain stress-dose steroids with hydrocortisone as initiated. \-- Right apical pneumothorax; small pleural effusions and atelectasis; right lung pulmonary nodule \-- Latest chest X-ray: ~30% right apical pneumothorax. \-- CT abdomen/pelvis: small right and left pleural effusions with dependent atelectasis; 2.6 cm right lung pulmonary nodule. \-- Management of pneumothorax, effusions, and pulmonary nodule per primary/power crane operator team. \-- Enterococcus urinary tract infection \-- Ensure current broad-spectrum regimen (meropenem plus additional agent per MAY) adequately covers Enterococcus. \-- Escalate to linezolid as above if decompensation or concern for resistant Enterococcus arises. \-- Coagulopathy, anemia, and thrombocytopenia with platelet dysfunction \-- Recognize multifactorial etiology: advanced liver disease, uremia (elevated BUN), and low platelet count from hepatic dysfunction; also post-procedural status. \-- Transfusion and hemostatic management per ICU/primary team and procedural needs. \-- Hypertension, hyperlipidemia, CHF, history of cystectomy \-- Chronic conditions noted; acute management priorities dominated by decompensated cirrhosis, shock, and multi?organ failure. \-- Continue/support chronic disease management as tolerated and as consistent with goals of care. \-- Goals of care \-- Patient is DNR/DNI. \-- Respiratory support limited to BiPAP (no intubation) and circulatory support with vasopressors. \-- Prognosis is described as poor; [id number] discussions are ongoing. Further ID interventions should be aligned with patient/family preferences and overall prognosis. Isolation Precautions: standard. Authorized and Performed by: etienne ramon Total critical care time: Approximately 76 minutes Due to a high probability of clinically significant, life threatening deterioration, the patient required my highest level of preparedness to intervene emergently and I personally spent this critical care time directly and personally managing the patient. This critical care time included obtaining a history; examining the patient; pulse oximetry; ordering and review of studies; arranging urgent treatment with development of a management plan; evaluation of patient's response to treatment; frequent reassessment; and, discussions with other providers. This critical care time was performed to assess and manage the high probability of imminent, life-threatening deterioration that could result in multi-organ failure. It was exclusive of separately billable procedures and treating other patients and teaching time. Assessment and plan were discussed with the treating team as summarized above. Plan is subject to change pending new clinical information and diagnostics. Updates may be added as an addendum to this note. Thank you for involving Infectious Diseases in the care of this patient. ID will continue to follow. Please contact Infectious Disease with any questions or concerns. Etienne Ramon M.D. [facility] Ph: ? Teams: [email or web address] Electronically signed by: Etienne Ramon MD, 03/02/2025 HISTORY: The patients chart and medications were reviewed in detail, and the patient was seen and examined. History is obtained from the patient and the medical record as reflected in the transcript. Melvina Santiago is a 74 y.o. 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 She presented with weakness, abdominal distension, hyperkalemia (potassium 7), and acute kidney injury (creatinine 1.93). She underwent paracentesis performed by Dr. Kelly, with 1.8 L of ascitic fluid removed; fluid analysis was consistent with spontaneous bacterial peritonitis. She was started on levofloxacin and metronidazole. Subsequently, she became hypotensive, and antimicrobial therapy was escalated from levofloxacin to meropenem. Despite therapy, bilirubin has continued to rise. Past medical history also includes hypertension, hyperlipidemia, and congestive heart failure. She has a history of cystectomy. She is allergic to penicillin and takes pantoprazole. She has been started on pantoprazole and hydrocortisone as stress-dose steroids during this admission. Over the past 24 hours, the patients code status was clarified to do?not?intubate. She is to receive BiPAP (non?invasive ventilation) and vasopressor support for hypotension as the maximal level of support. She is currently awake and alert. Vital signs documented in the transcript include temperature 98.7F, pulse 75, respiratory rate 15, blood pressure 117/68, and oxygen saturation 95% on room air. Lung exam reveals fair air movement with diminished breath sounds at the right lung base. Recent imaging includes chest X-ray demonstrating a right apical pneumothorax (~30% volume). MRCP shows large-volume ascites and heterogeneous signal throughout the liver; malignancy cannot be excluded, and the common bile duct is not well visualized, so CBD obstruction cannot be ruled out. Venous duplex ultrasound of the lower extremities shows no DVT. CT abdomen/pelvis shows small right and left pleural effusions with dependent atelectasis, cirrhotic liver with large-volume abdominopelvic ascites, a 2.6 cm right lung pulmonary nodule, and a 4.1 cm peripherally enhancing calcified soft-tissue attenuation nodule at the right renal pole. Recent laboratory data noted in the transcript include: sodium 151, BUN 84, cr eatinine 2.81, glucose 206, hemoglobin A1c 4.6, AST 388, total bilirubin 16.8 (rising), and ammonia 69. She is described as having decompensated liver failure secondary to alcoholism, with hepatorenal failure, GRACE on CKD, hyperammonemia, anemia, hyperbilirubinemia, hypernatremia, and platelet dysfunction (from elevated BUN and liver dysfunction). She has a recent enterococcus urinary tract infection. There is concern for gut translocation and secondary bacterial peritonitis following her recent small bowel procedure. Goals of care are ongoing; it is recognized that she is not likely to be a good dialysis candidate and that her overall prognosis is poor. REVIEW OF SYSTEMS: A full review of systems is not documented in the transcript. Based on the available information: -CONSTITUTIONAL: Weakness reported. Other constitutional symptoms not discussed in transcript. -HEENT: Not discussed. -RESPIRATORY: Diminished breath sounds at right lung base; right apical pneumothorax on imaging. Other respiratory symptoms not discussed. -CARDIOVASCULAR: Hypotension requiring pressor support is noted. Chest pain and palpitations not discussed. -GASTROINTESTINAL: Abdominal distension and ascites; SBP/possible secondary peritonitis. No additional GI symptoms described beyond those in History. -GENITOURINARY: Enterococcus UTI noted. Dysuria, frequency, or flank pain not otherwise discussed. -MUSCULOSKELETAL: Not discussed. -SKIN: Not discussed. -NEUROLOGICAL: Patient is awake and alert. Focal neurological symptoms not discussed. -PSYCHIATRIC: Mood and anxiety not discussed. PAST MEDICAL HISTORY: -Alcohol cirrhosis -Portal vein thrombosis (diagnosed December 2024) -Cirrhosis with hyperbilirubinemia -Hypertension -Hyperlipidemia -Congestive heart failure -Chronic kidney disease (CKD) with current GRACE/hepatorenal failure (per transcript) PAST SURGICAL HISTORY: -History of cystectomy (No additional surgical history provided in transcript.) HOME MEDICATIONS: From transcript (prior to or at admission): -Pantoprazole (dose and schedule not specified) (Other home medications are not provided in the transcript.) CURRENT INPATIENT MEDICATIONS ( MENTIONED IN TRANSCRIPT): -Meropenem (dose and schedule not specified) -Plan to broaden to meropenem plus mycophenem (drug name not clearly captured in transcript; verify in MAY) -Prior: levofloxacin and metronidazole (Flagyl) for initial SBP treatment -Pantoprazole -Hydrocortisone (stress-dose steroids) -Planned: linezolid 600 mg BID if further decompensation with concern for resistant Enterococcus (Additional medications, including vasopressors and supportive therapies, are implied but not detailed in the transcript.) ALLERGIES: -Penicillin (reaction not specified) FAMILY HISTORY: -Not provided in transcript. SOCIAL HISTORY: -Etiology of liver disease attributed to alcoholism. -Additional social history (tobacco, other substance use, living situation, occu pation) not provided in transcript. OBJECTIVE: Vital Signs (most recent in transcript): -Temp: 98.7 F -BP: 117/68 mmHg -Pulse: 75 bpm -Resp: 15/min -SpO?: 95% on room air Admission weight and BMI: Not provided in transcript. Physical Exam: General: NAD Neck: Supple. No masses. HEENT: PERRL. Normal lids and conjunctiva. Moist mucous membranes. Oropharynx without lesions, exudates or excessive erythema. Normal appearance of the external aspects of the nose and ears. Heart: Regular rhythm, normal rate. No murmur. No lower extremity edema. Lungs: Normal respiratory effort. Fair air movement. Diminished breath sounds at the right lung base. No wheezes. No crackles mentioned. Abdomen: Soft. Distended with ascites (per history). Non-tender (no tenderness described in transcript). Non-distended statement from default exam is replaced due to documented distension. No masses or abdominal hernia described. Msk: No digital cyanosis. Normal strength and tone in all 4 limbs (no focal deficits described). Skin: Warm and dry, no rashes noted in transcript. Neuro: Alert. No facial droop or slurred speech. Extra-ocular movements intact. Sensation intact to soft touch in all 4 limbs (no deficits described). Psych: Appropriate mood and affect not specifically described; patient is awake and alert and oriented to the extent implied by interaction. Lines: -Lines and access devices: Not specified in transcript. DIAGNOSTIC STUDIES: Available diagnostic data were reviewed as documented in the transcript. Significant findings are summarized below and/or addressed in the Assessment and Plan. Pertinent Laboratory Data (per transcript): -Sodium: 151 mmol/L -BUN: 84 mg/dL -Creatinine: 2.81 mg/dL (previously 1.93 mg/dL on presentation) -Potassium: 7.0 mmol/L on presentation -Glucose: 206 mg/dL -Hemoglobin A1c: 4.6% -AST: 388 U/L -Total bilirubin: 16.8 mg/dL, rising -Ammonia: 69 mol/L -Worsening leukocytosis noted (exact WBC not provided) (Additional laboratory values, cultures, and trends are not specified in the transcript.) PERTINENT IMAGING: -Chest X-ray (most recent): \-- Right apical pneumothorax approximately 30% in volume. -MRCP: \-- Large-volume ascites. \-- Heterogeneous signal throughout the liver, possibly related to cirrhosis. \-- Post-contrast imaging not available; malignancy cannot be excluded. \-- Common bile duct not well visualized; CBD obstruction cannot be excluded and may be obscured by artifact. -Lower extremity venous ultrasound: \-- No evidence of deep venous thrombosis in the lower extremities. -CT abdomen/pelvis (with contrast, per transcript): \-- Small right and left pleural effusions with dependent atelectasis. \-- Cirrhotic liver. \-- Large-volume abdominopelvic ascites. \-- Approximately 2.6 cm right lung pulmonary nodule (exact lobe not clearly specified in transcript). \-- 4.1 cm peripherally enhancing calcified soft-tissue attenuation nodule at the right renal pole. (Additional imaging details are not provided in the transcript.) Plan discussed with: Patient ETIENNE RAMON MD Mar 03, 2025 07:22
[2025-03-03] MEDS: MICAFUNGIN SODIUM 100 MG in SODIUM CHL 0.9% 100 ML IV SCH (08:18)
--- NOTE | 2025-03-03 14:29 | DVHDS2 ---
Summary Date of Admission Feb 17, 2025 at 07:18 Date and Time of Expiration: Mar 03, 2025 11:16 Labs/Diagnostic Data: Laboratory Results Test 03/03/25 05:30 03/03/25 04:41 03/03/25 03:59 03/03/25 03:02 POC Glucose 155 mg/dl (70-106) White Blood Count 31.0 10^3/uL (4.4-10.8) Red Blood Count 2.71 10^6/uL (4.0-5.20) Hemoglobin 8.3 g/dL (12.2-16.2) Hematocrit 26.0 % (36.0-46.0) Mean Corpuscular Volume 95.9 fL (80.0-100.0) Mean Corpuscular Hemoglobin 30.4 pg (28.0-32.0) Mean Corpuscular Hemoglobin Concent 31.8 g/dL (32.0-36.0) Red Cell Distribution Width 24.2 % (11.8-14.3) Platelet Count 151 10^3/uL (140-450) Mean Platelet Volume 10.8 fL (6.9-10.8) Neutrophils (%) (Auto) % (37.0-80.0) Lymphocytes (%) (Auto) % (10.0-50.0) Monocytes (%) (Auto) % (0.0-12.0) Basophils (%) (Auto) % (0.0-2.0) Neutrophils # (Auto) 10 ^3/uL (1.6-8.6) Lymphocytes # (Auto) 10 ^3/uL (0.4-5.4) Monocytes # (Auto) 10 ^3/uL (0-1.3) Differential Total Cells Counted 100.0 (100) Neutrophils % (Manual) 82 (37.0-80.0) Band Neutrophils % (Manual) 9 Lymphocytes % (Manual) 3 (10.0-50.0) Monocytes % (Manual) 5 (0-12) Eosinophils % (Manual) 0 (0-7) Basophils % (Manual) 0 (0.0-2.0) Metamyelocytes % (manual) 0 Myelocytes % (Manual) 1 Promyelocytes % (Manual) 0 Blast Cells % (Manual) 0 Nucleated Red Blood Cells 5.0 % Reactive Lymphocytes 0 Platelet Estimate Adequate Large Platelets Few Anisocytosis (manual) Moderate Target Cells Few Prothrombin Time 45.0 sec (9.3-11.8) Prothrombin Time INR 4.98 (0.9-1.15) Sodium Level 151 mmol/L (136-145) Potassium Level 4.5 mmol/L (3.5-5.1) Chloride Level 110 mmol/L (98-107) Carbon Dioxide Level 13 mmol/L (20-31) Anion Gap 28 (5-15) Blood Urea Nitrogen 84 mg/dL (9-23) Creatinine 2.61 mg/dL (0.550-1.02) Glomerular Filtration Rate Calc 18 mL/min (>90) BUN/Creatinine Ratio 32.2 (10.0-20.0) Serum Glucose 203 mg/dL (74-106) Calcium Level 7.7 mg/dL (8.7-10.4) Phosphorus Level 6.1 mg/dL (2.4-5.1) Magnesium Level 2.4 mg/dL (1.6-2.6) Total Bilirubin 16.8 mg/dL (0.2-1.0) Aspartate Amino Transferase (AST) 364 U/L (13-40) Alanine Aminotransferase (ALT) 173 U/L (7-40) Alkaline Phosphatase 388 U/L (46-116) Total Protein 3.4 g/dL (5.7-8.2) Albumin 2.4 g/dL (3.2-4.8) Blood Gas Specimen Type Arterial Blood Gas Sample Site Right radial Blood Gas Patient Temperature 37.0 Arterial Blood Date Drawn Arterial Blood pH 7.337 (7.350-7.450) Arterial Blood Partial Pressure CO2 22.3 mmHg (32.0-45.0) Arterial Blood Partial Pressure O2 90.8 mmHg (83.0-108.0) Arterial Blood HCO3 11.7 mmol/L (21.0-28.0) Arterial Blood Oxygen Saturation 94.6 % (94.0-98.0) Arterial Blood Base Excess -12.6 mmol/L (-2.0-3.0) Arterial Blood Oxyhemoglobin 93.2 % (94.0-98.0) Arterial Blood Carboxyhemoglobin 0.9 % (0.5-1.5) Arterial Blood Methemoglobin 0.6 % (0.0-1.5) Arterial Blood Deoxyhemoglobin 5.3 % (0.0-5.0) Sebastian Test Modified Blood Gas Total Hemoglobin 9.30 g/dL (12.0-16.0) Blood Gas Liter Flow 3.00 Blood Gas Modality Nasal cannula FiO2 % 32.0 Test 03/03/25 01:36 03/02/25 18:40 03/02/25 17:48 03/02/25 08:30 Blood Gas Critical Value Read Back Yes Blood Gas Notified Whom toña Dykes, coping machine operator Blood Gas Notified Time Blood Gas Notified By jonathan Danielle, assistant plant controller Urine Creatinine 51.16 mg/dL (30.0-125.0) Urine Sodium < 10 mmol/L (40-220) Activated Partial Thromboplast Time 39.2 SEC (24.5-34.5) Lactic Acid Level 4.1 mmol/L (0.4-2.0) Test 03/02/25 03:40 03/01/25 13:20 02/25/25 12:20 02/24/25 02:39 Ammonia 69 umol/L (11-32) Eosinophils (%) (Auto) 0.0 % (0.0-7.0) Eosinophils # (Auto) 0 10 ^3/uL (0-0.8) Basophils # (Auto) 0 10 ^3/uL (0-0.2) Body Fluid Source Peritoneal fluid Body Fluid pH 8.0 Body Fluid WBC (Manual) 192 CUMM (0-200) Body Fluid RBC (Manual) 5074 CUMM (0-2000) Body Fluid Mononuclear Cells 65 % Body Fluid Polymorphonuclear Cells 35 % (0-25) Body Fluid Glucose 172 mg/dL (.) Body Fluid Total Protein 0.9 g/dL (.) Body Fluid Lactate Dehydrogenase 26 IU/L (.) Direct Bilirubin 6.4 mg/dL (<0.3) Free Thyroxine (T4) Calculated 0.73 ng/dL (0.89-1.76) Free Triiodothyronine (T3) pg/mL 1.79 pg/mL (2.3-4.2) Test 02/23/25 02:50 02/20/25 17:35 02/20/25 02:47 02/20/25 00:22 Hemoglobin A1c 4.6 % A1C (<5.7) Triglycerides Level 123 mg/dL (< 150) Cholesterol Level 149 mg/dL (< 200) LDL Cholesterol 100 mg/dL (< 100) HDL Cholesterol 6 mg/dL (40-59) Thyroid Stimulating Hormone (TSH) 0.16 uIU/mL (0.55-4.78) Vitamin D 25-Hydroxy 52.1 ng/mL (30.0-100) Anti-Nuclear Antibody Screen Negative (Negative) Hepatitis A IgM Antibody Negative Hepatitis A Antibody Total Negative (Negative) Hepatitis B Surface Antigen Negative (Negative) Hepatitis B Surface Antibody Negative (Negative) Hepatitis B Core Total Antibody Negative (Negative) Hepatitis B Core IgM Antibody Negative (Negative) Hepatitis C Antibody Negative (Negative) Parathyroid Hormone (Intact) 85.0 pg/mL (18.4-80.1) Test 02/18/25 02:57 02/16/25 23:57 Urine Color Yellow (Yellow) Urine Clarity Clear (Clear) Urine pH 5.0 (5.0-9.0) Urine Specific [place] 1.020 (1.001-1.035) Urine Protein 1+ (Negative) Urine Ketones Negative (Negative) Urine Blood Trace /uL (Negative) Urine Nitrite Negative (Negative) Urine Bilirubin Negative (Negative) Urine Urobilinogen Normal mg/dL (Negative) Urine Leukocyte Esterase Negative /uL (Negative) Urine RBC 3 /hpf (0 - 4) Urine Microscopic WBC 7 /HPF (0-5) Urine Squamous Epithelial Cells Few /hpf (<5) Urine Bacteria Few /hpf (None Seen) Urine Hyaline Casts Few /lpf (0 - 2) Urine Yeast (Budding) Occasional /hpf (None Urine Protein/Creatinine Ratio 0.54 Urine Glucose Normal mg/dL (Normal) Urine Total Protein 87.1 mg/dL (1-14) Lipase 25 U/L (12-53) Other Laboratory Tests 03/03/25 04:41 03/03/25 03:59 Brief Hx & Hospital Course: Mrs. Melvina Santiago is an 79-year-old female with a history of hypertension, hyperlipidemia , recent liver cirrhosis diagnosis who presents with a chief complaint of abdominal pain with distention. Patient family reports patient was recently diagnosed with liver cirrhosis a month ago and has been progressively getting worse, abdominal distention has increased significantly in the past couple of days, reported patient has been on PO Eliquis 2.5 mg BID for liver thrombosis, and has been taking PO Potassium for low potassium levels. States for the past month she has been having diffuse abdominal pain and abdominal distention associated episodes of diarrhea. Denies any chest pain, dyspnea, nausea or vomiting. Patient denies any history of alcohol consumption. Patient admitted for further evaluation and treatment. She is admitted and underwent evaluations by multiple consultants including international exchange coordinator and accounts payable professional as well as prepared foods production team member. Patient noted to be hypotensive with elevated liver function tests as well as kidney failure. Given her primary portal vein thrombosis with liver cirrhosis and now ascites patient underwent paracentesis. Patient did noted to have a spontaneous bacterial peritonitis as well as Enterococcus UTI. Patient has received IV fluids. Patient received IV antibiotics, pressor support, supportive care and treatment for consult and recommendations. Patient improved and downgraded to medical floor however she decompensated again in went into acute respiratory failure with a worsening hepatorenal failure and multiorgan failure with a worsening liver failure/kidney failure. Therefore discussions was done with family members by Dr. Tolbert during this week regarding her overall poor prognosis and she was made a modified DNR yesterday with a chemical code only. Apparently this morning patient condition deteriorated. Patient became bradycardic therefore code blue was called around 11:[address] Zuniga and nurse were at bedside and patient received chemical code per protocol. Per nurse patient's niece/family is at bedside as well. Patient became bradycardic and subsequently and pronounced by prepared foods production team member Dr. Zuniga at 11:16 a.m. I was notified by the nurse regarding patient's around noon time. I have came to the ICU in person in the afternoon and discussed with the nurse as well regarding her . Final Diagnosis/Problems List Portal vein thrombosis, liver cirrhosis with liver failure, acute renal failure with hepatorenal syndrome, ascites status post paracentesis, possible spontaneous bacterial peritonitis, Enterococcus UTI, hypotension with a possible sepsis, possible hypovolemic/septic shock syndrome Discharge Disposition: at [facility] [place] HUERTA MD Mar 03, 2025 14:29
--- NOTE | 2025-03-03 15:29 | RESUS ---
CODE BLUE ASSESSSMENT History of Events History of Events: Chem code at this time, family at bedside, rapid response originally called at 1051, given atropine at 1100, then again at 1110. Lost pulses at 1111. Initial Information Date: Mar 03, 2025 Time: 11:11 Location of Arrest: ICU (Central) Arrest Witnessed: Yes CPR started by whom: Hospital Staff Type of arrest: Cardiac, Adult, Witnessed Spontaneous Respirations: No Pulse Present: No Monitoring: ECG, Pulse Oximetry Crash Cart Opened and Supplies: Yes Airway Ventilation Comments: chem code Circulation Circulation #1: Time: 11:11 Circulation Comment: asystole Circulation #2: Time: 11:13 Circulation Comment: asystole Circulation #3: Time: 11:15 Circulation Comment: asystole Medications & Response Medications and Responses #1: Medication Time: 11:11 ADULT Medications Given ADULT: Epinephrine 1 mg Route of Administration: IV Medications and Responses #2: Medication Time: 11:12 ADULT Medications Given ADULT: 2 Amps Na Bicarb Route of Administration: IV Medications and Responses #3: Medication Time: 11:14 ADULT Medications Given ADULT: Epinephrine 1 mg Route of Administration: IV Nurses Notes [place] Coma Scale Eye Opening: None (1) [place] Coma Scale Verbal: None (1) [place] Coma Scale Motor: None (1) Pupil Reaction: Non Reactive Time Code Ended Time Code Ended: 11:16 Post Arrest Status: Outcome of code: Unsuccessful Patient pronounced by: Dr Zuniga Time patient pronounced: 11:16 Family notified: Yes (at bedside) Attending called: Yes Code Team Present: Dr Zuniga, Dr Almeida-Resident, Dr Bolden-Resident, Alfa FARIA House Sup, Jolene FARIA ICU Resource, Kristy FARIA ICU Charge, Any FARIA Primary, Taina LOG CHIPPER, Angelica FARIA, Alfa Rios RN Mar 03, 2025 15:29
--- NOTE | 2025-03-03 23:49 | DVHPN2 ---
Progress Note - Dictate Date Seen: Mar 03, 2025 (Time of Note:11:11 AM) Medical Necessity Reason Pt with a Central, PICC or Fol: Yes The following are medically ne: Zacarias Catheter Reason for zacarias catheter: Strict I&O Subjective Patient seen and examined at bedside. On supplemental oxygen Overnight events reviewed. vital signs Vital Sign Date Time Temp Pulse Resp B/P (MAP) Pulse Ox O2 Delivery O2 Flow Rate FiO2 03/03/25 11:15 4 03/03/25 11:00 52 44 03/03/25 10:00 Nasal Cannula* 3 32 03/03/25 08:00 96.9 96.9 Total Intake and Output 03/02/25 03/02/25 03/03/25 15:00 23:00 07:00 Intake Total 433.28 ml 419.218 ml 1114.231 ml Output Total 325 ml 175 ml Balance 433.28 ml 94.218 ml 939.231 ml medications Current Medications Medications Dose Ordered Sig/Zahraa Route Start Time Stop Time Status Last Admin Dose Admin Levofloxacin 50 ml @ 50 mls/hr DAILY IV 03/02/25 10:00 UNV Levofloxacin/ Dextrose 100 ml @ 100 mls/hr DAILY IV 03/02/25 10:00 UNV objective Gen.: Patient lying in bed in no apparent distress. On supplemental oxygen. Head: Normocephalic, atraumatic. Eyes: EOMI/PERRLA. Ears: Normal hearing. Normal anatomy. Neck/trachea: Trachea midline, supple. Nose: Normal external anatomy. Mouth: Moist mucous membranes. Chest: Decreased air entry bilaterally. No wheezing or rhonchi. Cardiovascular: Positive S1, positive S2. Regular rate and rhythm. Abdomen: Positive bowel sounds in all 4 quadrants. Soft, non-tender, non- distended. : Deferred. Rectal: Deferred. Skin: Warm, dry. Intact. Extremities: 2+ radial pulses bilaterally. No lower extremity edema. Neuro: Awake, alert, oriented x3. No gross motor or sensory deficits. Cranial nerves II through XII intact. Gait not assessed. laboratory and microbiology Laboratory Tests 03/03/25 04:41 03/03/25 03:59 Test 03/03/25 03:59 Range/Units Serum Glucose 203 H 74-106 mg/dL Assessment/Plan Impression: Pleural effusions Atelectasis Coagulopathy Ascites Events: Remains on supplemental oxygen 2 LPM NC Taper O2 as tolerated Patient was upgraded to ICU due to SVT S/p shock CXR reveals small right apical pneumothorax. ABG reviewed, compensated. Metabolic acidosis with respiratory compensation. Limited chest ultrasound demonstrated no lung sliding in second/third intercostal space. Family declined chest tube placement. Advance directives and goals of care discussed. Start dopamine drip Cardiology recs appreciated. Head of bed elevation Aspiration precautions. On multiple pressors for hemodynamic support Titrate to keep MAP above 65 mmHg/SBP above 90 mmHg. Continue steroids Continue antibiotics Monitor blood pressure. Eliquis PO BID Limited abdominal ultrasound revealed moderate amount of ascites. Patient is s/p paracentesis on 02/25/25 with 4200 ml removed We will monitor for recurrence of ascites Monitor renal function Monitor electrolytes, supplement as necessary Maintain euvolemia Nephrology recs appreciated. GI recommendations appreciated Protonix for GI ppx Continue lactulose Rectal tube in place. Pain control Avoid oversedation Poor prognosis. Note, patient coded. Chemical code. Limited chest ultrasound demonstrated no lung sliding. Family declined chest tube placement. Patient , was pronounced at 11:16 AM. No spontaneous breath sounds. No heart sounds on auscultation. Family at bedside and updated on plan + patient demise. Labs and imaging reviewed. Plan: Supplemental oxygen Titrate to keep O2 sats above 92%. Pressors for hemodynamic support Titrate to keep MAP above 65 mmHg/SBP above 90 mmHg. Monitor blood pressure Continue bronchodilators PRN. Stress dose steroids Continue antibiotics Incentive spirometry Cardiology recs appreciated. Echocardiogram reviewed; EF of 20-25% with severe global hypokinesis, anterior apical and inferior apical akinesis. Protonix BID for GI ppx Diurese to euvolemia Monitor renal function. Monitor electrolytes. Supplement as necessary. Monitor ins and outs. Zacarias for strict ins and outs Monitor hemoglobin Transfuse if less than 7.0 g/dL. GI/DVT prophylaxis. Prognosis: Poor given patient's multiple co-morbidities. Condition: Critical Rest of plan per hospitalist and other consultants. A total of 35 minutes of critical care time was spent reviewing the patient record, examining the patient, making a diagnostic and therapeutic plan, discussing this plan with the medical personnel, following up on diagnostic studies and following the patient for clinical stability excluding any and all procedures. At least 50% of this time was spent in direct, [id number] contact. Thank you, Dr. Heaton, for allowing me to participate in this patient's care. Further recommendations will depend on the patient's clinical course. Please do not hesitate to contact me if you have any questions or concerns. This medical document was created using an electronic medical record system with [employer] system. Although these documentations are being carefully reviewed, there may still be some phonetic and typographical changes. The errors are purely typographical, due to imperfection on the software program, and do not reflect any compromise in the patient's medical care. Dietary Evaluation Review Comments: Nutrition Recommendations: Encourage oral (PO) liquids and feedings as tolerated. Advance diet to 2-gram sodium, high-protein diet if patient accepts oral intake. If patient continues to refuse food: Consider initiating Total Parenteral Nutrition (TPN) for nutritional support. Alternatively, consider placement of a nasogastric (NG) tube for enteral feeding. Expected Outcomes/Goals: Provide adequate nutrition support by mouth, tube feeding or TPN Plan discussed with: Other (RN) Critical Care Time(min): 35 [facility] Mar 03, 2025 23:49
--- NOTE | 2025-03-04 17:44 | DVHPN2 ---
Consult Progress Note Date Seen: Mar 03, 2025 Subjective Patient reports: Feels better (not having heavy diarrhea, on pressors) Objective vital signs Vital Sign Date Time Temp Pulse Resp B/P (MAP) Pulse Ox O2 Delivery O2 Flow Rate FiO2 03/03/25 11:15 4 03/03/25 11:00 52 44 03/03/25 10:00 Nasal Cannula* 3 32 03/03/25 08:00 96.9 96.9 Total Intake and Output 03/03/25 03/03/25 03/04/25 15:00 23:00 07:00 Intake Total 593.605 ml Balance 593.605 ml medications Current Medications Medications Dose Ordered Sig/Zahraa Route Start Time Stop Time Status Last Admin Dose Admin Levofloxacin 50 ml @ 50 mls/hr DAILY IV 03/02/25 10:00 UNV Levofloxacin/ Dextrose 100 ml @ 100 mls/hr DAILY IV 03/02/25 10:00 UNV Physical Exam: General: NAD Neck: Supple. No masses. HEENT: PERRL. Normal lids and conjunctiva. Moist mucous membranes. Oropharynx without lesions, exudates or excessive erythema. Normal appearance of the external aspects of the nose and ears. Heart: Regular rhythm, normal rate. No murmur. No lower extremity edema. Lungs: Normal respiratory effort. Fair air movement. Diminished breath sounds at the right lung base. No wheezes. No crackles mentioned. Abdomen: Soft. Distended with ascites (per history). Non-tender (no tenderness described in transcript). Non-distended statement from default exam is replaced due to documented distension. No masses or abdominal hernia described. Msk: No digital cyanosis. Normal strength and tone in all 4 limbs (no focal deficits described). Skin: Warm and dry, no rashes noted in transcript. Neuro: Alert. No facial droop or slurred speech. Extra-ocular movements intact. Sensation intact to soft touch in all 4 limbs (no deficits described). Psych: Appropriate mood and affect not specifically described; patient is awake and alert and oriented to the extent implied by interaction. 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 \-- Portal vein thrombosis (diagnosed December 2024) \-- Spontaneous bacterial peritonitis (SBP) / concern for secondary bacterial peritonitis after recent jejunal polypectomy \-- Septic shock with mixed hypovolemic/vasodilatory physiology; immunocompromised host (advanced cirrhosis) \-- Hepatorenal failure / GRACE on CKD \-- Hyperammonemia \-- Hypernatremia \-- Hyperkalemia (K 7 on presentation) \-- Anemia \-- Thrombocytopenia and platelet dysfunction (from liver disease and uremia) \-- Enterococcus urinary tract infection \-- Right apical pneumothorax (~30% volume) \-- Small bilateral pleural effusions with bibasilar atelectasis \-- Right lung pulmonary nodule (2.6 cm, per CT) \-- 4.1 cm peripherally enhancing calcified soft-tissue nodule at right renal pole \-- Hypertension \-- Hyperlipidemia \-- Congestive heart failure \-- History of cystectomy \-- Penicillin allergy Assessment: This is a 74 y.o. 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 She presented with weakness, abdominal distension, severe hyperkalemia (K 7), and acute kidney injury (Cr 1.93). She underwent paracentesis with 1.8 L ascitic fluid removed; fluid was consistent with spontaneous bacterial peritonitis and she was started on levofloxacin and metronidazole. She became hypotensive and was escalated from levofloxacin to meropenem. Bilirubin has continued to rise (now total bilirubin 16.8). She is now in decompensated liver failure with large-volume ascites, hyperbilirubinemia, hyperammonemia, portal vein thrombosis, and evidence of hepatorenal failure (BUN 84, Cr 2.81) in the setting of advanced cirrhosis. Recent jejunal intervention raises concern for bacterial translocation and possible secondary bacterial peritonitis in an immunocompromised host. She has Enterococcus UTI and worsening leukocytosis with ongoing vasopressor requirements. Imaging reveals large-volume ascites, heterogeneous liver parenchyma (cirrhosis vs malignancy; MRCP unable to exclude CBD obstruction or malignancy), small bilateral pleural effusions with dependent atelectasis, a right apical pneumothorax (~30%), a right lung pulmonary nodule (2.6 cm), and a 4.1 cm peripherally enhancing calcified soft-tissue nodule at the right renal pole. She remains DNI, with goals of care allowing BiPAP and vasopressors only; overall prognosis is poor. Plan: \-- Presumed SBP / possible secondary bacterial peritonitis post?jejunal procedure in decompensated cirrhosis \-- Continue meropenem. \-- continue micafungin due to worsening leukocytosis and increasing vasopressor needs, with the intention to cover: \-- Secondary bacterial peritonitis related to recent small bowel procedure and possible gut translocation. \-- Spontaneous bacterial peritonitis. \-- Enterococcus urinary tract infection. \-- If the patient further decompensates with new fevers and/or worsening abdominal pain, empirically add linezolid 600 mg PO/IV BID for possible resistant Enterococcus coverage in this immunocompromised host. \-- Continue close hemodynamic monitoring in collaboration with the intensive care team; maintain MAP ? 65 mmHg with vasopressors as needed. \-- Decompensated alcohol-related cirrhosis with portal vein thrombosis, large- volume ascites, hyperbilirubinemia, and concern for malignancy/CBD obstruction \-- Recognize advanced decompensation with total bilirubin 16.8 and heterogeneous liver on MRCP; malignancy and/or common bile duct obstruction cannot be excluded based on available imaging. \-- Continue GI/hepatology-directed management of decompensated cirrhosis and portal hypertension. \-- MRCP findings (large-volume ascites, heterogeneous hepatic signal; limited without post-contrast imaging) and potential biliary obstruction vs malignancy to be followed by GI as clinically appropriate. \-- Hepatorenal failure / GRACE on CKD; hypernatremia and prior hyperkalemia \-- Current labs: Na 151, BUN 84, Cr 2.81; earlier K 7 and Cr 1.93 at presentation. \-- Management of renal failure and associated electrolyte abnormalities per nephrology service. \-- Patient is unlikely to be a good dialysis candidate per treating team; defer to nephrology and [id number] discussions. \-- Shock (mixed hypovolemic/vasodilatory) in advanced cirrhosis \-- Continue vasopressor support under intensive care team guidance, targeting MAP ? 65 mmHg. \-- Consider addition of octreotide and somatostatin analogs to improve splanchnic vasoconstriction in the setting of cirrhosis and portal hypertension, per ICU/GI teams. \-- Maintain stress-dose steroids with hydrocortisone as initiated. \-- Right apical pneumothorax; small pleural effusions and atelectasis; right lung pulmonary nodule \-- Latest chest X-ray: ~30% right apical pneumothorax. \-- CT abdomen/pelvis: small right and left pleural effusions with dependent atelectasis; 2.6 cm right lung pulmonary nodule. \-- Management of pneumothorax, effusions, and pulmonary nodule per primary/glove printer team. \-- Enterococcus urinary tract infection \-- Ensure current broad-spectrum regimen (meropenem plus additional agent per MAR) adequately covers Enterococcus. \-- Escalate to linezolid as above if decompensation or concern for resistant Enterococcus arises. \-- Coagulopathy, anemia, and thrombocytopenia with platelet dysfunction \-- Recognize multifactorial etiology: advanced liver disease, uremia (elevated BUN), and low platelet count from hepatic dysfunction; also post-procedural status. \-- Transfusion and hemostatic management per ICU/primary team and procedural needs. \-- Hypertension, hyperlipidemia, CHF, history of cystectomy \-- Chronic conditions noted; acute management priorities dominated by decompensated cirrhosis, shock, and multi?organ failure. \-- Continue/support chronic disease management as tolerated and as consistent with goals of care. \-- Goals of care \-- Patient is DNR/DNI. \-- Respiratory support limited to BiPAP (no intubation) and circulatory support with vasopressors. \-- Prognosis is described as poor; [id number] discussions are ongoing. Further ID interventions should be aligned with patient/family preferences and overall prognosis. Isolation Precautions: standard. Authorized and Performed by: shannan andres Total critical care time: Approximately 66 minutes Due to a high probability of clinically significant, life threatening deterioration, the patient required my highest level of preparedness to intervene emergently and I personally spent this critical care time directly and personally managing the patient. This critical care time included obtaining a history; examining the patient; pulse oximetry; ordering and review of studies; arranging urgent treatment with development of a management plan; evaluation of patient's response to treatment; frequent reassessment; and, discussions with other providers. This critical care time was performed to assess and manage the high probability of imminent, life-threatening deterioration that could result in multi-organ failure. It was exclusive of separately billable procedures and treating other patients and teaching time. Plan discussed with: Patient Dietary Evaluation Review Comments: Nutrition Recommendations: Encourage oral (PO) liquids and feedings as tolerated. Advance diet to 2-gram sodium, high-protein diet if patient accepts oral intake. If patient continues to refuse food: Consider initiating Total Parenteral Nutrition (TPN) for nutritional support. Alternatively, consider placement of a nasogastric (NG) tube for enteral feeding. Expected Outcomes/Goals: Provide adequate nutrition support by mouth, tube feeding or TPN SHANNAN ANDRES MD Mar 04, 2025 17:43
== END 2025-03-03 14:20 | DRG 871 ==
LOC: ER 22:43 → EDBD 22:43 → OVERFLOW 02-17 07:18 → ICU CENTRL 02-17 14:56 → TELE-CENTR 02-27 05:20 → ICU CENTRL 02-28 10:46
PROVIDERS: ADMIT Internal Medicine; ATTEND Internal Medicine
PROC: 0W9G3ZZ Drainage of Peritoneal Cavity, Percutaneous Approach (ICD-10-PCS; principal; 2025-02-19)
PROC: 02H633Z Insertion of Infusion Device into Right Atrium, Percutaneous Approach (ICD-10-PCS; 2025-02-19)
PROC: B548ZZA Ultrasonography of Superior Vena Cava, Guidance (ICD-10-PCS; 2025-02-19)
PROC: 02HV33Z Insertion of Infusion Device into Superior Vena Cava, Percutaneous Approach (ICD-10-PCS; 2025-02-20)
PROC: B548ZZA Ultrasonography of Superior Vena Cava, Guidance (ICD-10-PCS; 2025-02-20)
PROC: 0W9G3ZZ Drainage of Peritoneal Cavity, Percutaneous Approach (ICD-10-PCS; 2025-02-25)
PROC: 5A2204Z Restoration of Cardiac Rhythm, Single (ICD-10-PCS; 2025-03-01)
PROC: 30233K1 Transfusion of Nonautologous Frozen Plasma into Peripheral Vein, Percutaneous Approach (ICD-10-PCS; 2025-03-02)
PROC: 5A12012 Performance of Cardiac Output, Single, Manual (ICD-10-PCS; 2025-03-03)
DX: A41.9 Sepsis, unspecified organism (principal); E43 Unspecified severe protein-calorie malnutrition; I81 Portal vein thrombosis; K65.2 Spontaneous bacterial peritonitis; K76.7 Hepatorenal syndrome; N17.0 Acute kidney failure with tubular necrosis; I50.23 Acute on chronic systolic (congestive) heart failure; J96.01 Acute respiratory failure with hypoxia; R65.21 Severe sepsis with septic shock; D68.4 Acquired coagulation factor deficiency; R57.9 Shock, unspecified; J91.8 Pleural effusion in other conditions classified elsewhere; Z79.01 Long term (current) use of anticoagulants; D69.6 Thrombocytopenia, unspecified; D69.1 Qualitative platelet defects; N18.4 Chronic kidney disease, stage 4 (severe); I13.0 Hypertensive heart and chronic kidney disease with heart failure and stage 1 through stage 4 chronic kidney disease, or unspecified chronic kidney disease; I82.612 Acute embolism and thrombosis of superficial veins of left upper extremity; N39.0 Urinary tract infection, site not specified; J98.11 Atelectasis; E87.0 Hyperosmolality and hypernatremia; I47.19 Other supraventricular tachycardia; J93.9 Pneumothorax, unspecified; E87.20 Acidosis, unspecified; B95.2 Enterococcus as the cause of diseases classified elsewhere; E78.5 Hyperlipidemia, unspecified; E87.5 Hyperkalemia; I48.91 Unspecified atrial fibrillation; K44.9 Diaphragmatic hernia without obstruction or gangrene; K29.70 Gastritis, unspecified, without bleeding; E87.6 Hypokalemia; K70.31 Alcoholic cirrhosis of liver with ascites; E80.6 Other disorders of bilirubin metabolism; D64.9 Anemia, unspecified; E86.1 Hypovolemia; Z66 Do not resuscitate; Z87.891 Personal history of nicotine dependence; Z68.27 Body mass index [BMI] 27.0-27.9, adult; Z90.49 Acquired absence of other specified parts of digestive tract; Z98.84 Bariatric surgery status; Z88.0 Allergy status to penicillin; Z90.6 Acquired absence of other parts of urinary tract
CPT/HCPCS: 36415; 36556; 36569; 36600; 49083; 71045; 74018; 74176; 74181; 76705; 80048; 80053; 80061; 80074; 80076; 81001; 82140; 82306; 82570; 82805; 82962; 83036; 83605; 83690; 83735; 83970; 83986; 84100; 84132; 84156; 84300; 84439; 84443; 84481; 85007; 85025; 85027; 85610; 85730; 86038; 86704; 86706; 86708; 86803; 86850; 86900; 86901; 87040; 87071; 87081; 87086; 87088; 87186; 87205; 87340; 88341; 89051; 92960; 93005; 93306; 93970; 93971; 94640; 99291; G0378; J0169; J1815; J2185; J2248; J2405; J2470; J3430; J3480; J3490; J7060; P9047